=== PATIENT | male | born 1955 | race Caucasian/White ===

== ENCOUNTER 2016-08-21 11:47 | Inpatient (IN) ==
[2016-08-21] MEDS ORDERED: Ipratropium/Albuterol Neb 3 ML IH ONE (12:05)
[2016-08-21] MEDS ORDERED: methylPREDNISolone 125 MG/2 ML VIAL IVP ONE (12:05)
--- NOTE | 2016-08-21 12:05 | Emergency Department Note ---
Disposition Clinical Impression: Syncope, Obesity, Hypoxemia, Diabetes, COPD (chronic obstructive pulmonary disease), CAD (coronary artery disease), Abnormal EKG, Cardiac defibrillator in situ, HTN (hypertension), HLD (hyperlipidemia), Hypercapnic respiratory failure , Abnormal chest x-ray, Cerebrovascular disease, Elevated d-dimer, Fall, Syncope Disposition: Admitted As Inpatient Referrals: Heron Vincent Jr, MD [Primary Care Provider] - Forms: ED Satisfaction Letter General Adult HPI - General Chief complaint: ED Head Injury Stated complaint: Fall Time Seen by Provider: 08/21/16 11:54 Source: patient, EMS Limitations: no limitations - History of Present Illness HPI Narrative: 60-year-old male who brought in by EMS with concerns for blacking out. Reportedly the patient has had a cough and some shortness of breath over the last 3 days. His friend reports he thinks he has the flu. The patient has a history of COPD, he only wears oxygen at night does not wear oxygen on a regular basis in the day. He is known to be diabetic. There is no history of very high or low blood sugar reported. There is concern for shortness of breath as well as cough as well as syncope. The patient states he was in his house he was walking along a room then passed out that he was able to crawl to the bathroom evidently slipped in the bathroom on the floor all night. His friend came over today to see about taking him to the doctor to get him checked for the flu and found him on the ground. The patient reported he felt generally weak and was unable to get up. There is no history of unilateral weakness or numbness in the arms or legs or slurred speech. The patient describes generalized weakness. There is no history of back pain chest pain or abdominal pain no vomiting did have 1 episode of nonbloody diarrhea. The patient is not known to be anticoagulated. He reports he hit his head on the left side and has a headache. There is no history of convulsion. The patient has a pacer defibrillator and reports it did not go off although he does not recall the events completely. There is no history of fever. No lacerations. No neck pain. No acute paresis. There is no history of leg swelling or pain or coughing up blood or upper or lower extremity pain or coldness or blueness or weakness. On EMS arrival, he had an oxygen saturation of 56%. On arrival to the ED it was 78% on room air. Onset (ago): hour(s) Pain Scale: 0 - Related Data Home Medications Medication Instructions Recorded Confirmed Albuterol Sulfate [Ventolin Hfa] 2 puff IH BID PRN 06/03/16 06/03/16 Aspirin 81 mg PO DAILY 06/03/16 06/03/16 Budesonide/Formoterol 160/4.5 2 puff IH BIDR 06/03/16 06/03/16 [Symbicort 160/4.5] Calcium Carbonate [Calcium] 600 mg PO BID 06/03/16 06/03/16 Carbidopa/Levodopa [Carbidopa-Levo 1 each PO DAILY 06/03/16 06/03/16 25-100 mg Odt] Carvedilol [Coreg] 25 mg PO BID 06/03/16 06/03/16 Enalapril Maleate [Vasotec] 5 mg PO BID 06/03/16 06/03/16 Lovastatin 40 mg PO HS 06/03/16 06/03/16 Allergies Allergy/AdvReac Type Severity Reaction Status Date / Time Hydromorphone [From Dilaudid] AdvReac Hives Verified 06/03/16 08:58 All systems ED: reviewed and negative except as stated. Past Medical History - Past Medical History Medical history: Reports: COPD, coronary artery disease, CVA, diabetes, hyperlipidemia, hypertension Surgical history: Reports: herniorrhaphy, orthopedic, other, AICD Psychiatric history: Reports: depression - Social History Smoking Status: Never smoker Smokeless Tobacco Status: No Alcohol use: Reports: none Drug use: Reports: marijuana Physical Exam - General Limitations: no limitations General appearance: alert, in no apparent distress - Head Head exam: atraumatic, normocephalic, normal inspection, other (Pain left zoroastrianism area without depressed skull fracture negative. Negative hemo-and panel . Negative mckeon sign bilaterally.) - Eye Eye exam: Present: normal appearance, PERRL, EOMI. Absent: scleral icterus, conjunctival injection, miosis, mydriasis - ENT ENT exam: normal exam, normal oropharynx, mucous membranes moist, TM's normal bilaterally, normal external ear exam - Neck Neck exam: Present: normal inspection, full ROM, trachea midline. Absent: tenderness, meningismus - Chest Chest inspection: Present: normal inspection, symmetric chest wall rise. Absent : tenderness - Respiratory Respiratory exam: Present: wheezes, prolonged expiratory phase. Absent: respiratory distress - Cardiovascular Cardiovascular exam: Present: regular rate, normal rhythm, normal heart sounds - Abdominal Exam Abdominal exam: Present: soft, Non-Tender, normal bowel sounds. Absent: tenderness, distention, guarding, rebound, rigidity, trauma, pulsatile mass - Extremities Exam Extremities exam: Present: normal inspection, full ROM, normal capillary refill. Absent: tenderness, pedal edema, joint swelling, calf tenderness - Expanded Lower Extremity Exam Lower leg exam: Absent: Homans' sign Neurovascular/Tendon exam: Present: normal capillary refill. Absent: motor deficit, sensory deficit, tendon deficit, extremity cold to touch, pallor - Back Exam Back exam: Present: normal inspection, full ROM. Absent: tenderness, CVA tenderness (R), CVA tenderness (L), vertebral tenderness - Neurological Exam Neurological exam: Present: alert, oriented X3, CN II-XII intact. Absent: motor sensory deficit - Psychiatric Psychiatric exam: Present: normal affect, normal mood - Skin Skin exam: Present: warm, dry, intact, normal color. Absent: rash, cyanosis, diaphoresis, erythema, pallor, mottled Course Vital Signs Temperature 99.5 F 08/21/16 11:48 Pulse Rate 91 08/21/16 11:48 Respiratory Rate 16 08/21/16 11:48 Blood Pressure 121/75 08/21/16 11:48 O2 Sat by Pulse Oximetry 78 L 08/21/16 11:48 Temperature 99.5 F 08/21/16 11:48 Pulse Rate 70 08/21/16 14:45 Respiratory Rate 14 08/21/16 14:45 Blood Pressure 116/61 08/21/16 14:45 O2 Sat by Pulse Oximetry 100 08/21/16 14:30 Oxygen Delivery Oxygen Delivery Non Rebreather Mask Medical Decision Making - [facility] Narrative Medical decision making narrative: During his stay in emergency department the patient became progressively more confused and poorly responsive. An ABG was drawn which showed significant hypercarbia. The patient was intubated subsequently, lawn technician assisted as well as Dr. Machuca and his resident. The patient was intubated on second attempt with a Glidescope. Patient's chest x-ray demonstrates a lingular infiltrate possibly, he does have an elevated d-dimer, a CTA has been ordered to evaluate further for pulmonary embolus and/or infiltrates. IV access was established and [address] Levophed was initiated secondary to hypotension. RSI was achieved utilizing etomidate and rocuronium. Diprivan was also ordered. Levaquin was also ordered blood cultures were sent. EKG showed changes similar to previous EKG LBBB. I did review the case with the family and answered their questions to their satisfaction. The patient is being admitted to the ICU, the ICU attending was in the emergency department and did come to the bedside and has accepted the patient to his care. A central line is being placed by Dr. Morales. The patient's CT scan shows no acute disease however an MRI may be beneficial based on radiologist's comments recommendations. The patient does not evidence any major trauma. - Lab Data Lab results reviewed: Yes I reviewed the patient's lab results. Result diagrams: 08/21/16 12:49 08/21/16 12:49 Lab Results 08/21/16 08/21/16 08/21/16 Range/Units 12:49 12:49 12:49 WBC 8.1 (4.3-11.1) K/mcL RBC 4.16 L (4.19-5.50) M/mcL Hgb 12.7 L (12.9-16.9) g/dL Hct 40.6 (37.5-50.1) % MCV 97.6 (83.0-100.0) fL MCH 30.5 (28.0-33.3) pg MCHC 31.3 L (31.6-35.5) g/dL RDW 17.1 H (11.5-14.5) % Plt Count 160 (140-400) K/mcL MPV 10.8 (9.4-12.4) fL Immature Gran % 0.7 (0-4) % Seg Neutrophils % 69.9 % Lymphocytes % 20.6 % Monocytes % 8.6 % Eosinophils % 0.0 % Basophils % 0.2 % Neutrophils # 5.7 (1.6-8.9) K/mcL Lymphocytes # 1.7 (0.6-4.6) K/mcL Monocytes # 0.7 (0.0-1.3) K/mcL Eosinophils # 0.0 (0.0-0.6) K/mcL Basophils # 0.0 (0.0-0.2) K/mcL Nucleated RBCs/100 WBC 0.2 H (0) /100 WBC Platelet Estimate Normal (Normal) Immature Plt Fraction 5.3 (1.1-6.1) % PT 13.6 H (9.4-12.1) Seconds INR 1.3 APTT 31.6 (26.0-36.0) Seconds D-Dimer 964 H (0-500) ng/mLFEU ABG pH (7.32-7.45) pH Units ABG pCO2 (35-45) mmHg ABG pO2 (85-104) mmHg ABG HCO3 (21-27) mEQ/L ABG Total CO2 (20-26) mEq/L ABG O2 Saturation (95-98) % ABG Base Excess (-2.0 to 3.0) mEq/L Blood Gas Modality Inspired O2 % Sodium 139 (136-145) mEq/L Potassium 4.8 H (3.5-4.5) mEq/L Chloride 98 (98-109) mEq/L Carbon Dioxide 30 H (19-29) mEq/L BUN 20 (8-26) mg/dL Creatinine 1.00 (0.72-1.25) mg/dL Est GFR ( Amer) > 60 (> 60) Est GFR (Non-Af Amer) > 60 (> 60) BUN/Creatinine Ratio 20 (6-26) Glucose 132 H (70-99) mg/dL POC Glucose (58-89) Calculated Osmolality 292 (280-300) Lactic Acid (0.5-2.2) mmol/L Calcium 8.7 (8.6-10.8) mg/dL Total Bilirubin 0.8 (0.2-1.2) mg/dL Direct Bilirubin 0.4 (0.0-0.5) mg/dL Indirect Bilirubin 0.4 (0.0-1.2) mg/dL AST 23 (5-34) Units/L ALT 18 (0-55) Units/L Alkaline Phosphatase 64 (38-126) Units/L Creatine Kinase 295 H (30-200) Units/L Troponin I (0-0.03) ng/mL C-Reactive Protein 103 H (Less than 5) mg/L B-Natriuretic Peptide (0-100) pg/mL Serum Total Protein 7.7 (6.0-8.3) g/dL Albumin 3.4 L (3.5-5.0) g/dL Globulin 4.3 H (2.4-3.5) g/dL Albumin/Globulin Ratio 0.8 L (1.1-2.2) 08/21/16 08/21/16 08/21/16 Range/Units 12:49 12:49 12:49 WBC (4.3-11.1) K/mcL RBC (4.19-5.50) M/mcL Hgb (12.9-16.9) g/dL Hct (37.5-50.1) % MCV (83.0-100.0) fL MCH (28.0-33.3) pg MCHC (31.6-35.5) g/dL RDW (11.5-14.5) % Plt Count (140-400) K/mcL MPV (9.4-12.4) fL Immature Gran % (0-4) % Seg Neutrophils % % Lymphocytes % % Monocytes % % Eosinophils % % Basophils % % Neutrophils # (1.6-8.9) K/mcL Lymphocytes # (0.6-4.6) K/mcL Monocytes # (0.0-1.3) K/mcL Eosinophils # (0.0-0.6) K/mcL Basophils # (0.0-0.2) K/mcL Nucleated RBCs/100 WBC (0) /100 WBC Platelet Estimate (Normal) Immature Plt Fraction (1.1-6.1) % PT (9.4-12.1) Seconds INR APTT (26.0-36.0) Seconds D-Dimer (0-500) ng/mLFEU ABG pH (7.32-7.45) pH Units ABG pCO2 (35-45) mmHg ABG pO2 (85-104) mmHg ABG HCO3 (21-27) mEQ/L ABG Total CO2 (20-26) mEq/L ABG O2 Saturation (95-98) % ABG Base Excess (-2.0 to 3.0) mEq/L Blood Gas Modality Inspired O2 % Sodium (136-145) mEq/L Potassium (3.5-4.5) mEq/L Chloride (98-109) mEq/L Carbon Dioxide (19-29) mEq/L BUN (8-26) mg/dL Creatinine (0.72-1.25) mg/dL Est GFR ( Amer) (> 60) Est GFR (Non-Af Amer) (> 60) BUN/Creatinine Ratio (6-26) Glucose (70-99) mg/dL POC Glucose (58-89) Calculated Osmolality (280-300) Lactic Acid 0.9 (0.5-2.2) mmol/L Calcium (8.6-10.8) mg/dL Total Bilirubin (0.2-1.2) mg/dL Direct Bilirubin (0.0-0.5) mg/dL Indirect Bilirubin (0.0-1.2) mg/dL AST (5-34) Units/L ALT (0-55) Units/L Alkaline Phosphatase (38-126) Units/L Creatine Kinase (30-200) Units/L Troponin I 0.03 (0-0.03) ng/mL C-Reactive Protein (Less than 5) mg/L B-Natriuretic Peptide 308 H (0-100) pg/mL Serum Total Protein (6.0-8.3) g/dL Albumin (3.5-5.0) g/dL Globulin (2.4-3.5) g/dL Albumin/Globulin Ratio (1.1-2.2) 08/21/16 08/21/16 Range/Units 13:59 14:16 WBC (4.3-11.1) K/mcL RBC (4.19-5.50) M/mcL Hgb (12.9-16.9) g/dL Hct (37.5-50.1) % MCV (83.0-100.0) fL MCH (28.0-33.3) pg MCHC (31.6-35.5) g/dL RDW (11.5-14.5) % Plt Count (140-400) K/mcL MPV (9.4-12.4) fL Immature Gran % (0-4) % Seg Neutrophils % % Lymphocytes % % Monocytes % % Eosinophils % % Basophils % % Neutrophils # (1.6-8.9) K/mcL Lymphocytes # (0.6-4.6) K/mcL Monocytes # (0.0-1.3) K/mcL Eosinophils # (0.0-0.6) K/mcL Basophils # (0.0-0.2) K/mcL Nucleated RBCs/100 WBC (0) /100 WBC Platelet Estimate (Normal) Immature Plt Fraction (1.1-6.1) % PT (9.4-12.1) Seconds INR APTT (26.0-36.0) Seconds D-Dimer (0-500) ng/mLFEU ABG pH 7.09 L* (7.32-7.45) pH Units ABG pCO2 136 H* (35-45) mmHg ABG pO2 164 H (85-104) mmHg ABG HCO3 41.3 H (21-27) mEQ/L ABG Total CO2 45.5 H (20-26) mEq/L ABG O2 Saturation 99 H (95-98) % ABG Base Excess 6.9 H (-2.0 to 3.0) mEq/L Blood Gas Modality NRB Inspired O2 100 % Sodium (136-145) mEq/L Potassium (3.5-4.5) mEq/L Chloride (98-109) mEq/L Carbon Dioxide (19-29) mEq/L BUN (8-26) mg/dL Creatinine (0.72-1.25) mg/dL Est GFR ( Amer) (> 60) Est GFR (Non-Af Amer) (> 60) BUN/Creatinine Ratio (6-26) Glucose (70-99) mg/dL POC Glucose 144 H (58-89) Calculated Osmolality (280-300) Lactic Acid (0.5-2.2) mmol/L Calcium (8.6-10.8) mg/dL Total Bilirubin (0.2-1.2) mg/dL Direct Bilirubin (0.0-0.5) mg/dL Indirect Bilirubin (0.0-1.2) mg/dL AST (5-34) Units/L ALT (0-55) Units/L Alkaline Phosphatase (38-126) Units/L Creatine Kinase (30-200) Units/L Troponin I (0-0.03) ng/mL C-Reactive Protein (Less than 5) mg/L B-Natriuretic Peptide (0-100) pg/mL Serum Total Protein (6.0-8.3) g/dL Albumin (3.5-5.0) g/dL Globulin (2.4-3.5) g/dL Albumin/Globulin Ratio (1.1-2.2) - Radiology Data Radiology results reviewed: Yes I reviewed the patient's radiology results. Critical Care Time Critical Care Time: Yes Total Critical Care Time: 42 Attestation: 10 minutes initial bedside evaluation 10 minutes documenting the medical record 6 minutes secondary evaluation 6 minutes 3rd evaluation 5 minutes reviewing with the family 5 minutes discussing with the hospitalist and control panel builder and arranging for admission to the ICU.
[2016-08-21] MEDS ORDERED: *HR* Rocuronium Bromide 100 MG/10 ML VIAL IVC ONE (12:30)
[2016-08-21 13:01] LABS: Basophils % 0.2 %; Hematocrit 40.6 % (37.5-50.1); Hemoglobin 12.7 g/dL (12.9-16.9); Immature Granulocytes % 0.7 % (0-4); Immature Platelets 5.3 % (1.1-6.1); Lymphocytes # 1.7 K/mcL (0.6-4.6); Lymphocytes % 20.6 %; Mean Corpuscular HGB Conc 31.3 g/dL (31.6-35.5); Mean Corpuscular Hemoglobin 30.5 pg (28.0-33.3); Mean Corpuscular Volume 97.6 fL (83.0-100.0); Mean Platelet Volume 10.8 fL (9.4-12.4); Monocytes # 0.7 K/mcL (0.0-1.3); Monocytes % 8.6 %; Neutrophils # 5.7 K/mcL (1.6-8.9); Nucleated Red Blood Cells 0.2 /100 WBC (0); Platelet Count 160 K/mcL (140-400); Red Blood Count 4.16 M/mcL (4.19-5.50); Red Cell Distribution Width 17.1 % (11.5-14.5); Segmented Neutrophils % 69.9 %
[2016-08-21 13:05] LABS: INR 1.3; Prothrombin Time 13.6 Seconds (9.4-12.1)
[2016-08-21 13:08] LABS: Activated Partial Thrombo Time 31.6 Seconds (26.0-36.0)
[2016-08-21 13:17] LABS: Alanine Aminotransferase 18 Units/L (0-55); Albumin 3.4 g/dL (3.5-5.0); Albumin/Globulin Ratio 0.8 (1.1-2.2); Alkaline Phosphatase 64 Units/L (38-126); Aspartate Amino Transferase 23 Units/L (5-34); BUN/Creatinine Ratio 20 (6-26); Bilirubin,Direct 0.4 mg/dL (0.0-0.5); Bilirubin,Indirect 0.4 mg/dL (0.0-1.2); Bilirubin,Total 0.8 mg/dL (0.2-1.2); Blood Urea Nitrogen 20 mg/dL (8-26); Calcium 8.7 mg/dL (8.6-10.8); Carbon Dioxide 30 mEq/L (19-29); Chloride 98 mEq/L (98-109); Creatine Kinase 295 Units/L (30-200); Globulin 4.3 g/dL (2.4-3.5); Glucose 132 mg/dL (70-99); Osmolality,Calculated 292 (280-300); Potassium 4.8 mEq/L (3.5-4.5); Sodium 139 mEq/L (136-145); Total Protein 7.7 g/dL (6.0-8.3); eGFR For African Americans > 60 (> 60); eGFR For Non-African Americans > 60 (> 60)
[2016-08-21 13:21] LABS: Platelet Estimate Normal (Normal)
[2016-08-21 13:38] LABS: C-Reactive Protein 103 mg/L (Less than 5)
[2016-08-21] MEDS ORDERED: 0.9 % Sodium Chloride 1,000 ML ONE ×2 (13:57→14:21)
[2016-08-21] MEDS ORDERED: Levofloxacin 750 MG/150 ML 750 MG/150 ML BAG IVPB ONE (14:05)
[2016-08-21] MEDS ORDERED: Norepinephrine 4 MG in D5% in Water 250 ML IVC SCH (14:15)
[2016-08-21] MEDS ORDERED: *HR* Etomidate 20 MG/10 ML AMPUL IVP ONE (14:15)
[2016-08-21] MEDS ORDERED: *HR* Rocuronium Bromide 50 MG/5 ML VIAL IVP ONE (14:16)
[2016-08-21 14:26] LABS: ABG Base Excess 6.9 mEq/L (-2.0 to 3.0); ABG HCO3 41.3 mEQ/L (21-27); ABG Oxygen Saturation 99 % (95-98); ABG PO2 164 mmHg (85-104); ABG TCO2 45.5 mEq/L (20-26)
[2016-08-21 14:28] LABS: ABG PCO2 136 mmHg (35-45); ABG PH 7.09 pH Units (7.32-7.45)
[2016-08-21 14:30] LABS: Blood Gas FiO2 100 %
[2016-08-21] MEDS ORDERED: *HR* Norepinephrine 4 MG/4 ML VIAL IVC ONE (14:36)
[2016-08-21] MEDS: Propofol 500 MG/50 ML INFUS..BTL IVC SCH ×2 (14:43→17:28)
[2016-08-21 15:27] LABS: Bilirubin,Urine Small (Negative); Blood,Urine Negative (Negative); Clarity,Urine Clear (Clear); Color,Urine Dark Yellow (Yellow); Glucose,Urine (UA) Normal (Normal); Ketones,Urine Negative (Negative); Leukocyte Esterase,Urine Negative (Negative); Nitrite,Urine Negative (Negative); Protein,Urine 100 mg/dL (Neg-Trace); Specific Gravity,Urine 1.029 (1.010-1.025); Urobilinogen,Urine Normal (Normal)
[2016-08-21 15:30] LABS: Bacteria,Urine None Seen per hpf (None-Few); Squamous Epithelial Cell,Urine Many per lpf (None-Few)
[2016-08-21 15:47] LABS: Hyaline Casts,Urine None Seen per lpf (None-Few)
[2016-08-21 15:48] LABS: Granular Casts,Urine Few per lpf (None Seen)
--- NOTE | 2016-08-21 16:50 | Emergency Department Note ---
Disposition Clinical Impression: Obesity, Hypoxemia, Diabetes, COPD (chronic obstructive pulmonary disease), CAD (coronary artery disease), Abnormal EKG, Cardiac defibrillator in situ, HTN (hypertension), HLD (hyperlipidemia), Hypercapnic respiratory failure, Abnormal chest x-ray, Cerebrovascular disease, Elevated d-dimer Syncope Qualifiers: Syncope type: unspecified Qualified Code(s): R55 - Syncope and collapse Fall Qualifiers: Encounter type: initial encounter Qualified Code(s): W19.XXXA - Unspecified fall, initial encounter Disposition: Admitted As Inpatient General Adult HPI - General Chief complaint: ED Head Injury Stated complaint: Fall Time Seen by Provider: 08/21/16 11:54 Source: patient, EMS Limitations: no limitations - History of Present Illness Pain Scale: 0 - Related Data Home Medications Medication Instructions Recorded Confirmed Albuterol Sulfate [Ventolin Hfa] 2 puff IH BID PRN 06/03/16 08/21/16 Aspirin 81 mg PO DAILY 06/03/16 08/21/16 Budesonide/Formoterol 160/4.5 2 puff IH BIDR 06/03/16 08/21/16 [Symbicort 160/4.5] Calcium Carbonate [Calcium] 600 mg PO BID 06/03/16 08/21/16 Carbidopa/Levodopa [Carbidopa-Levo 1 tab PO DAILY 06/03/16 08/21/16 25-100 mg Odt] Carvedilol [Coreg] 25 mg PO BID 06/03/16 08/21/16 Enalapril Maleate [Vasotec] 5 mg PO BID 06/03/16 08/21/16 Lovastatin 40 mg PO HS 06/03/16 08/21/16 BuPROPion XL (24 HR) [Wellbutrin 150 mg PO QPM 08/21/16 08/21/16 XL] Bupropion HCl [Bupropion HCl Sr] 200 mg PO QAM 08/21/16 08/21/16 Testosterone [Androgel] 50 mg TD DAILY 08/21/16 08/21/16 Allergies Allergy/AdvReac Type Severity Reaction Status Date / Time Hydromorphone [From Dilaudid] Allergy Hives Verified 08/21/16 15:17 Past Medical History - Past Medical History Medical history: Reports: COPD, coronary artery disease, CVA, diabetes, hyperlipidemia, hypertension Surgical history: Reports: herniorrhaphy, orthopedic, other, AICD Psychiatric history: Reports: depression - Social History Smoking Status: Never smoker Smokeless Tobacco Status: No Alcohol use: Reports: none Drug use: Reports: marijuana Physical Exam - General Limitations: no limitations General appearance: alert, in no apparent distress Course Vital Signs Temperature 99.5 F 08/21/16 11:48 Pulse Rate 91 08/21/16 11:48 Respiratory Rate 16 08/21/16 11:48 Blood Pressure 121/75 08/21/16 11:48 O2 Sat by Pulse Oximetry 78 L 08/21/16 11:48 Temperature 101.5 F H 08/21/16 20:00 Pulse Rate 85 08/21/16 22:00 Respiratory Rate 14 08/21/16 22:00 Blood Pressure 101/54 08/21/16 22:00 O2 Sat by Pulse Oximetry 93 L 08/21/16 22:00 Oxygen Delivery Oxygen Delivery Ventilator Procedures - Central Line Placement Right IJ Central Line Inserted*: Yes Central Line Insertion: emergent Procedural Pause: verify patient name and date of , timeout performed per policy, assemble equipment and verify supplies, perform hand hygiene Patient Placed on Monitor/Pulse Ox: Yes During the Procedure: clinician is wearing sterile gloves, cap, mask,& gown during insertion, sterile field and sterile technique are maintained, patient's face is covered with drape or mask and wearing a cap, everyone in room is wearing a mask Central Line Prep: Chlorhexidine scrub Prep the Procedure Site: apply chloraprep to the skin using a back and forth scrubbing motion, apply chloraprep for 30 seconds (upper body), 1-2 min ( femoral sites), allow prep to dry, drape the patient with a full body drape Ultrasound Used for Placement: Yes Central Line Lumen Inserted: triple Post Procedure: sutured in place, good blood return, all ports aspirated, flushed, capped, sterile dressing applied, guide wire removed and visualized Post Procedure X-Ray: tip of catheter in good position, no pneumothorax seen Patient Tolerated Procedure: well Complications: none Name of Clinician Inserting Central Line: Ketan Morales D.O. Date: 08/21/16 Time: 16:20 Medical Decision Making - Lab Data Result diagrams: 08/21/16 12:49 08/21/16 12:49 Lab Results 08/21/16 08/21/16 08/21/16 Range/Units 12:49 12:49 12:49 WBC 8.1 (4.3-11.1) K/mcL RBC 4.16 L (4.19-5.50) M/mcL Hgb 12.7 L (12.9-16.9) g/dL Hct 40.6 (37.5-50.1) % MCV 97.6 (83.0-100.0) fL MCH 30.5 (28.0-33.3) pg MCHC 31.3 L (31.6-35.5) g/dL RDW 17.1 H (11.5-14.5) % Plt Count 160 (140-400) K/mcL MPV 10.8 (9.4-12.4) fL Immature Gran % 0.7 (0-4) % Seg Neutrophils % 69.9 % Lymphocytes % 20.6 % Monocytes % 8.6 % Eosinophils % 0.0 % Basophils % 0.2 % Neutrophils # 5.7 (1.6-8.9) K/mcL Lymphocytes # 1.7 (0.6-4.6) K/mcL Monocytes # 0.7 (0.0-1.3) K/mcL Eosinophils # 0.0 (0.0-0.6) K/mcL Basophils # 0.0 (0.0-0.2) K/mcL Nucleated RBCs/100 WBC 0.2 H (0) /100 WBC Platelet Estimate Normal (Normal) Immature Plt Fraction 5.3 (1.1-6.1) % PT 13.6 H (9.4-12.1) Seconds INR 1.3 APTT 31.6 (26.0-36.0) Seconds D-Dimer 964 H (0-500) ng/mLFEU ABG pH (7.32-7.45) pH Units ABG pCO2 (35-45) mmHg ABG pO2 (85-104) mmHg ABG HCO3 (21-27) mEQ/L ABG Total CO2 (20-26) mEq/L ABG O2 Saturation (95-98) % ABG Base Excess (-2.0 to 3.0) mEq/L Respiration Rate Blood Gas Modality Inspired O2 % Tidal Volume cc PEEP cm H2O Sodium 139 (136-145) mEq/L Potassium 4.8 H (3.5-4.5) mEq/L Chloride 98 (98-109) mEq/L Carbon Dioxide 30 H (19-29) mEq/L BUN 20 (8-26) mg/dL Creatinine 1.00 (0.72-1.25) mg/dL Est GFR ( Amer) > 60 (> 60) Est GFR (Non-Af Amer) > 60 (> 60) BUN/Creatinine Ratio 20 (6-26) Glucose 132 H (70-99) mg/dL POC Glucose (58-89) Calculated Osmolality 292 (280-300) Lactic Acid (0.5-2.2) mmol/L Calcium 8.7 (8.6-10.8) mg/dL Total Bilirubin 0.8 (0.2-1.2) mg/dL Direct Bilirubin 0.4 (0.0-0.5) mg/dL Indirect Bilirubin 0.4 (0.0-1.2) mg/dL AST 23 (5-34) Units/L ALT 18 (0-55) Units/L Alkaline Phosphatase 64 (38-126) Units/L Creatine Kinase 295 H (30-200) Units/L Troponin I (0-0.03) ng/mL C-Reactive Protein 103 H (Less than 5) mg/L B-Natriuretic Peptide (0-100) pg/mL Serum Total Protein 7.7 (6.0-8.3) g/dL Albumin 3.4 L (3.5-5.0) g/dL Globulin 4.3 H (2.4-3.5) g/dL Albumin/Globulin Ratio 0.8 L (1.1-2.2) Urine Color (Yellow) Urine Clarity (Clear) Urine pH (5.0-8.0) pH Units Ur Specific [place] (1.010-1.025) Urine Protein (Neg-Trace) mg/dL Urine Glucose (UA) (Normal) mg/dL Urine Ketones (Negative) mg/dL Urine Blood (Negative) Urine Nitrite (Negative) Urine Bilirubin (Negative) Urine Urobilinogen (Normal) mg/dL Ur Leukocyte Esterase (Negative) Urine Microscopic RBC (0-3) per hpf Urine Microscopic WBC (0-3) per hpf Ur Squamous Epith Cells (None-Few) per lpf Urine Bacteria (None-Few) per hpf Hyaline Casts (None-Few) per lpf Granular Casts (None Seen) per lpf Ur Culture Indicated? (NO) 08/21/16 08/21/16 08/21/16 Range/Units 12:49 12:49 12:49 WBC (4.3-11.1) K/mcL RBC (4.19-5.50) M/mcL Hgb (12.9-16.9) g/dL Hct (37.5-50.1) % MCV (83.0-100.0) fL MCH (28.0-33.3) pg MCHC (31.6-35.5) g/dL RDW (11.5-14.5) % Plt Count (140-400) K/mcL MPV (9.4-12.4) fL Immature Gran % (0-4) % Seg Neutrophils % % Lymphocytes % % Monocytes % % Eosinophils % % Basophils % % Neutrophils # (1.6-8.9) K/mcL Lymphocytes # (0.6-4.6) K/mcL Monocytes # (0.0-1.3) K/mcL Eosinophils # (0.0-0.6) K/mcL Basophils # (0.0-0.2) K/mcL Nucleated RBCs/100 WBC (0) /100 WBC Platelet Estimate (Normal) Immature Plt Fraction (1.1-6.1) % PT (9.4-12.1) Seconds INR APTT (26.0-36.0) Seconds D-Dimer (0-500) ng/mLFEU ABG pH (7.32-7.45) pH Units ABG pCO2 (35-45) mmHg ABG pO2 (85-104) mmHg ABG HCO3 (21-27) mEQ/L ABG Total CO2 (20-26) mEq/L ABG O2 Saturation (95-98) % ABG Base Excess (-2.0 to 3.0) mEq/L Respiration Rate Blood Gas Modality Inspired O2 % Tidal Volume cc PEEP cm H2O Sodium (136-145) mEq/L Potassium (3.5-4.5) mEq/L Chloride (98-109) mEq/L Carbon Dioxide (19-29) mEq/L BUN (8-26) mg/dL Creatinine (0.72-1.25) mg/dL Est GFR ( Amer) (> 60) Est GFR (Non-Af Amer) (> 60) BUN/Creatinine Ratio (6-26) Glucose (70-99) mg/dL POC Glucose (58-89) Calculated Osmolality (280-300) Lactic Acid 0.9 (0.5-2.2) mmol/L Calcium (8.6-10.8) mg/dL Total Bilirubin (0.2-1.2) mg/dL Direct Bilirubin (0.0-0.5) mg/dL Indirect Bilirubin (0.0-1.2) mg/dL AST (5-34) Units/L ALT (0-55) Units/L Alkaline Phosphatase (38-126) Units/L Creatine Kinase (30-200) Units/L Troponin I 0.03 (0-0.03) ng/mL C-Reactive Protein (Less than 5) mg/L B-Natriuretic Peptide 308 H (0-100) pg/mL Serum Total Protein (6.0-8.3) g/dL Albumin (3.5-5.0) g/dL Globulin (2.4-3.5) g/dL Albumin/Globulin Ratio (1.1-2.2) Urine Color (Yellow) Urine Clarity (Clear) Urine pH (5.0-8.0) pH Units Ur Specific [place] (1.010-1.025) Urine Protein (Neg-Trace) mg/dL Urine Glucose (UA) (Normal) mg/dL Urine Ketones (Negative) mg/dL Urine Blood (Negative) Urine Nitrite (Negative) Urine Bilirubin (Negative) Urine Urobilinogen (Normal) mg/dL Ur Leukocyte Esterase (Negative) Urine Microscopic RBC (0-3) per hpf Urine Microscopic WBC (0-3) per hpf Ur Squamous Epith Cells (None-Few) per lpf Urine Bacteria (None-Few) per hpf Hyaline Casts (None-Few) per lpf Granular Casts (None Seen) per lpf Ur Culture Indicated? (NO) 08/21/16 08/21/16 08/21/16 Range/Units 13:59 14:16 15:20 WBC (4.3-11.1) K/mcL RBC (4.19-5.50) M/mcL Hgb (12.9-16.9) g/dL Hct (37.5-50.1) % MCV (83.0-100.0) fL MCH (28.0-33.3) pg MCHC (31.6-35.5) g/dL RDW (11.5-14.5) % Plt Count (140-400) K/mcL MPV (9.4-12.4) fL Immature Gran % (0-4) % Seg Neutrophils % % Lymphocytes % % Monocytes % % Eosinophils % % Basophils % % Neutrophils # (1.6-8.9) K/mcL Lymphocytes # (0.6-4.6) K/mcL Monocytes # (0.0-1.3) K/mcL Eosinophils # (0.0-0.6) K/mcL Basophils # (0.0-0.2) K/mcL Nucleated RBCs/100 WBC (0) /100 WBC Platelet Estimate (Normal) Immature Plt Fraction (1.1-6.1) % PT (9.4-12.1) Seconds INR APTT (26.0-36.0) Seconds D-Dimer (0-500) ng/mLFEU ABG pH 7.09 L* (7.32-7.45) pH Units ABG pCO2 136 H* (35-45) mmHg ABG pO2 164 H (85-104) mmHg ABG HCO3 41.3 H (21-27) mEQ/L ABG Total CO2 45.5 H (20-26) mEq/L ABG O2 Saturation 99 H (95-98) % ABG Base Excess 6.9 H (-2.0 to 3.0) mEq/L Respiration Rate Blood Gas Modality NRB Inspired O2 100 % Tidal Volume cc PEEP cm H2O Sodium (136-145) mEq/L Potassium (3.5-4.5) mEq/L Chloride (98-109) mEq/L Carbon Dioxide (19-29) mEq/L BUN (8-26) mg/dL Creatinine (0.72-1.25) mg/dL Est GFR ( Amer) (> 60) Est GFR (Non-Af Amer) (> 60) BUN/Creatinine Ratio (6-26) Glucose (70-99) mg/dL POC Glucose 144 H (58-89) Calculated Osmolality (280-300) Lactic Acid (0.5-2.2) mmol/L Calcium (8.6-10.8) mg/dL Total Bilirubin (0.2-1.2) mg/dL Direct Bilirubin (0.0-0.5) mg/dL Indirect Bilirubin (0.0-1.2) mg/dL AST (5-34) Units/L ALT (0-55) Units/L Alkaline Phosphatase (38-126) Units/L Creatine Kinase (30-200) Units/L Troponin I (0-0.03) ng/mL C-Reactive Protein (Less than 5) mg/L B-Natriuretic Peptide (0-100) pg/mL Serum Total Protein (6.0-8.3) g/dL Albumin (3.5-5.0) g/dL Globulin (2.4-3.5) g/dL Albumin/Globulin Ratio (1.1-2.2) Urine Color Dark Yellow (Yellow) Urine Clarity Clear (Clear) Urine pH 6.0 (5.0-8.0) pH Units Ur Specific [place] 1.029 H (1.010-1.025) Urine Protein 100 H (Neg-Trace) mg/dL Urine Glucose (UA) Normal (Normal) mg/dL Urine Ketones Negative (Negative) mg/dL Urine Blood Negative (Negative) Urine Nitrite Negative (Negative) Urine Bilirubin Small H (Negative) Urine Urobilinogen Normal (Normal) mg/dL Ur Leukocyte Esterase Negative (Negative) Urine Microscopic RBC 3-5 H (0-3) per hpf Urine Microscopic WBC 3-5 H (0-3) per hpf Ur Squamous Epith Cells Many H (None-Few) per lpf Urine Bacteria None Seen (None-Few) per hpf Hyaline Casts None Seen (None-Few) per lpf Granular Casts Few H (None Seen) per lpf Ur Culture Indicated? NO (NO) 08/21/16 08/21/16 Range/Units 18:26 18:38 WBC (4.3-11.1) K/mcL RBC (4.19-5.50) M/mcL Hgb (12.9-16.9) g/dL Hct (37.5-50.1) % MCV (83.0-100.0) fL MCH (28.0-33.3) pg MCHC (31.6-35.5) g/dL RDW (11.5-14.5) % Plt Count (140-400) K/mcL MPV (9.4-12.4) fL Immature Gran % (0-4) % Seg Neutrophils % % Lymphocytes % % Monocytes % % Eosinophils % % Basophils % % Neutrophils # (1.6-8.9) K/mcL Lymphocytes # (0.6-4.6) K/mcL Monocytes # (0.0-1.3) K/mcL Eosinophils # (0.0-0.6) K/mcL Basophils # (0.0-0.2) K/mcL Nucleated RBCs/100 WBC (0) /100 WBC Platelet Estimate (Normal) Immature Plt Fraction (1.1-6.1) % PT (9.4-12.1) Seconds INR APTT (26.0-36.0) Seconds D-Dimer (0-500) ng/mLFEU ABG pH 7.20 L* (7.32-7.45) pH Units ABG pCO2 90 H* D (35-45) mmHg ABG pO2 199 H (85-104) mmHg ABG HCO3 35.2 H (21-27) mEQ/L ABG Total CO2 38.0 H (20-26) mEq/L ABG O2 Saturation 100 H (95-98) % ABG Base Excess 4.3 H (-2.0 to 3.0) mEq/L Respiration Rate 14 Blood Gas Modality ASSIST CONTROL Inspired O2 80 % Tidal Volume 500 cc PEEP 5 cm H2O Sodium (136-145) mEq/L Potassium (3.5-4.5) mEq/L Chloride (98-109) mEq/L Carbon Dioxide (19-29) mEq/L BUN (8-26) mg/dL Creatinine (0.72-1.25) mg/dL Est GFR ( Amer) (> 60) Est GFR (Non-Af Amer) (> 60) BUN/Creatinine Ratio (6-26) Glucose (70-99) mg/dL POC Glucose 214 H (58-89) Calculated Osmolality (280-300) Lactic Acid (0.5-2.2) mmol/L Calcium (8.6-10.8) mg/dL Total Bilirubin (0.2-1.2) mg/dL Direct Bilirubin (0.0-0.5) mg/dL Indirect Bilirubin (0.0-1.2) mg/dL AST (5-34) Units/L ALT (0-55) Units/L Alkaline Phosphatase (38-126) Units/L Creatine Kinase (30-200) Units/L Troponin I (0-0.03) ng/mL C-Reactive Protein (Less than 5) mg/L B-Natriuretic Peptide (0-100) pg/mL Serum Total Protein (6.0-8.3) g/dL Albumin (3.5-5.0) g/dL Globulin (2.4-3.5) g/dL Albumin/Globulin Ratio (1.1-2.2) Urine Color (Yellow) Urine Clarity (Clear) Urine pH (5.0-8.0) pH Units Ur Specific [place] (1.010-1.025) Urine Protein (Neg-Trace) mg/dL Urine Glucose (UA) (Normal) mg/dL Urine Ketones (Negative) mg/dL Urine Blood (Negative) Urine Nitrite (Negative) Urine Bilirubin (Negative) Urine Urobilinogen (Normal) mg/dL Ur Leukocyte Esterase (Negative) Urine Microscopic RBC (0-3) per hpf Urine Microscopic WBC (0-3) per hpf Ur Squamous Epith Cells (None-Few) per lpf Urine Bacteria (None-Few) per hpf Hyaline Casts (None-Few) per lpf Granular Casts (None Seen) per lpf Ur Culture Indicated? (NO)
[2016-08-21] MEDS ORDERED: Lacri-Lube 3.5 GM TUBE BOTH EYES PRN (18:39)
[2016-08-21] MEDS ORDERED: Dextrose Gel 15 GM PO PRN ×2 (18:57)
[2016-08-21] MEDS ORDERED: D5% in Water 1,000 ML IV PRN (18:57)
[2016-08-21] MEDS ORDERED: *HR* Dextrose 50 % in Water (Syg) 50 ML SYRINGE IVP PRN (18:57)
[2016-08-21 19:51] LABS: ABG Base Excess 4.3 mEq/L (-2.0 to 3.0); ABG HCO3 35.2 mEQ/L (21-27); ABG Oxygen Saturation 100 % (95-98); ABG PO2 199 mmHg (85-104); Blood Gas FiO2 80 %; Blood Gas Respiration Rate 14; Blood Gas VT 500 cc
[2016-08-21 19:52] LABS: Blood Gas PEEP 5 cm H2O
[2016-08-21 19:53] LABS: ABG PCO2 90 mmHg (35-45)
--- NOTE | 2016-08-21 20:09 | Pulmonology History & Physical ---
Date of Encounter: 08/21/16 Time of Encounter: 14:30 Assessment and Plan (1) Acute on chronic respiratory failure with hypoxia and hypercapnia Current visit: Yes Status: Acute I suspect this is secondary to his COPD exacerbation and patient was evaluated in ER. Patient needs to be compliant with treatment and need O2 use. Patient has been seen in the office and he had bronchoscopy in the past. Patient ventilator setting as been adjusted to help his condition and improve his ABG to close to normal. I suspect he is chronic CO2 retainer. History is very limited and when family available more reliable history can be taken. Critical care performed: Time is exclusive of separately billable procedures. Time includes: direct patient care, patient reassessment, coordination of patient care, interpretation of data (laboratory data, radiology data, and respiratory data), review of patient's medical records, medical consultation and documentation of patient care. Critical care time: 35 minutes (2) COPD with exacerbation Current visit: Yes Status: Acute Patient will be treated with systemic steroid, bronchodilator and antibiotics. (3) Cerebrovascular disease Current visit: Yes Status: Chronic Suspect his CT head findings is chronic changes, however if he still have problems after correcting his hypoxia and hypercapnia, then will need dedicated brain MRI and neurology consult. Patient to be on Aspirin. (4) Fall Current visit: Yes Status: Acute I suspect this is secondary to hypoxia and hypercapnia. There is no evidence of any trauma to head and spine. Qualifiers: Encounter type: initial encounter Qualified Code(s): W19.XXXA - Unspecified fall, initial encounter (5) Syncope Current visit: Yes Status: Acute I suspect this is hypoxia related, but due to his underlying cardiovascular disease, then will order limited echocardiogram Qualifiers: Syncope type: unspecified Qualified Code(s): R55 - Syncope and collapse History of Present Illness Chief complaint: Fall HPI: Mr. Cruz is a 60 year old male who brought to ER by EMS. This history is taken from the chart because patient not able to give any history, he is getting intubated when I saw patient. Family is not available at this time and history taken from ER physician and the chart. Reportedly the patient has had shortness of breath and cough over last 3 days. His friend he thinks he has flu. Patient has significant history of COPD and he wears oxygen at night and he is not compliant with his O2 during daytime. Patient has history of diabetes. Patient has told ER staff he was in his house and he was walking along a room then passed out and slipped in the bathroom on the floor all night. His friend found him on the ground. It is unknown if he has taken flu vaccine. Thee is no history of slurred speech. Patient has a pace maker defibrilator. There is no history of fever. Not sure about wheezing or hemoptysis. When EMS arrived, his oxygen saturation was 56%. Not sure about smoking and he was found hypercapnic and his condition deteriorated in ER that he needed to be intubated. Past Med Surg Social Fam HX - Past Medical History Medical history: COPD, coronary artery disease, CVA, diabetes, hyperlipidemia, hypertension Psychiatric history: depression - Past Surgical History Surgical History: herniorrhaphy, orthopedic, other, AICD - Social History Smoking Status: Never smoker Smokeless Tobacco Status: No Alcohol use: none Drug use: marijuana Medications and Allergies Albuterol Sulfate [Ventolin Hfa] 2 puff IH BID PRN 06/03/16 [History] Aspirin 81 mg PO DAILY 06/03/16 [History] Budesonide/Formoterol 160/4.5 [Symbicort 160/4.5] 2 puff IH BIDR 06/03/16 [ History] Calcium Carbonate [Calcium] 600 mg PO BID 06/03/16 [History] Carbidopa/Levodopa [Carbidopa-Levo 25-100 mg Odt] 1 tab PO DAILY 06/03/16 [ History] Carvedilol [Coreg] 25 mg PO BID 06/03/16 [History] Enalapril Maleate [Vasotec] 5 mg PO BID 06/03/16 [History] Lovastatin 40 mg PO HS 06/03/16 [History] BuPROPion XL (24 HR) [Wellbutrin XL] 150 mg PO QPM 08/21/16 [History] Bupropion HCl [Bupropion HCl Sr] 200 mg PO QAM 08/21/16 [History] Testosterone [Androgel] 50 mg TD DAILY 08/21/16 [History] Allergies Hydromorphone [From Dilaudid] Allergy (Verified 08/21/16 15:17) Hives ROS unobtainable: due to mental status (Not able to obtain) All Systems: A 10-system review of systems was performed and is negative for pertinent findings except as documented above in the HPI. Physical Examination Vital Signs: Vital Signs, Last 4 Hours Pulse Resp BP Pulse Ox 08/21/16 18:53 86 08/21/16 17:34 14 112/56 08/21/16 17:23 73 14 58/43 99 08/21/16 17:15 14 58/43 96 08/21/16 16:59 69 14 123/67 98 08/21/16 16:36 63 16 86/66 100 08/21/16 16:13 60 14 113/64 100 General appearance: comatose (when I saw him in the ER) Eyes: nonicteric ENT: oropharynx dry Neck: supple, no lymphadenopathy, no JVD Effort: other (patient was getting intubated and only shallow breathing) Inspection: hyperextended Auscultation: bilateral: diminished breath sounds Percussion: bilateral: not dull Cardiovascular: regular rate and rhythm Gastrointestinal: normoactive bowel sounds, soft Extremities: no cyanosis, other (feces on lower extremities) unable to assess due to mental status Results - Laboratory Findings CBC and BMP: 08/21/16 12:49 08/21/16 12:49 ABG ABG pH 7.20 pH Units (7.32-7.45) L* 08/21/16 18:38 ABG pCO2 90 mmHg (35-45) H* D 08/21/16 18:38 ABG pO2 199 mmHg (85-104) H 08/21/16 18:38 ABG O2 Saturation 100 % (95-98) H 08/21/16 18:38 PT/INR, D-dimer PT 13.6 Seconds (9.4-12.1) H 08/21/16 12:49 D-Dimer 964 ng/mLFEU (0-500) H 08/21/16 12:49 Abnormal lab findings: Abnormal lab results RBC 4.16 M/mcL (4.19-5.50) L 08/21/16 12:49 Hgb 12.7 g/dL (12.9-16.9) L 08/21/16 12:49 MCHC 31.3 g/dL (31.6-35.5) L 08/21/16 12:49 RDW 17.1 % (11.5-14.5) H 08/21/16 12:49 Nucleated RBCs/100 WBC 0.2 /100 WBC (0) H 08/21/16 12:49 PT 13.6 Seconds (9.4-12.1) H 08/21/16 12:49 D-Dimer 964 ng/mLFEU (0-500) H 08/21/16 12:49 ABG pH 7.20 pH Units (7.32-7.45) L* 08/21/16 18:38 ABG pCO2 90 mmHg (35-45) H* D 08/21/16 18:38 ABG pO2 199 mmHg (85-104) H 08/21/16 18:38 ABG HCO3 35.2 mEQ/L (21-27) H 08/21/16 18:38 ABG Total CO2 38.0 mEq/L (20-26) H 08/21/16 18:38 ABG O2 Saturation 100 % (95-98) H 08/21/16 18:38 ABG Base Excess 4.3 mEq/L (-2.0 to 3.0) H 08/21/16 18:38 Potassium 4.8 mEq/L (3.5-4.5) H 08/21/16 12:49 Carbon Dioxide 30 mEq/L (19-29) H 08/21/16 12:49 Glucose 132 mg/dL (70-99) H 08/21/16 12:49 POC Glucose 214 (58-89) H 08/21/16 18:26 Creatine Kinase 295 Units/L (30-200) H 08/21/16 12:49 C-Reactive Protein 103 mg/L (Less than 5) H 08/21/16 12:49 B-Natriuretic Peptide 308 pg/mL (0-100) H 08/21/16 12:49 Albumin 3.4 g/dL (3.5-5.0) L 08/21/16 12:49 Globulin 4.3 g/dL (2.4-3.5) H 08/21/16 12:49 Albumin/Globulin Ratio 0.8 (1.1-2.2) L 08/21/16 12:49 Ur Specific [place] 1.029 (1.010-1.025) H 08/21/16 15:20 Urine Protein 100 mg/dL (Neg-Trace) H 08/21/16 15:20 Urine Bilirubin Small (Negative) H 08/21/16 15:20 Urine Microscopic RBC 3-5 per hpf (0-3) H 08/21/16 15:20 Urine Microscopic WBC 3-5 per hpf (0-3) H 08/21/16 15:20 Ur Squamous Epith Cells Many per lpf (None-Few) H 08/21/16 15:20 Granular Casts Few per lpf (None Seen) H 08/21/16 15:20 - Diagnostic Findings Chest x-ray: report reviewed, image reviewed Additional studies: CT head and spine
[2016-08-21] MEDS: Azithromycin 250 MG TABLET PO SCH (20:20)
[2016-08-21] MEDS: FentaNYL (PF) 1,000 MCG in 0.9 % Sodium Chloride 80 ML IVC SCH (20:20)
[2016-08-21] MEDS: Chlorhexidine Rinse 15 ML MOUTHWASH MM SCH (20:21)
[2016-08-21] MEDS: *HR* Heparin 5,000 UNIT/ML VIAL SQ SCH (20:21)
[2016-08-21] MEDS: Insulin LISPRO 300 UNITS/3 ML VIAL SQ SCH (20:26)
[2016-08-21] MEDS: Budesonide/Formoterol 160/4.5 MDI IH SCH (20:34)
[2016-08-21] MEDS: Ipratropium/Albuterol Neb 3 ML IH SCH ×2 (20:34→23:27)
[2016-08-21] MEDS ORDERED: Naloxone 0.4 MG/ML INJ IVP PRN (20:35)
[2016-08-21] MEDS: Norepinephrine 4 MG in D5% in Water 250 ML IVC SCH (20:38)
[2016-08-21] MEDS ORDERED: Chlorhexidine Rinse 15 ML MOUTHWASH MM SCH (21:00)
[2016-08-21] MEDS: Lacri-Lube 3.5 GM TUBE BOTH EYES SCH (21:34)
[2016-08-21] MEDS: Ringers Solution, Lactated 1,000 ML IVC SCH (21:34)
[2016-08-22] MEDS: methylPREDNISolone 125 MG/2 ML VIAL IVP SCH ×4 (00:08→23:52)
[2016-08-22] MEDS: Lacri-Lube 3.5 GM TUBE BOTH EYES SCH ×7 (00:09→23:53)
[2016-08-22] MEDS: Insulin LISPRO 300 UNITS/3 ML VIAL SQ SCH ×7 (00:09→23:53)
[2016-08-22 03:44] LABS: Basophils % 0.2 %; Lymphocytes % 3.3 %
[2016-08-22 03:46] LABS: Basophils # 0.1 K/mcL (0.0-0.2); Hemoglobin 12.3 g/dL (12.9-16.9); Immature Granulocytes % 8.9 % (0-4); Mean Corpuscular HGB Conc 30.8 g/dL (31.6-35.5); Mean Corpuscular Hemoglobin 29.9 pg (28.0-33.3); Mean Corpuscular Volume 97.3 fL (83.0-100.0); Mean Platelet Volume 11.2 fL (9.4-12.4); Monocytes % 2.4 %; Neutrophils # 26.2 K/mcL (1.6-8.9); Nucleated Red Blood Cells 0.1 /100 WBC (0); Platelet Count 166 K/mcL (140-400); Red Blood Count 4.11 M/mcL (4.19-5.50); Red Cell Distribution Width 17.3 % (11.5-14.5); Segmented Neutrophils % 85.2 %
[2016-08-22 03:47] LABS: Monocytes # 0.7 K/mcL (0.0-1.3)
[2016-08-22] MEDS: Ipratropium/Albuterol Neb 3 ML IH SCH ×6 (03:56→23:46)
[2016-08-22 04:05] LABS: Alanine Aminotransferase 23 Units/L (0-55); Albumin/Globulin Ratio 0.8 (1.1-2.2); Alkaline Phosphatase 44 Units/L (38-126); Aspartate Amino Transferase 36 Units/L (5-34); BUN/Creatinine Ratio 20 (6-26); Bilirubin,Total 0.8 mg/dL (0.2-1.2); Blood Urea Nitrogen 26 mg/dL (8-26); Calcium 8.6 mg/dL (8.6-10.8); Carbon Dioxide 22 mEq/L (19-29); Chloride 102 mEq/L (98-109); Glucose 166 mg/dL (70-99); Osmolality,Calculated 291 (280-300); Potassium 4.8 mEq/L (3.5-4.5); Sodium 136 mEq/L (136-145); eGFR For African Americans > 60 (> 60); eGFR For Non-African Americans 55 (> 60)
--- NOTE | 2016-08-22 04:06 | Event Note ---
Date of Encounter: 08/22/16 Time of Encounter: 04:04 Patient's WBC count severely elevated at 30.7. Multifactorial etiology. Patient did receive IV steroids. Currently on Rocephin and azithromycin. He did have fever of 101.5 last night but has been having normal temperatures since then. Will recheck CBC and see which way WBC count is trending. If it continues to trend upwards, we will need to change and broaden antibiotic spectrum.
[2016-08-22 04:20] LABS: Platelet Estimate Normal (Normal)
[2016-08-22 05:19] LABS: ABG Base Excess 5.6 mEq/L (-2.0 to 3.0); ABG HCO3 31.6 mEQ/L (21-27); ABG Oxygen Saturation 98 % (95-98); ABG PCO2 51 mmHg (35-45); ABG PO2 99 mmHg (85-104); ABG TCO2 33.2 mEq/L (20-26)
[2016-08-22 05:24] LABS: Blood Gas FiO2 50 %; Blood Gas Respiration Rate 14; Blood Gas VT 550 cc
[2016-08-22] MEDS: *HR* Heparin 5,000 UNIT/ML VIAL SQ SCH ×3 (05:24→22:18)
[2016-08-22 05:25] LABS: Blood Gas PEEP 5 cm H2O
[2016-08-22] MEDS: Norepinephrine 4 MG in D5% in Water 250 ML IVC SCH ×2 (06:33→20:40)
[2016-08-22] MEDS: Ringers Solution, Lactated 1,000 ML IVC SCH ×2 (06:33→08:06)
--- NOTE | 2016-08-22 07:59 | Pulmonology Progress Note ---
<VineetEdy W - Last Filed: 08/22/16 12:42> Date of Encounter: 08/22/16 Objective PUL Vital signs: Last Vital Signs Temp 98.0 F 08/22/16 08:25 Pulse 60 08/22/16 06:00 Resp 14 08/22/16 08:12 BP 92/50 08/22/16 06:45 Pulse Ox 99 08/22/16 08:12 Ventilator Settings Ventilator Settings: Ventilator Settings, Last 8 Hours Ventilator Mode A/C Ventilator Mode A/C Ventilator Mode A/C Ventilator Mode A/C Ventilator Mode A/C Ventilator Mode A/C Ventilator Tidal Volume 550 Setting Ventilator Tidal Volume 550 Setting Ventilator Tidal Volume 550 Setting Ventilator Tidal Volume 550 Setting Ventilator Tidal Volume 550 Setting Ventilator Tidal Volume 550 Setting Ventilator Respiratory Rate 14 Setting Ventilator Respiratory Rate 14 Setting Ventilator Respiratory Rate 14 Setting Ventilator Respiratory Rate 14 Setting Ventilator Respiratory Rate 14 Setting Ventilator Respiratory Rate 14 Setting Actual Respiratory Rate 14 Actual Respiratory Rate 14 Actual Respiratory Rate 14 Actual Respiratory Rate 14 Actual Respiratory Rate 14 Positive End Expiratory 5 Pressure Positive End Expiratory 5 Pressure Positive End Expiratory 5 Pressure Positive End Expiratory 5 Pressure Positive End Expiratory 5 Pressure Positive End Expiratory 5 Pressure Peak Inspiratory Airway 35 Pressure Peak Inspiratory Airway 33 Pressure Peak Inspiratory Airway 37 Pressure Peak Inspiratory Airway 37 Pressure Peak Inspiratory Airway 33 Pressure Results - Laboratory Findings CBC and BMP: 08/22/16 08:24 08/22/16 03:11 ABG ABG pH 7.40 pH Units (7.32-7.45) 08/22/16 05:08 ABG pCO2 51 mmHg (35-45) H 08/22/16 05:08 ABG pO2 99 mmHg (85-104) 08/22/16 05:08 ABG O2 Saturation 98 % (95-98) 08/22/16 05:08 PT/INR, D-dimer PT 13.6 Seconds (9.4-12.1) H 08/21/16 12:49 D-Dimer 964 ng/mLFEU (0-500) H 08/21/16 12:49 Abnormal lab findings: Abnormal lab results WBC 30.7 K/mcL (4.3-11.1) H* D 08/22/16 03:11 RBC 4.11 M/mcL (4.19-5.50) L 08/22/16 03:11 Hgb 12.3 g/dL (12.9-16.9) L 08/22/16 03:11 MCHC 30.8 g/dL (31.6-35.5) L 08/22/16 03:11 RDW 17.3 % (11.5-14.5) H 08/22/16 03:11 Immature Gran % 8.9 % (0-4) H 08/22/16 03:11 Neutrophils # 26.2 K/mcL (1.6-8.9) H 08/22/16 03:11 Nucleated RBCs/100 WBC 0.1 /100 WBC (0) H 08/22/16 03:11 PT 13.6 Seconds (9.4-12.1) H 08/21/16 12:49 D-Dimer 964 ng/mLFEU (0-500) H 08/21/16 12:49 ABG pCO2 51 mmHg (35-45) H 08/22/16 05:08 ABG HCO3 31.6 mEQ/L (21-27) H 08/22/16 05:08 ABG Total CO2 33.2 mEq/L (20-26) H 08/22/16 05:08 ABG Base Excess 5.6 mEq/L (-2.0 to 3.0) H 08/22/16 05:08 Potassium 4.8 mEq/L (3.5-4.5) H 08/22/16 03:11 Creatinine 1.32 mg/dL (0.72-1.25) H 08/22/16 03:11 Est GFR (Non-Af Amer) 55 (> 60) L 08/22/16 03:11 Glucose 166 mg/dL (70-99) H 08/22/16 03:11 POC Glucose 178 (58-89) H 08/22/16 07:40 AST 36 Units/L (5-34) H 08/22/16 03:11 Creatine Kinase 295 Units/L (30-200) H 08/21/16 12:49 C-Reactive Protein 103 mg/L (Less than 5) H 08/21/16 12:49 B-Natriuretic Peptide 308 pg/mL (0-100) H 08/21/16 12:49 Albumin 3.0 g/dL (3.5-5.0) L 08/22/16 03:11 Globulin 4.0 g/dL (2.4-3.5) H 08/22/16 03:11 Albumin/Globulin Ratio 0.8 (1.1-2.2) L 08/22/16 03:11 Ur Specific [place] 1.029 (1.010-1.025) H 08/21/16 15:20 Urine Protein 100 mg/dL (Neg-Trace) H 08/21/16 15:20 Urine Bilirubin Small (Negative) H 08/21/16 15:20 Urine Microscopic RBC 3-5 per hpf (0-3) H 08/21/16 15:20 Urine Microscopic WBC 3-5 per hpf (0-3) H 08/21/16 15:20 Ur Squamous Epith Cells Many per lpf (None-Few) H 08/21/16 15:20 Granular Casts Few per lpf (None Seen) H 08/21/16 15:20 - Clinical Findings Intake & Output: Intake & Output 08/21/16 08/22/16 08/22/16 23:59 07:59 15:59 Intake Total 374 / 424.0 1454.3 / 1454.3 87.4 / 87.4 Output Total 450 / 950 550 / 550 500 / 500 Balance -76 / -526.0 904.3 / 904.3 -412.6 / -412.6 Weight 89 kg Consult Discharge Plan - Plan Referrals: Heron Vincent Jr, MD [Primary Care Provider] - - Attending Attestation I examined this patient and my medical decision-making was reviewed with the ROD FILLER/PA/Advanced Practice Nurse/Resident Physician. I agree with the documented findings, disposition and treatment plan as described except to the extent set forth below. I spent 35min of Critical Care time with this patient. It involved decision making of high complexity to assess, manipulate, and support vital organ system failure and/or to prevent further life threatening deterioration of the patient' s condition. The time involved in the performance of separately reportable procedures was not counted toward critical care time. Patient seen and examined at bedside Labs, radiology, chart personally reviewed. All lines examined without evidence of infection. Neuropsych: Admitted for Syncope likely s/t sepsis/COPD exacerbation; history of CVA in the past (left hemiplegia) Pulm: Intbuated sedated. Acute on chronic hypoxic/hypercapnic respiratory failure. TV dropped for chronic respiratory acidosis.. Treating for PNA and COPD exacerbation with BDs and steroids Cards: History of CAD with ICD. History of HFpEF. Distributive Shock on Levophed MAP goal 60. ECHO pending. Giving crystalloid challenge now. Recheck lactate. FEN-GI: NPO for now. cont PPi prophylaxis Renal: CHUCHO s/t hypotension cont to monitor. UOP s/p Fluids ID: Concern for CAP Cont Azithro/Ceftriaxone added Vanc for sig increase in CBC. Viral panel pending. Flui Swab (-) Heme/Onc: cont DVT prophylaxis Endo: Glucose monitored Integ/MSK: Skin Care per CODE: Full; Sister NEREIDA (Shahnaz) to be updated when she arrives. <LdSalvador berger Mariano - Last Filed: 08/22/16 16:14> Date of Encounter: 08/22/16 Time of Encounter: 07:58 Assessment and Plan (1) Cerebrovascular disease Current Visit: Yes Status: Chronic Patient has history of prior CVA, baseline mental status is unknown at this time. Head CT was collected after patient had a fall at home. Head injury at that time unknown. Head CT performed during admission demonstrated no acute intracranial hemorrhage or mass. Localized focus of low attenuation with encephalomalacia involving the right frontoparietal lobes. Most consistent with chronic infarct. Cannot rule out acute ischemic event. Chronic paranasal sinusitis. (2) Acute on chronic respiratory failure with hypoxia and hypercapnia Current Visit: Yes Status: Acute Patient presented with acute respiratory failure emergency department with oxygen saturations around 56%. Patient was intubated with original blood gas demonstrating respiratory acidosis. Patient was transferred to the ICU for continued management. Conservative factors are include severe COPD history, noncompliance with daytime oxygen. ABG demonstrated pH 7.40, PCO2 51, PO2 99, bicarbonate 31.6. Improved compared to yesterday's blood gas. Mechanical ventilator settings: Tidal volume 550,F: 14, PEEP 5, FiO2 50% Drips fentanyl 40, propofol 10mcg, Levophed 3mcg Suspected source left lower lobe consolidation, suspicious for pneumonia superimposed on COPD. Plan: - Antibiotics continued include azithromycin, ceftriaxone. - Continue Solu-Medrol 60 mg IV every 8 hours. - Patient continues to require mechanical ventilation. Wean as tolerated. - Respiratory support includes dual nebs, Symbicort. (3) Left lower lobe pneumonia Current Visit: Yes Status: Acute Chest x-ray demonstrates left lower lobe consolidation, patient presented acute respiratory failure with baseline COPD, fever 101.5, WBCs 30.7, tachypnea. Plan: - Antibiotic coverage includes vancomycin, Zosyn, Levaquin - Respiratory coverage as listed above. Qualifiers: Qualified Code(s): J18.1 - Lobar pneumonia, unspecified organism (4) COPD (chronic obstructive pulmonary disease) Current Visit: Yes Status: Acute Patient is a history of severe COPD, last pulmonology appointment May 2016. Suspected patient has not been compliant with daily home oxygen. Former smoker. Likely contributing to the patient's current condition. Plan: - Continue respiratory coverage as listed above. Qualifiers: COPD type: COPD with acute lower respiratory infection Qualified Code(s): J44.0 - Chronic obstructive pulmonary disease with acute lower respiratory infection (5) CAD (coronary artery disease) Current Visit: Yes Status: Acute History of coronary artery disease with previous CABG and AICD placement. Current cardiac coverage on hold with intubation and severe sepsis. Last echocardiogram from September 2014 demonstrates EF 45-50%, mild diastolic dysfunction, mild pulmonary hypertension. Echocardiogram completed this morning results pending. Plan: - Echocardiogram ordered with results pending. - Restart beta kala, statin, aspirin when patient is in stable condition and tolerating medication. Qualifiers: Qualified Code(s): I25.10 - Atherosclerotic heart disease of [place] coronary artery without angina pectoris (6) HTN (hypertension) Current Visit: Yes Status: Acute Patient with history of hypertension. Blood pressures have been low requiring vasopressor support. Continue to hold all antihypertensives. 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 Patient is currently on Solu-Medrol 60 mg IV every 8 hours. Current GI coverage is Protonix 40 IV. Plan: - Continue Protonix 40 mg IV daily. Qualifiers: Qualified Code(s): K29.70 - Gastritis, unspecified, without bleeding (8) Acute kidney injury (nontraumatic) Current Visit: Yes Status: Acute Creatinine 1.32 elevated from yesterday. Likely secondary to hypotension. Patient's blood pressures are currently stable. Plan: - 500 mL bolus. - Continue to monitor with daily labs. - Continue to monitor strict ins and outs. (9) Severe sepsis Current Visit: Yes Status: Acute Patient meets severe sepsis with hypotension. Patient was admitted with acute respiratory failure consolidation localize the lower left lung. Patient has been hypotensive requiring vasopressor support, leukocytosis 30.7, fever 101.5, tachypnea upon admission. Endorgan involvement includes CHUCHO. Plan: - Antibiotics include vancomycin, Levaquin, Zosyn - IV fluids have been running at LR 100 mL's per hour, 500 mL bolus given. - Blood cultures collected with results pending. - Respiratory infectious panel collected and pending. - Lactic acid ordered with results pending. (10) Leukocytosis (leucocytosis) Current Visit: Yes Status: Acute Leukocytosis with WBC 30.7 up from 8.1 yesterday. Likely secondary to respiratory infection but cannot rule out other causes at this time. Urinalysis has been negative. Plan: - Patient is currently treated with broad-spectrum antibiotics for respiratory infection, continue to monitor daily. Qualifiers: Qualified Code(s): D72.829 - Elevated white blood cell count, unspecified (11) Diabetes Current Visit: Yes Status: Acute Qualifiers: Qualified Code(s): E11.9 - Type 2 diabetes mellitus without complications (12) DVT prophylaxis Current Visit: Yes Status: Acute Subcutaneous heparin every 8 hours. Subjective Principal diagnosis: Acute respiratory failure Interval history: Mr. Cruz has been seen and evaluated patient bedside this morning. He is intubated and sedated and does not appear to be in any acute distress. There been no significant events overnight. He did have a leukocytosis of 30 and a repeat of 31 which is up from his 8.1 at admission. He does require vasopressor support to maintain adequate blood pressures and a map greater than 60. He is tolerating weaning at this time. There are concerns about patient's compliance with respiratory therapy at home. Patient continues to be in guarded condition. Objective PUL Vital signs: Last Vital Signs Temp 97.4 F L 08/22/16 04:00 Pulse 60 08/22/16 06:00 Resp 14 08/22/16 06:45 BP 92/50 08/22/16 06:45 Pulse Ox 98 08/22/16 06:45 Gen. well-developed, well-nourished, intubated and sedated. HEENT: Normocephalic, atraumatic, pupils are constricted but equal bilateral, ET tube and O G-tube in place. Neck is supple trachea midline no palpable lymphadenopathy. Respiratory: Diffuse inspiratory and expiratory wheeze, bronchial rhonchi consistent with ET tube, lower left lung field demonstrates rhonchi. Respiratory effort correlates with mechanical ventilation. Thoracic cavity was inspected with a old sternotomy scar and left AICD scar. AICD palpated in the left upper thorax. Cardiac: Regular rate and rhythm. No murmurs appreciated. Abdominal: Abdomen distended, nontender to palpation, hypoactive bowel sounds. Genitalia: Normal adult male genitalia without erythema, edema. [place] catheter in place. Extremities: Symmetric bilateral with trace edema in the bilateral lower extremities. Posterior tibial pulses 2+ symmetrically. Ventilator Settings Ventilator Settings: Ventilator Settings, Last 8 Hours Ventilator Mode A/C Ventilator Mode A/C Ventilator Mode A/C Ventilator Mode A/C Ventilator Mode A/C Ventilator Mode A/C Ventilator Tidal Volume 550 Setting Ventilator Tidal Volume 550 Setting Ventilator Tidal Volume 550 Setting Ventilator Tidal Volume 550 Setting Ventilator Tidal Volume 550 Setting Ventilator Tidal Volume 550 Setting Ventilator Respiratory Rate 14 Setting Ventilator Respiratory Rate 14 Setting Ventilator Respiratory Rate 14 Setting Ventilator Respiratory Rate 14 Setting Ventilator Respiratory Rate 14 Setting Ventilator Respiratory Rate 14 Setting Actual Respiratory Rate 14 Actual Respiratory Rate 14 Actual Respiratory Rate 14 Actual Respiratory Rate 14 Actual Respiratory Rate 14 Positive End Expiratory 5 Pressure Positive End Expiratory 5 Pressure Positive End Expiratory 5 Pressure Positive End Expiratory 5 Pressure Positive End Expiratory 5 Pressure Positive End Expiratory 5 Pressure Peak Inspiratory Airway 33 Pressure Peak Inspiratory Airway 37 Pressure Peak Inspiratory Airway 37 Pressure Peak Inspiratory Airway 33 Pressure Peak Inspiratory Airway 37 Pressure Results - Laboratory Findings CBC and BMP: 08/22/16 08:24 08/22/16 03:11 ABG ABG pH 7.40 pH Units (7.32-7.45) 08/22/16 05:08 ABG pCO2 51 mmHg (35-45) H 08/22/16 05:08 ABG pO2 99 mmHg (85-104) 08/22/16 05:08 ABG O2 Saturation 98 % (95-98) 08/22/16 05:08 PT/INR, D-dimer PT 13.6 Seconds (9.4-12.1) H 08/21/16 12:49 D-Dimer 964 ng/mLFEU (0-500) H 08/21/16 12:49 Abnormal lab findings: Abnormal lab results WBC 30.7 K/mcL (4.3-11.1) H* D 08/22/16 03:11 RBC 4.11 M/mcL (4.19-5.50) L 08/22/16 03:11 Hgb 12.3 g/dL (12.9-16.9) L 08/22/16 03:11 MCHC 30.8 g/dL (31.6-35.5) L 08/22/16 03:11 RDW 17.3 % (11.5-14.5) H 08/22/16 03:11 Immature Gran % 8.9 % (0-4) H 08/22/16 03:11 Neutrophils # 26.2 K/mcL (1.6-8.9) H 08/22/16 03:11 Nucleated RBCs/100 WBC 0.1 /100 WBC (0) H 08/22/16 03:11 PT 13.6 Seconds (9.4-12.1) H 08/21/16 12:49 D-Dimer 964 ng/mLFEU (0-500) H 08/21/16 12:49 ABG pCO2 51 mmHg (35-45) H 08/22/16 05:08 ABG HCO3 31.6 mEQ/L (21-27) H 08/22/16 05:08 ABG Total CO2 33.2 mEq/L (20-26) H 08/22/16 05:08 ABG Base Excess 5.6 mEq/L (-2.0 to 3.0) H 08/22/16 05:08 Potassium 4.8 mEq/L (3.5-4.5) H 08/22/16 03:11 Creatinine 1.32 mg/dL (0.72-1.25) H 08/22/16 03:11 Est GFR (Non-Af Amer) 55 (> 60) L 08/22/16 03:11 Glucose 166 mg/dL (70-99) H 08/22/16 03:11 POC Glucose 178 (58-89) H 08/22/16 07:40 AST 36 Units/L (5-34) H 08/22/16 03:11 Creatine Kinase 295 Units/L (30-200) H 08/21/16 12:49 C-Reactive Protein 103 mg/L (Less than 5) H 08/21/16 12:49 B-Natriuretic Peptide 308 pg/mL (0-100) H 08/21/16 12:49 Albumin 3.0 g/dL (3.5-5.0) L 08/22/16 03:11 Globulin 4.0 g/dL (2.4-3.5) H 08/22/16 03:11 Albumin/Globulin Ratio 0.8 (1.1-2.2) L 08/22/16 03:11 Ur Specific [place] 1.029 (1.010-1.025) H 08/21/16 15:20 Urine Protein 100 mg/dL (Neg-Trace) H 08/21/16 15:20 Urine Bilirubin Small (Negative) H 08/21/16 15:20 Urine Microscopic RBC 3-5 per hpf (0-3) H 08/21/16 15:20 Urine Microscopic WBC 3-5 per hpf (0-3) H 08/21/16 15:20 Ur Squamous Epith Cells Many per lpf (None-Few) H 08/21/16 15:20 Granular Casts Few per lpf (None Seen) H 08/21/16 15:20 - Clinical Findings Intake & Output: Intake & Output 08/21/16 08/21/16 08/22/16 15:59 23:59 07:59 Intake Total 374 / 424.0 454.3 / 454.3 Output Total 450 / 950 550 / 550 Balance -76 / -526.0 -95.7 / -95.7 Weight 89 kg
[2016-08-22] MEDS ORDERED: Vancomycin 1,250 MG in D5% in Water 250 ML IVPB SCH (08:00)
[2016-08-22] MEDS: Azithromycin 250 MG TABLET PO SCH (08:06)
[2016-08-22] MEDS: Chlorhexidine Rinse 15 ML MOUTHWASH MM SCH ×2 (08:06→20:43)
[2016-08-22] MEDS: Pantoprazole 40 MG VIAL IVP SCH (08:06)
[2016-08-22] MEDS: Budesonide/Formoterol 160/4.5 MDI IH SCH ×2 (08:11→19:35)
[2016-08-22 08:44] LABS: Hemoglobin 11.7 g/dL (12.9-16.9); Red Cell Distribution Width 17.3 % (11.5-14.5)
[2016-08-22 08:45] LABS: Hematocrit 35.7 % (37.5-50.1); Mean Corpuscular HGB Conc 32.8 g/dL (31.6-35.5); Mean Corpuscular Hemoglobin 31.2 pg (28.0-33.3); Mean Corpuscular Volume 95.2 fL (83.0-100.0); Platelet Count 145 K/mcL (140-400); Red Blood Count 3.75 M/mcL (4.19-5.50)
[2016-08-22] MEDS ORDERED: Levofloxacin 750 MG/150 ML 750 MG/150 ML BAG IVPB SCH (10:00)
[2016-08-22] MEDS ORDERED: Vancomycin 1,750 MG in D5% in Water 500 ML IVPB SCH (10:00)
[2016-08-22] MEDS: Vancomycin 1,500 MG in D5% in Water 250 ML IVPB SCH ×2 (10:52→22:17)
[2016-08-22] MEDS ORDERED: 0.9 % Sodium Chloride 500 ML IVC ONE (11:25)
[2016-08-22] MEDS: FentaNYL (PF) 1,000 MCG in 0.9 % Sodium Chloride 80 ML IVC SCH ×2 (12:16→18:57)
[2016-08-22 12:58] LABS: Adenovirus Not Detected (Not Detect); Bordetella Pertussis Not Detected (Not Detect); Chlamydophila pneumoniae Not Detected (Not Detect); Coronavirus 229E Not Detected (Not Detect); Coronavirus HKU1 Not Detected (Not Detect); Coronavirus NL63 Not Detected (Not Detect); Coronavirus OC43 Not Detected (Not Detect); Human Metapneumovirus ***DETECTED*** (Not Detect); Human Rhinovirus/Enterovirus Not Detected (Not Detect); Influenza A Subtype 2009 H1 Not Detected (Not Detect); Influenza A Untypeable Not Detected (Not Detect); Influenza B Not Detected (Not Detect); Mycoplasma pneumoniae Not Detected (Not Detect); Parainfluenza Virus 1 Not Detected (Not Detect); Parainfluenza Virus 2 Not Detected (Not Detect); Parainfluenza Virus 3 Not Detected (Not Detect); Parainfluenza Virus 4 Not Detected (Not Detect); Respiratory Syncytial Virus Not Detected (Not Detect)
[2016-08-22] MEDS: Azithromycin 500 MG in D5% in Water 250 ML IVPB SCH (14:44)
--- NOTE | 2016-08-22 14:57 | ECHO - Doppler Report ---
Limited Echocardiogram Name: Williams Cruz Date of Study: 08/22/2016 Date: 1955 Ht: 69.0 in Medical Record#: [id number] Age: 60 Wt: 196.0 lb Gender: Male BSA: 2.05 Order #: [id number] Location: [facility] Room #: IC11 Reading Physician: Kristal Aquino DO Paving Rammer: Ami Mac RDCS, RVT Ordering Physician: Kenneth Prajapati MD Primary Physician: Heron Vincent MD Indications: Syncope, Coronary artery disease Impressions: Technically challenging study with suboptimal imaging. Visually, LV systolic function appears mild to moderately reduced but cannot be well evaluated. Recommend repeat study with Def[place]. Left Ventricular Wall Motion: Rest Echo Findings The apex, apical inferior, mid inferior, basal inferior, apical anterior, mid anterior, basal anterior, apical septal and apical lateral [place] were hypokinetic. The mid inferior septal and basal inferior septal [place] were akinetic. The mid anterior lateral, basal anterior lateral, mid anterior septal, mid inferior lateral, basal anterior septal and basal inferior lateral roth[place] were not visualized. Findings: Study Quality * Technically sub-optimal due to clinical status. Patient supine and intubated. ECG Findings * Normal sinus rhythm. Left Ventricle * Unable to evaluate segmental wall motion due to technical quality. * LV systolic function appears mildly reduced. History Hypertension Diabetes Hypercholesteremia Years 44 Packs 1 Family History of CAD History of CAD/PTCA Coronary Artery Bypass Graft 09-18-2014 a Previous Echo was performed. Measurements: BP: 101/ 53 2D Normal Values IVSd: .70 cm 0.6 - 1.0 cm LVIDd: 4.50 cm 3.7 - 5.6 cm LVPWd: .80 cm 0.6 - 1.1 cm LVIDs: 3.80 cm 1.5 - 3.6 cm %FS: 15.60 cm >25 % LA volume: Updated by Kristal Aquino on 08/22/2016 2:49:51 PM electronically signed on 08/22/2016 2:51:33 PM with status of Final Wall Motion Rae: 1=Normal, 2=Hypokinesis, 3=Akinesis, 4=Dyskinesis, 5=Aneurysmal, 6=Hyperkinetic, X=Not Visualized (Blank)=Missing
[2016-08-22] MEDS ORDERED: D5% in Lactated Ringers 500 ML IVC ONE (16:07)
[2016-08-22] MEDS ORDERED: Ringers Solution, Lactated 500 ML IVC ONE (16:33)
--- NOTE | 2016-08-22 16:53 | Electrocardiograph Report ---
[address] [address] Test Date: 2016-08-21 Pat Name: Williams Cruz Department: 104 Room: 11 Gender: M Chair: : 1955 Requested By: Rj Duarte Order Number: [id number] Reading MD: J Carlos García Measurements Intervals [place] Rate: 89 P: 67 FL: 171 QRS: 26 QRSD: 140 T: 119 QT: 362 QTc: 409 Interpretive Statements SINUS RHYTHM POSSIBLE LEFT ATRIAL ENLARGEMENT LEFT BUNDLE BRANCH BLOCK Electronically Signed On 08-22-2016 16:52:37 EST by J Carlos García
[2016-08-22] MEDS ORDERED: Ringers Solution, Lactated 1,000 ML ONE (16:55)
[2016-08-22] MEDS ORDERED: Piperacillin/Tazobactam 3.375 GM in D5% in Water (Mini-Bag+) 100 ML IVPB SCH (18:00)
[2016-08-23] MEDS: Ipratropium/Albuterol Neb 3 ML IH SCH ×5 (03:06→20:40)
[2016-08-23 03:56] LABS: Hemoglobin 10.6 g/dL (12.9-16.9)
[2016-08-23 03:57] LABS: Mean Corpuscular HGB Conc 32.1 g/dL (31.6-35.5); Mean Corpuscular Hemoglobin 31.1 pg (28.0-33.3); Mean Corpuscular Volume 96.8 fL (83.0-100.0); Mean Platelet Volume 11.9 fL (9.4-12.4); Platelet Count 140 K/mcL (140-400); Red Blood Count 3.41 M/mcL (4.19-5.50); Red Cell Distribution Width 17.5 % (11.5-14.5)
[2016-08-23] MEDS: Lacri-Lube 3.5 GM TUBE BOTH EYES SCH ×2 (04:02→08:25)
[2016-08-23] MEDS: Insulin LISPRO 300 UNITS/3 ML VIAL SQ SCH ×6 (04:02→23:58)
[2016-08-23 04:05] LABS: Alanine Aminotransferase 19 Units/L (0-55); Albumin/Globulin Ratio 0.6 (1.1-2.2); Alkaline Phosphatase 43 Units/L (38-126); Aspartate Amino Transferase 23 Units/L (5-34); BUN/Creatinine Ratio 16 (6-26); Bilirubin,Total 0.4 mg/dL (0.2-1.2); Blood Urea Nitrogen 19 mg/dL (8-26); Calcium 8.3 mg/dL (8.6-10.8); Carbon Dioxide 30 mEq/L (19-29); Chloride 103 mEq/L (98-109); Globulin 3.9 g/dL (2.4-3.5); Glucose 147 mg/dL (70-99); Osmolality,Calculated 297 (280-300); Potassium 4.8 mEq/L (3.5-4.5); Sodium 141 mEq/L (136-145); Total Protein 6.2 g/dL (6.0-8.3); eGFR For African Americans > 60 (> 60); eGFR For Non-African Americans > 60 (> 60)
[2016-08-23 04:11] LABS: Albumin 2.3 g/dL (3.5-5.0)
[2016-08-23 04:11] LABS: ABG Base Excess 8.6 mEq/L (-2.0 to 3.0); ABG HCO3 35.5 mEQ/L (21-27); ABG Oxygen Saturation 95 % (95-98); ABG PCO2 60 mmHg (35-45); ABG PH 7.38 pH Units (7.32-7.45); ABG PO2 80 mmHg (85-104); ABG TCO2 37.3 mEq/L (20-26)
[2016-08-23 04:13] LABS: Blood Gas FiO2 40 %; Blood Gas Respiration Rate 14
[2016-08-23 04:14] LABS: Blood Gas PEEP 5 cm H2O; Blood Gas VT 450 cc
[2016-08-23 04:47] LABS: Lymphocytes # 1.5 K/mcL (0.6-4.6); Monocytes # 0.5 K/mcL (0.0-1.3); Neutrophils # 22.8 K/mcL (1.6-8.9); Platelet Estimate Normal (Normal)
[2016-08-23] MEDS: *HR* Heparin 5,000 UNIT/ML VIAL SQ SCH ×3 (05:44→22:15)
--- NOTE | 2016-08-23 07:00 | Pulmonology Progress Note ---
<Salvador Herrera - Last Filed: 08/23/16 11:17> Date of Encounter: 08/23/16 Time of Encounter: 07:00 Assessment and Plan (1) Cerebrovascular disease Current Visit: Yes Status: Chronic Patient has history of prior CVA, baseline mental status is unknown at this time. Head CT was collected after patient had a fall at home. Head injury at that time unknown. Head CT performed during admission demonstrated no acute intracranial hemorrhage or mass. Localized focus of low attenuation with encephalomalacia involving the right frontoparietal lobes. Most consistent with chronic infarct. Cannot rule out acute ischemic event. Chronic paranasal sinusitis. (2) Acute on chronic respiratory failure with hypoxia and hypercapnia Current Visit: Yes Status: Acute Patient presented with acute respiratory failure emergency department with oxygen saturations around 56%. Patient was intubated with original blood gas demonstrating respiratory acidosis. Patient was transferred to the ICU for continued management. Contributing factors are include severe COPD history, noncompliance with daytime oxygen. Respiratory infectious panel was positive for human metapneumovirus. Suspected source left lower lobe consolidation, suspicious for pneumonia superimposed on COPD. Suspect bacterial etiology superimposed on original viral infection. Plan: - Antibiotics continued include Vancomycin, azithromycin, ceftriaxone. - Discontinued Solu-Medrol 60 mg IV every 8 hours. - Start PO Prednisone 40mg Daily, Patient will need 2 week prednisone marcel. - Patient tolerated CPAP trial and extubated successfully - Remove BiPAP at noon today to see how he tolerates. - Respiratory support includes dual nebs, Symbicort. (3) Left lower lobe pneumonia Current Visit: Yes Status: Acute Chest x-ray demonstrates left lower lobe consolidation that is progressed compared to yesterdays chest x-ray, patient presented acute respiratory failure with baseline COPD, fever 101.5, WBCs 30.7, tachypnea. Plan: - Antibiotic coverage includes vancomycin, Zosyn, Levaquin - Respiratory coverage as listed above. - Plan to de-escalate antibiotics tomorrow if he continues to improve. Qualifiers: Qualified Code(s): J18.1 - Lobar pneumonia, unspecified organism (4) COPD (chronic obstructive pulmonary disease) Current Visit: Yes Status: Acute Patient is a history of severe COPD, last pulmonology appointment May 2016. Suspected patient has not been compliant with daily home oxygen. Former smoker. Likely contributing to the patient's current condition. Plan: - Continue respiratory coverage as listed above. Qualifiers: COPD type: COPD with acute lower respiratory infection Qualified Code(s): J44.0 - Chronic obstructive pulmonary disease with acute lower respiratory infection (5) CAD (coronary artery disease) Current Visit: Yes Status: Acute History of coronary artery disease with previous CABG and AICD placement. Current cardiac coverage on hold with intubation and severe sepsis. Last echocardiogram from September 2014 demonstrates EF 45-50%, mild diastolic dysfunction, mild pulmonary hypertension. Echocardiogram completed this morning results pending. Echocardiogram completed yesterday was a suboptimal imaging study and recommended to redone. Plan: - Restart beta kala, statin, aspirin when patient is in stable condition and tolerating medication. Qualifiers: Qualified Code(s): I25.10 - Atherosclerotic heart disease of three affiliated coronary artery without angina pectoris (6) HTN (hypertension) Current Visit: Yes Status: Acute Patient with history of hypertension. Patient is currently off vasopressor support, with stable blood pressures. Continue to hold antihypertensives. 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 Patient is currently on Solu-Medrol 60 mg IV every 8 hours. Current GI coverage is Protonix 40 IV. Plan: - Continue Protonix 40 mg IV daily. Qualifiers: Qualified Code(s): K29.70 - Gastritis, unspecified, without bleeding (8) Acute kidney injury (nontraumatic) Current Visit: Yes Status: Acute Creatinine 1.21 decreased from yesterday. elevation Likely secondary to hypotension and sepsis. Patient's blood pressures are currently stable. Plan: - Continue to monitor with daily labs. - Continue to monitor strict ins and outs. (9) Severe sepsis Current Visit: Yes Status: Acute Patient meets severe sepsis with hypotension. Patient was admitted with acute respiratory failure consolidation localize the lower left lung. Patient has been hypotensive requiring vasopressor support, leukocytosis 30.7, fever 101.5, tachypnea upon admission. End organ involvement includes CHUCHO and elevated lactate. Improving. Patient is currently off vasopressor support, extubated and tolerating BiPAP. WBCs are 25 today, has neutrophils 56, renal function improving. Respiratory infectious panel demonstrated human metapneumovirus. Plan: - Antibiotics include vancomycin, azithromycin and ceftriaxone - IV fluids have been running at LR 100 mL's per hour plan to discontinue today if blood pressures continue to be stable. - Blood cultures collected with results pending. - Lactic acid ordered to be added on to a.m. labs. (10) Leukocytosis (leucocytosis) Current Visit: Yes Status: Acute Leukocytosis with banded neutrophils improving today. Beta neutrophils 56, white blood cell count down from 30 to 25. Plan: - Patient is currently treated with broad-spectrum antibiotics for respiratory infection, continue to monitor daily. Qualifiers: Qualified Code(s): D72.829 - Elevated white blood cell count, unspecified (11) Diabetes Current Visit: Yes Status: Acute Glucose is stable. Patient currently on medium dose sliding scale. will change to before meals at bedtime glucose checks. Qualifiers: Qualified Code(s): E11.9 - Type 2 diabetes mellitus without complications (12) DVT prophylaxis Current Visit: Yes Status: Acute Subcutaneous heparin every 8 hours. Subjective Principal diagnosis: Acute respiratory failure Interval history: Mr. Cruz has been seen and evaluated patient bedside this morning. He signaled that he would like the ET tube out and shakes his head no to any pain. Family is currently not at bedside but were present last evening. There have been no significant events overnight. Objective PUL Vital signs: Last Vital Signs Temp 97.1 F L 08/23/16 03:57 Pulse 60 08/23/16 05:48 Resp 22 08/23/16 06:09 BP 92/53 08/23/16 05:48 Pulse Ox 97 08/23/16 06:09 Gen. well-developed, well-nourished, intubated and sedated. HEENT: Normocephalic, atraumatic, pupils are constricted but equal bilateral, ET tube and O G-tube in place. Neck is supple trachea midline no palpable lymphadenopathy. Respiratory: Diffuse ronchi appreciated in all lung romero. Patient demonstrates nonlabored breathing pattern. Thoracic cavity was inspected with a old sternotomy scar and left AICD scar. AICD palpated in the left upper thorax. Cardiac: Regular rate and rhythm. No murmurs appreciated. Abdominal: Abdomen distended, nontender to palpation, hypoactive bowel sounds. Genitalia: Normal adult male genitalia without erythema, edema. [place] catheter in place. Extremities: Symmetric bilateral with trace edema in the bilateral lower extremities. Posterior tibial pulses 2+ symmetrically. Ventilator Settings Ventilator Settings: Ventilator Settings, Last 8 Hours Ventilator Mode CPAP Ventilator Mode A/C Ventilator Mode A/C Ventilator Mode A/C Ventilator Mode A/C Ventilator Mode A/C Ventilator Mode A/C Ventilator Mode A/C Ventilator Tidal Volume 450 Setting Ventilator Tidal Volume 450 Setting Ventilator Tidal Volume 450 Setting Ventilator Tidal Volume 450 Setting Ventilator Tidal Volume 450 Setting Ventilator Tidal Volume 450 Setting Ventilator Tidal Volume 450 Setting Ventilator Respiratory Rate 14 Setting Ventilator Respiratory Rate 14 Setting Ventilator Respiratory Rate 14 Setting Ventilator Respiratory Rate 14 Setting Ventilator Respiratory Rate 14 Setting Ventilator Respiratory Rate 14 Setting Ventilator Respiratory Rate 14 Setting Actual Respiratory Rate 23 Actual Respiratory Rate 14 Actual Respiratory Rate 14 Actual Respiratory Rate 14 Actual Respiratory Rate 14 Actual Respiratory Rate 14 Actual Respiratory Rate 14 Positive End Expiratory 5 Pressure Positive End Expiratory 5 Pressure Positive End Expiratory 5 Pressure Positive End Expiratory 5 Pressure Positive End Expiratory 5 Pressure Positive End Expiratory 5 Pressure Positive End Expiratory 5 Pressure Positive End Expiratory 5 Pressure Peak Inspiratory Airway 16 Pressure Peak Inspiratory Airway 35 Pressure Peak Inspiratory Airway 36 Pressure Peak Inspiratory Airway 37 Pressure Peak Inspiratory Airway 33 Pressure Peak Inspiratory Airway 29 Pressure Peak Inspiratory Airway 32 Pressure Results - Laboratory Findings CBC and BMP: 08/23/16 03:40 08/23/16 03:40 ABG ABG pH 7.38 pH Units (7.32-7.45) 08/23/16 04:00 ABG pCO2 60 mmHg (35-45) H 08/23/16 04:00 ABG pO2 80 mmHg (85-104) L 08/23/16 04:00 ABG O2 Saturation 95 % (95-98) 08/23/16 04:00 PT/INR, D-dimer PT 13.6 Seconds (9.4-12.1) H 08/21/16 12:49 D-Dimer 964 ng/mLFEU (0-500) H 08/21/16 12:49 Abnormal lab findings: Abnormal lab results WBC 25.3 K/mcL (4.3-11.1) H 08/23/16 03:40 RBC 3.41 M/mcL (4.19-5.50) L 08/23/16 03:40 Hgb 10.6 g/dL (12.9-16.9) L 08/23/16 03:40 Hct 33.0 % (37.5-50.1) L 08/23/16 03:40 RDW 17.5 % (11.5-14.5) H 08/23/16 03:40 Immature Gran % 8.9 % (0-4) H 08/22/16 03:11 Band Neutrophils % 56.0 % (0-4) H 08/23/16 03:40 Metamyelocytes % 2.0 % (0) H 08/23/16 03:40 Neutrophils # 22.8 K/mcL (1.6-8.9) H 08/23/16 03:40 Nucleated RBCs/100 WBC 0.1 /100 WBC (0) H 08/22/16 03:11 PT 13.6 Seconds (9.4-12.1) H 08/21/16 12:49 D-Dimer 964 ng/mLFEU (0-500) H 08/21/16 12:49 ABG pCO2 60 mmHg (35-45) H 08/23/16 04:00 ABG pO2 80 mmHg (85-104) L 08/23/16 04:00 ABG HCO3 35.5 mEQ/L (21-27) H 08/23/16 04:00 ABG Total CO2 37.3 mEq/L (20-26) H 08/23/16 04:00 ABG Base Excess 8.6 mEq/L (-2.0 to 3.0) H 08/23/16 04:00 Potassium 4.8 mEq/L (3.5-4.5) H 08/23/16 03:40 Carbon Dioxide 30 mEq/L (19-29) H 08/23/16 03:40 Glucose 147 mg/dL (70-99) H 08/23/16 03:40 POC Glucose 138 (58-89) H 08/23/16 03:55 Lactic Acid 2.4 mmol/L (0.5-2.2) H 08/22/16 12:15 Calcium 8.3 mg/dL (8.6-10.8) L 08/23/16 03:40 Creatine Kinase 295 Units/L (30-200) H 08/21/16 12:49 C-Reactive Protein 103 mg/L (Less than 5) H 08/21/16 12:49 B-Natriuretic Peptide 308 pg/mL (0-100) H 08/21/16 12:49 Albumin 2.3 g/dL (3.5-5.0) L D 08/23/16 03:40 Globulin 3.9 g/dL (2.4-3.5) H 08/23/16 03:40 Albumin/Globulin Ratio 0.6 (1.1-2.2) L 08/23/16 03:40 Ur Specific Strang 1.029 (1.010-1.025) H 08/21/16 15:20 Urine Protein 100 mg/dL (Neg-Trace) H 08/21/16 15:20 Urine Bilirubin Small (Negative) H 08/21/16 15:20 Urine Microscopic RBC 3-5 per hpf (0-3) H 08/21/16 15:20 Urine Microscopic WBC 3-5 per hpf (0-3) H 08/21/16 15:20 Ur Squamous Epith Cells Many per lpf (None-Few) H 08/21/16 15:20 Granular Casts Few per lpf (None Seen) H 08/21/16 15:20 Human Metapneumovirus DETECTED (Not Detect) A 08/22/16 11:32 - Microbiology Findings Microbiology Findings: Microbiology, Last 48 Hours 08/22/16 13:10 Sputum Culture - Preliminary Sputum - Clinical Findings Intake & Output: Intake & Output 08/22/16 08/22/16 08/23/16 15:59 23:59 07:59 Intake Total 1445.6 / 1445.6 721.0 / 721.0 419.1 / 419.1 Output Total 700 / 700 1125 / 1125 650 / 650 Balance 745.6 / 745.6 -404.0 / -404.0 -230.9 / -230.9 Weight 91.3 kg Consult Discharge Plan - Plan Referrals: Heron Vincent Jr, MD [Primary Care Provider] - <Edy Manley W - Last Filed: 08/23/16 12:14> Date of Encounter: 08/23/16 Objective PUL Vital signs: Last Vital Signs Temp 97.8 F 08/23/16 08:03 Pulse 60 08/23/16 08:00 Resp 23 08/23/16 08:00 BP 103/61 08/23/16 08:00 Pulse Ox 94 L 08/23/16 08:00 Ventilator Settings Ventilator Settings: Ventilator Settings, Last 8 Hours Ventilator Mode CPAP Ventilator Mode CPAP Ventilator Mode CPAP Ventilator Mode A/C Ventilator Mode A/C Ventilator Mode A/C Ventilator Mode A/C Ventilator Mode A/C Ventilator Tidal Volume 450 Setting Ventilator Tidal Volume 450 Setting Ventilator Tidal Volume 450 Setting Ventilator Tidal Volume 450 Setting Ventilator Tidal Volume 450 Setting Ventilator Tidal Volume 450 Setting Ventilator Respiratory Rate 14 Setting Ventilator Respiratory Rate 14 Setting Ventilator Respiratory Rate 14 Setting Ventilator Respiratory Rate 14 Setting Ventilator Respiratory Rate 14 Setting Actual Respiratory Rate 23 Actual Respiratory Rate 21 Actual Respiratory Rate 23 Actual Respiratory Rate 14 Actual Respiratory Rate 14 Actual Respiratory Rate 14 Actual Respiratory Rate 14 Positive End Expiratory 5 Pressure Positive End Expiratory 5 Pressure Positive End Expiratory 5 Pressure Positive End Expiratory 5 Pressure Positive End Expiratory 5 Pressure Positive End Expiratory 5 Pressure Positive End Expiratory 5 Pressure Positive End Expiratory 5 Pressure Peak Inspiratory Airway 11 Pressure Peak Inspiratory Airway 14 Pressure Peak Inspiratory Airway 16 Pressure Peak Inspiratory Airway 35 Pressure Peak Inspiratory Airway 36 Pressure Peak Inspiratory Airway 37 Pressure Peak Inspiratory Airway 33 Pressure Results - Laboratory Findings CBC and BMP: 08/23/16 03:40 08/23/16 03:40 ABG ABG pH 7.38 pH Units (7.32-7.45) 08/23/16 04:00 ABG pCO2 60 mmHg (35-45) H 08/23/16 04:00 ABG pO2 80 mmHg (85-104) L 08/23/16 04:00 ABG O2 Saturation 95 % (95-98) 08/23/16 04:00 PT/INR, D-dimer PT 13.6 Seconds (9.4-12.1) H 08/21/16 12:49 D-Dimer 964 ng/mLFEU (0-500) H 08/21/16 12:49 Abnormal lab findings: Abnormal lab results WBC 25.3 K/mcL (4.3-11.1) H 08/23/16 03:40 RBC 3.41 M/mcL (4.19-5.50) L 08/23/16 03:40 Hgb 10.6 g/dL (12.9-16.9) L 08/23/16 03:40 Hct 33.0 % (37.5-50.1) L 08/23/16 03:40 RDW 17.5 % (11.5-14.5) H 08/23/16 03:40 Immature Gran % 8.9 % (0-4) H 08/22/16 03:11 Band Neutrophils % 56.0 % (0-4) H 08/23/16 03:40 Metamyelocytes % 2.0 % (0) H 08/23/16 03:40 Neutrophils # 22.8 K/mcL (1.6-8.9) H 08/23/16 03:40 Nucleated RBCs/100 WBC 0.1 /100 WBC (0) H 08/22/16 03:11 PT 13.6 Seconds (9.4-12.1) H 08/21/16 12:49 D-Dimer 964 ng/mLFEU (0-500) H 08/21/16 12:49 ABG pCO2 60 mmHg (35-45) H 08/23/16 04:00 ABG pO2 80 mmHg (85-104) L 08/23/16 04:00 ABG HCO3 35.5 mEQ/L (21-27) H 08/23/16 04:00 ABG Total CO2 37.3 mEq/L (20-26) H 08/23/16 04:00 ABG Base Excess 8.6 mEq/L (-2.0 to 3.0) H 08/23/16 04:00 Potassium 4.8 mEq/L (3.5-4.5) H 08/23/16 03:40 Carbon Dioxide 30 mEq/L (19-29) H 08/23/16 03:40 Glucose 147 mg/dL (70-99) H 08/23/16 03:40 POC Glucose 133 (58-89) H 08/23/16 07:50 Lactic Acid 2.4 mmol/L (0.5-2.2) H 08/22/16 12:15 Calcium 8.3 mg/dL (8.6-10.8) L 08/23/16 03:40 Creatine Kinase 295 Units/L (30-200) H 08/21/16 12:49 C-Reactive Protein 103 mg/L (Less than 5) H 08/21/16 12:49 B-Natriuretic Peptide 308 pg/mL (0-100) H 08/21/16 12:49 Albumin 2.3 g/dL (3.5-5.0) L D 08/23/16 03:40 Globulin 3.9 g/dL (2.4-3.5) H 08/23/16 03:40 Albumin/Globulin Ratio 0.6 (1.1-2.2) L 08/23/16 03:40 Ur Specific Strang 1.029 (1.010-1.025) H 08/21/16 15:20 Urine Protein 100 mg/dL (Neg-Trace) H 08/21/16 15:20 Urine Bilirubin Small (Negative) H 08/21/16 15:20 Urine Microscopic RBC 3-5 per hpf (0-3) H 08/21/16 15:20 Urine Microscopic WBC 3-5 per hpf (0-3) H 08/21/16 15:20 Ur Squamous Epith Cells Many per lpf (None-Few) H 08/21/16 15:20 Granular Casts Few per lpf (None Seen) H 08/21/16 15:20 Human Metapneumovirus DETECTED (Not Detect) A 08/22/16 11:32 - Microbiology Findings Microbiology Findings: Microbiology, Last 48 Hours 08/22/16 13:10 Sputum Culture - Preliminary Sputum - Clinical Findings Intake & Output: Intake & Output 08/22/16 08/23/16 08/23/16 23:59 07:59 15:59 Intake Total 721.0 / 721.0 419.1 / 419.1 Output Total 1125 / 1125 650 / 650 150 / 150 Balance -404.0 / -404.0 -230.9 / -230.9 -150 / -150 Weight 91.3 kg - Attending Attestation I examined this patient and my medical decision-making was reviewed with the INVENTORY ACCOUNTANT/PA/Advanced Practice Nurse/Resident Physician. I agree with the documented findings, disposition and treatment plan as described except to the extent set forth below. Patient seen and examined at bedside Labs, radiology, chart personally reviewed. All lines examined without evidence of infection. Neuropsych: Awake follows commands no new focal deficits Pulm: Extubated to Bilevel PAP. Cont BDs transition to enteral steroids. Cont ABx for PNA possibly superimposed with viral LRTI Cards: History of CAD with ICD. History of HFpEF. Distributive Shock Resolved FEN-GI: NPO for now. cont PPi prophylaxis Renal: CHUCHO improving f/u UOP ID: Concern for CAP Cont Azithro/Ceftriaxone added Vanc for sig increase in CBC. Viral panel + for Metapneumovirus supportive care Heme/Onc: cont DVT prophylaxis Endo: Glucose monitored Integ/MSK: Skin Care per ICU Protocool CODE: Full;
[2016-08-23] MEDS: Budesonide/Formoterol 160/4.5 MDI IH SCH ×2 (07:25→20:41)
[2016-08-23] MEDS: Pantoprazole 40 MG VIAL IVP SCH (07:56)
[2016-08-23] MEDS: Chlorhexidine Rinse 15 ML MOUTHWASH MM SCH (07:57)
[2016-08-23] MEDS: methylPREDNISolone 125 MG/2 ML VIAL IVP SCH (07:57)
[2016-08-23] MEDS ORDERED: Aminoglycoside Consult 1 EACH MC ONE (08:03)
[2016-08-23] MEDS: Vancomycin 1,500 MG in D5% in Water 250 ML IVPB SCH ×2 (11:23→23:48)
[2016-08-23] MEDS: predniSONE 20 MG TABLET PO SCH (11:24)
[2016-08-23] MEDS: Azithromycin 500 MG in D5% in Water 250 ML IVPB SCH (14:27)
[2016-08-24] MEDS: Ipratropium/Albuterol Neb 3 ML IH SCH ×6 (00:31→20:57)
[2016-08-24] MEDS: Insulin LISPRO 300 UNITS/3 ML VIAL SQ SCH ×5 (04:38→21:56)
[2016-08-24 04:55] LABS: Basophils % 0.1 %; Hematocrit 33.1 % (37.5-50.1); Hemoglobin 10.6 g/dL (12.9-16.9); Immature Granulocytes % 4.4 % (0-4); Lymphocytes # 0.9 K/mcL (0.6-4.6); Lymphocytes % 4.4 %; Mean Corpuscular Hemoglobin 30.8 pg (28.0-33.3); Mean Corpuscular Volume 96.2 fL (83.0-100.0); Mean Platelet Volume 11.3 fL (9.4-12.4); Monocytes # 0.5 K/mcL (0.0-1.3); Monocytes % 2.3 %; Neutrophils # 18.1 K/mcL (1.6-8.9); Nucleated Red Blood Cells 0.1 /100 WBC (0); Platelet Count 165 K/mcL (140-400); Red Blood Count 3.44 M/mcL (4.19-5.50); Red Cell Distribution Width 17.8 % (11.5-14.5); Segmented Neutrophils % 88.8 %
[2016-08-24 05:10] LABS: Alanine Aminotransferase 22 Units/L (0-55); Albumin 2.4 g/dL (3.5-5.0); Albumin/Globulin Ratio 0.6 (1.1-2.2); Alkaline Phosphatase 48 Units/L (38-126); Aspartate Amino Transferase 19 Units/L (5-34); BUN/Creatinine Ratio 25 (6-26); Bilirubin,Total 0.3 mg/dL (0.2-1.2); Blood Urea Nitrogen 29 mg/dL (8-26); Calcium 8.5 mg/dL (8.6-10.8); Carbon Dioxide 32 mEq/L (19-29); Chloride 103 mEq/L (98-109); Globulin 3.9 g/dL (2.4-3.5); Glucose 168 mg/dL (70-99); Osmolality,Calculated 304 (280-300); Potassium 4.8 mEq/L (3.5-4.5); Sodium 142 mEq/L (136-145); Total Protein 6.3 g/dL (6.0-8.3); eGFR For African Americans > 60 (> 60); eGFR For Non-African Americans > 60 (> 60)
[2016-08-24] MEDS: *HR* Heparin 5,000 UNIT/ML VIAL SQ SCH ×4 (05:22→21:51)
--- NOTE | 2016-08-24 07:14 | Pulmonology Progress Note ---
<VineetEdy W - Last Filed: 08/24/16 12:22> Date of Encounter: 08/24/16 Objective PUL Vital signs: Last Vital Signs Temp 97.4 F L 08/24/16 08:22 Pulse 60 08/24/16 09:00 Resp 16 08/24/16 09:00 BP 111/54 08/24/16 09:00 Pulse Ox 96 08/24/16 09:00 Results - Laboratory Findings CBC and BMP: 08/24/16 04:35 08/24/16 04:35 ABG ABG pH 7.38 pH Units (7.32-7.45) 08/23/16 04:00 ABG pCO2 60 mmHg (35-45) H 08/23/16 04:00 ABG pO2 80 mmHg (85-104) L 08/23/16 04:00 ABG O2 Saturation 95 % (95-98) 08/23/16 04:00 PT/INR, D-dimer PT 13.6 Seconds (9.4-12.1) H 08/21/16 12:49 D-Dimer 964 ng/mLFEU (0-500) H 08/21/16 12:49 Abnormal lab findings: Abnormal lab results WBC 20.4 K/mcL (4.3-11.1) H 08/24/16 04:35 RBC 3.44 M/mcL (4.19-5.50) L 08/24/16 04:35 Hgb 10.6 g/dL (12.9-16.9) L 08/24/16 04:35 Hct 33.1 % (37.5-50.1) L 08/24/16 04:35 RDW 17.8 % (11.5-14.5) H 08/24/16 04:35 Immature Gran % 4.4 % (0-4) H 08/24/16 04:35 Band Neutrophils % 56.0 % (0-4) H 08/23/16 03:40 Metamyelocytes % 2.0 % (0) H 08/23/16 03:40 Neutrophils # 18.1 K/mcL (1.6-8.9) H 08/24/16 04:35 Nucleated RBCs/100 WBC 0.1 /100 WBC (0) H 08/24/16 04:35 PT 13.6 Seconds (9.4-12.1) H 08/21/16 12:49 D-Dimer 964 ng/mLFEU (0-500) H 08/21/16 12:49 ABG pCO2 60 mmHg (35-45) H 08/23/16 04:00 ABG pO2 80 mmHg (85-104) L 08/23/16 04:00 ABG HCO3 35.5 mEQ/L (21-27) H 08/23/16 04:00 ABG Total CO2 37.3 mEq/L (20-26) H 08/23/16 04:00 ABG Base Excess 8.6 mEq/L (-2.0 to 3.0) H 08/23/16 04:00 Potassium 4.8 mEq/L (3.5-4.5) H 08/24/16 04:35 Carbon Dioxide 32 mEq/L (19-29) H 08/24/16 04:35 BUN 29 mg/dL (8-26) H D 08/24/16 04:35 Glucose 168 mg/dL (70-99) H 08/24/16 04:35 POC Glucose 137 (58-89) H 08/24/16 07:48 Calculated Osmolality 304 (280-300) H 08/24/16 04:35 Calcium 8.5 mg/dL (8.6-10.8) L 08/24/16 04:35 Creatine Kinase 867 Units/L (30-200) H D 08/23/16 11:30 C-Reactive Protein 103 mg/L (Less than 5) H 08/21/16 12:49 B-Natriuretic Peptide 308 pg/mL (0-100) H 08/21/16 12:49 Albumin 2.4 g/dL (3.5-5.0) L 08/24/16 04:35 Globulin 3.9 g/dL (2.4-3.5) H 08/24/16 04:35 Albumin/Globulin Ratio 0.6 (1.1-2.2) L 08/24/16 04:35 Ur Specific Outlook 1.029 (1.010-1.025) H 08/21/16 15:20 Urine Protein 100 mg/dL (Neg-Trace) H 08/21/16 15:20 Urine Bilirubin Small (Negative) H 08/21/16 15:20 Urine Microscopic RBC 3-5 per hpf (0-3) H 08/21/16 15:20 Urine Microscopic WBC 3-5 per hpf (0-3) H 08/21/16 15:20 Ur Squamous Epith Cells Many per lpf (None-Few) H 08/21/16 15:20 Granular Casts Few per lpf (None Seen) H 08/21/16 15:20 Human Metapneumovirus DETECTED (Not Detect) A 08/22/16 11:32 - Microbiology Findings Microbiology Findings: Microbiology, Last 48 Hours 08/22/16 13:10 Sputum Culture - Preliminary Sputum - Clinical Findings Intake & Output: Intake & Output 08/23/16 08/24/16 08/24/16 23:59 07:59 15:59 Intake Total 60 / 60 310 / 310 Output Total 550 / 550 425 / 425 125 / 125 Balance -490 / -490 -115 / -115 -125 / -125 Weight 90.3 kg Consult Discharge Plan - Plan Referrals: Heron Vincent Jr, MD [Primary Care Provider] - - Attending Attestation I examined this patient and my medical decision-making was reviewed with the ASSEMBLY OPERATOR/PA/Advanced Practice Nurse/Resident Physician. I agree with the documented findings, disposition and treatment plan as described except to the extent set forth below. Patient seen and examined at bedside Labs, radiology, chart personally reviewed. All lines examined without evidence of infection. Neuropsych: Awake follows commands no new focal deficits Pulm: Extubated to NCO2. Cont BDs cont enteral steroids. Cont ABx for PNA possibly superimposed with viral LRTI Cards: History of CAD with ICD. History of HFpEF. Distributive Shock Resolved FEN-GI: ADAT. Renal: CHUCHO improved f/u UOP ID: Concern for CAP but cultures negative. Treat with Levaquin x 5 days. Also + Metapneumovirus - supportive care Heme/Onc: cont DVT prophylaxis Endo: Glucose monitored Integ/MSK: Skin Care per ICU Protocool CODE: Full; Stable for Transfer to Med/Tele <Salvador Herrera - Last Filed: 08/24/16 14:06> Date of Encounter: 08/24/16 Time of Encounter: 07:13 Assessment and Plan (1) Cerebrovascular disease Current Visit: Yes Status: Chronic Patient has history of prior CVA, baseline mental status is unknown at this time. Head CT was collected after patient had a fall at home. Head injury at that time unknown. Head CT performed during admission demonstrated no acute intracranial hemorrhage or mass. Patient is alert awake interactive and responding appropriately. No further neurologic workup at this time. (2) Acute on chronic respiratory failure with hypoxia and hypercapnia Current Visit: Yes Status: Acute Patient presented with acute respiratory failure emergency department with oxygen saturations around 56%. Patient was intubated with original blood gas demonstrating respiratory acidosis. Patient was transferred to the ICU for continued management. Contributing factors are include severe COPD history, noncompliance with daytime oxygen. Respiratory infectious panel was positive for human metapneumovirus. - Suspected source left lower lobe consolidation, suspicious for pneumonia superimposed on COPD. Suspect bacterial etiology superimposed on original viral infection. - Mr. Cruz was extubated on 08/23/2016 and has remained in stable condition. Continues to require nasal cannula oxygen. Plan: - Antibiotics Descalated to Levaquin daily for 5 days. - PO Prednisone 40mg Daily, Patient will need 2 week prednisone marcel. - Weaning oxygen as tolerated - Respiratory support includes dual nebs, Symbicort. (3) Left lower lobe pneumonia Current Visit: Yes Status: Acute Lower left lung consolidation slightly improved compared to previous chest x- ray. Leukocytosis improving, patient afebrile for 24 hours plus. Plan: - Antibiotic coverage descalated as mentioned above - Respiratory coverage as listed above. Qualifiers: Qualified Code(s): J18.1 - Lobar pneumonia, unspecified organism (4) COPD (chronic obstructive pulmonary disease) Current Visit: Yes Status: Acute Patient is a history of severe COPD, last pulmonology appointment May 2016. Suspected patient has not been compliant with daily home oxygen. Former smoker. Likely contributing to the patient's current condition. Plan: - Continue respiratory coverage as listed above. Qualifiers: COPD type: COPD with acute lower respiratory infection Qualified Code(s): J44.0 - Chronic obstructive pulmonary disease with acute lower respiratory infection (5) CAD (coronary artery disease) Current Visit: Yes Status: Acute History of coronary artery disease with previous CABG and AICD placement. Current cardiac coverage on hold with intubation and severe sepsis. Last echocardiogram from September 2014 demonstrates EF 45-50%, mild diastolic dysfunction, mild pulmonary hypertension. Echocardiogram completed this morning results pending. Echocardiogram completed 08/22/2016 was a suboptimal imaging study and recommended to redone. Plan: - Hold antihypertensive medications as BP continues to be low. - Continue lovastatin 40 mg by mouth at bedtime - Continue aspirin 81 mg by mouth daily Qualifiers: Qualified Code(s): I25.10 - Atherosclerotic heart disease of [place] coronary artery without angina pectoris (6) HTN (hypertension) Current Visit: Yes Status: Acute Patient with history of hypertension. Blood pressures continue to be on the lower side, secondary to hypotension and severe sepsis. Continue to hold antihypertensives. 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 Patient is currently on Solu-Medrol 60 mg IV every 8 hours. Current GI coverage is Protonix 40 IV. Plan: - Continue Protonix 40 mg IV daily. Qualifiers: Qualified Code(s): K29.70 - Gastritis, unspecified, without bleeding (8) Acute kidney injury (nontraumatic) Current Visit: Yes Status: Acute Creatinine continues to slowly trend down towards patient's baseline. Secondary to hypovolemia and severe sepsis. Patient tolerating by mouth intake , IV fluids discontinued. Plan: - Continue with daily labs. - Continue to monitor strict ins and outs. - Avoid nephrotoxic medications including NSAIDs and renally dose antibiotics. (9) Severe sepsis Current Visit: Yes Status: Acute Improving. Patient met severe sepsis with hypotension. Patient was admitted with acute respiratory failure consolidation localize the lower left lung. Patient has been hypotensive requiring vasopressor support, leukocytosis 30.7, fever 101.5, tachypnea upon admission. End organ involvement includes CHUCHO and elevated lactate. Improving. Mr. Cruz in stable condition, afebrile for greater than 24 hours , blood pressure is stable without support, leukocytosis is resolving, lactic acidosis has resolved, patient extubated and tolerating nasal cannula oxygen. Plan: - Antibiotics descalated. - IV fluids discontinued. - Blood cultures collected, no growth thus far. (10) Leukocytosis (leucocytosis) Current Visit: Yes Status: Acute Leukocytosis with banded neutrophils improving. WBC count is 20 down from 31. Plan: -Continue to trend with daily CBC. Qualifiers: Qualified Code(s): D72.829 - Elevated white blood cell count, unspecified (11) Diabetes Current Visit: Yes Status: Acute Glucose is stable. Patient currently on medium dose sliding scale. No adjustment at this time. Qualifiers: Qualified Code(s): E11.9 - Type 2 diabetes mellitus without complications (12) DVT prophylaxis Current Visit: Yes Status: Acute Subcutaneous heparin every 8 hours. Subjective Principal diagnosis: Acute respiratory failure Interval history: Mr. Cruz has been seen and evaluated patient bedside this morning. He is awake alert and oriented and interactive, tolerating 3 L nasal cannula oxygen. He denies any pain or discomfort at this time denies any chest pain, shortness of breath, abdominal pain, nausea, vomiting, diarrhea or constipation or pain in his extremities. He would like his urinary [place] out and said that he does not have trouble urinating regularly. Objective PUL Vital signs: Last Vital Signs Temp 97.0 F L 08/24/16 04:00 Pulse 60 08/24/16 06:00 Resp 18 08/24/16 06:00 BP 107/54 08/24/16 06:00 Pulse Ox 95 08/24/16 06:00 Gen. well-developed, well-nourished, alert, awake and interactive. HEENT: Normocephalic, atraumatic, PERRLA, oral mucosa is moist, Neck is supple trachea midline no palpable lymphadenopathy. Respiratory: Diffuse inspiratory and expiratory wheeze, Patient demonstrates nonlabored breathing pattern. Thoracic cavity was inspected with a old sternotomy scar and left AICD scar. AICD palpated in the left upper thorax. Cardiac: Regular rate and rhythm. No murmurs appreciated. Abdominal: Abdomen distended, nontender to palpation, hypoactive bowel sounds. Genitalia: Normal adult male genitalia without erythema, edema. [place] catheter in place. Extremities: Symmetric bilateral with trace edema in the bilateral lower extremities. Posterior tibial pulses 2+ symmetrically. Results - Laboratory Findings CBC and BMP: 08/24/16 04:35 08/24/16 04:35 ABG ABG pH 7.38 pH Units (7.32-7.45) 08/23/16 04:00 ABG pCO2 60 mmHg (35-45) H 08/23/16 04:00 ABG pO2 80 mmHg (85-104) L 08/23/16 04:00 ABG O2 Saturation 95 % (95-98) 08/23/16 04:00 PT/INR, D-dimer PT 13.6 Seconds (9.4-12.1) H 08/21/16 12:49 D-Dimer 964 ng/mLFEU (0-500) H 08/21/16 12:49 Abnormal lab findings: Abnormal lab results WBC 20.4 K/mcL (4.3-11.1) H 08/24/16 04:35 RBC 3.44 M/mcL (4.19-5.50) L 08/24/16 04:35 Hgb 10.6 g/dL (12.9-16.9) L 08/24/16 04:35 Hct 33.1 % (37.5-50.1) L 08/24/16 04:35 RDW 17.8 % (11.5-14.5) H 08/24/16 04:35 Immature Gran % 4.4 % (0-4) H 08/24/16 04:35 Band Neutrophils % 56.0 % (0-4) H 08/23/16 03:40 Metamyelocytes % 2.0 % (0) H 08/23/16 03:40 Neutrophils # 18.1 K/mcL (1.6-8.9) H 08/24/16 04:35 Nucleated RBCs/100 WBC 0.1 /100 WBC (0) H 08/24/16 04:35 PT 13.6 Seconds (9.4-12.1) H 08/21/16 12:49 D-Dimer 964 ng/mLFEU (0-500) H 08/21/16 12:49 ABG pCO2 60 mmHg (35-45) H 08/23/16 04:00 ABG pO2 80 mmHg (85-104) L 08/23/16 04:00 ABG HCO3 35.5 mEQ/L (21-27) H 08/23/16 04:00 ABG Total CO2 37.3 mEq/L (20-26) H 08/23/16 04:00 ABG Base Excess 8.6 mEq/L (-2.0 to 3.0) H 08/23/16 04:00 Potassium 4.8 mEq/L (3.5-4.5) H 08/24/16 04:35 Carbon Dioxide 32 mEq/L (19-29) H 08/24/16 04:35 BUN 29 mg/dL (8-26) H D 08/24/16 04:35 Glucose 168 mg/dL (70-99) H 08/24/16 04:35 POC Glucose 154 (58-89) H 08/24/16 04:36 Calculated Osmolality 304 (280-300) H 08/24/16 04:35 Calcium 8.5 mg/dL (8.6-10.8) L 08/24/16 04:35 Creatine Kinase 867 Units/L (30-200) H D 08/23/16 11:30 C-Reactive Protein 103 mg/L (Less than 5) H 08/21/16 12:49 B-Natriuretic Peptide 308 pg/mL (0-100) H 08/21/16 12:49 Albumin 2.4 g/dL (3.5-5.0) L 08/24/16 04:35 Globulin 3.9 g/dL (2.4-3.5) H 08/24/16 04:35 Albumin/Globulin Ratio 0.6 (1.1-2.2) L 08/24/16 04:35 Ur Specific Outlook 1.029 (1.010-1.025) H 08/21/16 15:20 Urine Protein 100 mg/dL (Neg-Trace) H 08/21/16 15:20 Urine Bilirubin Small (Negative) H 08/21/16 15:20 Urine Microscopic RBC 3-5 per hpf (0-3) H 08/21/16 15:20 Urine Microscopic WBC 3-5 per hpf (0-3) H 08/21/16 15:20 Ur Squamous Epith Cells Many per lpf (None-Few) H 08/21/16 15:20 Granular Casts Few per lpf (None Seen) H 08/21/16 15:20 Human Metapneumovirus DETECTED (Not Detect) A 08/22/16 11:32 - Microbiology Findings Microbiology Findings: Microbiology, Last 48 Hours 08/22/16 13:10 Sputum Culture - Preliminary Sputum - Clinical Findings Intake & Output: Intake & Output 08/23/16 08/23/16 08/24/16 15:59 23:59 07:59 Intake Total 600 / 600 60 / 60 310 / 310 Output Total 275 / 275 550 / 550 425 / 425 Balance 325 / 325 -490 / -490 -115 / -115 Weight 90.3 kg
[2016-08-24] MEDS: Budesonide/Formoterol 160/4.5 MDI IH SCH ×2 (07:52→20:57)
[2016-08-24] MEDS: Pantoprazole 40 MG VIAL IVP SCH (08:36)
[2016-08-24] MEDS: predniSONE 20 MG TABLET PO SCH (08:37)
[2016-08-24] MEDS ORDERED: levoFLOXacin 500 MG TABLET PO SCH (10:45)
[2016-08-24] MEDS ORDERED: Naloxone 0.4 MG/ML INJ IVP PRN (13:22)
[2016-08-24] MEDS ORDERED: D5% in Water 1,000 ML IV PRN (13:22)
[2016-08-24] MEDS ORDERED: Dextrose Gel 15 GM PO PRN ×2 (13:22)
[2016-08-24] MEDS ORDERED: *HR* Dextrose 50 % in Water (Syg) 50 ML SYRINGE IVP PRN (13:22)
[2016-08-25] MEDS: Ipratropium/Albuterol Neb 3 ML IH SCH ×7 (00:33→23:51)
[2016-08-25] MEDS: Insulin LISPRO 300 UNITS/3 ML VIAL SQ SCH ×6 (04:00→19:44)
[2016-08-25 05:07] LABS: Hematocrit 34.6 % (37.5-50.1); Hemoglobin 10.9 g/dL (12.9-16.9); Mean Corpuscular HGB Conc 31.5 g/dL (31.6-35.5); Mean Corpuscular Volume 95.3 fL (83.0-100.0); Mean Platelet Volume 11.6 fL (9.4-12.4); Nucleated Red Blood Cells 0.3 /100 WBC (0); Platelet Count 179 K/mcL (140-400); Red Blood Count 3.63 M/mcL (4.19-5.50)
[2016-08-25 05:18] LABS: Alanine Aminotransferase 24 Units/L (0-55); Albumin 2.6 g/dL (3.5-5.0); Albumin/Globulin Ratio 0.7 (1.1-2.2); Alkaline Phosphatase 48 Units/L (38-126); Aspartate Amino Transferase 19 Units/L (5-34); BUN/Creatinine Ratio 32 (6-26); Bilirubin,Total 0.5 mg/dL (0.2-1.2); Blood Urea Nitrogen 36 mg/dL (8-26); Calcium 8.7 mg/dL (8.6-10.8); Carbon Dioxide 33 mEq/L (19-29); Chloride 103 mEq/L (98-109); Globulin 3.8 g/dL (2.4-3.5); Glucose 129 mg/dL (70-99); Osmolality,Calculated 304 (280-300); Potassium 4.3 mEq/L (3.5-4.5); Sodium 142 mEq/L (136-145); Total Protein 6.4 g/dL (6.0-8.3); eGFR For African Americans > 60 (> 60); eGFR For Non-African Americans > 60 (> 60)
[2016-08-25 06:04] LABS: Lymphocytes # 1.8 K/mcL (0.6-4.6); Neutrophils # 12.9 K/mcL (1.6-8.9); Platelet Estimate Normal (Normal); Toxic Granulation Present (Not Present)
[2016-08-25 06:06] LABS: Reactive Lymphocytes Present (Not Present)
[2016-08-25] MEDS: *HR* Heparin 5,000 UNIT/ML VIAL SQ SCH ×3 (06:24→20:43)
--- NOTE | 2016-08-25 06:50 | Pulmonology Progress Note ---
<Salvador Herrera - Last Filed: 08/25/16 11:45> Date of Encounter: 08/25/16 Time of Encounter: 06:49 Assessment and Plan (1) Cerebrovascular disease Current Visit: Yes Status: Chronic Patient has history of prior CVA, baseline mental status is unknown at this time. Head CT was collected after patient had a fall at home. Head injury at that time unknown. Head CT performed during admission demonstrated no acute intracranial hemorrhage or mass. Patient is alert awake interactive and responding appropriately. No further neurologic workup at this time. (2) Acute on chronic respiratory failure with hypoxia and hypercapnia Current Visit: Yes Status: Acute Patient presented with acute respiratory failure emergency department with oxygen saturations around 56%. Patient was intubated with original blood gas demonstrating respiratory acidosis. Patient was transferred to the ICU for continued management. Contributing factors are include severe COPD history, noncompliance with daytime oxygen. Respiratory infectious panel was positive for human metapneumovirus. - Suspected source left lower lobe consolidation, suspicious for pneumonia superimposed on COPD. Suspect bacterial etiology superimposed on original viral infection. - Mr. Cruz was extubated on 08/23/2016 and has remained in stable condition. Continues to require nasal cannula oxygen. Plan: - Antibiotics Descalated to Levaquin daily for 5 days. - PO Prednisone 40mg Daily, Patient will need 2 week prednisone marcel. - Weaning oxygen as tolerated - Respiratory support includes duonebs, Symbicort. (3) Left lower lobe pneumonia Current Visit: Yes Status: Acute Lower left lung consolidation slightly improved compared to previous chest x- ray. Leukocytosis improving, patient remains afebrile, leukocytosis resolving. Plan: - Antibiotic coverage descalated as mentioned above - Respiratory coverage as listed above. Qualifiers: Pneumonia type: due to unspecified organism Qualified Code(s): J18.1 - Lobar pneumonia, unspecified organism (4) COPD (chronic obstructive pulmonary disease) Current Visit: Yes Status: Acute Patient is a history of severe COPD, last pulmonology appointment May 2016. Former smoker. Likely contributing to the patient's current condition. Plan: - Continue respiratory coverage as listed above. Qualifiers: COPD type: COPD with acute lower respiratory infection Qualified Code(s): J44.0 - Chronic obstructive pulmonary disease with acute lower respiratory infection (5) CAD (coronary artery disease) Current Visit: Yes Status: Acute History of coronary artery disease with previous CABG and AICD placement. Current cardiac coverage on hold with intubation and severe sepsis. Last echocardiogram from September 2014 demonstrates EF 45-50%, mild diastolic dysfunction, mild pulmonary hypertension. Echocardiogram completed this morning results pending. Echocardiogram completed 08/22/2016 was a suboptimal imaging study and recommended to redone. Plan: - Continue Coreg at 12.5 twice a day - Continue lovastatin 40 mg by mouth at bedtime - Continue aspirin 81 mg by mouth daily Qualifiers: Qualified Code(s): I25.10 - Atherosclerotic heart disease of [place] coronary artery without angina pectoris (6) HTN (hypertension) Current Visit: Yes Status: Acute Patient with history of hypertension. Blood pressures stable, continue to hold enalapril. Restarted Coreg. 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 Patient is currently on Solu-Medrol 60 mg IV every 8 hours. Current GI coverage is Protonix 40 IV. Plan: - Continue Protonix 40 mg IV daily. Qualifiers: Qualified Code(s): K29.70 - Gastritis, unspecified, without bleeding (8) Acute kidney injury (nontraumatic) Current Visit: Yes Status: Acute Creatinine continues to slowly trend down towards patient's baseline. Secondary to hypovolemia and severe sepsis. Patient tolerating by mouth intake , IV fluids discontinued. Plan: - Continue with daily labs. - Continue to monitor strict ins and outs. - Avoid nephrotoxic medications including NSAIDs and renally dose antibiotics. - Plan for 500ml today. (9) Severe sepsis Current Visit: Yes Status: Acute Improving. Patient met severe sepsis with hypotension. Patient was admitted with acute respiratory failure consolidation localize the lower left lung. Patient has been hypotensive requiring vasopressor support, leukocytosis 30.7, fever 101.5, tachypnea upon admission. End organ involvement includes CHUCHO and elevated lactate. Improving. Mr. Cruz in stable condition, afebrile for greater than 24 hours , blood pressure is stable without support, leukocytosis is resolving, lactic acidosis has resolved, patient extubated and tolerating nasal cannula oxygen. Plan: - Antibiotics descalated. - IV fluids discontinued. - Blood cultures collected, no growth thus far. - Transfer general medical floor. (10) Leukocytosis (leucocytosis) Current Visit: Yes Status: Acute Leukocytosis with banded neutrophils improving. Continues to trend appropriately on current antibiotic coverage. Plan: -Continue to trend with daily CBC. Qualifiers: Qualified Code(s): D72.829 - Elevated white blood cell count, unspecified (11) Diabetes Current Visit: Yes Status: Acute Glucose is stable. Patient currently on medium dose sliding scale. No adjustment at this time. Qualifiers: Qualified Code(s): E11.9 - Type 2 diabetes mellitus without complications (12) DVT prophylaxis Current Visit: Yes Status: Acute Subcutaneous heparin every 8 hours. Subjective Principal diagnosis: Acute respiratory failure Interval history: Mr. Cruz has been seen and evaluated patient bedside this morning. He is awake alert and oriented and interactive, tolerating 2 L nasal cannula oxygen. He is sitting up at bedside, tolerating PO intake. He does not feel 100% but feels he is improving. He did not sleep well and thinks it is secondary to sedation and intubation and hospitalization. He denies any pain or discomfort at this time denies any chest pain, shortness of breath, abdominal pain, nausea , vomiting, diarrhea or constipation or pain in his extremities. Objective PUL Vital signs: Last Vital Signs Temp 97.5 F L 08/25/16 00:50 Pulse 72 08/25/16 04:00 Resp 18 08/25/16 04:12 BP 141/62 08/25/16 04:00 Pulse Ox 93 L 08/25/16 04:12 Gen. well-developed, well-nourished, alert, awake and interactive. HEENT: Normocephalic, atraumatic, PERRLA, oral mucosa is moist, Neck is supple trachea midline no palpable lymphadenopathy. Respiratory: Diffuse inspiratory and expiratory wheeze, Patient demonstrates nonlabored breathing pattern. Thoracic cavity was inspected with a old sternotomy scar and left AICD scar. AICD palpated in the left upper thorax. Cardiac: Regular rate and rhythm. No murmurs appreciated. Abdominal: Abdomen distended, nontender to palpation, hypoactive bowel sounds. Genitalia: Normal adult male genitalia without erythema, edema. Extremities: Symmetric bilateral with trace edema in the bilateral lower extremities. Posterior tibial pulses 2+ symmetrically. Results - Laboratory Findings CBC and BMP: 08/25/16 04:40 08/25/16 04:40 ABG ABG pH 7.38 pH Units (7.32-7.45) 08/23/16 04:00 ABG pCO2 60 mmHg (35-45) H 08/23/16 04:00 ABG pO2 80 mmHg (85-104) L 08/23/16 04:00 ABG O2 Saturation 95 % (95-98) 08/23/16 04:00 PT/INR, D-dimer PT 13.6 Seconds (9.4-12.1) H 08/21/16 12:49 D-Dimer 964 ng/mLFEU (0-500) H 08/21/16 12:49 Abnormal lab findings: Abnormal lab results WBC 14.7 K/mcL (4.3-11.1) H 08/25/16 04:40 RBC 3.63 M/mcL (4.19-5.50) L 08/25/16 04:40 Hgb 10.9 g/dL (12.9-16.9) L 08/25/16 04:40 Hct 34.6 % (37.5-50.1) L 08/25/16 04:40 MCHC 31.5 g/dL (31.6-35.5) L 08/25/16 04:40 RDW 18.0 % (11.5-14.5) H 08/25/16 04:40 Immature Gran % 4.4 % (0-4) H 08/24/16 04:35 Band Neutrophils % 56.0 % (0-4) H 08/23/16 03:40 Metamyelocytes % 2.0 % (0) H 08/23/16 03:40 Neutrophils # 12.9 K/mcL (1.6-8.9) H 08/25/16 04:40 Nucleated RBCs/100 WBC 0.3 /100 WBC (0) H 08/25/16 04:40 Reactive Lymphocytes Present (Not Present) A 08/25/16 04:40 Toxic Granulation Present (Not Present) A 08/25/16 04:40 PT 13.6 Seconds (9.4-12.1) H 08/21/16 12:49 D-Dimer 964 ng/mLFEU (0-500) H 08/21/16 12:49 ABG pCO2 60 mmHg (35-45) H 08/23/16 04:00 ABG pO2 80 mmHg (85-104) L 08/23/16 04:00 ABG HCO3 35.5 mEQ/L (21-27) H 08/23/16 04:00 ABG Total CO2 37.3 mEq/L (20-26) H 08/23/16 04:00 ABG Base Excess 8.6 mEq/L (-2.0 to 3.0) H 08/23/16 04:00 Carbon Dioxide 33 mEq/L (19-29) H 08/25/16 04:40 BUN 36 mg/dL (8-26) H 08/25/16 04:40 BUN/Creatinine Ratio 32 (6-26) H 08/25/16 04:40 Glucose 129 mg/dL (70-99) H 08/25/16 04:40 POC Glucose 127 (58-89) H 08/25/16 00:34 Calculated Osmolality 304 (280-300) H 08/25/16 04:40 Creatine Kinase 867 Units/L (30-200) H D 08/23/16 11:30 C-Reactive Protein 103 mg/L (Less than 5) H 08/21/16 12:49 B-Natriuretic Peptide 308 pg/mL (0-100) H 08/21/16 12:49 Albumin 2.6 g/dL (3.5-5.0) L 08/25/16 04:40 Globulin 3.8 g/dL (2.4-3.5) H 08/25/16 04:40 Albumin/Globulin Ratio 0.7 (1.1-2.2) L 08/25/16 04:40 Ur Specific [place] 1.029 (1.010-1.025) H 08/21/16 15:20 Urine Protein 100 mg/dL (Neg-Trace) H 08/21/16 15:20 Urine Bilirubin Small (Negative) H 08/21/16 15:20 Urine Microscopic RBC 3-5 per hpf (0-3) H 08/21/16 15:20 Urine Microscopic WBC 3-5 per hpf (0-3) H 08/21/16 15:20 Ur Squamous Epith Cells Many per lpf (None-Few) H 08/21/16 15:20 Granular Casts Few per lpf (None Seen) H 08/21/16 15:20 Vancomycin Trough 27.9 mcg/mL (10-20) H* 08/24/16 10:00 Human Metapneumovirus DETECTED (Not Detect) A 08/22/16 11:32 - Microbiology Findings Microbiology Findings: Microbiology, Last 48 Hours 08/22/16 13:10 Sputum Culture - Final Sputum - Clinical Findings Intake & Output: Intake & Output 08/24/16 08/24/16 08/25/16 15:59 23:59 07:59 Output Total 275 / 275 500 / 500 Balance -275 / -275 -500 / -500 Weight 90.7 kg Consult Discharge Plan - Plan Referrals: Heron Vincent Jr, MD [Primary Care Provider] - <Edy Manley W - Last Filed: 08/25/16 13:20> Objective PUL Vital signs: Last Vital Signs Temp 97.6 F 08/25/16 11:00 Pulse 67 08/25/16 09:00 Resp 16 08/25/16 11:45 BP 137/75 08/25/16 09:00 Pulse Ox 97 08/25/16 11:45 Results - Laboratory Findings CBC and BMP: 08/25/16 04:40 08/25/16 04:40 ABG ABG pH 7.38 pH Units (7.32-7.45) 08/23/16 04:00 ABG pCO2 60 mmHg (35-45) H 08/23/16 04:00 ABG pO2 80 mmHg (85-104) L 08/23/16 04:00 ABG O2 Saturation 95 % (95-98) 08/23/16 04:00 PT/INR, D-dimer PT 13.6 Seconds (9.4-12.1) H 08/21/16 12:49 D-Dimer 964 ng/mLFEU (0-500) H 08/21/16 12:49 Abnormal lab findings: Abnormal lab results WBC 14.7 K/mcL (4.3-11.1) H 08/25/16 04:40 RBC 3.63 M/mcL (4.19-5.50) L 08/25/16 04:40 Hgb 10.9 g/dL (12.9-16.9) L 08/25/16 04:40 Hct 34.6 % (37.5-50.1) L 08/25/16 04:40 MCHC 31.5 g/dL (31.6-35.5) L 08/25/16 04:40 RDW 18.0 % (11.5-14.5) H 08/25/16 04:40 Immature Gran % 4.4 % (0-4) H 08/24/16 04:35 Band Neutrophils % 56.0 % (0-4) H 08/23/16 03:40 Metamyelocytes % 2.0 % (0) H 08/23/16 03:40 Neutrophils # 12.9 K/mcL (1.6-8.9) H 08/25/16 04:40 Nucleated RBCs/100 WBC 0.3 /100 WBC (0) H 08/25/16 04:40 Reactive Lymphocytes Present (Not Present) A 08/25/16 04:40 Toxic Granulation Present (Not Present) A 08/25/16 04:40 PT 13.6 Seconds (9.4-12.1) H 08/21/16 12:49 D-Dimer 964 ng/mLFEU (0-500) H 08/21/16 12:49 ABG pCO2 60 mmHg (35-45) H 08/23/16 04:00 ABG pO2 80 mmHg (85-104) L 08/23/16 04:00 ABG HCO3 35.5 mEQ/L (21-27) H 08/23/16 04:00 ABG Total CO2 37.3 mEq/L (20-26) H 08/23/16 04:00 ABG Base Excess 8.6 mEq/L (-2.0 to 3.0) H 08/23/16 04:00 Carbon Dioxide 33 mEq/L (19-29) H 08/25/16 04:40 BUN 36 mg/dL (8-26) H 08/25/16 04:40 BUN/Creatinine Ratio 32 (6-26) H 08/25/16 04:40 Glucose 129 mg/dL (70-99) H 08/25/16 04:40 POC Glucose 148 (58-89) H 08/25/16 10:53 Calculated Osmolality 304 (280-300) H 08/25/16 04:40 Creatine Kinase 867 Units/L (30-200) H D 08/23/16 11:30 C-Reactive Protein 103 mg/L (Less than 5) H 08/21/16 12:49 B-Natriuretic Peptide 308 pg/mL (0-100) H 08/21/16 12:49 Albumin 2.6 g/dL (3.5-5.0) L 08/25/16 04:40 Globulin 3.8 g/dL (2.4-3.5) H 08/25/16 04:40 Albumin/Globulin Ratio 0.7 (1.1-2.2) L 08/25/16 04:40 Ur Specific [place] 1.029 (1.010-1.025) H 08/21/16 15:20 Urine Protein 100 mg/dL (Neg-Trace) H 08/21/16 15:20 Urine Bilirubin Small (Negative) H 08/21/16 15:20 Urine Microscopic RBC 3-5 per hpf (0-3) H 08/21/16 15:20 Urine Microscopic WBC 3-5 per hpf (0-3) H 08/21/16 15:20 Ur Squamous Epith Cells Many per lpf (None-Few) H 08/21/16 15:20 Granular Casts Few per lpf (None Seen) H 08/21/16 15:20 Vancomycin Trough 27.9 mcg/mL (10-20) H* 08/24/16 10:00 Human Metapneumovirus DETECTED (Not Detect) A 08/22/16 11:32 - Microbiology Findings Microbiology Findings: Microbiology, Last 48 Hours 08/22/16 13:10 Sputum Culture - Final Sputum - Clinical Findings Intake & Output: Intake & Output 08/24/16 08/25/16 08/25/16 23:59 07:59 15:59 Intake Total 240 / 240 Output Total 500 / 500 300 / 300 Balance -500 / -500 -60 / -60 Weight 90.7 kg - Attending Attestation I examined this patient and my medical decision-making was reviewed with the [employer]/PA/Advanced Practice Nurse/Resident Physician. I agree with the documented findings, disposition and treatment plan as described except to the extent set forth below. Impression: 1. Acute on Chronic Respiratory failure 2. PNA (metapneumovirus with possible superimposed LLL infiltrate) 3. COPD with Exacerbation Plan: 1. IMproved weaned to 2L NC 2. Cont Levaquin x 5 days 3. Cont Steroid taper at discharge x 2 weeks. Home MDIs and Duonebs every 6 hours Cont DVT Prophy PT/OT to see patient Waiting on F bed - Hospitalist Service will take over care of patient
[2016-08-25] MEDS: Budesonide/Formoterol 160/4.5 MDI IH SCH ×2 (08:00→20:16)
[2016-08-25] MEDS: levoFLOXacin 500 MG TABLET PO SCH (09:22)
[2016-08-25] MEDS: Aspirin 81 MG TAB.CHEW PO SCH (09:22)
[2016-08-25] MEDS: predniSONE 20 MG TABLET PO SCH (09:23)
[2016-08-25] MEDS ORDERED: Temazepam 15 MG CAPSULE PO PRN (09:56)
--- NOTE | 2016-08-25 15:15 | Event Note ---
Date of Encounter: 08/25/16 Time of Encounter: 13:00 patient evaluated at the bedside in ICU room 11. He reports no shortness of breath at rest but severe dyspnea on exertion with minimal exertion such as transferring from bed to chair. He reports associated cough which has increased sputum production over the last 2 days. On exam he is in no acute distress he is speaks in broken sentences due to episodes of productive cough and shortness of breath. Lung sounds are diminished throughout with fine end expiratory wheezes, heart is regular. Plan: Will continue with oral antibiotic and steroid therapy, inhaled bronchodilator, consult PTOT. The patient is very deconditioned and severely symptomatic he continues to require inpatient management for his COPD exacerbation and pneumonia. He will likely require subacute rehabilitation placement. We will continue with current care as per ICU plan. Discontinue right IJ central line and obtain peripheral access.
[2016-08-25] MEDS: BuPROPion XL (24 HR) 150 MG TABLET PO SCH (16:18)
[2016-08-26] MEDS: Insulin LISPRO 300 UNITS/3 ML VIAL SQ SCH ×5 (00:38→16:45)
[2016-08-26] MEDS: Ipratropium/Albuterol Neb 3 ML IH SCH ×7 (04:05→23:48)
[2016-08-26 05:06] LABS: Hematocrit 34.3 % (37.5-50.1); Hemoglobin 11.1 g/dL (12.9-16.9); Mean Corpuscular HGB Conc 32.4 g/dL (31.6-35.5); Mean Corpuscular Hemoglobin 30.7 pg (28.0-33.3); Mean Corpuscular Volume 94.8 fL (83.0-100.0); Mean Platelet Volume 11.6 fL (9.4-12.4); Nucleated Red Blood Cells 0.2 /100 WBC (0); Platelet Count 149 K/mcL (140-400); Red Blood Count 3.62 M/mcL (4.19-5.50); Red Cell Distribution Width 17.7 % (11.5-14.5)
[2016-08-26 05:20] LABS: BUN/Creatinine Ratio 31 (6-26); Blood Urea Nitrogen 34 mg/dL (8-26); Calcium 8.6 mg/dL (8.6-10.8); Carbon Dioxide 32 mEq/L (19-29); Chloride 104 mEq/L (98-109); Glucose 106 mg/dL (70-99); Osmolality,Calculated 302 (280-300); Potassium 4.7 mEq/L (3.5-4.5); Sodium 142 mEq/L (136-145); eGFR For African Americans > 60 (> 60); eGFR For Non-African Americans > 60 (> 60)
[2016-08-26] MEDS: *HR* Heparin 5,000 UNIT/ML VIAL SQ SCH ×2 (06:06→15:16)
[2016-08-26 06:40] LABS: Lymphocytes # 2.4 K/mcL (0.6-4.6); Monocytes # 0.7 K/mcL (0.0-1.3); Platelet Estimate Normal (Normal)
[2016-08-26 06:41] LABS: Anisocytosis 1+ (Not Present)
[2016-08-26] MEDS: predniSONE 20 MG TABLET PO SCH (08:51)
[2016-08-26] MEDS: levoFLOXacin 500 MG TABLET PO SCH (08:51)
[2016-08-26] MEDS: Aspirin 81 MG TAB.CHEW PO SCH (08:51)
[2016-08-26] MEDS ORDERED: Carbidopa/Levodopa 25/100 TABLET PO SCH (09:00)
[2016-08-26] MEDS: Budesonide/Formoterol 160/4.5 MDI IH SCH ×3 (11:53→22:48)
[2016-08-26 14:59] VITALS: BP 142/87
[2016-08-26] MEDS: BuPROPion XL (24 HR) 150 MG TABLET PO SCH (17:11)
--- NOTE | 2016-08-26 17:51 | Discharge Summary ---
Date of Encounter: 08/26/16 Time of Encounter: 17:47 - Discharge Diagnosis (1) Acute on chronic respiratory failure with hypoxia and hypercapnia Priority: Primary Status: Acute (2) CAD (coronary artery disease) Priority: Secondary Status: Acute Qualifiers: Coronary Disease-Associated Artery/Lesion type: [place] artery [place] vs. transplanted heart: [place] heart Associated angina: without angina Qualified Code(s): I25.10 - Atherosclerotic heart disease of [place] coronary artery without angina pectoris (3) COPD (chronic obstructive pulmonary disease) Priority: Secondary Status: Acute Qualifiers: COPD type: COPD with acute lower respiratory infection Qualified Code(s): J44.0 - Chronic obstructive pulmonary disease with acute lower respiratory infection (4) Left lower lobe pneumonia Priority: Primary Status: Acute Qualifiers: Pneumonia type: due to unspecified organism Qualified Code(s): J18.1 - Lobar pneumonia, unspecified organism - Discharge Medications Prescriptions: Levofloxacin [Levaquin] 500 mg PO DAILY #3 tablet PredniSONE 40 mg PO DAILY #30 tablet Home Medications: Albuterol Sulfate [Ventolin Hfa] 2 puff IH BID PRN 06/03/16 [History] Aspirin 81 mg PO DAILY 06/03/16 [History] Budesonide/Formoterol 160/4.5 [Symbicort 160/4.5] 2 puff IH BIDR 06/03/16 [ History] Calcium Carbonate [Calcium] 600 mg PO BID 06/03/16 [History] Carbidopa/Levodopa [Carbidopa-Levo 25-100 mg Odt] 1 tab PO DAILY 06/03/16 [ History] Carvedilol [Coreg] 25 mg PO BID 06/03/16 [History] Enalapril Maleate [Vasotec] 5 mg PO BID 06/03/16 [History] Lovastatin 40 mg PO HS 06/03/16 [History] BuPROPion XL (24 HR) [Wellbutrin Xl] 150 mg PO QPM 08/21/16 [History] Bupropion HCl [Bupropion HCl Sr] 200 mg PO QAM 08/21/16 [History] Testosterone [Androgel] 50 mg TD DAILY 08/21/16 [History] Levofloxacin [Levaquin] 500 mg PO DAILY #3 tablet 08/26/16 [Rx] PredniSONE 40 mg PO DAILY #30 tablet 08/26/16 [Rx] Allergies/Adverse Reactions: Allergies Hydromorphone [From Dilaudid] Allergy (Verified 08/21/16 15:17) Hives Date of admission: 08/21/16 19:42 Primary care physician: Heron Vincent Jr, MD Consults: 08/25/16 09:31 Consult to Physical Therapy [CONS] Routine Comment: Evaluate, develop and implement POC 08/25/16 14:45 OT [Consult to Occupational Therapy] [CONS] Routine Comment: Evaluate, develop and implement POC 08/25/16 14:48 Consult to Supervisor [employer] [CONS] Routine Reason for SW Consult: will need short term rehab. prefers [facility] rehab. Discharging clinician: Nerissa Moore Anticipated date of discharge: 08/26/16 - Patient Status Disposition: Transfer Inpatient Rehab Fac Condition: Fair Functional capacity at discharge: uses cane/walker Overall status at discharge: patient is progressing back to baseline - Discharge Instructions Follow Up With: Heron Vincent Jr, MD [Primary Care Provider] - - Diet and Activity Activity: as per physical therapy Diet: advance to your usual diet Interval History: Mr. Cruz is a 60 year old male who brought to ER by EMS. Reportedly the patient has had shortness of breath and cough over last 3 days. His friend he thinks he has flu. Patient has significant history of COPD and he wears oxygen at night and he is not compliant with his O2 during daytime. Patient has history of diabetes. Patient has told ER staff he was in his house and he was walking along a room then passed out and slipped in the bathroom on the floor all night. His friend found him on the ground. It is unknown if he has taken flu vaccine. Thee is no history of slurred speech. Patient has a pace maker defibrilator. There is no history of fever. Not sure about wheezing or hemoptysis. When EMS arrived, his oxygen saturation was 56%. Not sure about smoking and he was found hypercapnic and his condition deteriorated in ER that he needed to be intubated. he was just intubated and transferred to ICU. He is treated for sepsis with acute on chronic respiratory failure with hypoxia and hypercapnia most likely secondary to COPD exacerbation. Chest x-ray showed left lower lobe consolidation suspicious for pneumonia superimposed on COPD. Patient was treated with IV antibiotics, required IV pressors,Levophed and IV steroids. Patient was eventually extubated, pressors were weaned off and antibiotics have been changed to oral. He has improved clinically, bedside PT OT recommended him to be discharged to ECF. He is being discharged today in stable condition on oral antibiotics and tapering dose of steroids. Hospital course: Mr. Cruz is a 60 year old male Time spent discussing smoking cessation with patient: more than 10 minutes - Time Spent with Patient Total time spent providing and/or coordinating discharge services: Greater than 30 minutes - Constitutional Vitals: Temp Pulse Resp BP Pulse Ox 97.8 F 65 14 142/87 94 L 08/26/16 14:55 08/26/16 14:55 08/26/16 16:09 08/26/16 14:55 08/26/16 16:09 General appearance: Present: A&O X 3, no acute distress Exam: HEENT: Normocephalic, atraumatic, Respiratory: Bilateral occasional wheezing, no other added sounds. Cardiac: Regular rate and rhythm. No murmurs appreciated. Abdominal: Abdomen distended, nontender to palpation, bowel sounds are normal. Extremities: No edema. Posterior tibial pulses 2+ symmetrically.
--- NOTE | 2016-08-26 18:16 | Physician Discharge Referral ---
ExtendedCare Referral Info Transfer To: F Provider in Charge: sonido funes Institutional Level of Care: Intermediate - MR - Diagnosis (1) Acute on chronic respiratory failure with hypoxia and hypercapnia Status: Acute (2) CAD (coronary artery disease) Status: Acute (3) COPD (chronic obstructive pulmonary disease) Status: Acute (4) Left lower lobe pneumonia Status: Acute - Transfer Medications Prescriptions: Levofloxacin [Levaquin] 500 mg PO DAILY #3 tablet PredniSONE 40 mg PO DAILY #30 tablet Home Medications: Albuterol Sulfate [Ventolin Hfa] 2 puff IH BID PRN 06/03/16 [History] Aspirin 81 mg PO DAILY 06/03/16 [History] Budesonide/Formoterol 160/4.5 [Symbicort 160/4.5] 2 puff IH BIDR 06/03/16 [ History] Calcium Carbonate [Calcium] 600 mg PO BID 06/03/16 [History] Carbidopa/Levodopa [Carbidopa-Levo 25-100 mg Odt] 1 tab PO DAILY 06/03/16 [ History] Carvedilol [Coreg] 25 mg PO BID 06/03/16 [History] Enalapril Maleate [Vasotec] 5 mg PO BID 06/03/16 [History] Lovastatin 40 mg PO HS 06/03/16 [History] BuPROPion XL (24 HR) [Wellbutrin Xl] 150 mg PO QPM 08/21/16 [History] Bupropion HCl [Bupropion HCl Sr] 200 mg PO QAM 08/21/16 [History] Testosterone [Androgel] 50 mg TD DAILY 08/21/16 [History] Levofloxacin [Levaquin] 500 mg PO DAILY #3 tablet 08/26/16 [Rx] PredniSONE 40 mg PO DAILY #30 tablet 08/26/16 [Rx] Allergies/Adverse Reactions: Allergies Hydromorphone [From Dilaudid] Allergy (Verified 08/21/16 15:17) Hives - Respiratory Orders Smoking Cessation: Smoking cessation has been advised. For more information, call the [place] Tobacco Quit Line at 2-482-JUCM-NOW. - Advance Directives Code Status: Full Code - Mobility Orders Ambulate - Rehabiliation Orders Rehab Potential: Fair Rehab Orders: Evaluation for Physical Therapy, Evaluation for Occupational Therapy - Diet Orders Regular CERTIFICATION: I certify that the transfer of the above named patient to an Extended Care Facility is necessary for the continuing treatment of the diagnosis listed. The above information is true and accurate reflection of patient's current condition. Confidential - Redisclosure prohibited without a patient's written consent.
[2016-08-27] MEDS: Ipratropium/Albuterol Neb 3 ML IH SCH (04:00)
== END 2016-08-26 19:45 | DRG 208 ==
LOC: ICNU 11:47 → EMEROO 11:47 → ICNU 17:55 → 3NENU 08-25 17:57
PROVIDERS: ADMIT Internal Medicine Pulmonary Disease; ATTEND Internal Medicine Hospice and Palliative Medicine

== ENCOUNTER 2017-05-31 10:20 | Inpatient (IN) ==
[2017-05-31] MEDS ORDERED: Ipratropium/Albuterol Neb 3 ML IH ONE (10:43)
[2017-05-31] MEDS ORDERED: methylPREDNISolone 125 MG/2 ML VIAL IVP ONE (10:51)
[2017-05-31] MEDS ORDERED: 0.9 % Sodium Chloride 1,000 ML IVC ONE ×2 (11:02→12:26)
[2017-05-31 11:20] LABS: Hematocrit 35.6 % (37.5-50.1); Mean Corpuscular HGB Conc 30.9 g/dL (31.6-35.5); Mean Corpuscular Hemoglobin 31.1 pg (28.0-33.3); Mean Corpuscular Volume 100.6 fL (83.0-100.0); Mean Platelet Volume 10.4 fL (9.4-12.4); Platelet Count 179 K/mcL (140-400); Red Blood Count 3.54 M/mcL (4.19-5.50); Red Cell Distribution Width 18.2 % (11.5-14.5)
[2017-05-31 11:25] LABS: INR 1.4; Prothrombin Time 14.9 Seconds (9.4-12.1)
[2017-05-31 11:28] LABS: Activated Partial Thrombo Time 29.5 Seconds (26.0-36.0)
[2017-05-31 11:35] LABS: BUN/Creatinine Ratio 9 (6-26); Blood Urea Nitrogen 44 mg/dL (8-26); Carbon Dioxide 25 mEq/L (19-29); Chloride 97 mEq/L (98-109); Glucose 126 mg/dL (70-99); Osmolality,Calculated 295 (280-300); Potassium 5.6 mEq/L (3.5-4.5); Sodium 136 mEq/L (136-145); eGFR For African Americans 14 (> 60); eGFR For Non-African Americans 11 (> 60)
[2017-05-31 11:36] LABS: Alanine Aminotransferase < 6 Units/L (0-55); Albumin 3.5 g/dL (3.5-5.0); Albumin/Globulin Ratio 0.7 (1.1-2.2); Alkaline Phosphatase 71 Units/L (38-126); Aspartate Amino Transferase 11 Units/L (5-34); Bilirubin,Direct 0.7 mg/dL (0.0-0.5); Bilirubin,Indirect 0.5 mg/dL (0.0-1.2); Bilirubin,Total 1.2 mg/dL (0.2-1.2); Calcium 9.3 mg/dL (8.6-10.8); Globulin 5.1 g/dL (2.4-3.5); Magnesium 1.5 mg/dL (1.6-2.6); Phosphorous 4.2 mg/dL (2.3-4.7); Total Protein 8.6 g/dL (6.0-8.3)
[2017-05-31] MEDS ORDERED: Azithromycin 500 MG in D5% in Water 250 ML IVPB STA (11:39)
[2017-05-31 11:40] LABS: Lymphocytes # 1.7 K/mcL (0.6-4.6); Monocytes # 1.7 K/mcL (0.0-1.3); Neutrophils # 38.3 K/mcL (1.6-8.9)
[2017-05-31 11:41] LABS: Macrocytosis Present (Not Present); Ovalocytes 1+ (Not Present); Platelet Estimate Normal (Normal); Poikilocytosis 2+ (Not Present); Polychromasia 2+ (Not Present); Reactive Lymphocytes Present (Not Present); Schistocytes 1+ (Not Present); Target Cells 1+ (Not Present); Tear Drop Cells 1+ (Not Present); Toxic Granulation Present (Not Present); Toxic Vacuolation Present (Not Present)
[2017-05-31] MEDS ORDERED: Levofloxacin 750 MG/150 ML 750 MG/150 ML BAG IVPB STA (11:52)
[2017-05-31] MEDS ORDERED: Piperacillin/Tazobactam 3.375 GM in D5% in Water (Mini-Bag+) 100 ML IVPB ONE (11:52)
--- NOTE | 2017-05-31 12:36 | Emergency Department Note ---
START Narrative - START START: A time-out was completed verifying correct patient, procedure, site, positioning , and special equipment if applicable. The patient was placed in a dependent position appropriate for central line placement based on the vein to be cannulated. The patients right neck was prepped and draped in sterile fashion. 1 % Lidocaine was used to anesthetize the surrounding skin area. A triple lumen catheter was introduced into the the internal jugular vein under ultrasound guidance. The catheter was threaded smoothly over the guide wire and appropriate blood return was obtained. Each lumen of the catheter was evacuated of air and flushed with sterile saline. The catheter was then sutured in place to the skin and a sterile dressing applied. Perfusion to the extremity distal to the point of catheter insertion was checked and found to be adequate. The patient tolerated the procedure well and there were no complications. <Jeaneth Nichols - Last Filed: 05/31/17 12:34> - START START: I examined this patient and my medical decision-making was reviewed with the Resident Physician. I agree with the documented findings, disposition and treatment plan as described except to the extent set forth below. I personally supervised the resident performing the procedure and was present in the room. <Nicole Rowley - Last Filed: 05/31/17 14:56>
[2017-05-31] MEDS: Norepinephrine 4 MG in D5% in Water 250 ML IVC SCH ×2 (12:47→19:00)
--- NOTE | 2017-05-31 12:50 | Emergency Department Note ---
Disposition Clinical Impression: Septic shock, Acute kidney injury Pneumonia Qualifiers: Pneumonia type: due to unspecified organism Laterality: bilateral Lung location : unspecified part of lung Qualified Code(s): J18.9 - Pneumonia, unspecified organism Disposition: Admitted As Inpatient Condition: Fair SOB HPI - General Chief Complaint: ED Shortness of Breath/Dyspnea Stated Complaint: Productive cough,wheezing,PND Time Seen by Provider: 05/31/17 10:38 Source: patient, family Limitations: physical limitation Nursing Notes Reviewed: Yes Vital Signs Reviewed: Yes - History of Present Illness Patient presents today for evaluation of shortness of breath. Shortness of breath started on Monday and has been progressively worse. Patient saw primary care provider and referred here for pneumonia. Patient has baseline 3 L of oxygen at home and has been requiring increased. Patient has been taking his albuterol at home as well. Patient states brown sputum production. No significant fevers. Patient initially with low blood pressure and hypoxia. Sepsis order set ordered. The patient's has multiple family members of also been sick. He was recently on a cruise and returned on Monday. Was in [place]. - Related Data Home Medications Medication Instructions Recorded Confirmed Albuterol Sulfate [Ventolin Hfa] 2 puff IH BID PRN 06/03/16 05/31/17 Aspirin 81 mg PO DAILY 06/03/16 05/31/17 Budesonide/Formoterol 160/4.5 2 puff IH BIDR 06/03/16 05/31/17 [Symbicort 160/4.5] Calcium Carbonate [Calcium] 600 mg PO BID 06/03/16 05/31/17 Carvedilol [Coreg] 25 mg PO BID 06/03/16 05/31/17 Enalapril Maleate [Vasotec] 5 mg PO BID 06/03/16 05/31/17 Lovastatin 40 mg PO HS 06/03/16 05/31/17 Carbidopa/Levodopa 25/100 [Sinemet 1 tab PO DAILY 05/31/17 05/31/17 25] Clopidogrel [Plavix] 75 mg PO DAILY 05/31/17 05/31/17 Metoprolol XL (24 HR) Succ [Toprol 100 mg PO DAILY 05/31/17 05/31/17 XL] Spironolactone [Aldactone] 25 mg PO DAILY 05/31/17 05/31/17 Tiotropium [place] [Spiriva 2 puff IH DAILY 05/31/17 05/31/17 Respimat] Allergies Allergy/AdvReac Type Severity Reaction Status Date / Time Hydromorphone [From Dilaudid] Allergy Hives Verified 05/31/17 10:29 Review of Systems: CONSTITUTIONAL: No weight loss, fever, chills, weakness or fatigue. HEENT: Eyes: No visual changes. Ears, Nose, Throat: No hearing loss, difficulty talking or unable to swallow. SKIN: No rash or itching. CARDIOVASCULAR: No chest pain, chest pressure or chest discomfort. No palpitations or edema. RESPIRATORY: Shortness of breath and positive sputum production. GASTROINTESTINAL: No anorexia, nausea, vomiting or diarrhea. No abdominal pain or blood. GENITOURINARY: No burning on urination or hematuria. NEUROLOGICAL: No headache, dizziness, syncope, paralysis, ataxia, numbness or tingling in the extremities. No change in bowel or bladder control. MUSCULOSKELETAL: No muscle pain, back pain, joint pain or stiffness. Past Medical History - Past Medical History Medical history: Reports: COPD, coronary artery disease, CVA, GERD, hyperlipidemia, hypertension, myocardial infarction Surgical history: Reports: coronary bypass (CABG), herniorrhaphy, orthopedic, other, pacemaker/AICD, AICD, pacemaker Psychiatric history: Reports: anxiety, depression - Social History Smoking Status: Former smoker Smokeless Tobacco Status: No Alcohol use: Reports: none Drug use: Reports: marijuana Physical Exam - General Limitations: physical limitation General appearance: alert, lethargic Course - Reevaluation(s) Reevaluation #1: Patient with significantly elevated white count. Significant elevated creatinine at 5.1. Patient's troponin is also elevated. Patient has repeat blood pressures with systolic of 70. Patient will require central line as well as continued fluid replacement and antibiotics. Zosyn and Levaquin ordered. Will discuss with ICU physician. Reevaluation #2: General: Well appearing, nontoxic, no acute distress Head: Normocephalic Atraumatic Eyes: PERRL, EOMI ENT: Airway patent, no stridor Neck: supple, no meningismus Chest: decreased lung sounds; wheezing and rhonchi. Cardiac: tachycardia no murmurs, rubs or gallops Abdomen: soft, nontender, nondistended; no guarding, rebound, or tenderness to percussion Musculoskeletal: Calves symmetric, nontender, no palpable cord Skin: No rash, normal skin tone Neuro: Alert and Oriented to person, place, and time; No focal deficit, CN 2-12 symmetric and intact - Consultations Consultation #1: Discussed with Dr. Holland. Patient accepted for admission. Vital Signs Temperature 97.9 F 05/31/17 10:29 Pulse Rate 75 05/31/17 10:29 Respiratory Rate 24 05/31/17 10:29 Blood Pressure 116/99 05/31/17 10:29 O2 Sat by Pulse Oximetry 89 05/31/17 10:29 Temperature 98.3 F 05/31/17 14:00 Pulse Rate 75 05/31/17 14:00 Respiratory Rate 16 05/31/17 14:00 Blood Pressure 70/49 05/31/17 14:00 O2 Sat by Pulse Oximetry 97 05/31/17 14:00 Oxygen Delivery Oxygen Delivery Nasal Cannula Procedures - Central Line Placement Right IJ Central Line Inserted*: Yes Central Line Catheter Replacement*: Yes Central Line Insertion: emergent Consent Obtained: verbal consent Procedural Pause: verify patient name and date of , timeout performed per policy, eneida and assess the site, assemble equipment and verify supplies, perform hand hygiene During the Procedure: clinician is wearing sterile gloves, cap, mask,& gown during insertion, sterile field and sterile technique are maintained, patient's face is covered with drape or mask and wearing a cap, everyone in room is wearing a mask Central Line Prep: Chlorhexidine scrub Prep the Procedure Site: apply chloraprep to the skin using a back and forth scrubbing motion, apply chloraprep for 30 seconds (upper body), 1-2 min ( femoral sites), allow prep to dry, drape the patient with a full body drape Local Anesthetic: lidocaine 1% Amount of anesthesia used (mL): 2 Ultrasound Used for Placement: Yes Central Line Lumen Inserted: triple Post Procedure: sutured in place, good blood return, all ports aspirated, flushed, capped, sterile dressing applied, guide wire removed and visualized, dressing is dated Post Procedure X-Ray: tip of catheter in good position Patient Tolerated Procedure: well, no complications Complications: none Name of Clinician Inserting Central Line: Dr. Campbell Clinician Assisting/Completing Checklist: Dr. Hernandez Date: 05/31/17 Time: 12:15 Shortness of Breath/Dyspnea - Medical Records Medical records reviewed: Yes I reviewed the patient's medical records. - Lab Data Lab results reviewed: Yes I reviewed the patient's lab results. Result diagrams: 05/31/17 11:11 05/31/17 11:11 Lab Results 05/31/17 05/31/17 05/31/17 Range/Units 11:11 11:11 11:11 WBC 41.6 H* (4.3-11.1) K/mcL RBC 3.54 L (4.19-5.50) M/mcL Hgb 11.0 L (12.9-16.9) g/dL Hct 35.6 L (37.5-50.1) % MCV 100.6 H (83.0-100.0) fL MCH 31.1 (28.0-33.3) pg MCHC 30.9 L (31.6-35.5) g/dL RDW 18.2 H (11.5-14.5) % Plt Count 179 (140-400) K/mcL MPV 10.4 (9.4-12.4) fL Seg Neutrophils % 68.0 % Band Neutrophils % 24.0 H (0-4) % Lymphocytes % 4.0 % Monocytes % 4.0 % Neutrophils # 38.3 H (1.6-8.9) K/mcL Lymphocytes # 1.7 (0.6-4.6) K/mcL Monocytes # 1.7 H (0.0-1.3) K/mcL Reactive Lymphocytes Present A (Not Present) Toxic Granulation Present A (Not Present) Toxic Vacuolation Present A (Not Present) Platelet Estimate Normal (Normal) Polychromasia 2+ A (Not Present) Poikilocytosis 2+ A (Not Present) Macrocytosis Present A (Not Present) Target Cells 1+ A (Not Present) Tear Drop Cells 1+ A (Not Present) Ovalocytes 1+ A (Not Present) Schistocytes 1+ A (Not Present) PT 14.9 H (9.4-12.1) Seconds INR 1.4 APTT 29.5 (26.0-36.0) Seconds Sodium 136 (136-145) mEq/L Potassium 5.6 H (3.5-4.5) mEq/L Chloride 97 L (98-109) mEq/L Carbon Dioxide 25 (19-29) mEq/L BUN 44 H (8-26) mg/dL Creatinine 5.13 H (0.72-1.25) mg/dL Est GFR ( Amer) 14 L (> 60) Est GFR (Non-Af Amer) 11 L (> 60) BUN/Creatinine Ratio 9 (6-26) Glucose 126 H (70-99) mg/dL Calculated Osmolality 295 (280-300) Lactic Acid (0.5-2.2) mmol/L Calcium 9.3 (8.6-10.8) mg/dL Phosphorus 4.2 (2.3-4.7) mg/dL Magnesium 1.5 L (1.6-2.6) mg/dL Total Bilirubin 1.2 (0.2-1.2) mg/dL Direct Bilirubin 0.7 H (0.0-0.5) mg/dL Indirect Bilirubin 0.5 (0.0-1.2) mg/dL AST 11 (5-34) Units/L ALT < 6 (0-55) Units/L Alkaline Phosphatase 71 (38-126) Units/L Troponin I (0-0.03) ng/mL B-Natriuretic Peptide (0-100) pg/mL Serum Total Protein 8.6 H (6.0-8.3) g/dL Albumin 3.5 (3.5-5.0) g/dL Globulin 5.1 H (2.4-3.5) g/dL Albumin/Globulin Ratio 0.7 L (1.1-2.2) 05/31/17 05/31/17 05/31/17 Range/Units 11:11 11:11 11:11 WBC (4.3-11.1) K/mcL RBC (4.19-5.50) M/mcL Hgb (12.9-16.9) g/dL Hct (37.5-50.1) % MCV (83.0-100.0) fL MCH (28.0-33.3) pg MCHC (31.6-35.5) g/dL RDW (11.5-14.5) % Plt Count (140-400) K/mcL MPV (9.4-12.4) fL Seg Neutrophils % % Band Neutrophils % (0-4) % Lymphocytes % % Monocytes % % Neutrophils # (1.6-8.9) K/mcL Lymphocytes # (0.6-4.6) K/mcL Monocytes # (0.0-1.3) K/mcL Reactive Lymphocytes (Not Present) Toxic Granulation (Not Present) Toxic Vacuolation (Not Present) Platelet Estimate (Normal) Polychromasia (Not Present) Poikilocytosis (Not Present) Macrocytosis (Not Present) Target Cells (Not Present) Tear Drop Cells (Not Present) Ovalocytes (Not Present) Schistocytes (Not Present) PT (9.4-12.1) Seconds INR APTT (26.0-36.0) Seconds Sodium (136-145) mEq/L Potassium (3.5-4.5) mEq/L Chloride (98-109) mEq/L Carbon Dioxide (19-29) mEq/L BUN (8-26) mg/dL Creatinine (0.72-1.25) mg/dL Est GFR ( Amer) (> 60) Est GFR (Non-Af Amer) (> 60) BUN/Creatinine Ratio (6-26) Glucose (70-99) mg/dL Calculated Osmolality (280-300) Lactic Acid 2.5 H (0.5-2.2) mmol/L Calcium (8.6-10.8) mg/dL Phosphorus (2.3-4.7) mg/dL Magnesium (1.6-2.6) mg/dL Total Bilirubin (0.2-1.2) mg/dL Direct Bilirubin (0.0-0.5) mg/dL Indirect Bilirubin (0.0-1.2) mg/dL AST (5-34) Units/L ALT (0-55) Units/L Alkaline Phosphatase (38-126) Units/L Troponin I 0.09 H* (0-0.03) ng/mL B-Natriuretic Peptide 294 H (0-100) pg/mL Serum Total Protein (6.0-8.3) g/dL Albumin (3.5-5.0) g/dL Globulin (2.4-3.5) g/dL Albumin/Globulin Ratio (1.1-2.2) - Radiology Data Radiology results reviewed: Yes I reviewed the patient's radiology results. - EKG Data EKG attestation: Yes I reviewed and interpreted this EKG. EKG results narrative: Patient has sinus tachycardia with ventricular rate of 102. IN 158. QRS 138. QTC 395. No significant ST elevation or depression. NO previous EKG for comparison. Attestation Statement - Attestation Attestation: I examined this patient and my medical decision-making was reviewed with the Resident Physician. I agree with the documented findings, disposition and treatment plan as described except to the extent set forth below. Patient eating for shortness of breath. Saw his PCP and was referred here for hypoxia and worsening symptoms. Patient recently went on a cruise and states multiple family members are sick. On examination he is hypoxic. Diminished lung sounds. Plan. Patient's blood pressure dropped as well. Dropped as low as 60 systolic. He received an IV fluid bolus. In the central line placed. Blood pressure improved with Levophed drip. Admitted to ICU. Patient with multifocal pneumonia. 45 minutes of critical care exclusive of separately billable procedures. Sepsis Reassessment Note - Evaluation Sepsis Screen: No Definite Risk Current Stage of Sepsis: septic shock Possible Source of Sepsis: pulmonary - Focused Exam Date of Encounter: 05/31/17 Time of Encounter: 12:40 Vital Signs: Vital Signs Temp Pulse Resp BP Pulse Ox 05/31/17 12:48 98 32 66/49 96 05/31/17 11:00 106 24 75/45 96 05/31/17 10:29 97.9 F 75 24 116/99 89 Respiratory Exam: Present: distant breath sounds, diminished air movement. Absent: respiratory distress Cardiovascular Exam: Present: tachycardia Capillary Refill: < 2 seconds Peripheral Pulse Strength: 3+ normal Peripheral Pulse Location: Radial Skin Exam: normal turgor - Reassessment Comments Comments: Patient well on reevaluation at 1240. Saturating at 96% on 10L mask. No resp distress. Blood pressure improved to 100 systolic with 5 mics Levophed. Patient accepted ICU.
[2017-05-31] MEDS ORDERED: Piperacillin/Tazobactam 3.375 GM in Water for inj. (sterile) 20 ML IVP ONE (12:59)
[2017-05-31 13:20] LABS: ABG Base Excess -6 mEq/L (-2 to 3); ABG HCO3 23 mEq/L (21-27); ABG Oxygen Saturation 91 % (95-98); ABG PCO2 58 mmHg (35-45); ABG PO2 76 mmHg (85-104); ABG TCO2 25 mEq/L (20-26)
--- NOTE | 2017-05-31 13:23 | Pulmonology Consult Note ---
Addendum entered and electronically signed by Sincere Mercado DO 05/31/17 17:00: Please delete this consult note. Entered in error. Please see pulmonology H&P instead. Original Note: <Sincere Mercado - Last Filed: 05/31/17 14:13> Date of Encounter: 05/31/17 Time of Encounter: 13:21 Assessment and Plan (1) Septic shock Current Visit: Yes Status: Acute 3 SIRS criteria with WBC 41.6, RR 32, and HR 106. His lactic acid was 2.5, repeat level pending Blood pressure 65/45 despite sepsis bolus Right IJ CVC was inserted in the ED and BP improved with Levophed administration. Hold home antihypertensive medications due to hypotension Continue ICU monitoring and pressor support to maintain MAP >65 (2) Pneumonia Current Visit: Yes Status: Acute SOB for the past day after recently returning from a cruise 2 days ago. Of note , he reports several other people on the cruise were sick. CXR reveals multifocal pneumonia, left significantly worse than right. Blood and sputum cultures pending Will cover for atypical PNA with Vancomycin, Levaquin, and Azithromycin given recent cruise De-escalate antibiotics based on culture results Qualifiers: Pneumonia type: due to unspecified organism Laterality: bilateral Lung location: unspecified part of lung Qualified Code(s): J18.9 - Pneumonia, unspecified organism (3) Acute on chronic respiratory failure with hypoxia and hypercapnia Current Visit: No Status: Chronic Patient wears supplemental 3L O2 at home Presented with hypoxia SpO2 89% on 3L O2 ABG revealed respiratory acidosis Patient improved in following breathing treatments in the ED without requiring Bipap Continue ICU monitoring (4) COPD with exacerbation Current Visit: No Status: Acute Continue antibiotics, bronchodilators and steroids (5) Acute kidney injury Current Visit: Yes Status: Acute Continue IVF Avoid nephrotoxins Monitor labs (6) Troponin level elevated Current Visit: Yes Status: Acute Prior h/o CAD and AICD Initial troponin 0.09 likely secondary to demand ischemia from septic shock and CHUCHO EKG revealed sinus tachycardia with ventricular rate of 102. NM 158. QRS 138. QTC 395. No significant ST elevation or depression Trend serial troponins (7) CAD (coronary artery disease) Current Visit: No Status: Acute Resume home meds Qualifiers: Coronary Disease-Associated Artery/Lesion type: [place] artery [place] vs. transplanted heart: [place] heart Associated angina: without angina Qualified Code(s): I25.10 - Atherosclerotic heart disease of [place] coronary artery without angina pectoris (8) DVT prophylaxis Current Visit: No Status: Acute Heparin subQ History of Present Illness Consult date: 05/31/17 Requesting physician: Nicole Vargas See Reason for consult: COPD, other (Septic shock) Chief complaint: SOB History of present illness: Mr. Cruz is a 61yo male with a PMH of COPD on 3L home O2, CAD, CVA, hypertension, hyperlipidemia, and remote tobacco dependence who presented c/o SOB for the past day after recently returning from a cruise 2 days ago. Of note , he reports several other people on the cruise were sick. He reports chills, decreased appetite, non-productive cough since last PM, and no releif in SOB following Albuterol use at home. In the ED, patient had 3 SIRS criteria with WBC 41.6, RR 32, and HR 106. His lactic acid was 2.5 and blood pressure 65/45 despite sepsis bolus. Right IJ CVC was inserted in the ED and BP improved with Levophed administration. Past Med Surg Social Fam HX - Past Medical History Medical history: COPD, coronary artery disease, CVA, GERD, hyperlipidemia, hypertension, myocardial infarction Psychiatric history: anxiety, depression - Past Surgical History Surgical History: coronary bypass (CABG), herniorrhaphy, orthopedic, other, pacemaker/AICD, AICD, pacemaker - Social History Smoking Status: Former smoker Smokeless Tobacco Status: No Alcohol use: none Drug use: marijuana - Family History Sister Adopted: No Family Member Ethnicity: Non- Living Status: Still Living Hx Family Cardiac Disorders: Yes Hx Family Respiratory Disorders: Yes Hx Family Cancer: Yes Hx Family GI Disorders: Yes Hx Family Endocrine Disorder: Yes Hx Family Neuromuscular Disorders: No Hx Family Neurologic Disorders: No Hx Family HEENT Disorders: No Hx Family Autoimmune Disorders: No Medications and Allergies Albuterol Sulfate [Ventolin Hfa] 2 puff IH BID PRN 06/03/16 [History] Aspirin 81 mg PO DAILY 06/03/16 [History] Budesonide/Formoterol 160/4.5 [Symbicort 160/4.5] 2 puff IH BIDR 06/03/16 [ History] Calcium Carbonate [Calcium] 600 mg PO BID 06/03/16 [History] Carvedilol [Coreg] 25 mg PO BID 06/03/16 [History] Enalapril Maleate [Vasotec] 5 mg PO BID 06/03/16 [History] Lovastatin 40 mg PO HS 06/03/16 [History] Carbidopa/Levodopa 25/100 [Sinemet 25/100] 1 tab PO DAILY 05/31/17 [History] Clopidogrel [Plavix] 75 mg PO DAILY 05/31/17 [History] Metoprolol XL (24 HR) Succ [Toprol XL] 100 mg PO DAILY 05/31/17 [History] Spironolactone [Aldactone] 25 mg PO DAILY 05/31/17 [History] Tiotropium [place] [Spiriva Respimat] 2 puff IH DAILY 05/31/17 [History] 3 Allergy/AdvReac Type Severity Reaction Status Date / Time Hydromorphone [From Dilaudid] Allergy Hives Verified 05/31/17 10:29 All Systems: A 10-system review of systems was performed and is negative for pertinent findings except as documented above in the HPI. - Constitutional Constitutional: anorexia, chills, fatigue, lethargy, weakness, no fever(s) - EENT Nose, mouth and throat: no headache(s), no nasal obstruction, no sore throat - Cardiovascular Cardiovascular: dyspnea, palpitations, no chest pain - Respiratory Respiratory: cough, dyspnea, no chest congestion, no excessive phlegm production , no pain with cough - Gastrointestinal Gastrointestinal: no diarrhea, no loose stools, no nausea, no vomiting - Genitourinary Genitourinary: no flank pain, no urinary frequency, no urinary urgency - Musculoskeletal Musculoskeletal: weakness, no muscle weakness, no neck pain - Integumentary Integumentary: no erythema, no rash - Neurological Neurological: weakness, no headache(s), no numbness - Psychiatric Psychiatric: no anxiety, no depression - Endocrine Endocrine: no palpitations, no polydipsia, no polyphagia - Hematologic/Lymphatic Hematologic/Lymphatic: no easy bleeding, no easy bruising - Allergic/Immunologic Allergic/Immunologic: no tongue swelling, no wheezing Physical Examination General appearance: no acute distress, alert Eyes: nonicteric ENT: oropharynx dry Mallampati (class): 2 Neck: supple, no JVD Effort: normal Inspection: normal Auscultation: bilateral: diminished breath sounds, rhonchi Percussion: bilateral: not dull Cardiovascular: other (sinus tachycardia) Gastrointestinal: normoactive bowel sounds Integumentary: normal Extremities: no cyanosis, no edema, no clubbing Musculoskeletal: no deformities normal mental status, CN II-XII normal mood appropriate, affect normal Results - Laboratory Findings CBC and BMP: 05/31/17 11:11 05/31/17 11:11 ABG ABG pH 7.20 pH Units (7.32-7.45) L* 05/31/17 13:17 ABG pCO2 58 mmHg (35-45) H 05/31/17 13: ABG pO2 76 mmHg (85-104) L 05/31/17 13: ABG O2 Saturation 91 % (95-98) L 05/31/17 13: PT/INR, D-dimer PT 14.9 Seconds (9.4-12.1) H 05/31/17 11:11 Abnormal lab findings: Abnormal lab results WBC 41.6 K/mcL (4.3-11.1) H* 05/31/17 11:11 RBC 3.54 M/mcL (4.19-5.50) L 05/31/17 11:11 Hgb 11.0 g/dL (12.9-16.9) L 05/31/17 11:11 Hct 35.6 % (37.5-50.1) L 05/31/17 11:11 MCV 100.6 fL (83.0-100.0) H 05/31/17 11:11 MCHC 30.9 g/dL (31.6-35.5) L 05/31/17 11:11 RDW 18.2 % (11.5-14.5) H 05/31/17 11:11 Band Neutrophils % 24.0 % (0-4) H 05/31/17 11:11 Neutrophils # 38.3 K/mcL (1.6-8.9) H 05/31/17 11:11 Monocytes # 1.7 K/mcL (0.0-1.3) H 05/31/17 11:11 Reactive Lymphocytes Present (Not Present) A 05/31/17 11:11 Toxic Granulation Present (Not Present) A 05/31/17 11:11 Toxic Vacuolation Present (Not Present) A 05/31/17 11:11 Polychromasia 2+ (Not Present) A 05/31/17 11:11 Poikilocytosis 2+ (Not Present) A 05/31/17 11:11 Macrocytosis Present (Not Present) A 05/31/17 11:11 Target Cells 1+ (Not Present) A 05/31/17 11:11 Tear Drop Cells 1+ (Not Present) A 05/31/17 11:11 Ovalocytes 1+ (Not Present) A 05/31/17 11:11 Schistocytes 1+ (Not Present) A 05/31/17 11:11 PT 14.9 Seconds (9.4-12.1) H 05/31/17 11:11 ABG pH 7.20 pH Units (7.32-7.45) L* 05/31/17 13: ABG pCO2 58 mmHg (35-45) H 05/31/17 13: ABG pO2 76 mmHg (85-104) L 05/31/17 13: ABG O2 Saturation 91 % (95-98) L 05/31/17 13: ABG Base Excess -6 mEq/L (-2 to 3) L 05/31/17 13:17 Potassium 5.6 mEq/L (3.5-4.5) H 05/31/17 11:11 Chloride 97 mEq/L (98-109) L 05/31/17 11:11 BUN 44 mg/dL (8-26) H 05/31/17 11:11 Creatinine 5.13 mg/dL (0.72-1.25) H 05/31/17 11:11 Est GFR ( Amer) 14 (> 60) L 05/31/17 11:11 Est GFR (Non-Af Amer) 11 (> 60) L 05/31/17 11:11 Glucose 126 mg/dL (70-99) H 05/31/17 11:11 Lactic Acid 2.5 mmol/L (0.5-2.2) H 05/31/17 11:11 Magnesium 1.5 mg/dL (1.6-2.6) L 05/31/17 11:11 Direct Bilirubin 0.7 mg/dL (0.0-0.5) H 05/31/17 11:11 Troponin I 0.09 ng/mL (0-0.03) H* 05/31/17 11:11 B-Natriuretic Peptide 294 pg/mL (0-100) H 05/31/17 11:11 Serum Total Protein 8.6 g/dL (6.0-8.3) H 05/31/17 11:11 Globulin 5.1 g/dL (2.4-3.5) H 05/31/17 11:11 Albumin/Globulin Ratio 0.7 (1.1-2.2) L 05/31/17 11:11 - Diagnostic Findings Chest x-ray: report reviewed, image reviewed Additional studies: EKG with sinus tachycardia with ventricular rate of 102. NM 158. QRS 138. QTC 395. No significant ST elevation or depression. - Clinical Findings Intake & Output: Intake & Output 05/30/17 05/31/17 05/31/17 23:59 07:59 15:59 Intake Total 100 / 100 Balance 100 / 100 Consult Discharge Plan - Plan Referrals: Heron Vincent Jr, MD [Primary Care Provider] - Sepsis Reassessment Note - Evaluation Sepsis Screen: No Definite Risk Current Stage of Sepsis: septic shock Possible Source of Sepsis: pulmonary - Focused Exam Date of Encounter: 05/31/17 Time of Encounter: 13:22 Respiratory Exam: Present: wheezes, rhonchi, decreased breath sounds. Absent: respiratory distress, diminished air movement Cardiovascular Exam: Present: tachycardia. Absent: murmur, rubs, gallop Capillary Refill: < 2 seconds Peripheral Pulse Strength: 3+ normal Peripheral Pulse Location: Radial Skin Exam: pale <Saadlla,Haval M - Last Filed: 05/31/17 17:06> Date of Encounter: 05/31/17 All Systems: A 10-system review of systems was performed and is negative for pertinent findings except as documented above in the HPI. Physical Examination Vital Signs: Vital Signs, Last 4 Hours Temp Pulse Resp BP Pulse Ox 05/31/17 17:00 68 16 83/27 99 05/31/17 16:00 73 16 73/43 99 05/31/17 15:45 16 99 05/31/17 15:00 73 16 89/32 99 05/31/17 14:00 98.3 F 75 16 70/49 97 05/31/17 13:37 91/47 05/31/17 13:31 97.9 F 100 16 65/45 98 Results - Laboratory Findings CBC and BMP: 05/31/17 11:11 05/31/17 11:11 ABG ABG pH 7.20 pH Units (7.32-7.45) L* 05/31/17 13: ABG pCO2 58 mmHg (35-45) H 05/31/17 13:17 ABG pO2 76 mmHg (85-104) L 05/31/17 13: ABG O2 Saturation 91 % (95-98) L 05/31/17 13: PT/INR, D-dimer PT 14.9 Seconds (9.4-12.1) H 05/31/17 11:11 Abnormal lab findings: Abnormal lab results WBC 41.6 K/mcL (4.3-11.1) H* 05/31/17 11:11 RBC 3.54 M/mcL (4.19-5.50) L 05/31/17 11:11 Hgb 11.0 g/dL (12.9-16.9) L 05/31/17 11:11 Hct 35.6 % (37.5-50.1) L 05/31/17 11:11 MCV 100.6 fL (83.0-100.0) H 05/31/17 11:11 MCHC 30.9 g/dL (31.6-35.5) L 05/31/17 11:11 RDW 18.2 % (11.5-14.5) H 05/31/17 11:11 Band Neutrophils % 24.0 % (0-4) H 05/31/17 11:11 Neutrophils # 38.3 K/mcL (1.6-8.9) H 05/31/17 11:11 Monocytes # 1.7 K/mcL (0.0-1.3) H 05/31/17 11:11 Reactive Lymphocytes Present (Not Present) A 05/31/17 11:11 Toxic Granulation Present (Not Present) A 05/31/17 11:11 Toxic Vacuolation Present (Not Present) A 05/31/17 11:11 Polychromasia 2+ (Not Present) A 05/31/17 11:11 Poikilocytosis 2+ (Not Present) A 05/31/17 11:11 Macrocytosis Present (Not Present) A 05/31/17 11:11 Target Cells 1+ (Not Present) A 05/31/17 11:11 Tear Drop Cells 1+ (Not Present) A 05/31/17 11:11 Ovalocytes 1+ (Not Present) A 05/31/17 11:11 Schistocytes 1+ (Not Present) A 05/31/17 11:11 PT 14.9 Seconds (9.4-12.1) H 05/31/17 11:11 ABG pH 7.20 pH Units (7.32-7.45) L* 05/31/17 13: ABG pCO2 58 mmHg (35-45) H 05/31/17 13: ABG pO2 76 mmHg (85-104) L 05/31/17 13: ABG O2 Saturation 91 % (95-98) L 05/31/17 13: ABG Base Excess -6 mEq/L (-2 to 3) L 05/31/17 13: Potassium 5.6 mEq/L (3.5-4.5) H 05/31/17 11:11 Chloride 97 mEq/L (98-109) L 05/31/17 11:11 BUN 44 mg/dL (8-26) H 05/31/17 11:11 Creatinine 5.13 mg/dL (0.72-1.25) H 05/31/17 11:11 Est GFR ( Amer) 14 (> 60) L 05/31/17 11:11 Est GFR (Non-Af Amer) 11 (> 60) L 05/31/17 11:11 Glucose 126 mg/dL (70-99) H 05/31/17 11:11 POC Glucose 127 (58-89) H 05/31/17 14:03 Magnesium 1.5 mg/dL (1.6-2.6) L 05/31/17 11:11 Direct Bilirubin 0.7 mg/dL (0.0-0.5) H 05/31/17 11:11 Troponin I 0.09 ng/mL (0-0.03) H* 05/31/17 11:11 B-Natriuretic Peptide 294 pg/mL (0-100) H 05/31/17 11:11 Serum Total Protein 8.6 g/dL (6.0-8.3) H 05/31/17 11:11 Globulin 5.1 g/dL (2.4-3.5) H 05/31/17 11:11 Albumin/Globulin Ratio 0.7 (1.1-2.2) L 05/31/17 11:11 Ur Specimen Adequacy See below A 05/31/17 13:23 Urine Color Placer (Yellow) A 05/31/17 13:23 Urine Clarity Turbid (Clear) A 05/31/17 13:23 Ur Specific [place] 1.029 (1.010-1.025) H 05/31/17 13:23 Urine Protein 30 mg/dL (Neg-Trace) H 05/31/17 13:23 Urine Glucose (UA) 100 mg/dL (Normal) H 05/31/17 13:23 Urine Ketones Trace mg/dL (Negative) H 05/31/17 13:23 Urine Nitrite Positive (Negative) A 05/31/17 13:23 Urine Bilirubin Moderate (Negative) H 05/31/17 13:23 Ur Leukocyte Esterase Small (Negative) H 05/31/17 13:23 Ur Culture Indicated? YES (NO) A 05/31/17 13:23 - Clinical Findings Intake & Output: Intake & Output 05/31/17 05/31/17 05/31/17 07:59 15:59 23:59 Intake Total 100 / 100 239 / 239 Output Total 0 / 0 Balance 100 / 100 239 / 239 Weight 78.5 kg - Attending Attestation See H&P Sepsis Reassessment Note - Focused Exam Vital Signs: Vital Signs Temp Pulse Resp BP Pulse Ox 05/31/17 17:00 68 16 83/27 99 05/31/17 16:00 73 16 73/43 99 05/31/17 15:45 16 99 05/31/17 15:00 73 16 89/32 99 05/31/17 14:00 98.3 F 75 16 70/49 97 05/31/17 13:37 91/47 05/31/17 13:31 97.9 F 100 16 65/45 98
[2017-05-31] MEDS ORDERED: Naloxone 0.4 MG/ML INJ IVP PRN (13:24)
[2017-05-31] MEDS ORDERED: Acetaminophen 325 MG TABLET PO PRN (13:24)
[2017-05-31] MEDS ORDERED: 0.9 % Sodium Chloride 1,000 ML IVC SCH (13:30)
[2017-05-31 13:32] LABS: Bilirubin,Urine Moderate (Negative); Blood,Urine Negative (Negative); Clarity,Urine Turbid (Clear); Color,Urine Orange (Yellow); Glucose,Urine (UA) 100 mg/dL (Normal); Ketones,Urine Trace mg/dL (Negative); Leukocyte Esterase,Urine Small (Negative); Nitrite,Urine Positive (Negative); Protein,Urine 30 mg/dL (Neg-Trace); Specific Gravity,Urine 1.029 (1.010-1.025); Urobilinogen,Urine Normal (Normal)
[2017-05-31] MEDS ORDERED: NON-FORMULARY MEDICATION 1 EACH EACH (Tiotropium Bromide [Spiriva Respimat] 2 PUFF) IH SCH (13:45)
[2017-05-31] MEDS ORDERED: Magnesium Sulfate 2 GM in D5% in Water 100 ML IVPB ONE (13:54)
[2017-05-31] MEDS ORDERED: Azithromycin 500 MG in D5% in Water 250 ML IVPB SCH (14:00)
[2017-05-31] MEDS ORDERED: Vancomycin (wt based) 1,000 MG VIAL IVPB SCH (14:00)
[2017-05-31] MEDS: *HR* Heparin 5,000 UNIT/ML VIAL SQ SCH ×2 (14:45→21:12)
--- NOTE | 2017-05-31 15:07 | Electrocardiograph Report ---
[email or web address] [facility] Test Date: 2017-05-31 Pat Name: Williams Cruz Department: 104 Room: 11 Gender: M Acet[employer] Burner: : 1955 Requested By: Nicole See Order Number: [id number] Reading MD: Heron Vincent MD Measurements Intervals [place] Rate: 102 P: 64 AR: 158 QRS: 14 QRSD: 138 T: 125 QT: 336 QTc: 395 Interpretive Statements SINUS TACHYCARDIA INTRAVENTRICULAR CONDUCTION DELAY Electronically Signed On 05-31-2017 15:06:16 EST by Heron Vincent MD
[2017-05-31] MEDS ORDERED: 0.9 % Sodium Chloride 500 ML IVC ONE (15:20)
[2017-05-31] MEDS ORDERED: Vancomycin 1,250 MG in D5% in Water 250 ML IVPB ONE (15:21)
[2017-05-31] MEDS: Ipratropium/Albuterol Neb 3 ML IH SCH ×3 (15:44→23:54)
[2017-05-31] MEDS: Budesonide/Formoterol 160/4.5 MDI IH SCH ×2 (15:44→20:18)
--- NOTE | 2017-05-31 16:34 | Pulmonology History & Physical ---
<Sincere Mercado - Last Filed: 05/31/17 16:30> Date of Encounter: 05/31/17 Time of Encounter: 13:21 Assessment and Plan (1) Septic shock Current visit: Yes Status: Acute (2) Pneumonia Current visit: Yes Status: Acute Qualifiers: Pneumonia type: due to unspecified organism Laterality: bilateral Lung location: unspecified part of lung Qualified Code(s): J18.9 - Pneumonia, unspecified organism (3) Acute on chronic respiratory failure with hypoxia and hypercapnia Current visit: No Status: Chronic (4) COPD with exacerbation Current visit: No Status: Acute (5) Acute kidney injury Current visit: Yes Status: Acute (6) Troponin level elevated Current visit: Yes Status: Acute (7) CAD (coronary artery disease) Current visit: No Status: Acute Qualifiers: Coronary Disease-Associated Artery/Lesion type: [place] artery [place] vs. transplanted heart: [place] heart Associated angina: without angina Qualified Code(s): I25.10 - Atherosclerotic heart disease of [place] coronary artery without angina pectoris (8) DVT prophylaxis Current visit: No Status: Acute History of Present Illness HPI: Assessment and Plan (1) Septic shock Current Visit: Yes Status: Acute 3 SIRS criteria with WBC 41.6, RR 32, and HR 106. His lactic acid was 2.5, repeat level pending Blood pressure 65/45 despite sepsis bolus Right IJ CVC was inserted in the ED and BP improved with Levophed administration. Hold home antihypertensive medications due to hypotension Continue ICU monitoring and pressor support to maintain MAP >65 (2) Pneumonia Current Visit: Yes Status: Acute SOB for the past day after recently returning from a cruise 2 days ago. Of note , he reports several other people on the cruise were sick. CXR reveals multifocal pneumonia, left significantly worse than right. Blood and sputum cultures pending Will cover for atypical PNA with Vancomycin, Levaquin, and Azithromycin given recent cruise De-escalate antibiotics based on culture results Qualifiers: Pneumonia type: due to unspecified organism Laterality: bilateral Lung location: unspecified part of lung Qualified Code(s): J18.9 - Pneumonia, unspecified organism (3) Acute on chronic respiratory failure with hypoxia and hypercapnia Current Visit: No Status: Chronic Patient wears supplemental 3L O2 at home Presented with hypoxia SpO2 89% on 3L O2 ABG revealed respiratory acidosis Patient improved in following breathing treatments in the ED without requiring Bipap Continue ICU monitoring (4) COPD with exacerbation Current Visit: No Status: Acute Continue antibiotics, bronchodilators and steroids (5) Acute kidney injury Current Visit: Yes Status: Acute Continue IVF Avoid nephrotoxins Monitor labs (6) Troponin level elevated Current Visit: Yes Status: Acute Prior h/o CAD and AICD Initial troponin 0.09 likely secondary to demand ischemia from septic shock and [place] EKG revealed sinus tachycardia with ventricular rate of 102. AR 158. QRS 138. QTC 395. No significant ST elevation or depression Trend serial troponins (7) CAD (coronary artery disease) Current Visit: No Status: Acute Resume home meds Qualifiers: Coronary Disease-Associated Artery/Lesion type: [place] artery [place] vs. transplanted heart: [place] heart Associated angina: without angina Qualified Code(s): I25.10 - Atherosclerotic heart disease of [place] coronary artery without angina pectoris (8) DVT prophylaxis Current Visit: No Status: Acute Heparin subQ History of Present Illness Consult date: 05/31/17 Requesting physician: Nicole Vargas See Reason for consult: COPD, other (Septic shock) Chief complaint: SOB History of present illness: Mr. Cruz is a 61yo male with a PMH of COPD on 3L home O2, CAD, CVA, hypertension, hyperlipidemia, and remote tobacco dependence who presented c/o SOB for the past day after recently returning from a cruise 2 days ago. Of note , he reports several other people on the cruise were sick. He reports chills, decreased appetite, non-productive cough since last PM, and no releif in SOB following Albuterol use at home. In the ED, patient had 3 SIRS criteria with WBC 41.6, RR 32, and HR 106. His lactic acid was 2.5 and blood pressure 65/45 despite sepsis bolus. Right IJ CVC was inserted in the ED and BP improved with Levophed administration. Past Med Surg Social Fam HX - Past Medical History Medical history: COPD, coronary artery disease, CVA, GERD, hyperlipidemia, hypertension, myocardial infarction Psychiatric history: anxiety, depression - Past Surgical History Surgical History: coronary bypass (CABG), herniorrhaphy, orthopedic, other, pacemaker/AICD, AICD, pacemaker - Social History Smoking Status: Former smoker Smokeless Tobacco Status: No Alcohol use: none Drug use: marijuana - Family History Sister Adopted: No Family Member Ethnicity: Non- Living Status: Still Living Hx Family Cardiac Disorders: Yes Hx Family Respiratory Disorders: Yes Hx Family Cancer: Yes Hx Family GI Disorders: Yes Hx Family Endocrine Disorder: Yes Hx Family Neuromuscular Disorders: No Hx Family Neurologic Disorders: No Hx Family HEENT Disorders: No Hx Family Autoimmune Disorders: No Medications and Allergies Albuterol Sulfate [Ventolin Hfa] 2 puff IH BID PRN 06/03/16 [History] Aspirin 81 mg PO DAILY 06/03/16 [History] Budesonide/Formoterol 160/4.5 [Symbicort 160/4.5] 2 puff IH BIDR 06/03/16 [ History] Calcium Carbonate [Calcium] 600 mg PO BID 06/03/16 [History] Carvedilol [Coreg] 25 mg PO BID 06/03/16 [History] Enalapril Maleate [Vasotec] 5 mg PO BID 06/03/16 [History] Lovastatin 40 mg PO HS 06/03/16 [History] Carbidopa/Levodopa 25/100 [Sinemet 25/100] 1 tab PO DAILY 05/31/17 [History] Clopidogrel [Plavix] 75 mg PO DAILY 05/31/17 [History] Metoprolol XL (24 HR) Succ [Toprol XL] 100 mg PO DAILY 05/31/17 [History] Spironolactone [Aldactone] 25 mg PO DAILY 05/31/17 [History] Tiotropium [place] [Spiriva Respimat] 2 puff IH DAILY 05/31/17 [History] 3 Allergy/AdvReac Type Severity Reaction Status Date / Time Hydromorphone [From Dilaudid] Allergy Hives Verified 05/31/17 10:29 All Systems: A 10-system review of systems was performed and is negative for pertinent findings except as documented above in the HPI. - Constitutional Constitutional: anorexia, chills, fatigue, lethargy, weakness, no fever(s) - EENT Nose, mouth and throat: no headache(s), no nasal obstruction, no sore throat - Cardiovascular Cardiovascular: dyspnea, palpitations, no chest pain - Respiratory Respiratory: cough, dyspnea, no chest congestion, no excessive phlegm production , no pain with cough - Gastrointestinal Gastrointestinal: no diarrhea, no loose stools, no nausea, no vomiting - Genitourinary Genitourinary: no flank pain, no urinary frequency, no urinary urgency - Musculoskeletal Musculoskeletal: weakness, no muscle weakness, no neck pain - Integumentary Integumentary: no erythema, no rash - Neurological Neurological: weakness, no headache(s), no numbness - Psychiatric Psychiatric: no anxiety, no depression - Endocrine Endocrine: no palpitations, no polydipsia, no polyphagia - Hematologic/Lymphatic Hematologic/Lymphatic: no easy bleeding, no easy bruising - Allergic/Immunologic Allergic/Immunologic: no tongue swelling, no wheezing Physical Examination General appearance: no acute distress, alert Eyes: nonicteric ENT: oropharynx dry Mallampati (class): 2 Neck: supple, no JVD Effort: normal Inspection: normal Auscultation: bilateral: diminished breath sounds, rhonchi Percussion: bilateral: not dull Cardiovascular: other (sinus tachycardia) Gastrointestinal: normoactive bowel sounds Integumentary: normal Extremities: no cyanosis, no edema, no clubbing Musculoskeletal: no deformities normal mental status, CN II-XII normal mood appropriate, affect normal Results - Laboratory Findings CBC and BMP: 05/31/17 11:11 05/31/17 11:11 ABG ABG pH 7.20 pH Units (7.32-7.45) L* 05/31/17 13:17 ABG pCO2 58 mmHg (35-45) H 05/31/17 13:17 ABG pO2 76 mmHg (85-104) L 05/31/17 13:17 ABG O2 Saturation 91 % (95-98) L 05/31/17 13:17 PT/INR, D-dimer PT 14.9 Seconds (9.4-12.1) H 05/31/17 11:11 Abnormal lab findings: Abnormal lab results WBC 41.6 K/mcL (4.3-11.1) H* 05/31/17 11:11 RBC 3.54 M/mcL (4.19-5.50) L 05/31/17 11:11 Hgb 11.0 g/dL (12.9-16.9) L 05/31/17 11:11 Hct 35.6 % (37.5-50.1) L 05/31/17 11:11 MCV 100.6 fL (83.0-100.0) H 05/31/17 11:11 MCHC 30.9 g/dL (31.6-35.5) L 05/31/17 11:11 RDW 18.2 % (11.5-14.5) H 05/31/17 11:11 Band Neutrophils % 24.0 % (0-4) H 05/31/17 11:11 Neutrophils # 38.3 K/mcL (1.6-8.9) H 05/31/17 11:11 Monocytes # 1.7 K/mcL (0.0-1.3) H 05/31/17 11:11 Reactive Lymphocytes Present (Not Present) A 05/31/17 11:11 Toxic Granulation Present (Not Present) A 05/31/17 11:11 Toxic Vacuolation Present (Not Present) A 05/31/17 11:11 Polychromasia 2+ (Not Present) A 05/31/17 11:11 Poikilocytosis 2+ (Not Present) A 05/31/17 11:11 Macrocytosis Present (Not Present) A 05/31/17 11:11 Target Cells 1+ (Not Present) A 05/31/17 11:11 Tear Drop Cells 1+ (Not Present) A 05/31/17 11:11 Ovalocytes 1+ (Not Present) A 05/31/17 11:11 Schistocytes 1+ (Not Present) A 05/31/17 11:11 PT 14.9 Seconds (9.4-12.1) H 05/31/17 11:11 ABG pH 7.20 pH Units (7.32-7.45) L* 05/31/17 13: ABG pCO2 58 mmHg (35-45) H 05/31/17 13: ABG pO2 76 mmHg (85-104) L 05/31/17 13: ABG O2 Saturation 91 % (95-98) L 05/31/17 13: ABG Base Excess -6 mEq/L (-2 to 3) L 05/31/17 13:17 Potassium 5.6 mEq/L (3.5-4.5) H 05/31/17 11:11 Chloride 97 mEq/L (98-109) L 05/31/17 11:11 BUN 44 mg/dL (8-26) H 05/31/17 11:11 Creatinine 5.13 mg/dL (0.72-1.25) H 05/31/17 11:11 Est GFR ( Amer) 14 (> 60) L 05/31/17 11:11 Est GFR (Non-Af Amer) 11 (> 60) L 05/31/17 11:11 Glucose 126 mg/dL (70-99) H 05/31/17 11:11 Lactic Acid 2.5 mmol/L (0.5-2.2) H 05/31/17 11:11 Magnesium 1.5 mg/dL (1.6-2.6) L 05/31/17 11:11 Direct Bilirubin 0.7 mg/dL (0.0-0.5) H 05/31/17 11:11 Troponin I 0.09 ng/mL (0-0.03) H* 05/31/17 11:11 B-Natriuretic Peptide 294 pg/mL (0-100) H 05/31/17 11:11 Serum Total Protein 8.6 g/dL (6.0-8.3) H 05/31/17 11:11 Globulin 5.1 g/dL (2.4-3.5) H 05/31/17 11:11 Albumin/Globulin Ratio 0.7 (1.1-2.2) L 05/31/17 11:11 - Diagnostic Findings Chest x-ray: report reviewed, image reviewed Additional studies: EKG with sinus tachycardia with ventricular rate of 102. AR 158. QRS 138. QTC 395. No significant ST elevation or depression. - Clinical Findings Intake & Output: Intake & Output 05/30/17 05/31/17 05/31/17 23:59 07:59 15:59 Intake Total 100 / 100 Balance 100 / 100 Consult Discharge Plan - Plan Referrals: Heron Vincent Jr, MD [Primary Care Provider] - Sepsis Reassessment Note - Evaluation Sepsis Screen: No Definite Risk Current Stage of Sepsis: septic shock Possible Source of Sepsis: pulmonary - Focused Exam Date of Encounter: 05/31/17 Time of Encounter: 13:22 Respiratory Exam: Present: wheezes, rhonchi, decreased breath sounds. Absent: respiratory distress, diminished air movement Cardiovascular Exam: Present: tachycardia. Absent: murmur, rubs, gallop Capillary Refill: < 2 seconds Peripheral Pulse Strength: 3+ normal Peripheral Pulse Location: Radial Skin Exam: pale Past Med Surg Social Fam HX - Past Medical History Medical history: COPD, coronary artery disease, CVA, GERD, hyperlipidemia, hypertension, myocardial infarction Psychiatric history: anxiety, depression - Past Surgical History Surgical History: coronary bypass (CABG), herniorrhaphy, orthopedic, other, pacemaker/AICD, AICD, pacemaker - Social History Smoking Status: Former smoker Smokeless Tobacco Status: No Alcohol use: none Drug use: marijuana - Family History Sister Adopted: No Family Member Ethnicity: Non- Living Status: Still Living Hx Family Cardiac Disorders: Yes Hx Family Respiratory Disorders: Yes Hx Family Cancer: Yes Hx Family GI Disorders: Yes Hx Family Endocrine Disorder: Yes Hx Family Neuromuscular Disorders: No Hx Family Neurologic Disorders: No Hx Family HEENT Disorders: No Hx Family Autoimmune Disorders: No Medications and Allergies Albuterol Sulfate [Ventolin Hfa] 2 puff IH BID PRN 06/03/16 [History] Aspirin 81 mg PO DAILY 06/03/16 [History] Budesonide/Formoterol 160/4.5 [Symbicort 160/4.5] 2 puff IH BIDR 06/03/16 [ History] Calcium Carbonate [Calcium] 600 mg PO BID 06/03/16 [History] Carvedilol [Coreg] 25 mg PO BID 06/03/16 [History] Enalapril Maleate [Vasotec] 5 mg PO BID 06/03/16 [History] Lovastatin 40 mg PO HS 06/03/16 [History] Carbidopa/Levodopa 25/100 [Sinemet 25/100] 1 tab PO DAILY 05/31/17 [History] Clopidogrel [Plavix] 75 mg PO DAILY 05/31/17 [History] Metoprolol XL (24 HR) Succ [Toprol XL] 100 mg PO DAILY 05/31/17 [History] Spironolactone [Aldactone] 25 mg PO DAILY 05/31/17 [History] Tiotropium [place] [Spiriva Respimat] 2 puff IH DAILY 05/31/17 [History] 3 Allergy/AdvReac Type Severity Reaction Status Date / Time Hydromorphone [From Dilaudid] Allergy Hives Verified 05/31/17 10:29 All Systems: A 10-system review of systems was performed and is negative for pertinent findings except as documented above in the HPI. Physical Examination Vital Signs: Vital Signs, Last 4 Hours Temp Pulse Resp BP Pulse Ox 12/13/17 15:45 16 99 05/31/17 15:00 73 16 89/32 99 05/31/17 14:00 98.3 F 75 16 70/49 97 05/31/17 13:37 91/47 05/31/17 13:31 97.9 F 100 16 65/45 98 Results - Laboratory Findings CBC and BMP: 05/31/17 11:11 05/31/17 11:11 ABG ABG pH 7.20 pH Units (7.32-7.45) L* 05/31/17 13: ABG pCO2 58 mmHg (35-45) H 05/31/17 13: ABG pO2 76 mmHg (85-104) L 05/31/17 13: ABG O2 Saturation 91 % (95-98) L 05/31/17 13: PT/INR, D-dimer PT 14.9 Seconds (9.4-12.1) H 05/31/17 11:11 Abnormal lab findings: Abnormal lab results WBC 41.6 K/mcL (4.3-11.1) H* 05/31/17 11:11 RBC 3.54 M/mcL (4.19-5.50) L 05/31/17 11:11 Hgb 11.0 g/dL (12.9-16.9) L 05/31/17 11:11 Hct 35.6 % (37.5-50.1) L 05/31/17 11:11 MCV 100.6 fL (83.0-100.0) H 05/31/17 11:11 MCHC 30.9 g/dL (31.6-35.5) L 05/31/17 11:11 RDW 18.2 % (11.5-14.5) H 05/31/17 11:11 Band Neutrophils % 24.0 % (0-4) H 05/31/17 11:11 Neutrophils # 38.3 K/mcL (1.6-8.9) H 05/31/17 11:11 Monocytes # 1.7 K/mcL (0.0-1.3) H 05/31/17 11:11 Reactive Lymphocytes Present (Not Present) A 05/31/17 11:11 Toxic Granulation Present (Not Present) A 05/31/17 11:11 Toxic Vacuolation Present (Not Present) A 05/31/17 11:11 Polychromasia 2+ (Not Present) A 05/31/17 11:11 Poikilocytosis 2+ (Not Present) A 05/31/17 11:11 Macrocytosis Present (Not Present) A 05/31/17 11:11 Target Cells 1+ (Not Present) A 05/31/17 11:11 Tear Drop Cells 1+ (Not Present) A 05/31/17 11:11 Ovalocytes 1+ (Not Present) A 05/31/17 11:11 Schistocytes 1+ (Not Present) A 05/31/17 11:11 PT 14.9 Seconds (9.4-12.1) H 05/31/17 11:11 ABG pH 7.20 pH Units (7.32-7.45) L* 05/31/17 13: ABG pCO2 58 mmHg (35-45) H 05/31/17 13: ABG pO2 76 mmHg (85-104) L 05/31/17 13: ABG O2 Saturation 91 % (95-98) L 05/31/17 13:17 ABG Base Excess -6 mEq/L (-2 to 3) L 05/31/17 13:17 Potassium 5.6 mEq/L (3.5-4.5) H 05/31/17 11:11 Chloride 97 mEq/L (98-109) L 05/31/17 11:11 BUN 44 mg/dL (8-26) H 05/31/17 11:11 Creatinine 5.13 mg/dL (0.72-1.25) H 05/31/17 11:11 Est GFR ( Amer) 14 (> 60) L 05/31/17 11:11 Est GFR (Non-Af Amer) 11 (> 60) L 05/31/17 11:11 Glucose 126 mg/dL (70-99) H 05/31/17 11:11 POC Glucose 127 (58-89) H 05/31/17 14:03 Magnesium 1.5 mg/dL (1.6-2.6) L 05/31/17 11:11 Direct Bilirubin 0.7 mg/dL (0.0-0.5) H 05/31/17 11:11 Troponin I 0.09 ng/mL (0-0.03) H* 05/31/17 11:11 B-Natriuretic Peptide 294 pg/mL (0-100) H 05/31/17 11:11 Serum Total Protein 8.6 g/dL (6.0-8.3) H 05/31/17 11:11 Globulin 5.1 g/dL (2.4-3.5) H 05/31/17 11:11 Albumin/Globulin Ratio 0.7 (1.1-2.2) L 05/31/17 11:11 Ur Specimen Adequacy See below A 05/31/17 13:23 Urine Color [place] (Yellow) A 05/31/17 13:23 Urine Clarity Turbid (Clear) A 05/31/17 13:23 Ur Specific [place] 1.029 (1.010-1.025) H 05/31/17 13:23 Urine Protein 30 mg/dL (Neg-Trace) H 05/31/17 13:23 Urine Glucose (UA) 100 mg/dL (Normal) H 05/31/17 13:23 Urine Ketones Trace mg/dL (Negative) H 05/31/17 13:23 Urine Nitrite Positive (Negative) A 05/31/17 13: Urine Bilirubin Moderate (Negative) H 05/31/17 13:23 Ur Leukocyte Esterase Small (Negative) H 05/31/17 13:23 Ur Culture Indicated? YES (NO) A 05/31/17 13:23 <Kenneth Prajapati M - Last Filed: 05/31/17 16:53> Date of Encounter: 05/31/17 History of Present Illness HPI: Mr. Cruz is a 61 year old male All Systems: A 10-system review of systems was performed and is negative for pertinent findings except as documented above in the HPI. Physical Examination Vital Signs: Vital Signs, Last 4 Hours Temp Pulse Resp BP Pulse Ox 05/31/17 15:45 16 99 05/31/17 15:00 73 16 89/32 99 05/31/17 14:00 98.3 F 75 16 70/49 97 05/31/17 13:37 91/47 05/31/17 13:31 97.9 F 100 16 65/45 98 Results - Laboratory Findings CBC and BMP: 05/31/17 11:11 05/31/17 11:11 ABG ABG pH 7.20 pH Units (7.32-7.45) L* 05/31/17 13:17 ABG pCO2 58 mmHg (35-45) H 05/31/17 13:17 ABG pO2 76 mmHg (85-104) L 05/31/17 13:17 ABG O2 Saturation 91 % (95-98) L 05/31/17 13:17 PT/INR, D-dimer PT 14.9 Seconds (9.4-12.1) H 05/31/17 11:11 Abnormal lab findings: Abnormal lab results WBC 41.6 K/mcL (4.3-11.1) H* 05/31/17 11:11 RBC 3.54 M/mcL (4.19-5.50) L 05/31/17 11:11 Hgb 11.0 g/dL (12.9-16.9) L 05/31/17 11:11 Hct 35.6 % (37.5-50.1) L 05/31/17 11:11 MCV 100.6 fL (83.0-100.0) H 05/31/17 11:11 MCHC 30.9 g/dL (31.6-35.5) L 05/31/17 11:11 RDW 18.2 % (11.5-14.5) H 05/31/17 11:11 Band Neutrophils % 24.0 % (0-4) H 05/31/17 11:11 Neutrophils # 38.3 K/mcL (1.6-8.9) H 05/31/17 11:11 Monocytes # 1.7 K/mcL (0.0-1.3) H 05/31/17 11:11 Reactive Lymphocytes Present (Not Present) A 05/31/17 11:11 Toxic Granulation Present (Not Present) A 05/31/17 11:11 Toxic Vacuolation Present (Not Present) A 05/31/17 11:11 Polychromasia 2+ (Not Present) A 05/31/17 11:11 Poikilocytosis 2+ (Not Present) A 05/31/17 11:11 Macrocytosis Present (Not Present) A 05/31/17 11:11 Target Cells 1+ (Not Present) A 05/31/17 11:11 Tear Drop Cells 1+ (Not Present) A 05/31/17 11:11 Ovalocytes 1+ (Not Present) A 05/31/17 11:11 Schistocytes 1+ (Not Present) A 05/31/17 11:11 PT 14.9 Seconds (9.4-12.1) H 05/31/17 11:11 ABG pH 7.20 pH Units (7.32-7.45) L* 05/31/17 13: ABG pCO2 58 mmHg (35-45) H 05/31/17 13: ABG pO2 76 mmHg (85-104) L 05/31/17 13: ABG O2 Saturation 91 % (95-98) L 05/31/17 13: ABG Base Excess -6 mEq/L (-2 to 3) L 05/31/17 13: Potassium 5.6 mEq/L (3.5-4.5) H 05/31/17 11:11 Chloride 97 mEq/L (98-109) L 05/31/17 11:11 BUN 44 mg/dL (8-26) H 05/31/17 11:11 Creatinine 5.13 mg/dL (0.72-1.25) H 05/31/17 11:11 Est GFR ( Amer) 14 (> 60) L 05/31/17 11:11 Est GFR (Non-Af Amer) 11 (> 60) L 05/31/17 11:11 Glucose 126 mg/dL (70-99) H 05/31/17 11:11 POC Glucose 127 (58-89) H 05/31/17 14:03 Magnesium 1.5 mg/dL (1.6-2.6) L 05/31/17 11:11 Direct Bilirubin 0.7 mg/dL (0.0-0.5) H 05/31/17 11:11 Troponin I 0.09 ng/mL (0-0.03) H* 05/31/17 11:11 B-Natriuretic Peptide 294 pg/mL (0-100) H 05/31/17 11:11 Serum Total Protein 8.6 g/dL (6.0-8.3) H 05/31/17 11:11 Globulin 5.1 g/dL (2.4-3.5) H 05/31/17 11:11 Albumin/Globulin Ratio 0.7 (1.1-2.2) L 05/31/17 11:11 Ur Specimen Adequacy See below A 05/31/17: Urine Color [place] (Yellow) A 05/31/17: Urine Clarity [place] (Clear) A 05/31/17: Ur Specific [place] 1.029 (1.010-1.025) H 05/31/17 13: Urine Protein 30 mg/dL (Neg-Trace) H 05/31/17: Urine Glucose (UA) 100 mg/dL (Normal) H 05/31/17: Urine Ketones Trace mg/dL (Negative) H 05/31/17: Urine Nitrite Positive (Negative) A 05/31/17: Urine Bilirubin Moderate (Negative) H 05/31/17: Ur Leukocyte Esterase Small (Negative) H 05/31/17 Ur Culture Indicated? YES (NO) A 05/31/17: - Attending Attestation I examined this patient and my medical decision-making was reviewed with the Resident Physician. I agree with the documented findings, disposition and treatment plan as described except to the extent set forth below. Was called by the emergency room physician to evaluate this patient and patient was seen in the emergency room as well as in the intensive care unit. Patient seen and examined. Labs, radiology, chart personally reviewed. 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 Patient with acute on chronic respiratory failure and patient has multifocal pneumonia with his CURB65 score is 3. He should not is tolerating oxygenation so mask and may need noninvasive ventilation and explained to him if he is not improving then he will need mechanical invasive ventilation and he understand that and for that reason patient needs to be monitored in the intensive care unit. Patient is will be on broad-spectrum antibiotics. Patient was on a travel on a cruise and he stated his family members were sick as well as himself. Aricept possibility of COPD exacerbation and the would be on bronchodilators as well as steroids which we might stop it and he started to improve. Cardiovascular: Shock which is most likely septic GI: Nutrition per dietary and GI prophylaxis per routine Heme: DVT prophylaxis per routine ID: Continue antibiotics and plan to de-escalation. Intuniv monitoring lactic acid Renal; urine out put and renal funtion reviewed Endorcine: blood glucose is monitored Lines: all lines checked and no evidence of infections Skin: skin care to prevent pressure ulcers per nursing routine care I spent 45 min of Critical Care time with this patient. It involved decision making of high complexity to assess, manipulate, and support vital organ system failure and/or to prevent further life threatening deterioration of the patient' s condition. The time involved in the performance of separately reportable procedures was not counted toward critical care time.
[2017-05-31] MEDS: MethylPREDNISolone 40 MG/ML VIAL IVP SCH ×2 (17:02→23:16)
[2017-05-31] MEDS: Famotidine 20 MG/2 ML VIAL IVP SCH (17:02)
[2017-05-31] MEDS: 0.9 % Sodium Chloride 1,000 ML IVC SCH ×2 (17:05→23:16)
[2017-05-31] MEDS: Vasopressin 40 UNIT in D5% in Water 100 ML IV SCH (22:27)
[2017-05-31] MEDS: Temazepam 15 MG CAPSULE PO PRN (23:16)
[2017-06-01] MEDS: Norepinephrine 4 MG in D5% in Water 250 ML IVC SCH ×5 (00:40→18:25)
[2017-06-01 01:47] LABS: ABG Base Excess -7 mEq/L (-2 to 3); ABG HCO3 23 mEq/L (21-27); ABG Oxygen Saturation 90 % (95-98); ABG PCO2 72 mmHg (35-45); ABG PH 7.12 pH Units (7.32-7.45); ABG PO2 79 mmHg (85-104); ABG TCO2 25 mEq/L (20-26)
[2017-06-01] MEDS: Ipratropium/Albuterol Neb 3 ML IH SCH ×6 (03:34→23:34)
[2017-06-01 04:04] LABS: Magnesium 1.8 mg/dL (1.6-2.6); Potassium 5.6 mEq/L (3.5-4.5)
[2017-06-01 04:05] LABS: Calcium 7.2 mg/dL (8.6-10.8)
[2017-06-01 04:12] LABS: Monocytes % 3.4 %; Nucleated Red Blood Cells 0.3 /100 WBC (0); Red Cell Distribution Width 18.2 % (11.5-14.5)
[2017-06-01 04:13] LABS: Basophils % 0.1 %; Hematocrit 30.6 % (37.5-50.1); Hemoglobin 9.4 g/dL (12.9-16.9); Immature Granulocytes % 8.4 % (0-4); Lymphocytes # 0.8 K/mcL (0.6-4.6); Lymphocytes % 2.1 %; Mean Corpuscular HGB Conc 30.7 g/dL (31.6-35.5); Mean Corpuscular Hemoglobin 31.3 pg (28.0-33.3); Mean Platelet Volume 10.9 fL (9.4-12.4); Monocytes # 1.3 K/mcL (0.0-1.3); Platelet Count 131 K/mcL (140-400)
[2017-06-01 04:19] LABS: Neutrophils # 31.7 K/mcL (1.6-8.9)
--- NOTE | 2017-06-01 04:38 | Event Note ---
Date of Encounter: 06/01/17 Time of Encounter: 04:34 I was asked by nurse to evaluate the pt since he looks more confused this morning also he does have mild asymmetry in both pupils. When I examined him he is alert, awake and oriented to place and person. He does look confused. His puplis are asymmetry, Rt pupil 5mm size, Left pupil 3mm in size, however they both are reactive to light. With his underline COPD, and hypoxic resp failure I am concerned about Hypercapneic resp failure. So ordered stat ABG, which came back as severe hyper capneic resp acidosis. So started him on BiPAP now. He does not have any focal neuro deficits on my examination.
[2017-06-01 04:48] LABS: Platelet Estimate Normal (Normal)
[2017-06-01] MEDS: *HR* Heparin 5,000 UNIT/ML VIAL SQ SCH ×3 (05:28→21:00)
[2017-06-01 05:39] LABS: ABG Base Excess -7 mEq/L (-2 to 3); ABG HCO3 22 mEq/L (21-27); ABG Oxygen Saturation 89 % (95-98); ABG PCO2 62 mmHg (35-45); ABG PH 7.15 pH Units (7.32-7.45); ABG PO2 73 mmHg (85-104); ABG TCO2 24 mEq/L (20-26)
--- NOTE | 2017-06-01 06:58 | Pulmonology Progress Note ---
<Sincere Mercado - Last Filed: 06/01/17 10:31> Date of Encounter: 06/01/17 Time of Encounter: 06:55 Assessment and Plan (1) Septic shock Current Visit: Yes Status: Acute 3 SIRS criteria with WBC 41.6, RR 32, and HR 106. His lactic acid was 2.5, repeat level 1.6 Blood pressure hypotensive despite sepsis bolus Right IJ CVC was inserted in the ED and BP improved with Levophed administration. Will insert arterial line to monitor CVP Hold home antihypertensive medications due to hypotension Continue ICU monitoring and pressor support to maintain MAP >65 (2) Pneumonia Current Visit: Yes Status: Acute SOB for the past day after recently returning from a cruise 2 days prior to arrival. Of note, he reports several other people on the cruise were sick. CXR reveals multifocal pneumonia, left significantly worse than right. CT chest reveals multifocal pneumonia, worst in the left lower lobe, severe emphysema Blood and sputum cultures pending Given recent cruise and check urine Legionella and strep pneumo antigens Cover for atypical PNA with Vancomycin and Levaquin (Day 2) De-escalate antibiotics based on culture results Qualifiers: Pneumonia type: due to unspecified organism Laterality: bilateral Lung location: unspecified part of lung Qualified Code(s): J18.9 - Pneumonia, unspecified organism (3) Acute on chronic respiratory failure with hypoxia and hypercapnia Current Visit: Yes Status: Acute Patient wears supplemental 3L O2 at home Presented with hypoxia SpO2 89% on 3L O2 ABG revealed worsening respiratory acidosis and started on Bipap this AM Liquid diet Continue ICU monitoring (4) Acute kidney injury Current Visit: Yes Status: Acute Continue IVF Avoid nephrotoxins Monitor labs (5) Lung nodule seen on imaging study Current Visit: Yes Status: Acute CT chest reveals focal nodular opacity in the left upper lobe measuring 2.9 x 1.9 cm. This finding is also favored to represent the infectious process, however, attention on follow-up is needed. Recommend treating the patient and following to resolution to exclude underlying mass in 4-6 weeks. (6) COPD (chronic obstructive pulmonary disease) Current Visit: No Status: Acute Not in acute exacerbation Continue antibiotics, bronchodilators and discontinue steroids Qualifiers: COPD type: COPD with acute lower respiratory infection Qualified Code(s): J44.0 - Chronic obstructive pulmonary disease with acute lower respiratory infection (7) Troponin level elevated Current Visit: Yes Status: Acute Prior h/o CAD and AICD Serial troponins 0.09 --> 0.04 likely secondary to demand ischemia from septic shock and [facility] EKG revealed sinus tachycardia with ventricular rate of 102. CO 158. QRS 138. QTC 395. No significant ST elevation or depression (8) CAD (coronary artery disease) Current Visit: No Status: Acute Resume home meds Qualifiers: Coronary Disease-Associated Artery/Lesion type: [place] artery [place] vs. transplanted heart: [place] heart Associated angina: without angina Qualified Code(s): I25.10 - Atherosclerotic heart disease of [place] coronary artery without angina pectoris (9) DVT prophylaxis Current Visit: No Status: Acute Heparin subQ Subjective Principal diagnosis: Sepic shock Interval history: Patient seen and examined. Nurse reports he was confused this morning and had mild asymmetry in both pupils, right pupil 5mm size, left pupil 3mm in size, however they both are reactive to light. ABG which came back as severe hyper capneic resp acidosis and patient was started him on BiPAP. Objective PUL Vital signs: Last Vital Signs Temp 96.5 F L 06/01/17 04:00 Pulse 62 06/01/17 06:00 Resp 24 06/01/17 06:00 BP 95/48 06/01/17 06:00 Pulse Ox 93 06/01/17 06:00 General appearance: no acute distress, alert Eyes: other (right pupil 5mm size, left pupil 3mm in size) ENT: oropharynx moist Mallampati (class): 2 Neck: supple, no JVD Auscultation: bilateral: diminished breath sounds, rhonchi Percussion: bilateral: not dull Cardiovascular: regular rate and rhythm Gastrointestinal: normoactive bowel sounds, soft, non-tender Integumentary: normal Extremities: no cyanosis, no edema, no clubbing Musculoskeletal: no deformities Results - Laboratory Findings CBC and BMP: 06/01/17 03:45 06/01/17 03:45 ABG ABG pH 7.15 pH Units (7.32-7.45) L* 06/01/17 05:31 ABG pCO2 62 mmHg (35-45) H 06/01/17 05:31 ABG pO2 73 mmHg (85-104) L 06/01/17 05:31 ABG O2 Saturation 89 % (95-98) L 06/01/17 05:31 PT/INR, D-dimer PT 14.9 Seconds (9.4-12.1) H 05/31/17 11:11 Abnormal lab findings: Abnormal lab results WBC 36.9 K/mcL (4.3-11.1) H* 06/01/17 03:45 RBC 3.00 M/mcL (4.19-5.50) L 06/01/17 03:45 Hgb 9.4 g/dL (12.9-16.9) L D 06/01/17 03:45 Hct 30.6 % (37.5-50.1) L 06/01/17 03:45 MCV 102.0 fL (83.0-100.0) H 06/01/17 03:45 MCHC 30.7 g/dL (31.6-35.5) L 06/01/17 03:45 RDW 18.2 % (11.5-14.5) H 06/01/17 03:45 Plt Count 131 K/mcL (140-400) L 06/01/17 03:45 Immature Gran % 8.4 % (0-4) H 06/01/17 03:45 Band Neutrophils % 24.0 % (0-4) H 05/31/17 11:11 Neutrophils # 31.7 K/mcL (1.6-8.9) H 06/01/17 03:45 Nucleated RBCs/100 WBC 0.3 /100 WBC (0) H 06/01/17 03:45 Reactive Lymphocytes Present (Not Present) A 05/31/17 11:11 Toxic Granulation Present (Not Present) A 05/31/17 11:11 Toxic Vacuolation Present (Not Present) A 05/31/17 11:11 Polychromasia 2+ (Not Present) A 05/31/17 11:11 Poikilocytosis 2+ (Not Present) A 05/31/17 11:11 Macrocytosis Present (Not Present) A 05/31/17 11:11 Target Cells 1+ (Not Present) A 05/31/17 11:11 Tear Drop Cells 1+ (Not Present) A 05/31/17 11:11 Ovalocytes 1+ (Not Present) A 05/31/17 11:11 Schistocytes 1+ (Not Present) A 05/31/17 11:11 PT 14.9 Seconds (9.4-12.1) H 05/31/17 11:11 ABG pH 7.15 pH Units (7.32-7.45) L* 06/01/17 05:31 ABG pCO2 62 mmHg (35-45) H 06/01/17 05:31 ABG pO2 73 mmHg (85-104) L 06/01/17 05:31 ABG O2 Saturation 89 % (95-98) L 06/01/17 05:31 ABG Base Excess -7 mEq/L (-2 to 3) L 06/01/17 05:31 Sodium 133 mEq/L (136-145) L 06/01/17 03:45 Potassium 5.6 mEq/L (3.5-4.5) H 06/01/17 03:45 BUN 51 mg/dL (8-26) H 06/01/17 03:45 Creatinine 3.89 mg/dL (0.72-1.25) H 06/01/17 03:45 Est GFR ( Amer) 19 (> 60) L 06/01/17 03:45 Est GFR (Non-Af Amer) 16 (> 60) L 06/01/17 03:45 Glucose 196 mg/dL (70-99) H 06/01/17 03:45 POC Glucose 170 (58-89) H 06/01/17 01:33 Calcium 7.2 mg/dL (8.6-10.8) L D 06/01/17 03:45 Direct Bilirubin 0.7 mg/dL (0.0-0.5) H 05/31/17 11:11 Troponin I 0.04 ng/mL (0-0.03) H* 05/31/17 18:50 B-Natriuretic Peptide 294 pg/mL (0-100) H 05/31/17 11:11 Serum Total Protein 8.6 g/dL (6.0-8.3) H 05/31/17 11:11 Globulin 5.1 g/dL (2.4-3.5) H 05/31/17 11:11 Albumin/Globulin Ratio 0.7 (1.1-2.2) L 05/31/17 11:11 Ur Specimen Adequacy See below A 05/31/17 13:23 Urine Color Sac (Yellow) A 05/31/17 13:23 Urine Clarity Turbid (Clear) A 05/31/17 13:23 Ur Specific [place] 1.029 (1.010-1.025) H 05/31/17 13:23 Urine Protein 30 mg/dL (Neg-Trace) H 05/31/17 13:23 Urine Glucose (UA) 100 mg/dL (Normal) H 05/31/17 13:23 Urine Ketones Trace mg/dL (Negative) H 05/31/17 13:23 Urine Nitrite Positive (Negative) A 05/31/17 13:23 Urine Bilirubin Moderate (Negative) H 05/31/17 13:23 Ur Leukocyte Esterase Small (Negative) H 05/31/17 13:23 Ur Culture Indicated? YES (NO) A 05/31/17 13:23 - Diagnostic Findings CT scan - chest: report reviewed, image reviewed - Clinical Findings Intake & Output: Intake & Output 05/31/17 05/31/17 06/01/17 15:59 23:59 07:59 Intake Total 100 / 100 1327 / 1327 435 / 435 Output Total 0 / 0 50 / 50 350 / 350 Balance 100 / 100 1277 / 1277 85 / 85 Weight 78.5 kg Consult Discharge Plan - Plan Referrals: Heron Vincent Jr, MD [Primary Care Provider] - <Kenneth Prajapati - Last Filed: 06/01/17 13:50> Date of Encounter: 06/01/17 Objective PUL Vital signs: Last Vital Signs Temp 97.5 F L 06/01/17 11:00 Pulse 69 06/01/17 12:00 Resp 26 06/01/17 12:00 BP 116/48 06/01/17 12:00 Pulse Ox 98 06/01/17 12:00 Results - Laboratory Findings CBC and BMP: 06/01/17 03:45 06/01/17 03:45 ABG ABG pH 7.13 pH Units (7.32-7.45) L* 06/01/17 12:42 ABG pCO2 59 mmHg (35-45) H 06/01/17 12:42 ABG pO2 71 mmHg (85-104) L 06/01/17 12:42 ABG O2 Saturation 87 % (95-98) L 06/01/17 12:42 PT/INR, D-dimer PT 14.9 Seconds (9.4-12.1) H 05/31/17 11:11 Abnormal lab findings: Abnormal lab results WBC 36.9 K/mcL (4.3-11.1) H* 06/01/17 03:45 RBC 3.00 M/mcL (4.19-5.50) L 06/01/17 03:45 Hgb 9.4 g/dL (12.9-16.9) L D 06/01/17 03:45 Hct 30.6 % (37.5-50.1) L 06/01/17 03:45 MCV 102.0 fL (83.0-100.0) H 06/01/17 03:45 MCHC 30.7 g/dL (31.6-35.5) L 06/01/17 03:45 RDW 18.2 % (11.5-14.5) H 06/01/17 03:45 Plt Count 131 K/mcL (140-400) L 06/01/17 03:45 Immature Gran % 8.4 % (0-4) H 06/01/17 03:45 Band Neutrophils % 24.0 % (0-4) H 05/31/17 11:11 Neutrophils # 31.7 K/mcL (1.6-8.9) H 06/01/17 03:45 Nucleated RBCs/100 WBC 0.3 /100 WBC (0) H 06/01/17 03:45 Reactive Lymphocytes Present (Not Present) A 05/31/17 11:11 Toxic Granulation Present (Not Present) A 05/31/17 11:11 Toxic Vacuolation Present (Not Present) A 05/31/17 11:11 Polychromasia 2+ (Not Present) A 05/31/17 11:11 Poikilocytosis 2+ (Not Present) A 05/31/17 11:11 Macrocytosis Present (Not Present) A 05/31/17 11:11 Target Cells 1+ (Not Present) A 05/31/17 11:11 Tear Drop Cells 1+ (Not Present) A 05/31/17 11:11 Ovalocytes 1+ (Not Present) A 05/31/17 11:11 Schistocytes 1+ (Not Present) A 05/31/17 11:11 PT 14.9 Seconds (9.4-12.1) H 05/31/17 11:11 ABG pH 7.13 pH Units (7.32-7.45) L* 06/01/17 12:42 ABG pCO2 59 mmHg (35-45) H 06/01/17 12:42 ABG pO2 71 mmHg (85-104) L 06/01/17 12:42 ABG HCO3 20 mEq/L (21-27) L 06/01/17 12:42 ABG O2 Saturation 87 % (95-98) L 06/01/17 12:42 ABG Base Excess -10 mEq/L (-2 to 3) L 06/01/17 12:42 Sodium 133 mEq/L (136-145) L 06/01/17 03:45 Potassium 5.6 mEq/L (3.5-4.5) H 06/01/17 03:45 BUN 51 mg/dL (8-26) H 06/01/17 03:45 Creatinine 3.89 mg/dL (0.72-1.25) H 06/01/17 03:45 Est GFR ( Amer) 19 (> 60) L 06/01/17 03:45 Est GFR (Non-Af Amer) 16 (> 60) L 06/01/17 03:45 Glucose 196 mg/dL (70-99) H 06/01/17 03:45 POC Glucose 170 (58-89) H 06/01/17 01:33 Calcium 7.2 mg/dL (8.6-10.8) L D 06/01/17 03:45 Direct Bilirubin 0.7 mg/dL (0.0-0.5) H 05/31/17 11:11 Troponin I 0.04 ng/mL (0-0.03) H* 05/31/17 18:50 B-Natriuretic Peptide 294 pg/mL (0-100) H 05/31/17 11:11 Serum Total Protein 8.6 g/dL (6.0-8.3) H 05/31/17 11:11 Globulin 5.1 g/dL (2.4-3.5) H 05/31/17 11:11 Albumin/Globulin Ratio 0.7 (1.1-2.2) L 05/31/17 11:11 Ur Specimen Adequacy See below A 05/31/17 13:23 Urine Color Sac (Yellow) A 05/31/17 13:23 Urine Clarity Turbid (Clear) A 05/31/17 13:23 Ur Specific [place] 1.029 (1.010-1.025) H 05/31/17 13:23 Urine Protein 30 mg/dL (Neg-Trace) H 05/31/17 13:23 Urine Glucose (UA) 100 mg/dL (Normal) H 05/31/17 13:23 Urine Ketones Trace mg/dL (Negative) H 05/31/17 13:23 Urine Nitrite Positive (Negative) A 05/31/17 13:23 Urine Bilirubin Moderate (Negative) H 05/31/17 13:23 Ur Leukocyte Esterase Small (Negative) H 05/31/17 13:23 Ur Culture Indicated? YES (NO) A 05/31/17 13: - Microbiology Findings Microbiology Findings: Microbiology, Last 48 Hours 05/31/17 13: Urine Culture - Final Urine,Catheterized No significant growth. - Clinical Findings Intake & Output: Intake & Output 05/31/17 06/01/17 06/01/17 23:59 07:59 15:59 Intake Total 1327 / 1327 435 / 435 1797 / 1797 Output Total 50 / 50 600 / 600 250 / 250 Balance 1277 / 1277 -165 / -165 1547 / 1547 - Attending Attestation I examined this patient and my medical decision-making was reviewed with the Resident Physician. I agree with the documented findings, disposition and treatment plan as described except to the extent set forth below. Patient seen and examined. Labs, radiology, chart personally reviewed. 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 CT chest was ordered Pulmonary: Patient with evidence of respiratory acidosis combination with metabolic acidosis. Patient will need noninvasive ventilation and follow-up ABG. If case deteriorate then he will need invasive ventilation. Cardiovascular: Patient remained in septic shock and supportive care. GI: Nutrition per dietary and GI prophylaxis per routine. Patient to be on liquid diet in case his condition deteriorate and need invasive ventilation. Heme: DVT prophylaxis per routine ID: Continue antibiotics and plan to de-escalation Renal; urine out put and renal funtion reviewed. There is some improvement in renal function and will consider nephrology consult. Patient with metabolic acidosis and we will treat him with a bicarbonate Endorcine: blood glucose is monitored Lines: all lines checked and no evidence of infections Skin: skin care to prevent pressure ulcers per nursing routine care I spent 35 min of Critical Care time with this patient. It involved decision making of high complexity to assess, manipulate, and support vital organ system failure and/or to prevent further life threatening deterioration of the patient' s condition. The time involved in the performance of separately reportable procedures was not counted toward critical care time.
[2017-06-01] MEDS: Carbidopa/Levodopa 25/100 TABLET PO SCH (08:43)
[2017-06-01] MEDS: Aspirin 81 MG TAB.CHEW PO SCH (08:43)
[2017-06-01] MEDS: MethylPREDNISolone 40 MG/ML VIAL IVP SCH (08:44)
[2017-06-01] MEDS ORDERED: Levofloxacin 750 MG/150 ML 750 MG/150 ML BAG IVPB SCH (09:00)
[2017-06-01] MEDS: 0.9 % Sodium Chloride 1,000 ML IVC SCH ×2 (09:03→20:03)
[2017-06-01] MEDS ORDERED: Vancomycin 1,000 MG in D5% in Water 250 ML IVPB ONE (10:00)
[2017-06-01] MEDS: Budesonide/Formoterol 160/4.5 MDI IH SCH ×2 (11:23→20:11)
[2017-06-01] MEDS: Tiotropium 18 MCG inhalation IH SCH (11:29)
[2017-06-01] MEDS ORDERED: 0.9 % Sodium Chloride 500 ML ONE (11:42)
[2017-06-01] MEDS ORDERED: Sodium Bicarbonate 150 MEQ in D5% in Water 1,000 ML IVC SCH (12:45)
[2017-06-01 12:48] LABS: ABG Base Excess -10 mEq/L (-2 to 3); ABG HCO3 20 mEq/L (21-27); ABG Oxygen Saturation 87 % (95-98); ABG PCO2 59 mmHg (35-45); ABG PH 7.13 pH Units (7.32-7.45); ABG PO2 71 mmHg (85-104); ABG TCO2 21 mEq/L (20-26)
--- NOTE | 2017-06-01 12:49 | Procedure Note ---
<Sincere Mercado - Last Filed: 06/01/17 13:22> Date of procedure: 06/01/17 Pre-op diagnosis: Septic shock Post-op diagnosis: same Procedure: A time-out was completed verifying correct patient, procedure, site, positioning , and special equipment if applicable. Allens test was performed to ensure adequate perfusion. The patients right wrist was prepped and draped in sterile fashion. 1% Lidocaine was used to anesthetize the area. A 20G [place] arterial line was introduced into the radial artery using ultrasound guidance but the catheter was unable to be threaded over the guide wire. The left wrist was then prepped and draped in sterile fashion by attending, Dr. Prajapati. 1% Lidocaine was used to anesthetize the area. A 20G [place] arterial line was introduced into the radial artery using ultrasound guidance and the catheter was threaded over the guide wire. The needle was removed with some pulsatile blood return. The catheter was attached to the arterial line. MAP measured between 69 and 71 consistent with MAP from blood pressure readings. An ABG was obtained and catheter was removed. Pressure was applied for hemostasis. Perfusion to the extremity distal to the point of catheter insertion was checked and found to be adequate. Dr. Prajapati was present for the entire procedure. Estimated Blood Loss: 5cc The patient tolerated the procedure well and there were no complications. He was started on Bicarb due to acidosis. Anesthesia: local Surgeon: Sincere Mercado Probation And Patrol Agent: Kenneth Prajapati Estimated blood loss (cc): 5 Pathology: other (ABG) Condition: critical Disposition: no change <Kenneth Prajapati - Last Filed: 06/01/17 16:36> Procedure: I have personally supervised Dr. Mercado for this procedure without immediate complications.
[2017-06-01] MEDS: Vasopressin 40 UNIT in D5% in Water 100 ML IV SCH (13:50)
[2017-06-01] MEDS ORDERED: Azithromycin 500 MG in D5% in Water 250 ML IVPB SCH (14:00)
[2017-06-01] MEDS: Levofloxacin 750 MG/150 ML 750 MG/150 ML BAG IVPB SCH (15:25)
--- NOTE | 2017-06-01 16:26 | Electrocardiograph Report ---
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
[2017-06-01] MEDS: Famotidine 20 MG/2 ML VIAL IVP SCH (18:27)
[2017-06-01] MEDS: Norepinephrine 8 MG in D5% in Water 500 ML IVC SCH (22:03)
[2017-06-01] MEDS: Temazepam 15 MG CAPSULE PO PRN (22:20)
[2017-06-02] MEDS: 0.9 % Sodium Chloride 1,000 ML IVC SCH ×2 (02:24→12:20)
[2017-06-02 03:17] LABS: Basophils % 0.1 %; Eosinophils % 0.2 %; Hematocrit 27.7 % (37.5-50.1); Hemoglobin 8.6 g/dL (12.9-16.9); Immature Granulocytes % 5.8 % (0-4); Lymphocytes # 0.3 K/mcL (0.6-4.6); Lymphocytes % 1.6 %; Mean Corpuscular Hemoglobin 30.8 pg (28.0-33.3); Mean Corpuscular Volume 99.3 fL (83.0-100.0); Mean Platelet Volume 11.1 fL (9.4-12.4); Monocytes # 0.9 K/mcL (0.0-1.3); Monocytes % 5.3 %; Nucleated Red Blood Cells 0.6 /100 WBC (0); Platelet Count 105 K/mcL (140-400); Red Blood Count 2.79 M/mcL (4.19-5.50); Red Cell Distribution Width 17.7 % (11.5-14.5)
[2017-06-02] MEDS: Ipratropium/Albuterol Neb 3 ML IH SCH ×6 (03:29→23:31)
[2017-06-02 03:30] LABS: Calcium 6.8 mg/dL (8.6-10.8); Potassium 4.6 mEq/L (3.5-4.5)
[2017-06-02 04:24] LABS: Neutrophils # 15.1 K/mcL (1.6-8.9)
[2017-06-02] MEDS: *HR* Heparin 5,000 UNIT/ML VIAL SQ SCH ×3 (05:22→22:19)
[2017-06-02 05:32] LABS: Anisocytosis 1+ (Not Present); Platelet Estimate Slight Decrease (Normal)
[2017-06-02 05:33] LABS: Hypochromasia Present (Not Present); Large Platelets Present (Not Present); Macrocytosis Present (Not Present); Microcytosis Present (Not Present); Ovalocytes 1+ (Not Present); Polychromasia 1+ (Not Present); Target Cells 1+ (Not Present); Tear Drop Cells 1+ (Not Present)
--- NOTE | 2017-06-02 06:47 | Pulmonology Progress Note ---
<Sincere Mercado - Last Filed: 06/02/17 11:30> Date of Encounter: 06/02/17 Time of Encounter: 06:46 Assessment and Plan (1) Septic shock Current Visit: Yes Status: Acute 3 SIRS criteria with WBC 41.6, RR 32, and HR 106. His lactic acid was 2.5, repeat level 1.6 Levophed dose now titrated down to 6 and albumin was ordered. Limited echo is pending. Right IJ CVC in place for Levophed Hold home antihypertensive medications due to hypotension Continue ICU monitoring and pressor support to maintain MAP >65 (2) Pneumonia Current Visit: Yes Status: Acute SOB for the past day after recently returning from a cruise 2 days prior to arrival. Of note, he reports several other people on the cruise were sick. CXR reveals multifocal pneumonia, left significantly worse than right. CT chest reveals multifocal pneumonia, worst in the left lower lobe, severe emphysema Blood and sputum cultures pending Negative urine Legionella and strep pneumo antigens Cover for atypical PNA with Vancomycin and Levaquin (Day 3) De-escalate antibiotics based on culture results Qualifiers: Pneumonia type: due to unspecified organism Laterality: bilateral Lung location: unspecified part of lung Qualified Code(s): J18.9 - Pneumonia, unspecified organism (3) Acute on chronic respiratory failure with hypoxia and hypercapnia Current Visit: Yes Status: Acute Patient wears supplemental 3L O2 at home Presented with hypoxia SpO2 89% on 3L O2 Continue Bipap Liquid diet in case his condition deteriorate and needs invasive ventilation. Continue ICU monitoring (4) Metabolic acidosis Current Visit: Yes Status: Acute Patient with metabolic acidosis and treated him with a bicarbonate Continue to monitor (5) Acute kidney injury Current Visit: Yes Status: Acute Continue IVF Avoid nephrotoxins Monitor labs (6) Lung nodule seen on imaging study Current Visit: Yes Status: Acute CT chest reveals focal nodular opacity in the left upper lobe measuring 2.9 x 1.9 cm. This finding is also favored to represent the infectious process, however, attention on follow-up is needed. Recommend treating the patient and following to resolution to exclude underlying mass in 4-6 weeks. (7) COPD (chronic obstructive pulmonary disease) Current Visit: No Status: Acute Not in acute exacerbation Discontinued steroids Continue antibiotics, bronchodilators Qualifiers: COPD type: COPD with acute lower respiratory infection Qualified Code(s): J44.0 - Chronic obstructive pulmonary disease with acute lower respiratory infection (8) Troponin level elevated Current Visit: Yes Status: Acute Prior h/o CAD and AICD Serial troponins 0.09 --> 0.04 likely secondary to demand ischemia from septic shock and CHU[facility] EKG revealed sinus tachycardia with ventricular rate of 102. LA 158. QRS 138. QTC 395. No significant ST elevation or depression (9) CAD (coronary artery disease) Current Visit: No Status: Acute Resume home meds Qualifiers: Coronary Disease-Associated Artery/Lesion type: eek artery [place] vs. transplanted heart: eek heart Associated angina: without angina Qualified Code(s): I25.10 - Atherosclerotic heart disease of eek coronary artery without angina pectoris (10) Hypocalcemia Current Visit: Yes Status: Acute Ionized Ca pending Nurse reports no acute events overnight and patient refused oral calcium supplement. Calcium gluconate IV ordered (11) DVT prophylaxis Current Visit: No Status: Acute Heparin subQ Subjective Principal diagnosis: Sepic shock Interval history: Patient seen and examined. Nurse reports no acute events overnight and patient refused oral calcium supplement. Levophed dose now titrated down to 6 and albumin was ordered. Limited echo is pending. Patient is on BiPAP. Continue to monitor Objective PUL Vital signs: Last Vital Signs Temp 97.6 F 06/02/17 03:00 Pulse 62 06/02/17 06:00 Resp 22 06/02/17 06:00 BP 103/56 06/02/17 06:00 Pulse Ox 96 06/02/17 06:00 General appearance: no acute distress Eyes: nonicteric ENT: oropharynx moist Neck: supple Effort: normal Auscultation: bilateral: diminished breath sounds (improved) Percussion: bilateral: not dull Tactile fremitus: bilateral: normal Cardiovascular: regular rate and rhythm Gastrointestinal: normoactive bowel sounds, non-distended Integumentary: normal Extremities: no cyanosis, no edema, no clubbing Musculoskeletal: no deformities, ROM normal normal mental status, non-focal exam mood appropriate, affect normal Results - Laboratory Findings CBC and BMP: 06/02/17 03:05 06/02/17 03:05 ABG ABG pH 7.13 pH Units (7.32-7.45) L* 06/01/17 12:42 ABG pCO2 59 mmHg (35-45) H 06/01/17 12:42 ABG pO2 71 mmHg (85-104) L 06/01/17 12:42 ABG O2 Saturation 87 % (95-98) L 06/01/17 12:42 PT/INR, D-dimer PT 14.9 Seconds (9.4-12.1) H 05/31/17 11:11 Abnormal lab findings: Abnormal lab results WBC 17.3 K/mcL (4.3-11.1) H D 06/02/17 03:05 RBC 2.79 M/mcL (4.19-5.50) L 06/02/17 03:05 Hgb 8.6 g/dL (12.9-16.9) L 06/02/17 03:05 Hct 27.7 % (37.5-50.1) L 06/02/17 03:05 MCHC 31.0 g/dL (31.6-35.5) L 06/02/17 03:05 RDW 17.7 % (11.5-14.5) H 06/02/17 03:05 Plt Count 105 K/mcL (140-400) L 06/02/17 03:05 Immature Gran % 5.8 % (0-4) H 06/02/17 03:05 Band Neutrophils % 24.0 % (0-4) H 05/31/17 11:11 Neutrophils # 15.1 K/mcL (1.6-8.9) H 06/02/17 03:05 Lymphocytes # 0.3 K/mcL (0.6-4.6) L 06/02/17 03:05 Nucleated RBCs/100 WBC 0.6 /100 WBC (0) H 06/02/17 03:05 Reactive Lymphocytes Present (Not Present) A 05/31/17 11:11 Toxic Granulation Present (Not Present) A 05/31/17 11:11 Toxic Vacuolation Present (Not Present) A 05/31/17 11:11 Platelet Estimate Slight Decrease (Normal) L 06/02/17 03:05 Large Platelets Present (Not Present) A 06/02/17 03:05 Polychromasia 1+ (Not Present) A 06/02/17 03:05 Hypochromasia Present (Not Present) A 06/02/17 03:05 Poikilocytosis 2+ (Not Present) A 05/31/17 11:11 Anisocytosis 1+ (Not Present) A 06/02/17 03:05 Microcytosis Present (Not Present) A 06/02/17 03:05 Macrocytosis Present (Not Present) A 06/02/17 03:05 Target Cells 1+ (Not Present) A 06/02/17 03:05 Tear Drop Cells 1+ (Not Present) A 06/02/17 03:05 Ovalocytes 1+ (Not Present) A 06/02/17 03:05 Schistocytes 1+ (Not Present) A 05/31/17 11:11 PT 14.9 Seconds (9.4-12.1) H 05/31/17 11:11 ABG pH 7.13 pH Units (7.32-7.45) L* 06/01/17 12:42 ABG pCO2 59 mmHg (35-45) H 06/01/17 12:42 ABG pO2 71 mmHg (85-104) L 06/01/17 12:42 ABG HCO3 20 mEq/L (21-27) L 06/01/17 12:42 ABG O2 Saturation 87 % (95-98) L 06/01/17 12:42 ABG Base Excess -10 mEq/L (-2 to 3) L 06/01/17 12:42 Sodium 133 mEq/L (136-145) L 06/02/17 03:05 Potassium 4.6 mEq/L (3.5-4.5) H D 06/02/17 03:05 BUN 45 mg/dL (8-26) H 06/02/17 03:05 Creatinine 2.38 mg/dL (0.72-1.25) H 06/02/17 03:05 Est GFR ( Amer) 34 (> 60) L 06/02/17 03:05 Est GFR (Non-Af Amer) 28 (> 60) L 06/02/17 03:05 Glucose 138 mg/dL (70-99) H 06/02/17 03:05 POC Glucose 170 (58-89) H 06/01/17 01:33 Calcium 6.8 mg/dL (8.6-10.8) L 06/02/17 03:05 Direct Bilirubin 0.7 mg/dL (0.0-0.5) H 05/31/17 11:11 Troponin I 0.04 ng/mL (0-0.03) H* 05/31/17 18:50 B-Natriuretic Peptide 294 pg/mL (0-100) H 05/31/17 11:11 Serum Total Protein 8.6 g/dL (6.0-8.3) H 05/31/17 11:11 Globulin 5.1 g/dL (2.4-3.5) H 05/31/17 11:11 Albumin/Globulin Ratio 0.7 (1.1-2.2) L 05/31/17 11:11 Ur Specimen Adequacy See below A 05/31/17 13:23 Urine Color [place] (Yellow) A 05/31/17 13:23 Urine Clarity Turbid (Clear) A 05/31/17 13:23 Ur Specific [place] 1.029 (1.010-1.025) H 05/31/17 13:23 Urine Protein 30 mg/dL (Neg-Trace) H 05/31/17 13:23 Urine Glucose (UA) 100 mg/dL (Normal) H 05/31/17 13:23 Urine Ketones Trace mg/dL (Negative) H 05/31/17 13:23 Urine Nitrite Positive (Negative) A 05/31/17 13:23 Urine Bilirubin Moderate (Negative) H 05/31/17 13:23 Ur Leukocyte Esterase Small (Negative) H 05/31/17 13:23 Ur Culture Indicated? YES (NO) A 05/31/17 13:23 - Microbiology Findings Microbiology Findings: Microbiology, Last 48 Hours 05/31/17 13:23 Legionella Antigen - Final Urine,Clean Catch Streptococcus pneumoniae Antigen (M - Final 05/31/17 13:23 Urine Culture - Final Urine,Catheterized No significant growth. - Clinical Findings Intake & Output: Intake & Output 06/01/17 06/01/17 06/02/17 15:59 23:59 07:59 Intake Total 2838 / 2838 658 / 658 500 / 500 Output Total 600 / 600 480 / 480 600 / 600 Balance 2238 / 2238 178 / 178 -100 / -100 Consult Discharge Plan - Plan Referrals: Heron Vincent Jr, MD [Primary Care Provider] - <Kenneth Prajapati - Last Filed: 06/02/17 12:59> Date of Encounter: 06/02/17 Objective PUL Vital signs: Last Vital Signs Temp 97.5 F L 06/02/17 11:00 Pulse 81 06/02/17 12:00 Resp 22 06/02/17 12:00 BP 112/50 06/02/17 12:00 Pulse Ox 97 06/02/17 12:00 Results - Laboratory Findings CBC and BMP: 06/02/17 03:05 06/02/17 03:05 ABG ABG pH 7.13 pH Units (7.32-7.45) L* 06/01/17 12:42 ABG pCO2 59 mmHg (35-45) H 06/01/17 12:42 ABG pO2 71 mmHg (85-104) L 06/01/17 12:42 ABG O2 Saturation 87 % (95-98) L 06/01/17 12:42 PT/INR, D-dimer PT 14.9 Seconds (9.4-12.1) H 05/31/17 11:11 Abnormal lab findings: Abnormal lab results WBC 17.3 K/mcL (4.3-11.1) H D 06/02/17 03:05 RBC 2.79 M/mcL (4.19-5.50) L 06/02/17 03:05 Hgb 8.6 g/dL (12.9-16.9) L 06/02/17 03:05 Hct 27.7 % (37.5-50.1) L 06/02/17 03:05 MCHC 31.0 g/dL (31.6-35.5) L 06/02/17 03:05 RDW 17.7 % (11.5-14.5) H 06/02/17 03:05 Plt Count 105 K/mcL (140-400) L 06/02/17 03:05 Immature Gran % 5.8 % (0-4) H 06/02/17 03:05 Band Neutrophils % 24.0 % (0-4) H 05/31/17 11:11 Neutrophils # 15.1 K/mcL (1.6-8.9) H 06/02/17 03:05 Lymphocytes # 0.3 K/mcL (0.6-4.6) L 06/02/17 03:05 Nucleated RBCs/100 WBC 0.6 /100 WBC (0) H 06/02/17 03:05 Reactive Lymphocytes Present (Not Present) A 05/31/17 11:11 Toxic Granulation Present (Not Present) A 05/31/17 11:11 Toxic Vacuolation Present (Not Present) A 05/31/17 11:11 Platelet Estimate Slight Decrease (Normal) L 06/02/17 03:05 Large Platelets Present (Not Present) A 06/02/17 03:05 Polychromasia 1+ (Not Present) A 06/02/17 03:05 Hypochromasia Present (Not Present) A 06/02/17 03:05 Poikilocytosis 2+ (Not Present) A 05/31/17 11:11 Anisocytosis 1+ (Not Present) A 06/02/17 03:05 Microcytosis Present (Not Present) A 06/02/17 03:05 Macrocytosis Present (Not Present) A 06/02/17 03:05 Target Cells 1+ (Not Present) A 06/02/17 03:05 Tear Drop Cells 1+ (Not Present) A 06/02/17 03:05 Ovalocytes 1+ (Not Present) A 06/02/17 03:05 Schistocytes 1+ (Not Present) A 05/31/17 11:11 PT 14.9 Seconds (9.4-12.1) H 05/31/17 11:11 ABG pH 7.13 pH Units (7.32-7.45) L* 06/01/17 12:42 ABG pCO2 59 mmHg (35-45) H 06/01/17 12:42 ABG pO2 71 mmHg (85-104) L 06/01/17 12:42 ABG HCO3 20 mEq/L (21-27) L 06/01/17 12:42 ABG O2 Saturation 87 % (95-98) L 06/01/17 12:42 ABG Base Excess -10 mEq/L (-2 to 3) L 06/01/17 12:42 Sodium 133 mEq/L (136-145) L 06/02/17 03:05 Potassium 4.6 mEq/L (3.5-4.5) H D 06/02/17 03:05 BUN 45 mg/dL (8-26) H 06/02/17 03:05 Creatinine 2.38 mg/dL (0.72-1.25) H 06/02/17 03:05 Est GFR ( Amer) 34 (> 60) L 06/02/17 03:05 Est GFR (Non-Af Amer) 28 (> 60) L 06/02/17 03:05 Glucose 138 mg/dL (70-99) H 06/02/17 03:05 POC Glucose 170 (58-89) H 06/01/17 01:33 Calcium 6.8 mg/dL (8.6-10.8) L 06/02/17 03:05 Direct Bilirubin 0.7 mg/dL (0.0-0.5) H 05/31/17 11:11 Troponin I 0.04 ng/mL (0-0.03) H* 05/31/17 18:50 B-Natriuretic Peptide 294 pg/mL (0-100) H 05/31/17 11:11 Serum Total Protein 8.6 g/dL (6.0-8.3) H 05/31/17 11:11 Globulin 5.1 g/dL (2.4-3.5) H 05/31/17 11:11 Albumin/Globulin Ratio 0.7 (1.1-2.2) L 05/31/17 11:11 Ur Specimen Adequacy See below A 05/31/17 13:23 Urine Color [place] (Yellow) A 05/31/17 13:23 Urine Clarity Turbid (Clear) A 05/31/17 13:23 Ur Specific [place] 1.029 (1.010-1.025) H 05/31/17 13:23 Urine Protein 30 mg/dL (Neg-Trace) H 05/31/17 13:23 Urine Glucose (UA) 100 mg/dL (Normal) H 05/31/17 13:23 Urine Ketones Trace mg/dL (Negative) H 05/31/17 13:23 Urine Nitrite Positive (Negative) A 05/31/17 13:23 Urine Bilirubin Moderate (Negative) H 05/31/17 13:23 Ur Leukocyte Esterase Small (Negative) H 05/31/17 13:23 Ur Culture Indicated? YES (NO) A 05/31/17 13:23 - Microbiology Findings Microbiology Findings: Microbiology, Last 48 Hours 05/31/17 13:23 Legionella Antigen - Final Urine,Clean Catch Streptococcus pneumoniae Antigen (M - Final 05/31/17 13:23 Urine Culture - Final Urine,Catheterized No significant growth. - Clinical Findings Intake & Output: Intake & Output 12/14/17 12/15/17 12/15/17 23:59 07:59 15:59 Intake Total 658 / 658 500 / 500 1000 / 1000 Output Total 480 / 480 600 / 600 1450 / 1450 Balance 178 / 178 -100 / -100 -450 / -450 - Attending Attestation I examined this patient and my medical decision-making was reviewed with the Resident Physician. I agree with the documented findings, disposition and treatment plan as described except to the extent set forth below. Patient seen and examined. Labs, radiology, chart personally reviewed. Agree with resident's history and physical, assessment, plan with following comments: BENEFITS SPECIALIST: Patient follows commands, Pulmonary: Acceptable oxygenation and ventilation. Continue noninvasive ventilation. Cardiovascular: Patient remained in shock and with his underlying cardiac disease and concern about cardiac dysfunction for that reason limited echocardiogram was ordered to make sure his shock is not related to his cardiac disease or at least partially related. GI: Nutrition per dietary and GI prophylaxis per routine Heme: DVT prophylaxis per routine ID: Continue antibiotics and plan to de-escalation. Patient remain on Levophed and I will give him more colloid with albumin hoping to be able to wean off his Levophed need more. Renal; urine out put and renal funtion reviewed. Continue to improve his acute kidney injury with supportive and current treatment. Endorcine: blood glucose is monitored Lines: all lines checked and no evidence of infections Skin: skin care to prevent pressure ulcers per nursing routine care Patient still required ICU care due to his septic shock and still needs noninvasive ventilation. I spent 35 min of Critical Care time with this patient. It involved decision making of high complexity to assess, manipulate, and support vital organ system failure and/or to prevent further life threatening deterioration of the patient' s condition. The time involved in the performance of separately reportable procedures was not counted toward critical care time.
[2017-06-02] MEDS: Tiotropium 18 MCG inhalation IH SCH (07:56)
[2017-06-02] MEDS: Budesonide/Formoterol 160/4.5 MDI IH SCH ×2 (07:56→19:45)
[2017-06-02] MEDS: Aspirin 81 MG TAB.CHEW PO SCH (10:30)
[2017-06-02] MEDS: Carbidopa/Levodopa 25/100 TABLET PO SCH (10:30)
[2017-06-02] MEDS ORDERED: Calcium Gluconate 1,000 MG in D5% in Water 100 ML IVPB ONE (10:41)
[2017-06-02] MEDS ORDERED: Vancomycin 500 MG in D5% in Water (Mini-Bag+) 100 ML IVPB ONE (11:00)
[2017-06-02] MEDS: Albumin 25% 25gram/100mL 25 GM/100 ML IV.SOLN IVPB SCH ×2 (12:18→20:02)
[2017-06-02] MEDS: Vasopressin 40 UNIT in D5% in Water 100 ML IV SCH (12:21)
[2017-06-02] MEDS ORDERED: Vancomycin 500 MG in D5% in Water 100 ML IVPB ONE (13:00)
[2017-06-02 15:37] LABS: VBG Ionized Calcium 0.97 mmol/L (1.15-1.35); VBG PH 7.24 pH Units (7.32-7.42)
[2017-06-02] MEDS: Famotidine 20 MG/2 ML VIAL IVP SCH (18:13)
[2017-06-02] MEDS: Norepinephrine 8 MG in D5% in Water 500 ML IVC SCH (18:16)
[2017-06-02 20:20] LABS: VBG Ionized Calcium 1.01 mmol/L (1.15-1.35)
[2017-06-02] MEDS: Temazepam 15 MG CAPSULE PO PRN (22:21)
[2017-06-03] MEDS: 0.9 % Sodium Chloride 1,000 ML IVC SCH ×2 (02:15→18:03)
[2017-06-03] MEDS: Ipratropium/Albuterol Neb 3 ML IH SCH ×5 (03:18→21:02)
[2017-06-03 03:43] LABS: Basophils % 0.1 %; Hematocrit 23.9 % (37.5-50.1); Hemoglobin 7.2 g/dL (12.9-16.9); Immature Granulocytes % 6.4 % (0-4); Immature Platelets 8.6 % (1.1-6.1); Lymphocytes # 0.3 K/mcL (0.6-4.6); Lymphocytes % 3.8 %; Mean Corpuscular HGB Conc 30.1 g/dL (31.6-35.5); Mean Corpuscular Hemoglobin 30.6 pg (28.0-33.3); Mean Corpuscular Volume 101.7 fL (83.0-100.0); Mean Platelet Volume 11.1 fL (9.4-12.4); Monocytes # 0.6 K/mcL (0.0-1.3); Monocytes % 7.4 %; Nucleated Red Blood Cells 0.9 /100 WBC (0); Red Blood Count 2.35 M/mcL (4.19-5.50); Red Cell Distribution Width 18.3 % (11.5-14.5); Segmented Neutrophils % 82.3 %
[2017-06-03 03:47] LABS: VBG Ionized Calcium 1.07 mmol/L (1.15-1.35); VBG PH 7.22 pH Units (7.32-7.42)
[2017-06-03 04:07] LABS: Platelet Count 88 K/mcL (140-400)
[2017-06-03 04:09] LABS: Macrocytosis Present (Not Present)
[2017-06-03 04:10] LABS: Anisocytosis 1+ (Not Present); Platelet Estimate Decreased (Normal)
[2017-06-03 04:32] LABS: ABG Base Excess 1 mEq/L (-2 to 3); ABG HCO3 28 mEq/L (21-27); ABG Oxygen Saturation 94 % (95-98); ABG PCO2 61 mmHg (35-45); ABG PH 7.28 pH Units (7.32-7.45); ABG PO2 84 mmHg (85-104); ABG TCO2 30 mEq/L (20-26); Blood Gas Respiration Rate 8
[2017-06-03 05:37] LABS: Calcium 7.5 mg/dL (8.6-10.8); Magnesium 1.7 mg/dL (1.6-2.6); Potassium 4.8 mEq/L (3.5-4.5)
[2017-06-03] MEDS: *HR* Heparin 5,000 UNIT/ML VIAL SQ SCH ×3 (05:58→23:32)
[2017-06-03] MEDS ORDERED: Vancomycin 1,000 MG in D5% in Water 250 ML IVPB ONE (07:00)
[2017-06-03] MEDS: Carbidopa/Levodopa 25/100 TABLET PO SCH (08:04)
[2017-06-03] MEDS: Aspirin 81 MG TAB.CHEW PO SCH (08:04)
[2017-06-03] MEDS: Tiotropium 18 MCG inhalation IH SCH (08:15)
[2017-06-03] MEDS: Budesonide/Formoterol 160/4.5 MDI IH SCH ×2 (08:17→21:02)
--- NOTE | 2017-06-03 08:50 | Pulmonology Progress Note ---
<AloPatriciabernice M - Last Filed: 06/03/17 10:27> Date of Encounter: 06/03/17 Objective PUL Vital signs: Last Vital Signs Temp 97.7 F 06/03/17 07:55 Pulse 96 06/03/17 09:00 Resp 22 06/03/17 09:00 BP 128/63 06/03/17 09:00 Pulse Ox 100 06/03/17 09:00 Results - Laboratory Findings CBC and BMP: 06/03/17 03:30 06/03/17 03:30 ABG ABG pH 7.28 pH Units (7.32-7.45) L 06/03/17 04:29 ABG pCO2 61 mmHg (35-45) H 06/03/17 04:29 ABG pO2 84 mmHg (85-104) L 06/03/17 04:29 ABG O2 Saturation 94 % (95-98) L 06/03/17 04:29 PT/INR, D-dimer PT 14.9 Seconds (9.4-12.1) H 05/31/17 11:11 Abnormal lab findings: Abnormal lab results RBC 2.35 M/mcL (4.19-5.50) L 06/03/17 03:30 Hgb 7.2 g/dL (12.9-16.9) L 06/03/17 03:30 Hct 23.9 % (37.5-50.1) L 06/03/17 03:30 MCV 101.7 fL (83.0-100.0) H 06/03/17 03:30 MCHC 30.1 g/dL (31.6-35.5) L 06/03/17 03:30 RDW 18.3 % (11.5-14.5) H 06/03/17 03:30 Plt Count 88 K/mcL (140-400) L 06/03/17 03:30 Immature Gran % 6.4 % (0-4) H 06/03/17 03:30 Band Neutrophils % 24.0 % (0-4) H 05/31/17 11:11 Lymphocytes # 0.3 K/mcL (0.6-4.6) L 06/03/17 03:30 Nucleated RBCs/100 WBC 0.9 /100 WBC (0) H 06/03/17 03:30 Reactive Lymphocytes Present (Not Present) A 05/31/17 11:11 Toxic Granulation Present (Not Present) A 05/31/17 11:11 Toxic Vacuolation Present (Not Present) A 05/31/17 11:11 Platelet Estimate Decreased (Normal) L 06/03/17 03:30 Large Platelets Present (Not Present) A 06/02/17 03:05 Immature Plt Fraction 8.6 % (1.1-6.1) H 06/03/17 03:30 Polychromasia 1+ (Not Present) A 06/02/17 03:05 Hypochromasia Present (Not Present) A 06/02/17 03:05 Poikilocytosis 2+ (Not Present) A 05/31/17 11:11 Anisocytosis 1+ (Not Present) A 06/03/17 03:30 Microcytosis Present (Not Present) A 06/02/17 03:05 Macrocytosis Present (Not Present) A 06/03/17 03:30 Target Cells 1+ (Not Present) A 06/02/17 03:05 Tear Drop Cells 1+ (Not Present) A 06/02/17 03:05 Ovalocytes 1+ (Not Present) A 06/02/17 03:05 Schistocytes 1+ (Not Present) A 05/31/17 11:11 PT 14.9 Seconds (9.4-12.1) H 05/31/17 11:11 ABG pH 7.28 pH Units (7.32-7.45) L 06/03/17 04:29 ABG pCO2 61 mmHg (35-45) H 06/03/17 04:29 ABG pO2 84 mmHg (85-104) L 06/03/17 04:29 ABG HCO3 28 mEq/L (21-27) H 06/03/17 04:29 ABG Total CO2 30 mEq/L (20-26) H 06/03/17 04:29 ABG O2 Saturation 94 % (95-98) L 06/03/17 04:29 VBG pH 7.22 pH Units (7.32-7.42) L 06/03/17 03:43 Potassium 4.8 mEq/L (3.5-4.5) H 06/03/17 03:30 BUN 33 mg/dL (8-26) H D 06/03/17 03:30 Creatinine 1.67 mg/dL (0.72-1.25) H 06/03/17 03:30 Est GFR ( Amer) 51 (> 60) L 06/03/17 03:30 Est GFR (Non-Af Amer) 42 (> 60) L 06/03/17 03:30 Glucose 134 mg/dL (70-99) H 06/03/17 03:30 POC Glucose 170 (58-89) H 06/01/17 01:33 Calcium 7.5 mg/dL (8.6-10.8) L 06/03/17 03:30 Venous Ioniz Calcium 1.07 mmol/L (1.15-1.35) L 06/03/17 03:43 Phosphorus 2.0 mg/dL (2.3-4.7) L D 06/03/17 03:30 Direct Bilirubin 0.7 mg/dL (0.0-0.5) H 05/31/17 11:11 Troponin I 0.04 ng/mL (0-0.03) H* 05/31/17 18:50 B-Natriuretic Peptide 294 pg/mL (0-100) H 05/31/17 11:11 Serum Total Protein 8.6 g/dL (6.0-8.3) H 05/31/17 11:11 Globulin 5.1 g/dL (2.4-3.5) H 05/31/17 11:11 Albumin/Globulin Ratio 0.7 (1.1-2.2) L 05/31/17 11:11 Ur Specimen Adequacy See below A 05/31/17 13:23 Urine Color Staples (Yellow) A 05/31/17 13:23 Urine Clarity Turbid (Clear) A 05/31/17 13:23 Ur Specific [place] 1.029 (1.010-1.025) H 05/31/17 13:23 Urine Protein 30 mg/dL (Neg-Trace) H 05/31/17 13:23 Urine Glucose (UA) 100 mg/dL (Normal) H 05/31/17 13:23 Urine Ketones Trace mg/dL (Negative) H 05/31/17 13:23 Urine Nitrite Positive (Negative) A 05/31/17 13:23 Urine Bilirubin Moderate (Negative) H 05/31/17 13:23 Ur Leukocyte Esterase Small (Negative) H 05/31/17 13:23 Ur Culture Indicated? YES (NO) A 05/31/17 13:23 - Microbiology Findings Microbiology Findings: Microbiology, Last 48 Hours 06/02/17 20:15 Sputum Culture - Preliminary Sputum 05/31/17 13:23 Legionella Antigen - Final Urine,Clean Catch Streptococcus pneumoniae Antigen (M - Final 05/31/17 13:23 Urine Culture - Final Urine,Catheterized No significant growth. - Clinical Findings Intake & Output: Intake & Output 06/02/17 06/03/17 06/03/17 23:59 07:59 15:59 Intake Total 628 / 628 1186 / 1186 50 / 50 Output Total 800 / 800 800 / 800 Balance -172 / -172 386 / 386 50 / 50 Consult Discharge Plan - Plan Referrals: Heron Vincent Jr, MD [Primary Care Provider] - - Attending Attestation I examined this patient and my medical decision-making was reviewed with the Resident Physician. I agree with the documented findings, disposition and treatment plan as described except to the extent set forth below. Patient seen and examined. Labs, radiology, chart personally reviewed. Agree with resident's history and physical, assessment, plan with following comments: MOBILE PARAMEDICAL EXAMINER: Patient follows commands, Pulmonary: Acceptable oxygenation and ventilation however patient has mild respiratory distress and I suspect could be related to the volume resuscitation as well as his underlying COPD. Continue noninvasive ventilation and diuresis. Cardiovascular: Patient is off vasopressors at this time and we need to keep him in ICU since his condition could deteriorate. GI: Nutrition per dietary and GI prophylaxis per routine Heme: DVT prophylaxis per routine ID: Continue antibiotics and plan to de-escalation Renal; urine out put and renal funtion reviewed. Gentle diuresis Endorcine: blood glucose is monitored Lines: all lines checked and no evidence of infections Skin: skin care to prevent pressure ulcers per nursing routine care <Bettie Rosen H - Last Filed: 06/03/17 13:28> Date of Encounter: 06/03/17 Time of Encounter: 08:49 Assessment and Plan (1) Acute on chronic respiratory failure with hypoxia and hypercapnia Current Visit: Yes Status: Acute Patient wears supplemental 3L O2 at home -Presented with hypoxia SpO2 89% on 3L O2 -Continue Bipap -Liquid diet in case his condition deteriorate and needs invasive ventilation. -20mg IV lasix this morning as patient's BP stable off of levophed. -Continue noninvasive ventilation and diuresis. -Continue ICU monitoring as patient could deteriorate easily. (2) Septic shock Current Visit: Yes Status: Acute 3 SIRS criteria with WBC 41.6, RR 32, and HR 106. -His lactic acid was 2.5, repeat level 1.6 -Levophed has been weaned off. -Limited echo on 06/02/2017 LVEF 50-55% with mildly dilated RV. -Continue ICU monitoring. -As BP has remained stable, will give a dose of lasix for patient's respiratory status. -Continue to monitor Hemoglobin. If drops <7, transfuse. (3) Pneumonia Current Visit: Yes Status: Acute SOB for the past day after recently returning from a cruise 2 days prior to arrival. Of note, he reports several other people on the cruise were sick. -CXR reveals multifocal pneumonia, left significantly worse than right. -CT chest reveals multifocal pneumonia, worst in the left lower lobe, severe emphysema -Blood and sputum cultures pending -Negative urine Legionella and strep pneumo antigens -Cover for atypical PNA with Vancomycin and Levaquin (Day 3) -De-escalate antibiotics based on culture results Qualifiers: Pneumonia type: due to unspecified organism Laterality: bilateral Lung location: unspecified part of lung Qualified Code(s): J18.9 - Pneumonia, unspecified organism (4) Metabolic acidosis Current Visit: Yes Status: Acute Patient with metabolic acidosis upon presentation. -Status post treatment with bicarbonate. -Continue to monitor with serial ABGs. (5) Acute kidney injury Current Visit: Yes Status: Acute Continue IVF -Avoid nephrotoxins -Monitor labs (6) Lung nodule seen on imaging study Current Visit: Yes Status: Acute CT chest reveals focal nodular opacity in the left upper lobe measuring 2.9 x 1.9 cm. This finding is also favored to represent infectious process, however, attention on follow-up as needed. -Patient needs treatment with imaging following to resolution to exclude underlying mass in 4-6 weeks. (7) COPD (chronic obstructive pulmonary disease) Current Visit: No Status: Acute Not in acute exacerbation -Discontinued steroids -Continue antibiotics, bronchodilators Qualifiers: COPD type: COPD with acute lower respiratory infection Qualified Code(s): J44.0 - Chronic obstructive pulmonary disease with acute lower respiratory infection (8) Troponin level elevated Current Visit: Yes Status: Acute Prior h/o CAD and AICD -Serial troponins 0.09 --> 0.04 likely secondary to demand ischemia from septic shock and [place] -EKG revealed sinus tachycardia with ventricular rate of 102. [place] 158. QRS 138. QTC 395. No significant ST elevation or depression (9) CAD (coronary artery disease) Current Visit: No Status: Acute -resume home meds Qualifiers: Coronary Disease-Associated Artery/Lesion type: [place] artery [place] vs. transplanted heart: [place] heart Associated angina: without angina Qualified Code(s): I25.10 - Atherosclerotic heart disease of [place] coronary artery without angina pectoris (10) Hypocalcemia Current Visit: Yes Status: Acute -replete as necessary (11) DVT prophylaxis Current Visit: No Status: Acute Heparin SQ GI prophylaxis- pepcid Subjective Principal diagnosis: Sepic shock Interval history: Patient doing well overnight. Weaned off pressor support. Patient still requiring BiPAP and sounds very rhonchorous on physical exam. Objective PUL Vital signs: Last Vital Signs Temp 97.7 F 06/03/17 07:55 Pulse 88 06/03/17 06:00 Resp 16 06/03/17 08:19 BP 101/43 06/03/17 06:00 Pulse Ox 97 06/03/17 08:19 Eyes: nonicteric ENT: oropharynx dry Effort: normal Auscultation: bilateral: rhonchi Cardiovascular: regular rate and rhythm Gastrointestinal: normoactive bowel sounds, soft, non-tender, non-distended Integumentary: normal Extremities: no cyanosis, no edema Musculoskeletal: no deformities normal mental status mood appropriate, affect normal Results - Laboratory Findings CBC and BMP: 06/03/17 11:56 06/03/17 03:30 ABG ABG pH 7.28 pH Units (7.32-7.45) L 06/03/17 04:29 ABG pCO2 61 mmHg (35-45) H 06/03/17 04:29 ABG pO2 84 mmHg (85-104) L 06/03/17 04:29 ABG O2 Saturation 94 % (95-98) L 06/03/17 04:29 PT/INR, D-dimer PT 14.9 Seconds (9.4-12.1) H 05/31/17 11:11 Abnormal lab findings: Abnormal lab results RBC 2.35 M/mcL (4.19-5.50) L 06/03/17 03:30 Hgb 7.2 g/dL (12.9-16.9) L 06/03/17 03:30 Hct 23.9 % (37.5-50.1) L 06/03/17 03:30 MCV 101.7 fL (83.0-100.0) H 06/03/17 03:30 MCHC 30.1 g/dL (31.6-35.5) L 06/03/17 03:30 RDW 18.3 % (11.5-14.5) H 06/03/17 03:30 Plt Count 88 K/mcL (140-400) L 06/03/17 03:30 Immature Gran % 6.4 % (0-4) H 06/03/17 03:30 Band Neutrophils % 24.0 % (0-4) H 05/31/17 11:11 Lymphocytes # 0.3 K/mcL (0.6-4.6) L 06/03/17 03:30 Nucleated RBCs/100 WBC 0.9 /100 WBC (0) H 06/03/17 03:30 Reactive Lymphocytes Present (Not Present) A 05/31/17 11:11 Toxic Granulation Present (Not Present) A 05/31/17 11:11 Toxic Vacuolation Present (Not Present) A 05/31/17 11:11 Platelet Estimate Decreased (Normal) L 06/03/17 03:30 Large Platelets Present (Not Present) A 06/02/17 03:05 Immature Plt Fraction 8.6 % (1.1-6.1) H 06/03/17 03:30 Polychromasia 1+ (Not Present) A 06/02/17 03:05 Hypochromasia Present (Not Present) A 06/02/17 03:05 Poikilocytosis 2+ (Not Present) A 05/31/17 11:11 Anisocytosis 1+ (Not Present) A 06/03/17 03:30 Microcytosis Present (Not Present) A 06/02/17 03:05 Macrocytosis Present (Not Present) A 06/03/17 03:30 Target Cells 1+ (Not Present) A 06/02/17 03:05 Tear Drop Cells 1+ (Not Present) A 06/02/17 03:05 Ovalocytes 1+ (Not Present) A 06/02/17 03:05 Schistocytes 1+ (Not Present) A 05/31/17 11:11 PT 14.9 Seconds (9.4-12.1) H 05/31/17 11:11 ABG pH 7.28 pH Units (7.32-7.45) L 06/03/17 04:29 ABG pCO2 61 mmHg (35-45) H 06/03/17 04:29 ABG pO2 84 mmHg (85-104) L 06/03/17 04:29 ABG HCO3 28 mEq/L (21-27) H 06/03/17 04:29 ABG Total CO2 30 mEq/L (20-26) H 06/03/17 04:29 ABG O2 Saturation 94 % (95-98) L 06/03/17 04:29 VBG pH 7.22 pH Units (7.32-7.42) L 06/03/17 03:43 Potassium 4.8 mEq/L (3.5-4.5) H 06/03/17 03:30 BUN 33 mg/dL (8-26) H D 06/03/17 03:30 Creatinine 1.67 mg/dL (0.72-1.25) H 06/03/17 03:30 Est GFR ( Amer) 51 (> 60) L 06/03/17 03:30 Est GFR (Non-Af Amer) 42 (> 60) L 06/03/17 03:30 Glucose 134 mg/dL (70-99) H 06/03/17 03:30 POC Glucose 170 (58-89) H 06/01/17 01:33 Calcium 7.5 mg/dL (8.6-10.8) L 06/03/17 03:30 Venous Ioniz Calcium 1.07 mmol/L (1.15-1.35) L 06/03/17 03:43 Phosphorus 2.0 mg/dL (2.3-4.7) L D 06/03/17 03:30 Direct Bilirubin 0.7 mg/dL (0.0-0.5) H 05/31/17 11:11 Troponin I 0.04 ng/mL (0-0.03) H* 05/31/17 18:50 B-Natriuretic Peptide 294 pg/mL (0-100) H 05/31/17 11:11 Serum Total Protein 8.6 g/dL (6.0-8.3) H 05/31/17 11:11 Globulin 5.1 g/dL (2.4-3.5) H 05/31/17 11:11 Albumin/Globulin Ratio 0.7 (1.1-2.2) L 05/31/17 11:11 Ur Specimen Adequacy See below A 05/31/17 13:23 Urine Color Staples (Yellow) A 05/31/17 13:23 Urine Clarity Turbid (Clear) A 05/31/17 13:23 Ur Specific [place] 1.029 (1.010-1.025) H 05/31/17 13:23 Urine Protein 30 mg/dL (Neg-Trace) H 05/31/17 13:23 Urine Glucose (UA) 100 mg/dL (Normal) H 05/31/17 13:23 Urine Ketones Trace mg/dL (Negative) H 05/31/17 13:23 Urine Nitrite Positive (Negative) A 05/31/17 13:23 Urine Bilirubin Moderate (Negative) H 05/31/17 13:23 Ur Leukocyte Esterase Small (Negative) H 05/31/17 13:23 Ur Culture Indicated? YES (NO) A 05/31/17 13:23 - Microbiology Findings Microbiology Findings: Microbiology, Last 48 Hours 06/02/17 20:15 Sputum Culture - Preliminary Sputum 05/31/17 13:23 Legionella Antigen - Final Urine,Clean Catch Streptococcus pneumoniae Antigen (M - Final 05/31/17 13:23 Urine Culture - Final Urine,Catheterized No significant growth. - Clinical Findings Intake & Output: Intake & Output 06/02/17 06/03/17 06/03/17 23:59 07:59 15:59 Intake Total 628 / 628 1186 / 1186 50 / 50 Output Total 800 / 800 800 / 800 Balance -172 / -172 386 / 386 50 / 50
[2017-06-03] MEDS ORDERED: Aminoglycoside Consult 1 EACH MC ONE (09:03)
[2017-06-03] MEDS ORDERED: Furosemide 20 MG/2 ML VIAL IVP ONE (10:28)
[2017-06-03] MEDS: Levofloxacin 750 MG/150 ML 750 MG/150 ML BAG IVPB SCH (15:33)
[2017-06-03 16:05] LABS: VBG Ionized Calcium 1.05 mmol/L (1.15-1.35)
[2017-06-03] MEDS: Dexmedetomidine HCl 400 MCG/100 ML MLS IVC SCH (17:49)
[2017-06-03] MEDS: Vasopressin 40 UNIT in D5% in Water 100 ML IV SCH (18:01)
[2017-06-03] MEDS: Famotidine 20 MG/2 ML VIAL IVP SCH (18:03)
[2017-06-03] MEDS ORDERED: Furosemide 40 MG/4 ML VIAL IVP ONE (18:22)
[2017-06-03] MEDS: Norepinephrine 8 MG in D5% in Water 500 ML IVC SCH (19:06)
[2017-06-03 22:58] LABS: ABG Base Excess 6 mEq/L (-2 to 3); ABG HCO3 31 mEq/L (21-27); ABG Oxygen Saturation 98 % (95-98); ABG PCO2 47 mmHg (35-45); ABG PH 7.42 pH Units (7.32-7.45); ABG PO2 106 mmHg (85-104); ABG TCO2 32 mEq/L (20-26); Blood Gas PEEP 8 cm H2O
[2017-06-04] MEDS: Dexmedetomidine HCl 400 MCG/100 ML MLS IVC SCH ×2 (00:15→19:47)
[2017-06-04] MEDS: Ipratropium/Albuterol Neb 3 ML IH SCH ×7 (00:45→23:48)
[2017-06-04 04:00] LABS: Red Cell Distribution Width 18.6 % (11.5-14.5)
[2017-06-04 04:02] LABS: Basophils % 0.1 %; Eosinophils % 0.1 %; Hematocrit 25.5 % (37.5-50.1); Hemoglobin 7.9 g/dL (12.9-16.9); Immature Granulocytes % 4.6 % (0-4); Immature Platelets 8.1 % (1.1-6.1); Lymphocytes # 0.6 K/mcL (0.6-4.6); Lymphocytes % 5.5 %; Mean Corpuscular Hemoglobin 30.6 pg (28.0-33.3); Mean Corpuscular Volume 98.8 fL (83.0-100.0); Mean Platelet Volume 11.2 fL (9.4-12.4); Monocytes # 0.9 K/mcL (0.0-1.3); Monocytes % 8.7 %; Neutrophils # 8.2 K/mcL (1.6-8.9); Nucleated Red Blood Cells 0.3 /100 WBC (0); Red Blood Count 2.58 M/mcL (4.19-5.50)
[2017-06-04 04:04] LABS: BUN/Creatinine Ratio 19 (6-26); Blood Urea Nitrogen 27 mg/dL (8-26); Calcium 8.1 mg/dL (8.6-10.8); Carbon Dioxide 29 mEq/L (19-29); Chloride 107 mEq/L (98-109); Glucose 118 mg/dL (70-99); Osmolality,Calculated 308 (280-300); Potassium 4.2 mEq/L (3.5-4.5); Sodium 146 mEq/L (136-145); eGFR For African Americans > 60 (> 60); eGFR For Non-African Americans 51 (> 60)
[2017-06-04 04:09] LABS: Platelet Count 90 K/mcL (140-400)
[2017-06-04] MEDS: *HR* Heparin 5,000 UNIT/ML VIAL SQ SCH ×3 (04:18→23:01)
[2017-06-04 05:19] LABS: VBG Ionized Calcium 0.99 mmol/L (1.15-1.35); VBG PH 7.39 pH Units (7.32-7.42)
[2017-06-04 05:20] LABS: Magnesium 1.7 mg/dL (1.6-2.6)
[2017-06-04 05:21] LABS: Phosphorous 4.4 mg/dL (2.3-4.7)
[2017-06-04] MEDS: Aspirin 81 MG TAB.CHEW PO SCH (07:40)
[2017-06-04] MEDS: Carbidopa/Levodopa 25/100 TABLET PO SCH (07:40)
[2017-06-04] MEDS: Tiotropium 18 MCG inhalation IH SCH (08:08)
[2017-06-04] MEDS: Budesonide/Formoterol 160/4.5 MDI IH SCH ×2 (08:08→20:12)
[2017-06-04] MEDS ORDERED: Furosemide 40 MG/4 ML VIAL IVP ONE ×2 (09:16→15:44)
--- NOTE | 2017-06-04 09:17 | Pulmonology Progress Note ---
<Kenneth Prajapati M - Last Filed: 06/04/17 11:12> Date of Encounter: 06/04/17 Objective PUL Vital signs: Last Vital Signs Temp 97.6 F 06/04/17 04:00 Pulse 89 06/04/17 10:00 Resp 36 06/04/17 10:00 BP 119/57 06/04/17 10:00 Pulse Ox 95 06/04/17 10:00 Results - Laboratory Findings CBC and BMP: 06/04/17 03:48 06/04/17 03:48 ABG ABG pH 7.42 pH Units (7.32-7.45) 06/03/17 22:54 ABG pCO2 47 mmHg (35-45) H 06/03/17 22:54 ABG pO2 106 mmHg (85-104) H 06/03/17 22:54 ABG O2 Saturation 98 % (95-98) 06/03/17 22:54 PT/INR, D-dimer PT 14.9 Seconds (9.4-12.1) H 05/31/17 11:11 Abnormal lab findings: Abnormal lab results RBC 2.58 M/mcL (4.19-5.50) L 06/04/17 03:48 Hgb 7.9 g/dL (12.9-16.9) L 06/04/17 03:48 Hct 25.5 % (37.5-50.1) L 06/04/17 03:48 MCHC 31.0 g/dL (31.6-35.5) L 06/04/17 03:48 RDW 18.6 % (11.5-14.5) H 06/04/17 03:48 Plt Count 90 K/mcL (140-400) L 06/04/17 03:48 Immature Gran % 4.6 % (0-4) H 06/04/17 03:48 Band Neutrophils % 24.0 % (0-4) H 05/31/17 11:11 Nucleated RBCs/100 WBC 0.3 /100 WBC (0) H 06/04/17 03:48 Reactive Lymphocytes Present (Not Present) A 05/31/17 11:11 Toxic Granulation Present (Not Present) A 05/31/17 11:11 Toxic Vacuolation Present (Not Present) A 05/31/17 11:11 Platelet Estimate Decreased (Normal) L 06/03/17 03:30 Large Platelets Present (Not Present) A 06/02/17 03:05 Immature Plt Fraction 8.1 % (1.1-6.1) H 06/04/17 03:48 Polychromasia 1+ (Not Present) A 06/02/17 03:05 Hypochromasia Present (Not Present) A 06/02/17 03:05 Poikilocytosis 2+ (Not Present) A 05/31/17 11:11 Anisocytosis 1+ (Not Present) A 06/03/17 03:30 Microcytosis Present (Not Present) A 06/02/17 03:05 Macrocytosis Present (Not Present) A 06/03/17 03:30 Target Cells 1+ (Not Present) A 06/02/17 03:05 Tear Drop Cells 1+ (Not Present) A 06/02/17 03:05 Ovalocytes 1+ (Not Present) A 06/02/17 03:05 Schistocytes 1+ (Not Present) A 05/31/17 11:11 PT 14.9 Seconds (9.4-12.1) H 05/31/17 11:11 ABG pCO2 47 mmHg (35-45) H 06/03/17 22:54 ABG pO2 106 mmHg (85-104) H 06/03/17 22:54 ABG HCO3 31 mEq/L (21-27) H 06/03/17 22:54 ABG Total CO2 32 mEq/L (20-26) H 06/03/17 22:54 ABG Base Excess 6 mEq/L (-2 to 3) H 06/03/17 22:54 Sodium 146 mEq/L (136-145) H 06/04/17 03:48 BUN 27 mg/dL (8-26) H 06/04/17 03:48 Creatinine 1.41 mg/dL (0.72-1.25) H 06/04/17 03:48 Est GFR (Non-Af Amer) 51 (> 60) L 06/04/17 03:48 Glucose 118 mg/dL (70-99) H 06/04/17 03:48 POC Glucose 103 (58-89) H 06/03/17 22:26 Calculated Osmolality 308 (280-300) H 06/04/17 03:48 Calcium 8.1 mg/dL (8.6-10.8) L 06/04/17 03:48 Venous Ioniz Calcium 0.99 mmol/L (1.15-1.35) L 06/04/17 05:16 Direct Bilirubin 0.7 mg/dL (0.0-0.5) H 05/31/17 11:11 Troponin I 0.04 ng/mL (0-0.03) H* 05/31/17 18:50 B-Natriuretic Peptide 294 pg/mL (0-100) H 05/31/17 11:11 Serum Total Protein 8.6 g/dL (6.0-8.3) H 05/31/17 11:11 Globulin 5.1 g/dL (2.4-3.5) H 05/31/17 11:11 Albumin/Globulin Ratio 0.7 (1.1-2.2) L 05/31/17 11:11 Ur Specimen Adequacy See below A 05/31/17 13:23 Urine Color [place] (Yellow) A 05/31/17 13:23 Urine Clarity Turbid (Clear) A 05/31/17 13:23 Ur Specific [place] 1.029 (1.010-1.025) H 05/31/17 13:23 Urine Protein 30 mg/dL (Neg-Trace) H 05/31/17 13:23 Urine Glucose (UA) 100 mg/dL (Normal) H 05/31/17 13:23 Urine Ketones Trace mg/dL (Negative) H 05/31/17 13:23 Urine Nitrite Positive (Negative) A 05/31/17 13:23 Urine Bilirubin Moderate (Negative) H 05/31/17 13:23 Ur Leukocyte Esterase Small (Negative) H 05/31/17 13:23 Ur Culture Indicated? YES (NO) A 05/31/17 13:23 - Microbiology Findings Microbiology Findings: Microbiology, Last 48 Hours 06/02/17 20:15 Sputum Culture - Preliminary Sputum - Clinical Findings Intake & Output: Intake & Output 06/03/17 06/04/17 06/04/17 23:59 07:59 15:59 Intake Total 1780 / 1780 360 / 360 Output Total 4300 / 4300 400 / 400 Balance -2520 / -2520 -40 / -40 Consult Discharge Plan - Plan Referrals: Heron Vincent Jr, MD [Primary Care Provider] - - Attending Attestation I examined this patient and my medical decision-making was reviewed with the Resident Physician. I agree with the documented findings, disposition and treatment plan as described except to the extent set forth below. Patient seen and examined. Labs, radiology, chart personally reviewed. Agree with resident's history and physical, assessment, plan with following comments: [employer]: Patient follows commands, Pulmonary: Acceptable oxygenation and ventilation. We will continue diuresis and BiPAP as needed. He should stay in ICU for close monitoring with his chest x-ray finding can also clinically. Cardiovascular: stable GI: Nutrition per dietary and GI prophylaxis per routine Heme: DVT prophylaxis per routine ID: Continue antibiotics and plan to de-escalation. Vancomycin to be stopped. Renal; urine out put and renal funtion reviewed Endorcine: blood glucose is monitored Lines: all lines checked and no evidence of infections Skin: skin care to prevent pressure ulcers per nursing routine care <Bettie Rosen - Last Filed: 06/04/17 15:53> Date of Encounter: 06/04/17 Time of Encounter: 09:17 Assessment and Plan (1) Acute on chronic respiratory failure with hypoxia and hypercapnia Current Visit: Yes Status: Acute Patient wears supplemental 3L O2 at home -Presented with hypoxia SpO2 89% on 3L O2 -Continue 10 L O2 NC. -Liquid diet in case his condition deteriorates and needs invasive ventilation. CXR 06/03- multifocal PNA with increasing left lung airspace disease particularly in the left lower lobe with new retrocardiac consolidation. -Patient given another 40 mg IV Lasix this morning. Had a total of 2 L output afterwards. We will give another Lasix challenge this evening. -Continue noninvasive ventilation and diuresis. -Continue ICU monitoring as patient could deteriorate easily. (2) Septic shock Current Visit: Yes Status: Acute 3 SIRS criteria with WBC 41.6, RR 32, and HR 106. -His lactic acid was 2.5, repeat level 1.6 -Levophed has been weaned off. -Limited echo on 06/02/2017 LVEF 50-55% with mildly dilated RV. -Continue ICU monitoring. -Continue to monitor Hemoglobin. If drops <7, transfuse. -Continue levaquin, DC vancomycin (06/04/2017). (3) Pneumonia Current Visit: Yes Status: Acute SOB for the past day after recently returning from a cruise 2 days prior to arrival. Of note, he reports several other people on the cruise were sick. -CXR reveals multifocal pneumonia, left significantly worse than right. -CT chest reveals multifocal pneumonia, worst in the left lower lobe, severe emphysema -Blood pending. -Sputum culture prelim negative. -Negative urine Legionella and strep pneumo antigens -Cover for atypical PNA with Levaquin (Day 4), vancomycin DC'd on 06/04 after 4 doses. -De-escalate antibiotics based on culture results Qualifiers: Pneumonia type: due to unspecified organism Laterality: bilateral Lung location: unspecified part of lung Qualified Code(s): J18.9 - Pneumonia, unspecified organism (4) Metabolic acidosis Current Visit: Yes Status: Acute Patient with metabolic acidosis upon presentation. -Status post treatment with bicarbonate. -Continue to monitor with serial ABGs. (5) Acute kidney injury Current Visit: Yes Status: Acute Continue IVF -Avoid nephrotoxins -Monitor labs (6) Lung nodule seen on imaging study Current Visit: Yes Status: Acute CT chest reveals focal nodular opacity in the left upper lobe measuring 2.9 x 1.9 cm. This finding is also favored to represent infectious process, however, attention on follow-up as needed. -Patient needs treatment with imaging following to resolution to exclude underlying mass in 4-6 weeks. (7) COPD (chronic obstructive pulmonary disease) Current Visit: No Status: Acute Not in acute exacerbation -Discontinued steroids -Continue antibiotics, bronchodilators Qualifiers: COPD type: COPD with acute lower respiratory infection Qualified Code(s): J44.0 - Chronic obstructive pulmonary disease with acute lower respiratory infection (8) Troponin level elevated Current Visit: Yes Status: Acute Prior h/o CAD and AICD -Serial troponins 0.09 --> 0.04 likely secondary to demand ischemia from septic shock and [place] -EKG revealed sinus tachycardia with ventricular rate of 102. NH 158. QRS 138. QTC 395. No significant ST elevation or depression (9) CAD (coronary artery disease) Current Visit: No Status: Acute -home meds Qualifiers: Coronary Disease-Associated Artery/Lesion type: [place] artery [place] vs. transplanted heart: [place] heart Associated angina: without angina Qualified Code(s): I25.10 - Atherosclerotic heart disease of [place] coronary artery without angina pectoris (10) Hypocalcemia Current Visit: Yes Status: Acute -replete as necessary (11) DVT prophylaxis Current Visit: No Status: Acute Heparin SQ GI prophylaxis- pepcid Subjective Principal diagnosis: Sepic shock Interval history: Patient had episode of agitation over night. Weaned off pressor support yesterday. 2 liters of fluids output today per nurse. 10 Liters O2 by Nasal Canula. Objective PUL Vital signs: Last Vital Signs Temp 97.6 F 06/04/17 04:00 Pulse 71 06/04/17 06:00 Resp 16 06/04/17 08:10 BP 99/50 06/04/17 06:00 Pulse Ox 96 06/04/17 08:10 General appearance: no acute distress Eyes: nonicteric ENT: oropharynx dry Neck: supple Effort: mildly labored Auscultation: bilateral: rhonchi Cardiovascular: regular rate and rhythm Gastrointestinal: normoactive bowel sounds, soft, non-tender, non-distended Integumentary: normal Extremities: no cyanosis, no edema, pink and warm Musculoskeletal: no deformities normal mental status, non-focal exam mood appropriate, affect normal Results - Laboratory Findings CBC and BMP: 06/04/17 03:48 06/04/17 03:48 ABG ABG pH 7.42 pH Units (7.32-7.45) 06/03/17 22:54 ABG pCO2 47 mmHg (35-45) H 06/03/17 22:54 ABG pO2 106 mmHg (85-104) H 06/03/17 22:54 ABG O2 Saturation 98 % (95-98) 06/03/17 22:54 PT/INR, D-dimer PT 14.9 Seconds (9.4-12.1) H 05/31/17 11:11 Abnormal lab findings: Abnormal lab results RBC 2.58 M/mcL (4.19-5.50) L 06/04/17 03:48 Hgb 7.9 g/dL (12.9-16.9) L 06/04/17 03:48 Hct 25.5 % (37.5-50.1) L 06/04/17 03:48 MCHC 31.0 g/dL (31.6-35.5) L 06/04/17 03:48 RDW 18.6 % (11.5-14.5) H 06/04/17 03:48 Plt Count 90 K/mcL (140-400) L 06/04/17 03:48 Immature Gran % 4.6 % (0-4) H 06/04/17 03:48 Band Neutrophils % 24.0 % (0-4) H 05/31/17 11:11 Nucleated RBCs/100 WBC 0.3 /100 WBC (0) H 06/04/17 03:48 Reactive Lymphocytes Present (Not Present) A 05/31/17 11:11 Toxic Granulation Present (Not Present) A 05/31/17 11:11 Toxic Vacuolation Present (Not Present) A 05/31/17 11:11 Platelet Estimate Decreased (Normal) L 06/03/17 03:30 Large Platelets Present (Not Present) A 06/02/17 03:05 Immature Plt Fraction 8.1 % (1.1-6.1) H 06/04/17 03:48 Polychromasia 1+ (Not Present) A 06/02/17 03:05 Hypochromasia Present (Not Present) A 06/02/17 03:05 Poikilocytosis 2+ (Not Present) A 05/31/17 11:11 Anisocytosis 1+ (Not Present) A 06/03/17 03:30 Microcytosis Present (Not Present) A 06/02/17 03:05 Macrocytosis Present (Not Present) A 06/03/17 03:30 Target Cells 1+ (Not Present) A 06/02/17 03:05 Tear Drop Cells 1+ (Not Present) A 06/02/17 03:05 Ovalocytes 1+ (Not Present) A 06/02/17 03:05 Schistocytes 1+ (Not Present) A 05/31/17 11:11 PT 14.9 Seconds (9.4-12.1) H 05/31/17 11:11 ABG pCO2 47 mmHg (35-45) H 06/03/17 22:54 ABG pO2 106 mmHg (85-104) H 06/03/17 22:54 ABG HCO3 31 mEq/L (21-27) H 06/03/17 22:54 ABG Total CO2 32 mEq/L (20-26) H 06/03/17 22:54 ABG Base Excess 6 mEq/L (-2 to 3) H 06/03/17 22:54 Sodium 146 mEq/L (136-145) H 06/04/17 03:48 BUN 27 mg/dL (8-26) H 06/04/17 03:48 Creatinine 1.41 mg/dL (0.72-1.25) H 06/04/17 03:48 Est GFR (Non-Af Amer) 51 (> 60) L 06/04/17 03:48 Glucose 118 mg/dL (70-99) H 06/04/17 03:48 POC Glucose 103 (58-89) H 06/03/17 22:26 Calculated Osmolality 308 (280-300) H 06/04/17 03:48 Calcium 8.1 mg/dL (8.6-10.8) L 06/04/17 03:48 Venous Ioniz Calcium 0.99 mmol/L (1.15-1.35) L 06/04/17 05:16 Direct Bilirubin 0.7 mg/dL (0.0-0.5) H 05/31/17 11:11 Troponin I 0.04 ng/mL (0-0.03) H* 05/31/17 18:50 B-Natriuretic Peptide 294 pg/mL (0-100) H 05/31/17 11:11 Serum Total Protein 8.6 g/dL (6.0-8.3) H 05/31/17 11:11 Globulin 5.1 g/dL (2.4-3.5) H 05/31/17 11:11 Albumin/Globulin Ratio 0.7 (1.1-2.2) L 05/31/17 11:11 Ur Specimen Adequacy See below A 05/31/17 13: Urine Color [place] (Yellow) A 05/31/17 13:23 Urine Clarity Turbid (Clear) A 05/31/17 13:23 Ur Specific [place] 1.029 (1.010-1.025) H 05/31/17 13:23 Urine Protein 30 mg/dL (Neg-Trace) H 05/31/17 13:23 Urine Glucose (UA) 100 mg/dL (Normal) H 05/31/17 13:23 Urine Ketones Trace mg/dL (Negative) H 05/31/17 13:23 Urine Nitrite Positive (Negative) A 05/31/17 13:23 Urine Bilirubin Moderate (Negative) H 05/31/17 13:23 Ur Leukocyte Esterase Small (Negative) H 05/31/17 13:23 Ur Culture Indicated? YES (NO) A 05/31/17 13:23 - Microbiology Findings Microbiology Findings: Microbiology, Last 48 Hours 06/02/17 20:15 Sputum Culture - Preliminary Sputum - Clinical Findings Intake & Output: Intake & Output 06/03/17 06/04/17 06/04/17 23:59 07:59 15:59 Intake Total 1780 / 1780 360 / 360 Output Total 4300 / 4300 400 / 400 Balance -2520 / -2520 -40 / -40
[2017-06-04] MEDS: Vasopressin 40 UNIT in D5% in Water 100 ML IV SCH (11:41)
[2017-06-04] MEDS: Famotidine 20 MG/2 ML VIAL IVP SCH (17:12)
[2017-06-04] MEDS: Norepinephrine 8 MG in D5% in Water 500 ML IVC SCH (22:57)
[2017-06-05] MEDS: Vasopressin 40 UNIT in D5% in Water 100 ML IV SCH (02:24)
[2017-06-05 03:26] LABS: Basophils % 0.2 %; Hematocrit 25.7 % (37.5-50.1); Immature Granulocytes % 6.1 % (0-4); Lymphocytes # 1.1 K/mcL (0.6-4.6); Lymphocytes % 8.5 %; Mean Corpuscular HGB Conc 31.1 g/dL (31.6-35.5); Mean Corpuscular Volume 96.3 fL (83.0-100.0); Mean Platelet Volume 11.1 fL (9.4-12.4); Monocytes # 1.4 K/mcL (0.0-1.3); Monocytes % 10.9 %; Neutrophils # 9.4 K/mcL (1.6-8.9); Nucleated Red Blood Cells 0.2 /100 WBC (0); Platelet Count 109 K/mcL (140-400); Red Blood Count 2.67 M/mcL (4.19-5.50); Red Cell Distribution Width 18.7 % (11.5-14.5); Segmented Neutrophils % 74.3 %
[2017-06-05 03:37] LABS: Magnesium 1.5 mg/dL (1.6-2.6); Phosphorous 2.9 mg/dL (2.3-4.7)
[2017-06-05 03:39] LABS: VBG Ionized Calcium 1.07 mmol/L (1.15-1.35)
[2017-06-05 03:40] LABS: BUN/Creatinine Ratio 21 (6-26); Blood Urea Nitrogen 25 mg/dL (8-26); Calcium 9.4 mg/dL (8.6-10.8); Carbon Dioxide 35 mEq/L (19-29); Chloride 98 mEq/L (98-109); Glucose 123 mg/dL (70-99); Osmolality,Calculated 306 (280-300); Potassium 3.6 mEq/L (3.5-4.5); Sodium 145 mEq/L (136-145); eGFR For African Americans > 60 (> 60); eGFR For Non-African Americans > 60 (> 60)
[2017-06-05] MEDS: Ipratropium/Albuterol Neb 3 ML IH SCH ×6 (04:05→23:47)
[2017-06-05 04:31] LABS: Anisocytosis 2+ (Not Present); Hypochromasia Present (Not Present)
[2017-06-05 04:33] LABS: Ovalocytes 1+ (Not Present); Platelet Estimate Decreased (Normal); Poikilocytosis 2+ (Not Present); Target Cells 1+ (Not Present)
[2017-06-05] MEDS: *HR* Heparin 5,000 UNIT/ML VIAL SQ SCH ×3 (05:51→21:02)
[2017-06-05] MEDS: Budesonide/Formoterol 160/4.5 MDI IH SCH ×2 (07:50→20:50)
[2017-06-05] MEDS: Tiotropium 18 MCG inhalation IH SCH (07:50)
--- NOTE | 2017-06-05 08:58 | Pulmonology Progress Note ---
<Salvador Herrera Mariano - Last Filed: 06/05/17 13:53> Date of Encounter: 06/05/17 Time of Encounter: 08:56 Assessment and Plan (1) Acute on chronic respiratory failure with hypoxia and hypercapnia Current Visit: Yes Status: Acute Mr. Cruz 61-year-old male known history of COPD emphysema prior smoker who requires 3 L nasal cannula oxygen at baseline. Upon admission he was found to the hypoxic and hypercarbic and currently requires 8 L nasal cannula oxygen high flow to maintain oxygen saturations between 88-92%. He continues to demonstrate tachypnea but is in no acute distress. - He has shown significant improvement in his respiratory status, decreased in respiratory rate and oxygen requirements, since admission and antibiotic initiation. Chest x-ray 06/05/2017 demonstrate slightly decreased patchy air space opacities in the left lung most prominent in the bases. Continues to show multifocal pneumonia. Slight increased right basilar airspace opacification most likely representing atelectasis. Pulmonary vascular congestion with possible perihilar edema. Bilateral pleural effusions large and decreased on the left. Plan: - Continue Levaquin, day 6. Last dose tomorrow 06/06/2017. - Continue weaning oxygen as tolerated - Continue breathing treatments. (2) COPD (chronic obstructive pulmonary disease) Current Visit: No Status: Acute Patient has no history of COPD, emphysema, baseline 3 L nasal cannula oxygen at home. Last pulmonary function test: Spirometry shows severe to very severe airway obstructive pattern Lung Volumes SVC moderate reduced. Flow Volume Loop: Obstructive Plan: - Continue weaning oxygen as tolerated back to patient's baseline. Qualifiers: COPD type: COPD with acute lower respiratory infection Qualified Code(s): J44.0 - Chronic obstructive pulmonary disease with acute lower respiratory infection (3) CAD (coronary artery disease) Current Visit: No Status: Acute Stable. - Continue aspirin, Plavix, low Ryan. - Holding blood pressure medications in the setting of hypotension. Qualifiers: Coronary Disease-Associated Artery/Lesion type: [place] artery [place] vs. transplanted heart: [place] heart Associated angina: without angina Qualified Code(s): I25.10 - Atherosclerotic heart disease of [place] coronary artery without angina pectoris (4) HTN (hypertension) Current Visit: No Status: Acute Blood pressures are appropriate. Patient may start blood pressure medications if blood pressures remain appropriate. Qualifiers: Hypertension type: essential hypertension Qualified Code(s): I10 - Essential (primary) hypertension (5) Acute kidney injury (nontraumatic) Current Visit: No Status: Acute Patient had acute kidney injury in the setting of septic shock. It has since resolved, current creatinine 1.19, GFR greater than 60 with appropriate output. -Continue to monitor during inpatient stay -Avoid nephrotoxic medications renally dose antibiotics (6) Pneumonia Current Visit: Yes Status: Acute Patient with multifocal pneumonia, Legionella negative, urine culture negative - Improving on current antibiotics Plan: As described above. Qualifiers: Pneumonia type: due to unspecified organism Laterality: bilateral Lung location: unspecified part of lung Qualified Code(s): J18.9 - Pneumonia, unspecified organism (7) Septic shock Current Visit: Yes Status: Acute Patient was septic shock in the setting of pneumonia, WBC count upon admission was 36.9 currently 12.7. Increased oxygen demand. - Patient improving compared to admission - Sputum culture negative Legionella negative, urine culture negative blood cultures negative. Plan: - Continue antibiotic therapy - Continue monitoring inpatient stay - Patient to transfer to ICU stepdown. (8) Lung nodule seen on imaging study Current Visit: Yes Status: Acute focal nodular opacity in the left upper lobe measuring 2.9 x 1.9 cm. This finding is also favored to represent the infectious process. - Patient should have follow-up imaging after resolution of current multifocal pneumonia. (9) Hypocalcemia Current Visit: Yes Status: Acute Venous ionized calcium 1.07 - Continue replacing as ordered. (10) Hypomagnesemia Current Visit: Yes Status: Acute Magnesium 1.5 this morning - 2 g IV magnesium. - Repeat in a.m. (11) DVT prophylaxis Current Visit: No Status: Acute Subcutaneous heparin every 8 hours Subjective Principal diagnosis: Sepic shock Interval history: Mr. Cruz 61-year-old male is seen in evaluation patient bedside this morning. He is alert awake interactive distress. He feels that his breathing is significantly improved compared to admission. He denies any chest pain, chest pressure or palpitations. He denies any nausea vomiting diarrhea or constipation. He has had a lack of appetite since admission but denies any reason why he could not eat. He is motivated to get up in a chair having his [place] catheter out and use a spirometer. Objective PUL Vital signs: Last Vital Signs Temp 98.4 F 06/05/17 03:20 Pulse 98 06/05/17 07:00 Resp 30 06/05/17 07:00 BP 133/57 06/05/17 07:00 Pulse Ox 100 06/05/17 07:00 General appearance: no acute distress, alert Eyes: nonicteric ENT: oropharynx moist Neck: supple Effort: mildly labored Auscultation: bilateral: wheezes, other (Diminished inspiratory and expiratory breath sounds with diffuse wheezes and rhonchi appreciated the left lower lung base.) Percussion: bilateral: not dull Tactile fremitus: bilateral: normal Cardiovascular: regular rate and rhythm Gastrointestinal: normoactive bowel sounds, non-distended Integumentary: normal Extremities: no cyanosis, no edema, no clubbing Musculoskeletal: no deformities, ROM normal normal mental status, non-focal exam mood appropriate, affect normal Results - Laboratory Findings CBC and BMP: 06/05/17 03:00 06/05/17 03:00 ABG ABG pH 7.42 pH Units (7.32-7.45) 06/03/17 22:54 ABG pCO2 47 mmHg (35-45) H 06/03/17 22:54 ABG pO2 106 mmHg (85-104) H 06/03/17 22:54 ABG O2 Saturation 98 % (95-98) 06/03/17 22:54 PT/INR, D-dimer PT 14.9 Seconds (9.4-12.1) H 05/31/17 11:11 Abnormal lab findings: Abnormal lab results WBC 12.7 K/mcL (4.3-11.1) H 06/05/17 03:00 RBC 2.67 M/mcL (4.19-5.50) L 06/05/17 03:00 Hgb 8.0 g/dL (12.9-16.9) L 06/05/17 03:00 Hct 25.7 % (37.5-50.1) L 06/05/17 03:00 MCHC 31.1 g/dL (31.6-35.5) L 06/05/17 03:00 RDW 18.7 % (11.5-14.5) H 06/05/17 03:00 Plt Count 109 K/mcL (140-400) L 06/05/17 03:00 Immature Gran % 6.1 % (0-4) H 06/05/17 03:00 Band Neutrophils % 24.0 % (0-4) H 05/31/17 11:11 Neutrophils # 9.4 K/mcL (1.6-8.9) H 06/05/17 03:00 Monocytes # 1.4 K/mcL (0.0-1.3) H 06/05/17 03:00 Nucleated RBCs/100 WBC 0.2 /100 WBC (0) H 06/05/17 03:00 Hyposegmented Neuts Present (Not Present) A 06/05/17 03:00 Reactive Lymphocytes Present (Not Present) A 05/31/17 11:11 Toxic Granulation Present (Not Present) A 05/31/17 11:11 Toxic Vacuolation Present (Not Present) A 05/31/17 11:11 Platelet Estimate Decreased (Normal) L 06/05/17 03:00 Large Platelets Present (Not Present) A 06/02/17 03:05 Immature Plt Fraction 8.1 % (1.1-6.1) H 06/04/17 03:48 Polychromasia 1+ (Not Present) A 06/02/17 03:05 Hypochromasia Present (Not Present) A 06/05/17 03:00 Poikilocytosis 2+ (Not Present) A 06/05/17 03:00 Anisocytosis 2+ (Not Present) A 06/05/17 03:00 Microcytosis Present (Not Present) A 06/02/17 03:05 Macrocytosis Present (Not Present) A 06/03/17 03:30 Target Cells 1+ (Not Present) A 06/05/17 03:00 Tear Drop Cells 1+ (Not Present) A 06/02/17 03:05 Ovalocytes 1+ (Not Present) A 06/05/17 03:00 Schistocytes 1+ (Not Present) A 05/31/17 11:11 PT 14.9 Seconds (9.4-12.1) H 05/31/17 11:11 ABG pCO2 47 mmHg (35-45) H 06/03/17 22:54 ABG pO2 106 mmHg (85-104) H 06/03/17 22:54 ABG HCO3 31 mEq/L (21-27) H 06/03/17 22:54 ABG Total CO2 32 mEq/L (20-26) H 06/03/17 22:54 ABG Base Excess 6 mEq/L (-2 to 3) H 06/03/17 22:54 Carbon Dioxide 35 mEq/L (19-29) H 06/05/17 03:00 Glucose 123 mg/dL (70-99) H 06/05/17 03:00 POC Glucose 103 (58-89) H 06/03/17 22:26 Calculated Osmolality 306 (280-300) H 06/05/17 03:00 Venous Ioniz Calcium 1.07 mmol/L (1.15-1.35) L 06/05/17 03:36 Magnesium 1.5 mg/dL (1.6-2.6) L 06/05/17 03:00 Direct Bilirubin 0.7 mg/dL (0.0-0.5) H 05/31/17 11:11 Troponin I 0.04 ng/mL (0-0.03) H* 05/31/17 18:50 B-Natriuretic Peptide 294 pg/mL (0-100) H 05/31/17 11:11 Serum Total Protein 8.6 g/dL (6.0-8.3) H 05/31/17 11:11 Globulin 5.1 g/dL (2.4-3.5) H 05/31/17 11:11 Albumin/Globulin Ratio 0.7 (1.1-2.2) L 05/31/17 11:11 Ur Specimen Adequacy See below A 05/31/17 13:23 Urine Color [place] (Yellow) A 05/31/17 13:23 Urine Clarity Turbid (Clear) A 05/31/17 13:23 Ur Specific [place] 1.029 (1.010-1.025) H 05/31/17 13:23 Urine Protein 30 mg/dL (Neg-Trace) H 05/31/17 13:23 Urine Glucose (UA) 100 mg/dL (Normal) H 05/31/17 13:23 Urine Ketones Trace mg/dL (Negative) H 05/31/17 13:23 Urine Nitrite Positive (Negative) A 05/31/17 13:23 Urine Bilirubin Moderate (Negative) H 05/31/17 13:23 Ur Leukocyte Esterase Small (Negative) H 05/31/17 13:23 Ur Culture Indicated? YES (NO) A 05/31/17 13:23 - Microbiology Findings Microbiology Findings: Microbiology, Last 48 Hours 06/02/17 20:15 Sputum Culture - Final Sputum - Clinical Findings Intake & Output: Intake & Output 06/04/17 06/05/17 06/05/17 23:59 07:59 15:59 Intake Total 455 / 455 Output Total 3200 / 3200 900 / 900 Balance -2745 / -2745 -900 / -900 Weight 76.4 kg Consult Discharge Plan - Plan Referrals: Heron Vincent Jr, MD [Primary Care Provider] - <Kenney Eid - Last Filed: 06/05/17 19:52> Date of Encounter: 06/05/17 Objective PUL Vital signs: Last Vital Signs Temp 98.0 F 06/05/17 15:52 Pulse 110 06/05/17 16:41 Resp 32 06/05/17 15:52 BP 137/76 06/05/17 15:52 Pulse Ox 94 06/05/17 17:49 Results - Laboratory Findings CBC and BMP: 06/05/17 03:00 06/05/17 03:00 ABG ABG pH 7.42 pH Units (7.32-7.45) 06/03/17 22:54 ABG pCO2 47 mmHg (35-45) H 06/03/17 22:54 ABG pO2 106 mmHg (85-104) H 06/03/17 22:54 ABG O2 Saturation 98 % (95-98) 06/03/17 22:54 PT/INR, D-dimer PT 14.9 Seconds (9.4-12.1) H 05/31/17 11:11 Abnormal lab findings: Abnormal lab results WBC 12.7 K/mcL (4.3-11.1) H 06/05/17 03:00 RBC 2.67 M/mcL (4.19-5.50) L 06/05/17 03:00 Hgb 8.0 g/dL (12.9-16.9) L 06/05/17 03:00 Hct 25.7 % (37.5-50.1) L 06/05/17 03:00 MCHC 31.1 g/dL (31.6-35.5) L 06/05/17 03:00 RDW 18.7 % (11.5-14.5) H 06/05/17 03:00 Plt Count 109 K/mcL (140-400) L 06/05/17 03:00 Immature Gran % 6.1 % (0-4) H 06/05/17 03:00 Band Neutrophils % 24.0 % (0-4) H 05/31/17 11:11 Neutrophils # 9.4 K/mcL (1.6-8.9) H 06/05/17 03:00 Monocytes # 1.4 K/mcL (0.0-1.3) H 06/05/17 03:00 Nucleated RBCs/100 WBC 0.2 /100 WBC (0) H 06/05/17 03:00 Hyposegmented Neuts Present (Not Present) A 06/05/17 03:00 Reactive Lymphocytes Present (Not Present) A 05/31/17 11:11 Toxic Granulation Present (Not Present) A 05/31/17 11:11 Toxic Vacuolation Present (Not Present) A 05/31/17 11:11 Platelet Estimate Decreased (Normal) L 06/05/17 03:00 Large Platelets Present (Not Present) A 06/02/17 03:05 Immature Plt Fraction 8.1 % (1.1-6.1) H 06/04/17 03:48 Polychromasia 1+ (Not Present) A 06/02/17 03:05 Hypochromasia Present (Not Present) A 06/05/17 03:00 Poikilocytosis 2+ (Not Present) A 06/05/17 03:00 Anisocytosis 2+ (Not Present) A 06/05/17 03:00 Microcytosis Present (Not Present) A 06/02/17 03:05 Macrocytosis Present (Not Present) A 06/03/17 03:30 Target Cells 1+ (Not Present) A 06/05/17 03:00 Tear Drop Cells 1+ (Not Present) A 06/02/17 03:05 Ovalocytes 1+ (Not Present) A 06/05/17 03:00 Schistocytes 1+ (Not Present) A 05/31/17 11:11 PT 14.9 Seconds (9.4-12.1) H 05/31/17 11:11 ABG pCO2 47 mmHg (35-45) H 06/03/17 22:54 ABG pO2 106 mmHg (85-104) H 06/03/17 22:54 ABG HCO3 31 mEq/L (21-27) H 06/03/17 22:54 ABG Total CO2 32 mEq/L (20-26) H 06/03/17 22:54 ABG Base Excess 6 mEq/L (-2 to 3) H 06/03/17 22:54 Carbon Dioxide 35 mEq/L (19-29) H 06/05/17 03:00 Glucose 123 mg/dL (70-99) H 06/05/17 03:00 POC Glucose 103 (58-89) H 06/03/17 22:26 Calculated Osmolality 306 (280-300) H 06/05/17 03:00 Direct Bilirubin 0.7 mg/dL (0.0-0.5) H 05/31/17 11:11 Troponin I 0.04 ng/mL (0-0.03) H* 05/31/17 18:50 B-Natriuretic Peptide 294 pg/mL (0-100) H 05/31/17 11:11 Serum Total Protein 8.6 g/dL (6.0-8.3) H 05/31/17 11:11 Globulin 5.1 g/dL (2.4-3.5) H 05/31/17 11:11 Albumin/Globulin Ratio 0.7 (1.1-2.2) L 05/31/17 11:11 Ur Specimen Adequacy See below A 05/31/17 13:23 Urine Color [place] (Yellow) A 05/31/17 13:23 Urine Clarity Turbid (Clear) A 05/31/17 13:23 Ur Specific [place] 1.029 (1.010-1.025) H 05/31/17 13:23 Urine Protein 30 mg/dL (Neg-Trace) H 05/31/17 13:23 Urine Glucose (UA) 100 mg/dL (Normal) H 05/31/17 13:23 Urine Ketones Trace mg/dL (Negative) H 05/31/17 13:23 Urine Nitrite Positive (Negative) A 05/31/17 13:23 Urine Bilirubin Moderate (Negative) H 05/31/17 13:23 Ur Leukocyte Esterase Small (Negative) H 05/31/17 13:23 Ur Culture Indicated? YES (NO) A 05/31/17 13:23 - Microbiology Findings Microbiology Findings: Microbiology, Last 48 Hours 06/02/17 20:15 Sputum Culture - Final Sputum - Clinical Findings Intake & Output: Intake & Output 06/05/17 06/05/17 06/05/17 07:59 15:59 23:59 Output Total 900 / 900 250 / 250 0 / 0 Balance -900 / -900 -250 / -250 0 / 0 Weight 76.4 kg - Attending Attestation I saw the patient with the resident agree with History and Physical exam findings. Labs and Radiology were reviewed Ventilator data were reviewed [employer]TERN[employer] APPRENTICE: Patient is conscious oriented x3 following commands NECK : No JVD appreciated Pulmonary : COPD exacerbation getting better will wean oxygen baseline , multifocal pneumonia getting better with levaquin ., Had JULIAN nodule can be part of multifocal pneumonia will need repeat imaging in 6-8 weeks . To continue diuresis and BIPAP as needed . Cardiac : Heomodynamically stable resolved septic shock Nutrition/GI: Patient is on tube feeds, PPI prophylaxis Renal : Labs reviewed ID : To complete the course of antibiotics Heme onc : No acute issues Musculo skeletal / skin issues : No acute issues Disposition : Transfer to step down Code status: Full Code
[2017-06-05] MEDS: Aspirin 81 MG TAB.CHEW PO SCH (09:06)
[2017-06-05] MEDS: Carbidopa/Levodopa 25/100 TABLET PO SCH (09:07)
[2017-06-05] MEDS ORDERED: Levofloxacin 750 MG/150 ML 750 MG/150 ML BAG IVPB SCH (10:00)
[2017-06-05 14:34] LABS: VBG Ionized Calcium 1.15 mmol/L (1.15-1.35)
[2017-06-05] MEDS ORDERED: Naloxone 0.4 MG/ML INJ IVP PRN (16:49)
[2017-06-05] MEDS ORDERED: Acetaminophen 325 MG TABLET PO PRN (16:49)
[2017-06-05] MEDS: Famotidine 20 MG/2 ML VIAL IVP SCH (17:45)
[2017-06-05] MEDS: Furosemide 40 MG/4 ML VIAL IVP SCH (21:02)
[2017-06-05] MEDS: Temazepam 15 MG CAPSULE PO PRN (21:03)
[2017-06-06] MEDS: Ipratropium/Albuterol Neb 3 ML IH SCH ×6 (04:26→22:51)
[2017-06-06] MEDS: *HR* Heparin 5,000 UNIT/ML VIAL SQ SCH ×3 (05:36→22:42)
[2017-06-06] MEDS: Aspirin 81 MG TAB.CHEW PO SCH (07:49)
[2017-06-06] MEDS: Furosemide 40 MG/4 ML VIAL IVP SCH ×2 (07:49→20:49)
[2017-06-06] MEDS: Carbidopa/Levodopa 25/100 TABLET PO SCH (07:49)
[2017-06-06] MEDS: Budesonide/Formoterol 160/4.5 MDI IH SCH ×2 (08:29→20:15)
--- NOTE | 2017-06-06 08:46 | Internal Med Progress Note ---
<Marc Velez - Last Filed: 06/06/17 10:19> Date of Encounter: 06/06/17 Time of Encounter: 08:44 - Assessment and plan (1) Acute on chronic respiratory failure with hypoxia and hypercapnia Current Visit: Yes Status: Acute Assessment and plan: Likely secondary to COPD exacerbation in setting of multifocal PNA He is on 3 L oxygen at home but is currently on 8 L although he clinically is improving - will try to wean off as tolerated Unfortunately he cannot tolerate BiPAP as it makes him feel uncomfortable, if necessary will switch to different mask if available Will continue antibiotics, breathing treatments, supplemental oxygen (2) Multifocal pneumonia Current Visit: Yes Status: Acute Assessment and plan: CXR this morning demonstrated improving opacities on the left and he is clinically improving Day 7 of Levaquin today, will extend course to possibly 10 days as his white count has increased Blood and sputum cultures remain negative (3) COPD with exacerbation Current Visit: No Status: Acute Assessment and plan: Although he was deemed to not have exacerbation while in the ICU, he does have wheezing on examination and has increased sputum production today Will start PO Prednisone 40 mg for 5 days Continue with supportive measures as above with breathing treatments and supplemental oxygen (4) CAD (coronary artery disease) Current Visit: No Status: Chronic Assessment and plan: Not currently having chest pain Continue home ASA, Plavix, Statin Restarting home Toprol as pressures have been stable off pressors Qualifiers: Coronary Disease-Associated Artery/Lesion type: [place] artery [place] vs. transplanted heart: [place] heart Associated angina: without angina Qualified Code(s): I25.10 - Atherosclerotic heart disease of [place] coronary artery without angina pectoris (5) HTN (hypertension) Current Visit: No Status: Chronic Assessment and plan: Blood pressures have been stable for past 24 hours Will restart home BB; continue to hold ACEi as his kidney function continues to improve Qualifiers: Hypertension type: essential hypertension Qualified Code(s): I10 - Essential (primary) hypertension (6) Acute kidney injury (nontraumatic) Current Visit: No Status: Acute Assessment and plan: Likely prerenal after resolving septic shock while in ICU Continue to monitor Cr, electrolytes and avoid nephrotoxic agents (7) DVT prophylaxis Current Visit: No Status: Acute Assessment and plan: Heparin 5000 units TID - Subjective Interval history: Pt seen and examined. He states he is doing better with his breathing this morning and has been coughing up more cantu colored phlegm. Denies any chest pain , nausea, vomiting, diarrhea, or fevers. He did not like using his BiPAP last night stating it was uncomfortable. - Constitutional Vitals: Temp Pulse Resp BP Pulse Ox 98.6 F 76 16 119/53 92 06/06/17 07:00 06/06/17 07:00 06/06/17 08:34 06/06/17 07:00 06/06/17 08:34 General appearance: Present: cooperative, pleasant, no acute distress, answers questions appropriately - Head Head exam: Present: atraumatic, normocephalic - Eye Eye exam: Present: PERRL, conjuntiva pink, sclera anicteric - Neck Neck exam general surgery: Present: supple, trachea midline. Absent: lymphadenopathy - Respiratory Respiratory exam: Present: wheezes. Absent: accessory muscle use, rales, rhonchi - Cardiovascular Cardiovascular exam: Present: RRR, +S1, +S2. Absent: diastolic murmur, gallop, rubs, systolic murmur - GI/Abdominal GI/Abdominal exam: Present: normal bowel sounds, soft, no peritoneal signs. Absent: distended, tenderness - Extremities Exam Extremities exam: Present: warm, radial pulses palpable and symmetrical. Absent : calf tenderness, cyanotic, pedal edema - Neurological Exam Neurological exam: Present: alert, no focal deficits. Absent: facial droop, speech deficit - Skin Skin exam: Present: dry, intact Internal Medicine: Result - Labs CBC & Chem 7: 06/05/17 03:00 06/05/17 03:00 - ABG Interpretation ABG results: ABG ABG pH 7.42 pH Units (7.32-7.45) 06/03/17 22:54 ABG pCO2 47 mmHg (35-45) H 06/03/17 22:54 ABG pO2 106 mmHg (85-104) H 06/03/17 22:54 ABG O2 Saturation 98 % (95-98) 06/03/17 22:54 PT/INR, D-dimer PT 14.9 Seconds (9.4-12.1) H 05/31/17 11:11 Consult Discharge Plan - Plan Referrals: Heron Vincent Jr, MD [Primary Care Provider] - Luis M Jimenez CNP [Advanced Practice Nurse] - 07/13/17 9:30 am Paulo Zelaya MD [Partnered Physician] - 07/06/17 1:00 pm <Carlito Hyman - Last Filed: 06/06/17 15:56> Date of Encounter: 06/06/17 - Constitutional Vitals: Temp Pulse Resp BP Pulse Ox 98.0 F 108 18 129/69 93 06/06/17 11:03 06/06/17 11:03 06/06/17 15:23 06/06/17 11:03 06/06/17 15:23 Internal Medicine: Result - Labs CBC & Chem 7: 06/05/17 03:00 06/05/17 03:00 - ABG Interpretation ABG results: ABG ABG pH 7.42 pH Units (7.32-7.45) 06/03/17 22:54 ABG pCO2 47 mmHg (35-45) H 06/03/17 22:54 ABG pO2 106 mmHg (85-104) H 06/03/17 22:54 ABG O2 Saturation 98 % (95-98) 06/03/17 22:54 PT/INR, D-dimer PT 14.9 Seconds (9.4-12.1) H 05/31/17 11:11 - Attending Attestation I conducted a face to face diagnostic evaluation of this patient and my medical decision-making was reviewed with the Resident Physician, Dr Marc Velez. I agree with the documented findings, disposition and treatment plan as described except to the extent set forth below: Patient was admitted to the ICU 6 days ago when he presented for shortness of breath and fever. He was treated for pneumonia and respiratory failure. He improved. Currently reports mild shortness of breath, improved with rest, no chest pain, he reports nonproductive cough. Symptoms have been improving over the last 2 days. A 10 point review of systems was negative except for shortness of breath and lower extremity swelling. Past medical history, family history, social history and surgical history reviewed in the original H&P dictated at this facility included below. I find no changes or updates. "- Past Medical History Medical history: COPD, coronary artery disease, CVA, GERD, hyperlipidemia, hypertension, myocardial infarction Psychiatric history: anxiety, depression - Past Surgical History Surgical History: coronary bypass (CABG), herniorrhaphy, orthopedic, other, pacemaker/AICD, AICD, pacemaker - Social History Smoking Status: Former smoker Smokeless Tobacco Status: No Alcohol use: none Drug use: marijuana - Family History Sister Adopted: No Family Member Ethnicity: Non- Living Status: Still Living Hx Family Cardiac Disorders: Yes Hx Family Respiratory Disorders: Yes Hx Family Cancer: Yes" Patient appears in no acute distress at rest he is being full sentences. His oxygen saturation is appropriate with supplemental oxygen delivered by high flow nasal cannula at 8 L/m. On exam he has bilateral expiratory wheezes and crackles. We will continue with Levaquin and steroids. Consult PT OT. I discussed disposition with the patient. He may require a short course of rehabilitation. All listed medical problems are new to me today. Carlito Hyman MD
[2017-06-06] MEDS: predniSONE 20 MG TABLET PO SCH (09:41)
[2017-06-06] MEDS: Levofloxacin 750 MG/150 ML 750 MG/150 ML BAG IVPB SCH (09:41)
[2017-06-06] MEDS: Tiotropium 18 MCG inhalation IH SCH (10:49)
[2017-06-06] MEDS: Famotidine 20 MG/2 ML VIAL IVP SCH (16:26)
[2017-06-06] MEDS: Temazepam 15 MG CAPSULE PO PRN (22:42)
[2017-06-07] MEDS: Ipratropium/Albuterol Neb 3 ML IH SCH ×5 (03:59→20:55)
[2017-06-07 04:40] LABS: Hematocrit 28.1 % (37.5-50.1); Hemoglobin 8.7 g/dL (12.9-16.9); Mean Corpuscular Hemoglobin 29.8 pg (28.0-33.3); Mean Corpuscular Volume 96.2 fL (83.0-100.0); Mean Platelet Volume 10.9 fL (9.4-12.4); Nucleated Red Blood Cells 0.2 /100 WBC (0); Platelet Count 135 K/mcL (140-400); Red Blood Count 2.92 M/mcL (4.19-5.50); Red Cell Distribution Width 18.6 % (11.5-14.5)
[2017-06-07 05:19] LABS: BUN/Creatinine Ratio 20 (6-26); Blood Urea Nitrogen 28 mg/dL (8-23); Calcium 9.9 mg/dL (8.6-10.3); Carbon Dioxide 42 mEq/L (23-29); Chloride 93 mEq/L (98-107); Glucose 129 mg/dL (70-105); Osmolality,Calculated 303 (280-300); Potassium 3.9 mEq/L (3.5-5.1); Sodium 143 mEq/L (136-145); eGFR For African Americans > 60 (> 60); eGFR For Non-African Americans 51 (> 60)
[2017-06-07 06:07] LABS: Lymphocytes # 1.1 K/mcL (0.6-4.6); Monocytes # 1.6 K/mcL (0.0-1.3); Neutrophils # 6.3 K/mcL (1.6-8.9); Platelet Estimate Slight Decrease (Normal)
[2017-06-07 06:08] LABS: Anisocytosis 1+ (Not Present)
[2017-06-07] MEDS: *HR* Heparin 5,000 UNIT/ML VIAL SQ SCH ×3 (06:40→21:33)
[2017-06-07] MEDS: Tiotropium 18 MCG inhalation IH SCH (07:38)
[2017-06-07] MEDS: Budesonide/Formoterol 160/4.5 MDI IH SCH ×2 (07:39→20:55)
[2017-06-07] MEDS: Metoprolol XL (24 HR) Succ 50 MG TAB.ER.24H PO SCH (07:52)
[2017-06-07] MEDS: Carbidopa/Levodopa 25/100 TABLET PO SCH (07:53)
[2017-06-07] MEDS: predniSONE 20 MG TABLET PO SCH (07:53)
[2017-06-07] MEDS: Furosemide 40 MG/4 ML VIAL IVP SCH (07:53)
[2017-06-07] MEDS: Aspirin 81 MG TAB.CHEW PO SCH (07:53)
[2017-06-07] MEDS: Levofloxacin 750 MG/150 ML 750 MG/150 ML BAG IVPB SCH (10:54)
--- NOTE | 2017-06-07 15:03 | Internal Med Progress Note ---
<AgustinMarc - Last Filed: 06/07/17 15:33> Date of Encounter: 06/07/17 Time of Encounter: 10:00 - Assessment and plan (1) Acute on chronic respiratory failure with hypoxia and hypercapnia Current Visit: Yes Status: Acute Assessment and plan: Likely secondary to COPD exacerbation in setting of multifocal PNA Patient is down to 5 L high flow this morning is close to his home demands of 3 L Will continue antibiotics, breathing treatments, supplemental oxygen If he continues to do well close to his home dose of oxygen, will consider discharge home with home health tomorrow (2) Multifocal pneumonia Current Visit: Yes Status: Acute Assessment and plan: CXR 06/05 demonstrated improving opacities on the left and he is clinically improving Day 8 of Levaquin today, will extend course to possibly 10 days Blood and sputum cultures remain negative (3) COPD with exacerbation Current Visit: No Status: Acute Assessment and plan: Clinically improving, but patient still has rhonchi this morning Continue PO Prednisone 40 mg for 2/5 days Continue with supportive measures as above with breathing treatments and supplemental oxygen (4) CAD (coronary artery disease) Current Visit: No Status: Chronic Assessment and plan: Not currently having chest pain Continue home ASA, Plavix, Statin Restarting home Toprol as pressures have been stable Qualifiers: Coronary Disease-Associated Artery/Lesion type: [place] artery [place] vs. transplanted heart: [place] heart Associated angina: without angina Qualified Code(s): I25.10 - Atherosclerotic heart disease of [place] coronary artery without angina pectoris (5) HTN (hypertension) Current Visit: No Status: Chronic Assessment and plan: Blood pressures have been stable for past 48 hours Will restart home BB; continue to hold ACEi as his kidney function remains impaired Qualifiers: Hypertension type: essential hypertension Qualified Code(s): I10 - Essential (primary) hypertension (6) Acute kidney injury (nontraumatic) Current Visit: No Status: Acute Assessment and plan: Kidney function did slightly worsen most likely as a result of Lasix; will discontinue Continue to monitor Cr, electrolytes and avoid nephrotoxic agents (7) DVT prophylaxis Current Visit: No Status: Acute Assessment and plan: Heparin 5000 units TID - Subjective Interval history: Pt seen and examined. He states continues to do better with his breathing. He continues also to have mild phlegm production but states that he is not not in any pain. He denies any fevers, nausea, diarrhea, constipation. - Constitutional Vitals: Temp Pulse Resp BP Pulse Ox 98.3 F 75 16 120/63 93 06/07/17 11:07 06/07/17 11:55 06/07/17 11:10 06/07/17 11:07 06/07/17 11:36 General appearance: Present: cooperative, pleasant, no acute distress, answers questions appropriately - Head Head exam: Present: atraumatic, normocephalic - Eye Eye exam: Present: PERRL, conjuntiva pink, sclera anicteric - Neck Neck exam general surgery: Present: supple, trachea midline. Absent: lymphadenopathy - Respiratory Respiratory exam: Present: rhonchi. Absent: accessory muscle use, rales, wheezes - Cardiovascular Cardiovascular exam: Present: RRR, +S1, +S2. Absent: diastolic murmur, gallop, rubs, systolic murmur - GI/Abdominal GI/Abdominal exam: Present: normal bowel sounds, soft, no peritoneal signs. Absent: distended, tenderness - Extremities Exam Extremities exam: Present: warm, radial pulses palpable and symmetrical. Absent : calf tenderness, cyanotic, pedal edema - Neurological Exam Neurological exam: Present: alert, no focal deficits. Absent: facial droop, speech deficit - Skin Skin exam: Present: dry, intact Internal Medicine: Result - Labs CBC & Chem 7: 06/07/17 04:20 06/07/17 04:20 Labs: Short CBC 06/07/17 Range/Units 04:20 WBC 9.0 (4.3-11.1) K/mcL Hgb 8.7 L (12.9-16.9) g/dL Hct 28.1 L (37.5-50.1) % Plt Count 135 L (140-400) K/mcL Neutrophils # 6.3 (1.6-8.9) K/mcL BMP 06/07/17 04:20 Sodium 143 Potassium 3.9 Chloride 93 L Carbon Dioxide 42 H* BUN 28 H Creatinine 1.40 H Glucose 129 H Calcium 9.9 - ABG Interpretation ABG results: ABG ABG pH 7.42 pH Units (7.32-7.45) 06/03/17 22:54 ABG pCO2 47 mmHg (35-45) H 06/03/17 22:54 ABG pO2 106 mmHg (85-104) H 06/03/17 22:54 ABG O2 Saturation 98 % (95-98) 06/03/17 22:54 PT/INR, D-dimer PT 14.9 Seconds (9.4-12.1) H 05/31/17 11:11 Consult Discharge Plan - Plan Referrals: Heron Vincent Jr, MD [Primary Care Provider] - (SENT WEB REQUEST ON 06-07-17 @ [phone]) <Carlito Hymna - Last Filed: 06/07/17 18:32> Date of Encounter: 06/07/17 - Constitutional Vitals: Temp Pulse Resp BP Pulse Ox 98.9 F 70 16 131/63 91 06/07/17 17:26 06/07/17 17:26 06/07/17 17:26 06/07/17 17:26 06/07/17 17:26 Internal Medicine: Result - Labs CBC & Chem 7: 06/07/17 04:20 06/07/17 04:20 Labs: Short CBC 06/07/17 Range/Units 04:20 WBC 9.0 (4.3-11.1) K/mcL Hgb 8.7 L (12.9-16.9) g/dL Hct 28.1 L (37.5-50.1) % Plt Count 135 L (140-400) K/mcL Neutrophils # 6.3 (1.6-8.9) K/mcL BMP 06/07/17 04:20 Sodium 143 Potassium 3.9 Chloride 93 L Carbon Dioxide 42 H* BUN 28 H Creatinine 1.40 H Glucose 129 H Calcium 9.9 - ABG Interpretation ABG results: ABG ABG pH 7.42 pH Units (7.32-7.45) 06/03/17 22:54 ABG pCO2 47 mmHg (35-45) H 06/03/17 22:54 ABG pO2 106 mmHg (85-104) H 06/03/17 22:54 ABG O2 Saturation 98 % (95-98) 06/03/17 22:54 PT/INR, D-dimer PT 14.9 Seconds (9.4-12.1) H 05/31/17 11:11 - Attending Attestation I conducted a face to face diagnostic evaluation of this patient and my medical decision-making was reviewed with the Resident Physician, Dr Marc Velez. I agree with the documented findings, disposition and treatment plan as described except to the extent set forth below: On examination expiratory wheezing has improved since yesterday. We will continue to titrate supplemental oxygen. Continue with antibiotics and steroids. Carlito Hyman MD
[2017-06-08] MEDS: Ipratropium/Albuterol Neb 3 ML IH SCH ×7 (00:51→23:18)
[2017-06-08 03:50] LABS: Hematocrit 29.4 % (37.5-50.1); Mean Corpuscular HGB Conc 30.6 g/dL (31.6-35.5); Mean Corpuscular Hemoglobin 29.8 pg (28.0-33.3); Mean Corpuscular Volume 97.4 fL (83.0-100.0); Mean Platelet Volume 10.9 fL (9.4-12.4); Platelet Count 136 K/mcL (140-400); Red Blood Count 3.02 M/mcL (4.19-5.50); Red Cell Distribution Width 18.5 % (11.5-14.5)
[2017-06-08 04:28] LABS: Hypochromasia Present (Not Present); Lymphocytes # 3.2 K/mcL (0.6-4.6); Monocytes # 0.2 K/mcL (0.0-1.3); Neutrophils # 7.1 K/mcL (1.6-8.9); Platelet Estimate Normal (Normal)
[2017-06-08 04:29] LABS: Anisocytosis 1+ (Not Present); Stomatocytes 2+ (Not Present)
[2017-06-08 04:31] LABS: Calcium 9.7 mg/dL (8.6-10.3); Potassium 3.9 mEq/L (3.5-5.1)
[2017-06-08] MEDS: *HR* Heparin 5,000 UNIT/ML VIAL SQ SCH ×3 (06:05→21:37)
[2017-06-08] MEDS: Budesonide/Formoterol 160/4.5 MDI IH SCH ×2 (07:45→20:23)
[2017-06-08] MEDS: Tiotropium 18 MCG inhalation IH SCH (08:04)
[2017-06-08] MEDS: Metoprolol XL (24 HR) Succ 50 MG TAB.ER.24H PO SCH (08:12)
[2017-06-08] MEDS: Aspirin 81 MG TAB.CHEW PO SCH (08:12)
[2017-06-08] MEDS: predniSONE 20 MG TABLET PO SCH (08:12)
[2017-06-08] MEDS: Carbidopa/Levodopa 25/100 TABLET PO SCH (08:12)
--- NOTE | 2017-06-08 08:47 | Internal Med Progress Note ---
<Marc Velez - Last Filed: 06/08/17 10:49> Date of Encounter: 06/08/17 Time of Encounter: 08:46 - Assessment and plan (1) Acute on chronic respiratory failure with hypoxia and hypercapnia Current Visit: Yes Status: Acute Assessment and plan: Likely secondary to COPD exacerbation in setting of multifocal PNA Patient continues to require 5 L high flow this morning is close to his home demands of 3 L Will continue antibiotics, breathing treatments, supplemental oxygen Consider DC with home health tomorrow if he continues to improve (2) Multifocal pneumonia Current Visit: Yes Status: Acute Assessment and plan: CXR 06/05 demonstrated improving opacities on the left and he is clinically improving Day 9 of Levaquin today, will plan on discontinuing after tomorrow Blood and sputum cultures remain negative (3) COPD with exacerbation Current Visit: No Status: Acute Assessment and plan: Clinically improving, patient's wheezing slightly decreased this morning Continue PO Prednisone 40 mg for 3/5 days Continue with supportive measures as above with breathing treatments and supplemental oxygen (4) CAD (coronary artery disease) Current Visit: No Status: Chronic Assessment and plan: Not currently having chest pain Continue home ASA, Plavix, Statin Blood pressures have been stable after restarting home Toprol Qualifiers: Coronary Disease-Associated Artery/Lesion type: [place] artery [place] vs. transplanted heart: [place] heart Associated angina: without angina Qualified Code(s): I25.10 - Atherosclerotic heart disease of [place] coronary artery without angina pectoris (5) HTN (hypertension) Current Visit: No Status: Chronic Assessment and plan: Blood pressures have been stable for past 48 hours Restarted home BB; continue to hold ACEi as his kidney function remains impaired Qualifiers: Hypertension type: essential hypertension Qualified Code(s): I10 - Essential (primary) hypertension (6) Acute kidney injury (nontraumatic) Current Visit: No Status: Acute Assessment and plan: Kidney function stable this morning after Lasix DC'ed yesterday Continue to monitor Cr, electrolytes and avoid nephrotoxic agents (7) DVT prophylaxis Current Visit: No Status: Acute Assessment and plan: Heparin 5000 units TID - Subjective Interval history: Pt seen and examined. He states his breathing is a bit labored this morning but always feels this way first thing in the morning. He denies being in any pain and has not had issues with meals, no nausea, vomiting, diarrhea, fevers, chills. - Constitutional Vitals: Temp Pulse Resp BP Pulse Ox 97.3 F L 70 18 121/68 90 06/08/17 07:04 06/08/17 07:04 06/08/17 07:47 06/08/17 07:04 06/08/17 07:47 General appearance: Present: cooperative, pleasant, no acute distress, answers questions appropriately - Head Head exam: Present: atraumatic, normocephalic - Eye Eye exam: Present: PERRL, conjuntiva pink, sclera anicteric - Neck Neck exam general surgery: Present: supple, trachea midline. Absent: lymphadenopathy - Respiratory Respiratory exam: Present: wheezes (faint bilateral). Absent: accessory muscle use, rales, rhonchi - Cardiovascular Cardiovascular exam: Present: RRR, +S1, +S2. Absent: diastolic murmur, gallop, rubs, systolic murmur - GI/Abdominal GI/Abdominal exam: Present: normal bowel sounds, soft, no peritoneal signs. Absent: distended, tenderness - Extremities Exam Extremities exam: Present: warm, radial pulses palpable and symmetrical. Absent : calf tenderness, cyanotic, pedal edema - Neurological Exam Neurological exam: Present: alert, no focal deficits. Absent: pronater drift, facial droop, speech deficit - Skin Skin exam: Present: dry, intact Internal Medicine: Result - Labs CBC & Chem 7: 06/08/17 03:42 06/08/17 03:42 Labs: Short CBC 06/08/17 Range/Units 03:42 WBC 10.5 (4.3-11.1) K/mcL Hgb 9.0 L (12.9-16.9) g/dL Hct 29.4 L (37.5-50.1) % Plt Count 136 L (140-400) K/mcL Neutrophils # 7.1 (1.6-8.9) K/mcL BMP 06/08/17 03:42 Sodium 143 Potassium 3.9 Chloride 93 L Carbon Dioxide 41 H* BUN 36 H Creatinine 1.45 H Glucose 128 H Calcium 9.7 - ABG Interpretation ABG results: ABG ABG pH 7.42 pH Units (7.32-7.45) 06/03/17 22:54 ABG pCO2 47 mmHg (35-45) H 06/03/17 22:54 ABG pO2 106 mmHg (85-104) H 06/03/17 22:54 ABG O2 Saturation 98 % (95-98) 06/03/17 22:54 PT/INR, D-dimer PT 14.9 Seconds (9.4-12.1) H 05/31/17 11:11 Consult Discharge Plan - Plan Referrals: Kadi Haywood, EXPLOSIVE [employer] DISPOSAL SPECIALIST [Advanced Practice Nurse] - 06/16/17 1:45 pm <Carlito Hyman - Last Filed: 06/08/17 18:53> Date of Encounter: 06/08/17 - Constitutional Vitals: Temp Pulse Resp BP Pulse Ox 97.6 F 85 18 110/95 89 06/08/17 15:58 06/08/17 15:58 06/08/17 16:07 06/08/17 15:58 06/08/17 16:07 Internal Medicine: Result - Labs CBC & Chem 7: 06/08/17 03:42 06/08/17 03:42 Labs: Short CBC 06/08/17 Range/Units 03:42 WBC 10.5 (4.3-11.1) K/mcL Hgb 9.0 L (12.9-16.9) g/dL Hct 29.4 L (37.5-50.1) % Plt Count 136 L (140-400) K/mcL Neutrophils # 7.1 (1.6-8.9) K/mcL BMP 06/08/17 03:42 Sodium 143 Potassium 3.9 Chloride 93 L Carbon Dioxide 41 H* BUN 36 H Creatinine 1.45 H Glucose 128 H Calcium 9.7 - ABG Interpretation ABG results: ABG ABG pH 7.42 pH Units (7.32-7.45) 06/03/17 22:54 ABG pCO2 47 mmHg (35-45) H 06/03/17 22:54 ABG pO2 106 mmHg (85-104) H 06/03/17 22:54 ABG O2 Saturation 98 % (95-98) 06/03/17 22:54 PT/INR, D-dimer PT 14.9 Seconds (9.4-12.1) H 05/31/17 11:11 - Attending Attestation I conducted a face to face diagnostic evaluation of this patient and my medical decision-making was reviewed with the Resident Physician. I agree with the documented findings, disposition and treatment plan as described except to the extent set forth below: On exam the patient is in no acute distress speaking in full sentences. Lung exam reveals diminished breath sounds in both lung romero. No wheezes no crackles or rails. His oxygen saturation at rest is down to 85% with supplemental oxygen and it picks up to 94% when he takes deep breaths. Plan: Continue with Levaquin and steroids. Continue with inhaled albuterol and ipratropium. Continue PT. Titrate down oxygen to maintain saturation above 88% . Carlito Hyman MD
[2017-06-08] MEDS: Levofloxacin 750 MG/150 ML 750 MG/150 ML BAG IVPB SCH (10:07)
[2017-06-09 03:41] LABS: Hematocrit 29.5 % (37.5-50.1); Hemoglobin 9.1 g/dL (12.9-16.9); Mean Corpuscular HGB Conc 30.8 g/dL (31.6-35.5); Mean Corpuscular Hemoglobin 30.3 pg (28.0-33.3); Mean Corpuscular Volume 98.3 fL (83.0-100.0); Mean Platelet Volume 11.9 fL (9.4-12.4); Nucleated Red Blood Cells 0.3 /100 WBC (0); Platelet Count 134 K/mcL (140-400); Red Cell Distribution Width 18.3 % (11.5-14.5)
[2017-06-09] MEDS: Ipratropium/Albuterol Neb 3 ML IH SCH ×6 (04:07→23:36)
[2017-06-09 04:11] LABS: BUN/Creatinine Ratio 25 (6-26); Blood Urea Nitrogen 34 mg/dL (8-23); Calcium 9.7 mg/dL (8.6-10.3); Carbon Dioxide 40 mEq/L (23-29); Chloride 95 mEq/L (98-107); Glucose 117 mg/dL (70-105); Osmolality,Calculated 299 (280-300); Potassium 4.1 mEq/L (3.5-5.1); Sodium 140 mEq/L (136-145); eGFR For African Americans > 60 (> 60); eGFR For Non-African Americans 54 (> 60)
[2017-06-09 04:55] LABS: Lymphocytes # 1.9 K/mcL (0.6-4.6); Monocytes # 0.4 K/mcL (0.0-1.3); Neutrophils # 7.3 K/mcL (1.6-8.9)
[2017-06-09 04:56] LABS: Anisocytosis 1+ (Not Present); Macrocytosis Present (Not Present); Platelet Estimate Decreased (Normal); Polychromasia 1+ (Not Present); Reactive Lymphocytes Present (Not Present)
[2017-06-09] MEDS: *HR* Heparin 5,000 UNIT/ML VIAL SQ SCH ×3 (05:23→22:48)
[2017-06-09] MEDS: Budesonide/Formoterol 160/4.5 MDI IH SCH ×2 (08:21→20:20)
[2017-06-09] MEDS: Metoprolol XL (24 HR) Succ 50 MG TAB.ER.24H PO SCH (08:28)
[2017-06-09] MEDS: Carbidopa/Levodopa 25/100 TABLET PO SCH (08:28)
[2017-06-09] MEDS: Aspirin 81 MG TAB.CHEW PO SCH (08:28)
[2017-06-09] MEDS: predniSONE 20 MG TABLET PO SCH (08:28)
--- NOTE | 2017-06-09 08:30 | Internal Med Progress Note ---
<Marc Velez - Last Filed: 06/09/17 08:53> Date of Encounter: 06/09/17 Time of Encounter: 08:28 - Assessment and plan (1) Acute on chronic respiratory failure with hypoxia and hypercapnia Current Visit: Yes Status: Acute Assessment and plan: Likely secondary to COPD exacerbation in setting of multifocal PNA Patient was requiring 8 L high flow this morning; he uses 3 L at home Will continue antibiotics, breathing treatments, supplemental oxygen Encouraged trying to tolerate the BiPAP more and have patient walk during the day to regain his strength Plan to DC with home health once he can be weaned off oxygen (2) Multifocal pneumonia Current Visit: Yes Status: Acute Assessment and plan: CXR 06/05 demonstrated improving opacities on the left and he is clinically improving Day 10 of Levaquin today, will plan on discontinuing after today's dose Blood and sputum cultures remain negative (3) COPD with exacerbation Current Visit: No Status: Acute Assessment and plan: Clinically improving, patient's wheezing slightly decreased this morning Continue PO Prednisone 40 mg for 4/5 days Continue with supportive measures as above with breathing treatments and supplemental oxygen (4) CAD (coronary artery disease) Current Visit: No Status: Chronic Assessment and plan: Not currently having chest pain Continue home ASA, Plavix, Statin Blood pressures have been stable after restarting home Toprol Qualifiers: Coronary Disease-Associated Artery/Lesion type: [place] artery [place] vs. transplanted heart: [place] heart Associated angina: without angina Qualified Code(s): I25.10 - Atherosclerotic heart disease of [place] coronary artery without angina pectoris (5) HTN (hypertension) Current Visit: No Status: Chronic Assessment and plan: Blood pressures have been stable since transfer out of ICU Restarted home BB; continue to hold ACEi as his kidney function remains impaired but improving Qualifiers: Hypertension type: essential hypertension Qualified Code(s): I10 - Essential (primary) hypertension (6) Acute kidney injury (nontraumatic) Current Visit: No Status: Acute Assessment and plan: Kidney function slightly improving after Lasix was discontinued 2 days prior Continue to monitor Cr, electrolytes and avoid nephrotoxic agents He is euvolemic on exam (7) DVT prophylaxis Current Visit: No Status: Acute Assessment and plan: Heparin 5000 units TID - Subjective Interval history: Pt seen and examined. He states he feels better with his breathing but upon entry to room he was requiring 8 L high flow oxygen. He states his coughing has improved and he has not had any phlegm today or yesterday night. Denies any pain , nausea, vomiting, fever, diarrhea. - Constitutional Vitals: Temp Pulse Resp BP Pulse Ox 97.6 F 71 25 106/55 95 06/09/17 06:45 06/09/17 06:45 06/09/17 06:45 06/09/17 06:45 06/09/17 06:45 General appearance: Present: cooperative, pleasant, no acute distress, answers questions appropriately - Head Head exam: Present: atraumatic, normocephalic - Eye Eye exam: Present: PERRL, conjuntiva pink, sclera anicteric - Neck Neck exam general surgery: Present: supple, trachea midline. Absent: lymphadenopathy - Respiratory Respiratory exam: Present: rhonchi. Absent: accessory muscle use, rales, wheezes - Cardiovascular Cardiovascular exam: Present: RRR, +S1, +S2. Absent: diastolic murmur, gallop, rubs, systolic murmur - GI/Abdominal GI/Abdominal exam: Present: normal bowel sounds, soft, no peritoneal signs. Absent: distended, tenderness - Extremities Exam Extremities exam: Present: warm, radial pulses palpable and symmetrical. Absent : calf tenderness, cyanotic, pedal edema - Neurological Exam Neurological exam: Present: alert, no focal deficits. Absent: facial droop, speech deficit - Skin Skin exam: Present: dry, intact Internal Medicine: Result - Labs CBC & Chem 7: 06/09/17 03:30 06/09/17 03:30 Labs: Short CBC 06/09/17 Range/Units 03:30 WBC 10.7 (4.3-11.1) K/mcL Hgb 9.1 L (12.9-16.9) g/dL Hct 29.5 L (37.5-50.1) % Plt Count 134 L (140-400) K/mcL Neutrophils # 7.3 (1.6-8.9) K/mcL BMP 06/09/17 03:30 Sodium 140 Potassium 4.1 Chloride 95 L Carbon Dioxide 40 H* BUN 34 H Creatinine 1.35 H Glucose 117 H Calcium 9.7 - ABG Interpretation ABG results: ABG ABG pH 7.42 pH Units (7.32-7.45) 06/03/17 22:54 ABG pCO2 47 mmHg (35-45) H 06/03/17 22:54 ABG pO2 106 mmHg (85-104) H 06/03/17 22:54 ABG O2 Saturation 98 % (95-98) 06/03/17 22:54 PT/INR, D-dimer PT 14.9 Seconds (9.4-12.1) H 05/31/17 11:11 Consult Discharge Plan - Plan Referrals: Kadi Haywood FURNACE STOCK INSPECTOR [Advanced Practice Nurse] - 06/16/17 1:45 pm <Carlito Hyman - Last Filed: 06/09/17 18:01> Date of Encounter: 06/09/17 - Constitutional Vitals: Temp Pulse Resp BP Pulse Ox 98.2 F 67 20 108/57 90 06/09/17 15:46 06/09/17 15:46 06/09/17 16:21 06/09/17 15:46 06/09/17 16:21 Internal Medicine: Result - Labs CBC & Chem 7: 06/09/17 03:30 06/09/17 03:30 Labs: Short CBC 06/09/17 Range/Units 03:30 WBC 10.7 (4.3-11.1) K/mcL Hgb 9.1 L (12.9-16.9) g/dL Hct 29.5 L (37.5-50.1) % Plt Count 134 L (140-400) K/mcL Neutrophils # 7.3 (1.6-8.9) K/mcL BMP 06/09/17 03:30 Sodium 140 Potassium 4.1 Chloride 95 L Carbon Dioxide 40 H* BUN 34 H Creatinine 1.35 H Glucose 117 H Calcium 9.7 - ABG Interpretation ABG results: ABG ABG pH 7.42 pH Units (7.32-7.45) 06/03/17 22:54 ABG pCO2 47 mmHg (35-45) H 06/03/17 22:54 ABG pO2 106 mmHg (85-104) H 06/03/17 22:54 ABG O2 Saturation 98 % (95-98) 06/03/17 22:54 PT/INR, D-dimer PT 14.9 Seconds (9.4-12.1) H 05/31/17 11:11 - Impressions Impressions Chest X-Ray 06/09/17 09:28 IMPRESSION: Improving left base pneumonia D/ / Ronnie Lowery MD / Ronnie Lowery MD Interpreting Provider: Ronnie Lowery MD - Attending Attestation I conducted a face to face diagnostic evaluation of this patient and my medical decision-making was reviewed with the Resident Physician. I agree with the documented findings, disposition and treatment plan as described except to the extent set forth below: Lung exam reveals bilateral equal breath sounds with bibasilar rales. Heart is regular. Patient continues to require high flow oxygen in 6-8 L. He has been able tablets in the hallway. We will continue with antibiotic, oral prednisone and inhaled bronchodilators. Check BiPAP qualification study tonight. Check ABG in the morning. Carlito Hyman MD
[2017-06-09] MEDS: Levofloxacin 750 MG/150 ML 750 MG/150 ML BAG IVPB SCH (10:13)
[2017-06-09] MEDS: Sennosides/Docusate Sodium TABLET PO PRN (10:13)
[2017-06-09] MEDS: Tiotropium 18 MCG inhalation IH SCH (11:36)
[2017-06-09] MEDS: Temazepam 15 MG CAPSULE PO PRN (22:48)
[2017-06-10] MEDS: Ipratropium/Albuterol Neb 3 ML IH SCH ×5 (03:55→19:38)
[2017-06-10 04:09] LABS: Hematocrit 29.5 % (37.5-50.1); Hemoglobin 8.9 g/dL (12.9-16.9); Mean Corpuscular HGB Conc 30.2 g/dL (31.6-35.5); Mean Corpuscular Hemoglobin 29.8 pg (28.0-33.3); Mean Corpuscular Volume 98.7 fL (83.0-100.0); Mean Platelet Volume 11.3 fL (9.4-12.4); Nucleated Red Blood Cells 0.2 /100 WBC (0); Platelet Count 142 K/mcL (140-400); Red Blood Count 2.99 M/mcL (4.19-5.50)
[2017-06-10 04:28] LABS: BUN/Creatinine Ratio 29 (6-26); Blood Urea Nitrogen 36 mg/dL (8-23); Calcium 9.4 mg/dL (8.6-10.3); Carbon Dioxide 35 mEq/L (23-29); Chloride 98 mEq/L (98-107); Glucose 103 mg/dL (70-105); Osmolality,Calculated 293 (280-300); Sodium 137 mEq/L (136-145); eGFR For African Americans > 60 (> 60); eGFR For Non-African Americans 59 (> 60)
[2017-06-10 05:05] LABS: Lymphocytes # 1.3 K/mcL (0.6-4.6); Monocytes # 2.6 K/mcL (0.0-1.3); Neutrophils # 8.5 K/mcL (1.6-8.9)
[2017-06-10 05:06] LABS: Anisocytosis 1+ (Not Present); Macrocytosis Present (Not Present); Platelet Estimate Normal (Normal)
[2017-06-10 05:22] LABS: ABG Base Excess 9 mEq/L (-2 to 3); ABG HCO3 35 mEq/L (21-27); ABG Oxygen Saturation 90 % (95-98); ABG PCO2 53 mmHg (35-45); ABG PH 7.43 pH Units (7.32-7.45); ABG PO2 57 mmHg (85-104); ABG TCO2 37 mEq/L (20-26)
[2017-06-10] MEDS: Carbidopa/Levodopa 25/100 TABLET PO SCH (08:08)
[2017-06-10] MEDS: Metoprolol XL (24 HR) Succ 50 MG TAB.ER.24H PO SCH (08:09)
[2017-06-10] MEDS: predniSONE 20 MG TABLET PO SCH (08:09)
[2017-06-10] MEDS: Aspirin 81 MG TAB.CHEW PO SCH (08:09)
[2017-06-10] MEDS: Budesonide/Formoterol 160/4.5 MDI IH SCH ×2 (08:09→19:38)
[2017-06-10] MEDS: *HR* Heparin 5,000 UNIT/ML VIAL SQ SCH ×3 (08:09→20:13)
--- NOTE | 2017-06-10 10:09 | Internal Med Progress Note ---
<Alycia Bashir - Last Filed: 06/10/17 13:10> Date of Encounter: 06/10/17 Time of Encounter: 09:00 - Assessment and plan (1) Acute on chronic respiratory failure with hypoxia and hypercapnia Current Visit: Yes Status: Acute Assessment and plan: - Likely secondary to COPD exacerbation and multifocal pneumonia in the setting of underlying sleep apnea/OHS. - ABG today: PH 7.43, pCO2 53, pO2 57 and HCO3 35 on nasal cannula. - Improves as patient can maintain acceptable oxygenation on 4L NC. - Conitnue steroid, Symbicort, bronchodilators and supplemental oxygen for COPD. - Continue antibiotic for pneumonia. - Continue BiPAP use at night and as needed. - Given patient's sleep apnea, COPD and chronic CO2 retention as suggested by ABG, patient is considered high risk to develop severe hypercapnic respiratoy failure and associated unresponsiveness if patient does not have home BiPAP while sleeping. Therefore patient needs to have BiPAP available for home use upon discharge. (2) Multifocal pneumonia Current Visit: Yes Status: Acute Assessment and plan: - CT chest on 06/01/17 found multifocal pneumonia, worst in the left lower lobe. - Blood cultures from 05/31/17 had no growth. Negative urine antigens for Legionella and Strep. pneumonia. - Sputum culture from 06/02/17 found normal upper respiratory emmanuel. - CXR today suggests improving left base pneumonia. - Continue IV levofloxacin (since 05/31/17). Plan to have total 14-day course of antibiotic therapy. (3) COPD with exacerbation Current Visit: No Status: Acute Assessment and plan: - Significant wheezing noted on exam this morning. - Will switch from prednisone to Solu-Medrol 60 mg q8H for better COPD control. - Continue Symbicort, bronchodilators and supplemental oxygen. (4) Sleep apnea Current Visit: Yes Status: Chronic Assessment and plan: - Noted to have snoring and O2 sat drop to 85% on 4L NC while patient was sleeping this morning. - Patient reports being diagnosed with sleep apnea in the past but does not use CPAP at home. - Patient was qualified for BiPAP last night. - Continue BiPAP use at night. Qualifiers: Sleep apnea type: unspecified type Qualified Code(s): G47.30 - Sleep apnea , unspecified (5) Acute kidney injury (nontraumatic) Current Visit: No Status: Acute Assessment and plan: - SCr as high as 1.45 on 06/08/17. - Likely related to diuretic use, which has been discontinued. - Continue to improve as SCr 1.25 today. - Avoid nephrotoxin. - Continue to monitor renal function and electrolytes. (6) CAD (coronary artery disease) Current Visit: No Status: Chronic Assessment and plan: - Currently chest pain-free. - Continue home ASA, Plavix, metoprolol, statin Qualifiers: Coronary Disease-Associated Artery/Lesion type: [place] artery [place] vs. transplanted heart: [place] heart Associated angina: without angina Qualified Code(s): I25.10 - Atherosclerotic heart disease of [place] coronary artery without angina pectoris (7) HTN (hypertension) Current Visit: No Status: Chronic Assessment and plan: - BP within normal range. - Continue current antihypertensive regimen. RYANN-i has been held for given [place]. Qualifiers: Hypertension type: essential hypertension Qualified Code(s): I10 - Essential (primary) hypertension (8) DVT prophylaxis Current Visit: No Status: Acute Assessment and plan: - Continue SQ Heparin - Subjective Interval history: Patient was seen and examined this morning. Patient was noted to snore and have O2 sat drop to 85% on 4L NC while he is sleeping. The O2 sat increases to 88% when patient is awake. Patient still has some cough but otherwise breathing well. Patient denies chest pain, fever, chills. - Constitutional Vitals: Temp Pulse Resp BP Pulse Ox 97.2 F L 66 18 137/54 97 06/10/17 03:04 06/10/17 03:04 06/10/17 09:14 06/10/17 09:14 06/10/17 09:14 General appearance: Present: cooperative, pleasant, no acute distress, answers questions appropriately - Head Head exam: Present: atraumatic, normocephalic - Eye Eye exam: Present: EOMI, conjuntiva pink, sclera anicteric - Neck Neck exam general surgery: Present: normal inspection, supple, trachea midline - Respiratory Respiratory exam: Present: wheezes. Absent: accessory muscle use, rales, rhonchi - Cardiovascular Cardiovascular exam: Present: RRR, +S1, +S2 - GI/Abdominal GI/Abdominal exam: Present: normal bowel sounds, soft, no peritoneal signs. Absent: distended, tenderness - Extremities Exam Extremities exam: Present: warm. Absent: calf tenderness, cyanotic, pedal edema - Neurological Exam Neurological exam: Present: oriented X3, no focal deficits. Absent: facial droop, speech deficit - Skin Skin exam: Present: dry, intact, warm Internal Medicine: Result - Labs CBC & Chem 7: 06/10/17 03:30 06/10/17 03:30 Labs: Short CBC 06/10/17 Range/Units 03:30 WBC 12.8 H (4.3-11.1) K/mcL Hgb 8.9 L (12.9-16.9) g/dL Hct 29.5 L (37.5-50.1) % Plt Count 142 (140-400) K/mcL Neutrophils # 8.5 (1.6-8.9) K/mcL BMP 06/10/17 03:30 Sodium 137 Potassium 4.0 Chloride 98 Carbon Dioxide 35 H BUN 36 H Creatinine 1.25 Glucose 103 Calcium 9.4 - ABG Interpretation ABG results: ABG ABG pH 7.43 pH Units (7.32-7.45) 06/10/17 05:19 ABG pCO2 53 mmHg (35-45) H 06/10/17 05:19 ABG pO2 57 mmHg (85-104) L 06/10/17 05:19 ABG O2 Saturation 90 % (95-98) L 06/10/17 05:19 PT/INR, D-dimer PT 14.9 Seconds (9.4-12.1) H 05/31/17 11:11 - Impressions Impressions Chest X-Ray 06/09/17 09:28 IMPRESSION: Improving left base pneumonia D/ / Ronnie Lowery MD / Ronnie Lowery MD Interpreting Provider: Ronnie Lowery MD Consult Discharge Plan - Plan Referrals: Kadi Haywood CNP [Advanced Practice Nurse] - 06/16/17 1:45 pm <Carlito Hyman - Last Filed: 06/10/17 15:13> Date of Encounter: 06/10/17 - Constitutional Vitals: Temp Pulse Resp BP Pulse Ox 98.3 F 66 22 102/54 91 06/10/17 11:04 06/10/17 11:04 06/10/17 11:04 06/10/17 11:04 06/10/17 11:04 Internal Medicine: Result - Labs CBC & Chem 7: 06/10/17 03:30 06/10/17 03:30 Labs: Short CBC 06/10/17 Range/Units 03:30 WBC 12.8 H (4.3-11.1) K/mcL Hgb 8.9 L (12.9-16.9) g/dL Hct 29.5 L (37.5-50.1) % Plt Count 142 (140-400) K/mcL Neutrophils # 8.5 (1.6-8.9) K/mcL BMP 06/10/17 03:30 Sodium 137 Potassium 4.0 Chloride 98 Carbon Dioxide 35 H BUN 36 H Creatinine 1.25 Glucose 103 Calcium 9.4 - ABG Interpretation ABG results: ABG ABG pH 7.43 pH Units (7.32-7.45) 06/10/17 05:19 ABG pCO2 53 mmHg (35-45) H 06/10/17 05:19 ABG pO2 57 mmHg (85-104) L 06/10/17 05:19 ABG O2 Saturation 90 % (95-98) L 06/10/17 05:19 PT/INR, D-dimer PT 14.9 Seconds (9.4-12.1) H 05/31/17 11:11 - Attending Attestation I conducted a face to face diagnostic evaluation of this patient and my medical decision-making was reviewed with the Resident Physician, Dr Alycia Bashir. I agree with the documented findings, disposition and treatment plan as described except to the extent set forth below: Oxygen saturations 85% to be present with supplemental oxygen by nasal cannula at 3.5 L/m. ABG this morning indicates compensated chronic hypoxic hypercapnic respiratory failure. He qualifies for nighttime BiPAP. On exam he has expiratory wheezes and decreased breath sounds. COPD exacerbation seems to be worsening. I will switch him to IV steroids, continue inhaled bronchodilators, continue antibiotic therapy for 2 more days. Carlito Hyman MD
[2017-06-10] MEDS: Levofloxacin 750 MG/150 ML 750 MG/150 ML BAG IVPB SCH (10:59)
[2017-06-10] MEDS: Tiotropium 18 MCG inhalation IH SCH (11:52)
[2017-06-10] MEDS: methylPREDNISolone 125 MG/2 ML VIAL IVP SCH ×2 (15:49→23:04)
[2017-06-11] MEDS: Ipratropium/Albuterol Neb 3 ML IH SCH ×7 (00:14→23:44)
[2017-06-11 03:21] LABS: Hematocrit 28.8 % (37.5-50.1); Mean Corpuscular HGB Conc 31.3 g/dL (31.6-35.5); Mean Corpuscular Hemoglobin 30.2 pg (28.0-33.3); Mean Corpuscular Volume 96.6 fL (83.0-100.0); Mean Platelet Volume 11.3 fL (9.4-12.4); Nucleated Red Blood Cells 0.1 /100 WBC (0); Platelet Count 154 K/mcL (140-400); Red Blood Count 2.98 M/mcL (4.19-5.50); Red Cell Distribution Width 17.4 % (11.5-14.5)
[2017-06-11 03:35] LABS: BUN/Creatinine Ratio 28 (6-26); Blood Urea Nitrogen 39 mg/dL (8-23); Calcium 9.3 mg/dL (8.6-10.3); Carbon Dioxide 32 mEq/L (23-29); Chloride 98 mEq/L (98-107); Glucose 172 mg/dL (70-105); Osmolality,Calculated 293 (280-300); Potassium 4.6 mEq/L (3.5-5.1); Sodium 135 mEq/L (136-145); eGFR For African Americans > 60 (> 60); eGFR For Non-African Americans 52 (> 60)
[2017-06-11 03:55] LABS: Anisocytosis 1+ (Not Present); Lymphocytes # 0.9 K/mcL (0.6-4.6); Neutrophils # 12.9 K/mcL (1.6-8.9); Platelet Estimate Normal (Normal)
[2017-06-11] MEDS: Budesonide/Formoterol 160/4.5 MDI IH SCH ×2 (07:33→20:00)
[2017-06-11] MEDS: Metoprolol XL (24 HR) Succ 50 MG TAB.ER.24H PO SCH (08:20)
[2017-06-11] MEDS: methylPREDNISolone 125 MG/2 ML VIAL IVP SCH ×3 (08:20→23:53)
[2017-06-11] MEDS: *HR* Heparin 5,000 UNIT/ML VIAL SQ SCH ×3 (08:20→20:58)
[2017-06-11] MEDS: Aspirin 81 MG TAB.CHEW PO SCH (08:20)
[2017-06-11] MEDS: Carbidopa/Levodopa 25/100 TABLET PO SCH (08:20)
[2017-06-11] MEDS: Levofloxacin 750 MG/150 ML 750 MG/150 ML BAG IVPB SCH (08:20)
--- NOTE | 2017-06-11 09:53 | Internal Med Progress Note ---
<Alycia Bashir - Last Filed: 06/11/17 09:51> Date of Encounter: 06/11/17 Time of Encounter: 08:15 - Assessment and plan (1) Acute on chronic respiratory failure with hypoxia and hypercapnia Current Visit: Yes Status: Acute Assessment and plan: - Likely secondary to COPD exacerbation and multifocal pneumonia in the setting of underlying sleep apnea/OHS. - ABG on 06/10/17: PH 7.43, pCO2 53, pO2 57 and HCO3 35 on nasal cannula. - Conitnue steroid, Symbicort, bronchodilators and supplemental oxygen for COPD. - Continue antibiotic for pneumonia. - Continue BiPAP use at night and as needed. - Given patient's sleep apnea, COPD and chronic CO2 retention as suggested by ABG, patient is considered high risk to develop severe hypercapnic respiratoy failure and associated unresponsiveness if patient does not have home BiPAP while sleeping. Therefore patient needs to have BiPAP available for home use upon discharge. - Continue to monitor. (2) Multifocal pneumonia Current Visit: Yes Status: Acute Assessment and plan: - CT chest on 06/01/17 found multifocal pneumonia, worst in the left lower lobe. - Blood cultures from 05/31/17 had no growth. Negative urine antigens for Legionella and Strep. pneumonia. - Sputum culture from 06/02/17 found normal upper respiratory emmanuel. - CXR today suggests improving left base pneumonia. - Continue IV levofloxacin (since 05/31/17). Plan to have total 14-day course of antibiotic therapy (anticipate to finish on 06/13/17). (3) COPD with exacerbation Current Visit: No Status: Acute Assessment and plan: - Continue Solu-Medrol, Symbicort, bronchodilators and supplemental oxygen. (4) Sleep apnea Current Visit: Yes Status: Chronic Assessment and plan: - Noted to have snoring and O2 sat drop to low 80s on 4L NC while patient was sleeping on 06/10/17 - Patient reports being diagnosed with sleep apnea in the past but does not use CPAP at home. - Patient was qualified for nighttime BiPAP - Continue BiPAP use at night. Qualifiers: Sleep apnea type: unspecified type Qualified Code(s): G47.30 - Sleep apnea , unspecified (5) Acute kidney injury (nontraumatic) Current Visit: No Status: Acute Assessment and plan: - SCr as high as 1.45 on 06/08/17. - Likely related to diuretic use, which has been discontinued. - Stable as SCr 1.38 today. - Avoid nephrotoxin. - Continue to monitor renal function and electrolytes. (6) CAD (coronary artery disease) Current Visit: No Status: Chronic Assessment and plan: - Currently chest pain-free. - Continue home aspirin, Plavix, metoprolol, statin Qualifiers: Coronary Disease-Associated Artery/Lesion type: [place] artery [place] vs. transplanted heart: [place] heart Associated angina: without angina Qualified Code(s): I25.10 - Atherosclerotic heart disease of [place] coronary artery without angina pectoris (7) HTN (hypertension) Current Visit: No Status: Chronic Assessment and plan: - BP within normal range. - Continue current antihypertensive regimen. RYANN-i has been held for current renal failure. Qualifiers: Hypertension type: essential hypertension Qualified Code(s): I10 - Essential (primary) hypertension (8) DVT prophylaxis Current Visit: No Status: Acute Assessment and plan: - Continue SQ Heparin - Subjective Interval history: Patient was seen and examined this morning. Patient reports breathing okay but was noted to have occasional O2 sat drop to low 80s on 6L NC.Patient denies chest pain, fever, chills, abdominal pain. - Constitutional Vitals: Temp Pulse Resp BP Pulse Ox 97.7 F 73 19 106/77 85 06/11/17 04:11 06/11/17 04:11 06/11/17 04:16 06/11/17 04:11 06/11/17 04:16 General appearance: Present: cooperative, pleasant, no acute distress, answers questions appropriately - Head Head exam: Present: normocephalic - Eye Eye exam: Present: EOMI, sclera anicteric - Neck Neck exam general surgery: Present: supple, trachea midline - Respiratory Respiratory exam: Present: decreased breath sounds - Cardiovascular Cardiovascular exam: Present: RRR, +S1, +S2 - GI/Abdominal GI/Abdominal exam: Present: normal bowel sounds, soft, no peritoneal signs. Absent: tenderness - Extremities Exam Extremities exam: Present: warm. Absent: cyanotic, pedal edema - Neurological Exam Neurological exam: Present: alert, oriented X3. Absent: facial droop, speech deficit - Skin Skin exam: Present: dry, warm Internal Medicine: Result - Labs CBC & Chem 7: 06/11/17 03:11 06/11/17 03:11 Labs: Short CBC 06/11/17 Range/Units 03:11 WBC 14.7 H (4.3-11.1) K/mcL Hgb 9.0 L (12.9-16.9) g/dL Hct 28.8 L (37.5-50.1) % Plt Count 154 (140-400) K/mcL Neutrophils # 12.9 H (1.6-8.9) K/mcL BMP 06/11/17 03:11 Sodium 135 L Potassium 4.6 Chloride 98 Carbon Dioxide 32 H BUN 39 H Creatinine 1.38 H Glucose 172 H Calcium 9.3 - ABG Interpretation ABG results: ABG ABG pH 7.43 pH Units (7.32-7.45) 06/10/17 05:19 ABG pCO2 53 mmHg (35-45) H 06/10/17 05:19 ABG pO2 57 mmHg (85-104) L 06/10/17 05:19 ABG O2 Saturation 90 % (95-98) L 06/10/17 05:19 PT/INR, D-dimer PT 14.9 Seconds (9.4-12.1) H 05/31/17 11:11 Consult Discharge Plan - Plan Referrals: Kadi Haywood, RECORDS MANAGEMENT TECHNICIAN [Advanced Practice Nurse] - 06/16/17 1:45 pm <Carlito Hyman - Last Filed: 06/11/17 16:01> Date of Encounter: 06/11/17 - Constitutional Vitals: Temp Pulse Resp BP Pulse Ox 98.1 F 77 16 101/50 92 06/11/17 15:06 06/11/17 15:06 06/11/17 15:06 06/11/17 15:06 06/11/17 15:06 Internal Medicine: Result - Labs CBC & Chem 7: 06/11/17 03:11 06/11/17 03:11 Labs: Short CBC 06/11/17 Range/Units 03:11 WBC 14.7 H (4.3-11.1) K/mcL Hgb 9.0 L (12.9-16.9) g/dL Hct 28.8 L (37.5-50.1) % Plt Count 154 (140-400) K/mcL Neutrophils # 12.9 H (1.6-8.9) K/mcL BMP 06/11/17 03:11 Sodium 135 L Potassium 4.6 Chloride 98 Carbon Dioxide 32 H BUN 39 H Creatinine 1.38 H Glucose 172 H Calcium 9.3 - ABG Interpretation ABG results: ABG ABG pH 7.43 pH Units (7.32-7.45) 06/10/17 05:19 ABG pCO2 53 mmHg (35-45) H 06/10/17 05:19 ABG pO2 57 mmHg (85-104) L 06/10/17 05:19 ABG O2 Saturation 90 % (95-98) L 06/10/17 05:19 PT/INR, D-dimer PT 14.9 Seconds (9.4-12.1) H 05/31/17 11:11 - Attending Attestation I conducted a face to face diagnostic evaluation of this patient and my medical decision-making was reviewed with the Resident Physician, Dr Alycia Bashir. I agree with the documented findings, disposition and treatment plan as described except to the extent set forth below: Oxygen saturations 88% to 93% with 3.5 L/m by nasal cannula. Lung exam reveals good air movement bilaterally, improved from yesterday, still present expiratory wheezes. Scattered rales. Heart is regular. Extremities free of edema. Plan: Continue IV steroids. Inhaled bronchodilators. Incentive spirometry. Social work consult home BiPAP therapy. Carlito Hyman MD
[2017-06-11] MEDS: Tiotropium 18 MCG inhalation IH SCH (10:56)
[2017-06-12] MEDS: Ipratropium/Albuterol Neb 3 ML IH SCH ×6 (03:45→23:51)
[2017-06-12 04:27] LABS: Basophils % 0.3 %; Hematocrit 28.2 % (37.5-50.1); Hemoglobin 8.9 g/dL (12.9-16.9); Immature Granulocytes % 8.1 % (0-4); Lymphocytes % 6.5 %; Mean Corpuscular HGB Conc 31.6 g/dL (31.6-35.5); Mean Corpuscular Hemoglobin 30.4 pg (28.0-33.3); Mean Corpuscular Volume 96.2 fL (83.0-100.0); Mean Platelet Volume 11.3 fL (9.4-12.4); Monocytes % 4.8 %; Platelet Count 158 K/mcL (140-400); Red Blood Count 2.93 M/mcL (4.19-5.50); Red Cell Distribution Width 17.9 % (11.5-14.5); Segmented Neutrophils % 80.3 %
[2017-06-12 04:28] LABS: Basophils # 0.1 K/mcL (0.0-0.2); Lymphocytes # 1.3 K/mcL (0.6-4.6); Nucleated Red Blood Cells 0.2 /100 WBC (0)
[2017-06-12 04:38] LABS: Neutrophils # 16.1 K/mcL (1.6-8.9)
[2017-06-12 04:45] LABS: Calcium 9.2 mg/dL (8.6-10.3); Potassium 4.8 mEq/L (3.5-5.1)
[2017-06-12 04:49] LABS: Anisocytosis 1+ (Not Present); Large Platelets Present (Not Present); Platelet Estimate Normal (Normal); Reactive Lymphocytes Present (Not Present); Toxic Granulation Present (Not Present); Toxic Vacuolation Present (Not Present)
[2017-06-12] MEDS: *HR* Heparin 5,000 UNIT/ML VIAL SQ SCH ×3 (06:09→20:42)
[2017-06-12] MEDS: Tiotropium 18 MCG inhalation IH SCH (07:31)
[2017-06-12] MEDS: Carbidopa/Levodopa 25/100 TABLET PO SCH (07:45)
[2017-06-12] MEDS: Sennosides/Docusate Sodium TABLET PO PRN ×2 (07:45→20:41)
[2017-06-12] MEDS: Aspirin 81 MG TAB.CHEW PO SCH (07:45)
[2017-06-12] MEDS: Metoprolol XL (24 HR) Succ 50 MG TAB.ER.24H PO SCH (07:46)
[2017-06-12] MEDS: methylPREDNISolone 125 MG/2 ML VIAL IVP SCH ×2 (07:46→15:45)
--- NOTE | 2017-06-12 09:37 | Internal Med Progress Note ---
<Alycia Bashir - Last Filed: 06/12/17 10:49> Date of Encounter: 06/12/17 Time of Encounter: 08:30 - Assessment and plan (1) Acute on chronic respiratory failure with hypoxia and hypercapnia Current Visit: Yes Status: Acute Assessment and plan: - Likely secondary to COPD exacerbation and multifocal pneumonia in the setting of underlying sleep apnea/OHS. - ABG on 06/10/17: PH 7.43, pCO2 53, pO2 57 and HCO3 35 on nasal cannula. - Conitnue steroid, Symbicort, bronchodilators and supplemental oxygen for COPD. - Continue antibiotic for pneumonia. - Continue BiPAP use at night and as needed. - Continue incentive spirometry. - Given patient's sleep apnea, COPD and chronic CO2 retention as suggested by ABG, patient is considered high risk to develop severe hypercapnic respiratoy failure and associated unresponsiveness if patient does not have home BiPAP while sleeping. Therefore patient needs to have BiPAP available for home use upon discharge. Possible discharge tomorrow as we anticipate to have home BiPAP set up tomorrow. - Continue to monitor. (2) Multifocal pneumonia Current Visit: Yes Status: Acute Assessment and plan: - CT chest on 06/01/17 found multifocal pneumonia, worst in the left lower lobe. - Blood cultures from 05/31/17 had no growth. Negative urine antigens for Legionella and Strep. pneumonia. - Sputum culture from 06/02/17 found normal upper respiratory emmanuel. - CXR on 06/09/17 suggests improving left base pneumonia. - Continue levofloxacin (since 05/31/17). Plan to have total 14-day course of antibiotic therapy (anticipate to finish on 06/13/17). (3) COPD with exacerbation Current Visit: No Status: Acute Assessment and plan: - Continue Solu-Medrol, Symbicort, bronchodilators and supplemental oxygen. (4) Sleep apnea Current Visit: Yes Status: Chronic Assessment and plan: - Noted to have snoring and O2 sat drop to low 80s on 4L NC while patient was sleeping on 06/10/17 - Patient reports being diagnosed with sleep apnea in the past but does not use CPAP at home. - Patient was qualified for nighttime BiPAP - Continue BiPAP use at night. Qualifiers: Sleep apnea type: unspecified type Qualified Code(s): G47.30 - Sleep apnea , unspecified (5) Acute kidney injury (nontraumatic) Current Visit: No Status: Acute Assessment and plan: - SCr as high as 1.45 on 06/08/17. - Likely related to diuretic use, which has been discontinued since 06/08/17. - Slightly worsen as SCr 1.58 today (was 1.38 yesterday). - Avoid nephrotoxin. - Continue to monitor renal function and electrolytes. (6) CAD (coronary artery disease) Current Visit: No Status: Chronic Assessment and plan: - Currently chest pain-free. - Continue home aspirin, Plavix, metoprolol, statin Qualifiers: Coronary Disease-Associated Artery/Lesion type: [place] artery [place] vs. transplanted heart: [place] heart Associated angina: without angina Qualified Code(s): I25.10 - Atherosclerotic heart disease of [place] coronary artery without angina pectoris (7) HTN (hypertension) Current Visit: No Status: Chronic Assessment and plan: - BP within normal range. - Continue current antihypertensive regimen. RYANN-i has been held for current renal failure. Qualifiers: Hypertension type: essential hypertension Qualified Code(s): I10 - Essential (primary) hypertension (8) DVT prophylaxis Current Visit: No Status: Acute Assessment and plan: - Continue SQ Heparin - Subjective Interval history: Patient was seen and examined this morning. Patient reports breathing well and getting some good sleep on BiPAP last night. Patient denies chest pain, fever, chills, abdominal pain, diarrhea. Patient reports normal oral fluid intake and no urinary problem noted. - Constitutional Vitals: Temp Pulse Resp BP Pulse Ox 98 F 70 18 92/46 90 06/12/17 05:06 06/12/17 07:48 06/12/17 07:48 06/12/17 07:48 06/12/17 07:48 General appearance: Present: cooperative, pleasant, no acute distress, answers questions appropriately - Head Head exam: Present: normal inspection - Eye Eye exam: Present: EOMI, conjuntiva pink, sclera anicteric - Neck Neck exam general surgery: Present: supple, trachea midline - Respiratory Respiratory exam: Present: CTAB. Absent: accessory muscle use, rales, rhonchi, wheezes - Cardiovascular Cardiovascular exam: Present: RRR, +S1, +S2 - GI/Abdominal GI/Abdominal exam: Present: normal bowel sounds, soft, no peritoneal signs. Absent: tenderness - Extremities Exam Extremities exam: Present: warm. Absent: cyanotic, pedal edema - Neurological Exam Neurological exam: Present: alert, no focal deficits. Absent: facial droop, speech deficit - Skin Skin exam: Present: dry, intact, warm Internal Medicine: Result - Labs CBC & Chem 7: 06/12/17 04:18 06/12/17 04:18 Labs: Short CBC 06/12/17 Range/Units 04:18 WBC 20.1 H (4.3-11.1) K/mcL Hgb 8.9 L (12.9-16.9) g/dL Hct 28.2 L (37.5-50.1) % Plt Count 158 (140-400) K/mcL Neutrophils # 16.1 H (1.6-8.9) K/mcL BMP 06/12/17 04:18 Sodium 135 L Potassium 4.8 Chloride 98 Carbon Dioxide 32 H BUN 46 H Creatinine 1.58 H Glucose 167 H Calcium 9.2 - ABG Interpretation ABG results: ABG ABG pH 7.43 pH Units (7.32-7.45) 06/10/17 05:19 ABG pCO2 53 mmHg (35-45) H 06/10/17 05:19 ABG pO2 57 mmHg (85-104) L 06/10/17 05:19 ABG O2 Saturation 90 % (95-98) L 06/10/17 05:19 PT/INR, D-dimer PT 14.9 Seconds (9.4-12.1) H 05/31/17 11:11 Consult Discharge Plan - Plan Referrals: Kadi Haywood, PERINATAL NURSE [Advanced Practice Nurse] - 06/16/17 1:45 pm <Carlito Hyman - Last Filed: 06/12/17 13:33> Date of Encounter: 06/12/17 - Constitutional Vitals: Temp Pulse Resp BP Pulse Ox 98.9 F 65 17 108/54 92 06/12/17 11:57 06/12/17 11:57 06/12/17 11:57 06/12/17 11:57 06/12/17 11:57 Internal Medicine: Result - Labs CBC & Chem 7: 06/12/17 04:18 06/12/17 04:18 Labs: Short CBC 06/12/17 Range/Units 04:18 WBC 20.1 H (4.3-11.1) K/mcL Hgb 8.9 L (12.9-16.9) g/dL Hct 28.2 L (37.5-50.1) % Plt Count 158 (140-400) K/mcL Neutrophils # 16.1 H (1.6-8.9) K/mcL BMP 06/12/17 04:18 Sodium 135 L Potassium 4.8 Chloride 98 Carbon Dioxide 32 H BUN 46 H Creatinine 1.58 H Glucose 167 H Calcium 9.2 - ABG Interpretation ABG results: ABG ABG pH 7.43 pH Units (7.32-7.45) 06/10/17 05:19 ABG pCO2 53 mmHg (35-45) H 06/10/17 05:19 ABG pO2 57 mmHg (85-104) L 06/10/17 05:19 ABG O2 Saturation 90 % (95-98) L 06/10/17 05:19 PT/INR, D-dimer PT 14.9 Seconds (9.4-12.1) H 05/31/17 11:11 - Attending Attestation I conducted a face to face diagnostic evaluation of this patient and my medical decision-making was reviewed with the Resident Physician, Dr Alycia Bashir. I agree with the documented findings, disposition and treatment plan as described except to the extent set forth below: Patient is in no acute distress, saturating 93% on 4 L. Lungs are clear, heart is regular. Plan: Continue with IV steroids. Plan to de-escalate tomorrow. Continue bronchodilators. BiPAP daily at bedtime. Carlito Hyman MD
[2017-06-12] MEDS: Budesonide/Formoterol 160/4.5 MDI IH SCH ×2 (10:53→20:21)
[2017-06-12] MEDS: levoFLOXacin 750 MG TABLET PO SCH (11:10)
[2017-06-13] MEDS: methylPREDNISolone 125 MG/2 ML VIAL IVP SCH ×2 (00:13→07:21)
[2017-06-13] MEDS: Ipratropium/Albuterol Neb 3 ML IH SCH ×3 (04:22→11:20)
[2017-06-13 04:42] LABS: BUN/Creatinine Ratio 30 (6-26); Blood Urea Nitrogen 42 mg/dL (8-23); Calcium 9.2 mg/dL (8.6-10.3); Carbon Dioxide 31 mEq/L (23-29); Chloride 99 mEq/L (98-107); Glucose 156 mg/dL (70-105); Osmolality,Calculated 294 (280-300); Potassium 4.5 mEq/L (3.5-5.1); Sodium 135 mEq/L (136-145); eGFR For African Americans > 60 (> 60); eGFR For Non-African Americans 51 (> 60)
[2017-06-13 04:48] LABS: Hematocrit 26.5 % (37.5-50.1); Hemoglobin 8.2 g/dL (12.9-16.9); Mean Corpuscular HGB Conc 30.9 g/dL (31.6-35.5); Mean Corpuscular Volume 97.1 fL (83.0-100.0); Mean Platelet Volume 11.3 fL (9.4-12.4); Nucleated Red Blood Cells 0.3 /100 WBC (0); Platelet Count 178 K/mcL (140-400); Red Blood Count 2.73 M/mcL (4.19-5.50); Red Cell Distribution Width 17.9 % (11.5-14.5)
[2017-06-13 05:19] LABS: Lymphocytes # 4.1 K/mcL (0.6-4.6); Monocytes # 1.5 K/mcL (0.0-1.3); Platelet Estimate Normal (Normal)
[2017-06-13] MEDS: *HR* Heparin 5,000 UNIT/ML VIAL SQ SCH (05:44)
[2017-06-13] MEDS: Aspirin 81 MG TAB.CHEW PO SCH (07:21)
[2017-06-13] MEDS: levoFLOXacin 750 MG TABLET PO SCH (07:21)
[2017-06-13] MEDS: Carbidopa/Levodopa 25/100 TABLET PO SCH (07:21)
[2017-06-13] MEDS: Metoprolol XL (24 HR) Succ 50 MG TAB.ER.24H PO SCH (07:21)
[2017-06-13] MEDS: Budesonide/Formoterol 160/4.5 MDI IH SCH (07:46)
--- NOTE | 2017-06-13 08:33 | Discharge Summary ---
<Alycia Bashir - Last Filed: 06/13/17 10:46> Date of Encounter: 06/13/17 Time of Encounter: 08:00 - Discharge Diagnosis (1) Acute on chronic respiratory failure with hypoxia and hypercapnia Priority: Primary Status: Acute (2) Multifocal pneumonia Priority: Secondary Status: Acute (3) COPD with exacerbation Priority: Secondary Status: Acute (4) Sleep apnea Priority: Secondary Status: Chronic Qualifiers: Sleep apnea type: unspecified type Qualified Code(s): G47.30 - Sleep apnea , unspecified (5) Acute kidney injury (nontraumatic) Priority: Secondary Status: Acute (6) CAD (coronary artery disease) Priority: Secondary Status: Chronic Qualifiers: Coronary Disease-Associated Artery/Lesion type: [place] artery [place] vs. transplanted heart: [place] heart Associated angina: without angina Qualified Code(s): I25.10 - Atherosclerotic heart disease of [place] coronary artery without angina pectoris (7) HTN (hypertension) Priority: Secondary Status: Chronic Qualifiers: Hypertension type: essential hypertension Qualified Code(s): I10 - Essential (primary) hypertension - Discharge Medications Prescriptions: predniSONE [PredniSONE] See Taper PO DAILY #30 tablet Home Medications: Albuterol Sulfate [Ventolin Hfa] 2 puff IH BID PRN 06/03/16 [History] Aspirin 81 mg PO DAILY 06/03/16 [History] Budesonide/Formoterol 160/4.5 [Symbicort 160/4.5] 2 puff IH BIDR 06/03/16 [ History] Calcium Carbonate [Calcium] 600 mg PO BID 06/03/16 [History] Lovastatin 40 mg PO HS 06/03/16 [History] Carbidopa/Levodopa 25/100 [Sinemet 25/100] 1 tab PO DAILY 05/31/17 [History] Clopidogrel [Plavix] 75 mg PO DAILY 05/31/17 [History] Metoprolol XL (24 HR) Succ [Toprol Xl] 100 mg PO DAILY 05/31/17 [History] Spironolactone [Aldactone] 25 mg PO DAILY 05/31/17 [History] Tiotropium [place] [Spiriva Respimat] 2 puff IH DAILY 05/31/17 [History] predniSONE [PredniSONE] See Taper PO DAILY #30 tablet 06/13/17 [Rx] Allergies/Adverse Reactions: 3 Allergy/AdvReac Type Severity Reaction Status Date / Time Hydromorphone [From Dilaudid] Allergy Hives Verified 05/31/17 10:29 Date of admission: 05/31/17 12:50 Primary care physician: Heron Vincent Jr, MD Consults: 05/31/17 13:28 Consult to Nurse Navigator [CONS] Routine Comment: 05/31/17 13:30 Consult to Nurse Navigator [CONS] Routine Comment: 06/06/17 08:56 Consult to Occupational Therapy [CONS] Routine Comment: Evaluate, develop and implement POC Reason for Consult: weakness, lives alone; may need HH/rehab upon DC Consult to Physical Therapy [CONS] Routine Comment: Evaluate, develop and implement POC Reason for Consult: weakness, lives alone; may need HH/rehab upon DC Consult to Signal Maintainer [CONS] Routine Reason for SW Consult: weakness, lives alone; may need HH/rehab upon DC Discharging clinician: Alycia Bashir Anticipated date of discharge: 06/13/17 - Patient Status Disposition: Home, Self-Care Condition: Good Functional capacity at discharge: independent ambulation Overall status at discharge: patient is progressing back to baseline - Discharge Instructions Instructions: Acute Respiratory Distress Syndrome (DC), Chronic Obstructive Pulmonary Disease (DC), Pneumonia (DC) Follow Up With: Kadi Hayowod CNP [Advanced Practice Nurse] - 06/16/17 1:45 pm Additional Instructions: Please take prescribed prednisone taper: 40 mg daily x 3 days, then 30mg daily x 3 days, followed by 20 mg daily x 3 days and finally 10 mg daily x 3 days. Please use BiPAP during your sleep at night and as needed. Please follow up with your primary care provider Kadi Haywood on 06/16/17. - Diet and Activity Activity: increase activity as tolerated Diet: advance to your usual diet Hospital course: Mr. Cruz is a 61 year old male with PMH of COPD on 3L home O2, CAD, CVA, hypertension and hyperlipidemia who presented to [facility] ED with complaint of shortness of breath. In ED, patient was noted to have WBC 41.6, RR 32, and HR 106 along with lactic acid 2.5 and blood pressure 65/45 despite bolus of IV fluid. Right IJ CVC was inserted in the ED and BP improved with Levophed. CXR found multifocal pneumonia, left significantly worse than right. Initial ABG showed pH 7.13, pCO2 59, pO2 71, HCO3 20 suggestive of respiratory failure with hypoxia and hypercapnia. Patient was admitted to ICU on 05/31/17 for septic shock secondary to pneumonia and started on IV vancomycin, levofloxacin and azithromycin. Patient's condition slowly improved in ICU and patient was off from pressor since 06/03/17. Antibiotic therapy was de-escalated to IV levofloxacin only since 06/04/17. And patient was transferred out of ICU on . On the medical floor, patient continues to improve clinically but was also noted to desaturation to low 80s on 4L NC while patient was sleeping. Patient admits being diagnosed with sleep apnea in the past but he never use CPAP at home. Patient is qualified for BiPAP. Given patient's sleep apnea, COPD and chronic CO2 retention as suggested by ABG, patient is considered high risk to develop severe hypercapnic respiratoy failure and associated unresponsiveness if patient does not have home BiPAP while sleeping. On 06/13/17 , patient finishes his 14-day course of levofloxacin for multifocal pneumonia and remains acceptable oxygenation on 3L NC. Given patient improves clinically and remains hemodynamically stable, patient can be discharge home once his home BiPAP is set up and ready. Patient is instructed to take prescribed prednisone taper: 40 mg daily x 3 days, then 30mg daily x 3 days, followed by 20 mg daily x 3 days and finally 10 mg daily x 3 days. Patient is also instructed to use BiPAP during sleep at night and as needed. Patient will follow up with his primary care provider Kadi Haywood on 06/16/17. Patient expressed understanding and agreement with the discharge plan. All questions were answered. - Time Spent with Patient Total time spent providing and/or coordinating discharge services: Greater than 30 minutes (46 minutes) - Constitutional Vitals: Temp Pulse Resp BP Pulse Ox 97.7 F 65 15 100/41 93 06/13/17 06:52 06/13/17 06:52 06/13/17 07:49 06/13/17 06:52 06/13/17 07:49 General appearance: Present: cooperative, pleasant, no acute distress, answers questions appropriately - Head Head exam: Present: normal inspection - Eye Eye exam: Present: EOMI, conjuntiva pink, sclera anicteric - Neck Neck exam general surgery: Present: supple, trachea midline - Respiratory Respiratory exam: Present: CTAB. Absent: accessory muscle use, rales, rhonchi, wheezes - Cardiovascular Cardiovascular exam: Present: RRR, +S1, +S2 - GI/Abdominal GI/Abdominal exam: Present: normal bowel sounds, soft, no peritoneal signs. Absent: tenderness - Extremities Exam Extremities exam: Present: warm. Absent: cyanotic, pedal edema - Neurological Exam Neurological exam: Present: alert, oriented X3. Absent: facial droop, speech deficit - Skin Skin exam: Present: dry, warm <Royce Hymanvan - Last Filed: 06/13/17 18:39> Date of Encounter: 06/13/17 Date of admission: 05/31/17 12:50 Primary care physician: Heron Vincent Jr, MD Consults: 05/31/17 13:28 Consult to Nurse Navigator [CONS] Routine Comment: 05/31/17 13:30 Consult to Nurse Navigator [CONS] Routine Comment: 06/06/17 08:56 Consult to Occupational Therapy [CONS] Routine Comment: Evaluate, develop and implement POC Reason for Consult: weakness, lives alone; may need HH/rehab upon DC Consult to Physical Therapy [CONS] Routine Comment: Evaluate, develop and implement POC Reason for Consult: weakness, lives alone; may need HH/rehab upon DC Consult to Signal Maintainer [CONS] Routine Reason for SW Consult: weakness, lives alone; may need HH/rehab upon DC Hospital course: Mr. Cruz is a 61 year old male - Time Spent with Patient Total time spent providing and/or coordinating discharge services: - Constitutional Vitals: Temp Pulse Resp BP Pulse Ox 98.5 F 72 18 111/62 96 06/13/17 10:53 06/13/17 10:53 06/13/17 11:22 06/13/17 10:53 06/13/17 11:22 - Attending Attestation I conducted a face to face diagnostic evaluation of this patient and my medical decision-making was reviewed with the Resident Physician, Dr Alycia Bashir. I agree with the documented findings, disposition and treatment plan as described except to the extent set forth below: On exam the patient is in no acute distress. Oxygen saturation is 96% on 3 L. Lungs are clear. Heart is regular Plan: Discharge home with prednisone taper and home BiPAP. Carlito Hyman MD
[2017-06-13 10:57] VITALS: BP 111/62
== END 2017-06-13 12:46 | disposition home or self-care (01) | DRG 871 ==
LOC: EMEROO 10:20 → ICNU 12:50 → SUATTDRO 12:50 → ICNU 12:52 → 2NNU 06-05 16:28
PROVIDERS: ADMIT Internal Medicine Pulmonary Disease; ATTEND Internal Medicine

== ENCOUNTER 2021-09-14 11:37 | Inpatient (IN) ==
[2021-09-14 12:13] LABS: Basophils % 0.1 %
[2021-09-14 12:15] LABS: Eosinophils # 0.1 K/mcL (0.0-0.6); Eosinophils % 0.9 %; Hematocrit 25.7 % (37.5-50.1); Hemoglobin 7.9 g/dL (12.9-16.9); Immature Granulocytes % 2.2 % (0-4); Immature Platelets 13.7 % (1.1-6.1); Lymphocytes # 1.7 K/mcL (0.6-4.6); Lymphocytes % 12.3 %; Mean Corpuscular HGB Conc 30.7 g/dL (31.6-35.5); Mean Corpuscular Hemoglobin 31.5 pg (28.0-33.3); Mean Corpuscular Volume 102.4 fL (83.0-100.0); Mean Platelet Volume 11.9 fL (9.4-12.4); Monocytes # 2.3 K/mcL (0.0-1.3); Monocytes % 17.1 %; Neutrophils # 9.1 K/mcL (1.6-8.9); Red Blood Count 2.51 M/mcL (4.19-5.50); Red Cell Distribution Width 19.2 % (11.5-14.5); Segmented Neutrophils % 67.4 %; White Blood Count 13.5 K/mcL (4.3-11.1)
[2021-09-14 12:16] LABS: Platelet Count 18 K/mcL (140-400)
[2021-09-14 12:22] LABS: Bilirubin,Urine Negative (Negative); Blood,Urine Large (Negative); Clarity,Urine Turbid (Clear); Color,Urine Yellow (Yellow); Glucose,Urine (UA) Normal (Normal); Ketones,Urine Negative (Negative); Leukocyte Esterase,Urine Moderate (Negative); Nitrite,Urine Negative (Negative); Protein,Urine 100 mg/dL (Neg-Trace); Urobilinogen,Urine Normal (Normal)
[2021-09-14 12:25] LABS: Activated Partial Thrombo Time 26.9 Seconds (26.0-36.0); INR 1.4; Prothrombin Time 15.2 Seconds (9.4-12.1)
[2021-09-14 12:34] LABS: Calcium 8.6 mg/dL (8.6-10.3)
[2021-09-14 12:36] LABS: Budding Yeast,Urine Many per hpf (None Seen)
[2021-09-14 12:37] LABS: RBC,Urine 15-30 per hpf (0-3); WBC,Urine 15-30 per hpf (0-3)
[2021-09-14 12:37] LABS: Troponin I 0.04 ng/mL (< 0.04)
[2021-09-14 12:38] LABS: Squamous Epithelial Cell,Urine Few per hpf (None-Few); Uric Acid Crystals,Urine Present per hpf
[2021-09-14] MEDS ORDERED: 0.9 % Sodium Chloride 1,000 ML ONE (12:41)
[2021-09-14] MEDS ORDERED: 0.9 % Sodium Chloride 1,000 ML IVC ONE (12:41)
[2021-09-14] MEDS ORDERED: Acetaminophen 325 MG TABLET PO PRN (14:30)
[2021-09-14] MEDS ORDERED: Naloxone 0.4 MG/ML INJ IVP PRN (14:30)
[2021-09-14] MEDS ORDERED: Ondansetron 4 MG/2 ML VIAL IVP PRN (14:30)
[2021-09-14] MEDS ORDERED: Dextrose 4 GM Chewable Tablets PO PRN ×2 (17:49)
[2021-09-14] MEDS ORDERED: *HR* Dextrose 50 % in Water (Syg) 50 ML SYRINGE IVP PRN (17:49)
[2021-09-14] MEDS ORDERED: D5% in Water 1,000 ML IVC PRN (17:49)
[2021-09-14] MEDS ORDERED: Ipratropium/Albuterol Neb 3 ML IH PRN (17:49)
[2021-09-14] MEDS: cefTRIAXone 1,000 MG in 0.9 % Sodium Chloride 10 ML IVP SCH (18:21)
[2021-09-14] MEDS ORDERED: 0.9 % Sodium Chloride 250 ML ONE (20:26)
[2021-09-14] MEDS ORDERED: Insulin LISPRO 300 UNITS/3 ML VIAL SUBQ SCH (21:00)
[2021-09-15] MEDS ORDERED: Menthol 1 EACH LOZENGE PO PRN (00:02)
[2021-09-15 04:01] LABS: Basophils % 0.1 %; Eosinophils # 0.1 K/mcL (0.0-0.6); Eosinophils % 1.2 %; Hematocrit 23.1 % (37.5-50.1); Hemoglobin 7.1 g/dL (12.9-16.9); Immature Granulocytes % 2.2 % (0-4); Immature Platelets 7.7 % (1.1-6.1); Lymphocytes # 1.5 K/mcL (0.6-4.6); Lymphocytes % 13.2 %; Mean Corpuscular HGB Conc 30.7 g/dL (31.6-35.5); Mean Corpuscular Volume 104.1 fL (83.0-100.0); Mean Platelet Volume 11.3 fL (9.4-12.4); Monocytes # 2.1 K/mcL (0.0-1.3); Monocytes % 18.8 %; Neutrophils # 7.4 K/mcL (1.6-8.9); Red Blood Count 2.22 M/mcL (4.19-5.50); Segmented Neutrophils % 64.5 %; White Blood Count 11.4 K/mcL (4.3-11.1)
[2021-09-15 04:05] LABS: Platelet Count 25 K/mcL (140-400)
[2021-09-15 04:21] LABS: INR 1.3; Prothrombin Time 14.1 Seconds (9.4-12.1)
[2021-09-15 04:34] LABS: Magnesium 1.4 mg/dL (1.6-2.6); Potassium 3.7 mEq/L (3.5-5.1)
[2021-09-15 04:45] LABS: Estimated Average Glucose 108 mg/dl; Hemoglobin A1C 5.4 %
[2021-09-15 07:14] LABS: Bilirubin,Direct 0.2 mg/dL (0.0-0.2); Bilirubin,Indirect 0.6 mg/dL (0.0-1.0); Bilirubin,Total 0.8 mg/dL (0.3-1.0); Globulin 2.9 g/dL (2.4-3.5); Total Protein 5.9 g/dL (6.4-8.9)
[2021-09-15] MEDS: Insulin LISPRO 300 UNITS/3 ML VIAL SUBQ SCH ×2 (08:14→11:52)
[2021-09-15] MEDS: Metoprolol 100 MG TABLET PO SCH ×2 (08:23→21:16)
[2021-09-15] MEDS: rOPINIRole 0.25 MG TABLET PO SCH ×3 (08:30→21:15)
[2021-09-15] MEDS: *HR* Amiodarone 200 MG TABLET PO SCH (08:30)
[2021-09-15] MEDS: Sennosides 8.6 MG TABLET PO SCH ×2 (08:30→21:16)
[2021-09-15] MEDS: cefTRIAXone 1,000 MG in 0.9 % Sodium Chloride 10 ML IVP SCH (08:31)
[2021-09-15] MEDS: polyethylene glycoL 3350 17 GM POWD.PACK PO SCH (08:33)
[2021-09-15 09:18] LABS: Folate 8.3 ng/mL (3.0-16.0)
[2021-09-16 05:31] LABS: Basophils % 0.1 %; Red Cell Distribution Width 18.6 % (11.5-14.5)
[2021-09-16 05:33] LABS: Eosinophils # 0.1 K/mcL (0.0-0.6); Eosinophils % 1.5 %; Hematocrit 24.3 % (37.5-50.1); Hemoglobin 7.4 g/dL (12.9-16.9); Immature Granulocytes % 2.6 % (0-4); Immature Platelets 8.2 % (1.1-6.1); Lymphocytes # 1.4 K/mcL (0.6-4.6); Lymphocytes % 15.8 %; Mean Corpuscular HGB Conc 30.5 g/dL (31.6-35.5); Mean Corpuscular Volume 105.2 fL (83.0-100.0); Mean Platelet Volume 10.9 fL (9.4-12.4); Monocytes % 16.2 %; Neutrophils # 5.7 K/mcL (1.6-8.9); Red Blood Count 2.31 M/mcL (4.19-5.50); Segmented Neutrophils % 63.8 %; White Blood Count 8.9 K/mcL (4.3-11.1)
[2021-09-16 05:43] LABS: Monocytes # 1.4 K/mcL (0.0-1.3)
[2021-09-16 05:44] LABS: Platelet Count 22 K/mcL (140-400)
[2021-09-16 05:53] LABS: Calcium 8.2 mg/dL (8.6-10.3); Potassium 3.9 mEq/L (3.5-5.1)
[2021-09-16 07:06] LABS: Anisocytosis 1+ (Not Present); Platelet Estimate Marked Decrease (Normal); Stomatocytes 1+ (Not Present)
[2021-09-16] MEDS: Sennosides 8.6 MG TABLET PO SCH ×2 (08:12→20:43)
[2021-09-16] MEDS: *HR* Amiodarone 200 MG TABLET PO SCH (08:13)
[2021-09-16] MEDS: Metoprolol 100 MG TABLET PO SCH ×2 (08:13→20:43)
[2021-09-16] MEDS: polyethylene glycoL 3350 17 GM POWD.PACK PO SCH (08:13)
[2021-09-16] MEDS: rOPINIRole 0.25 MG TABLET PO SCH ×3 (08:13→20:43)
[2021-09-16] MEDS: cefTRIAXone 1,000 MG in 0.9 % Sodium Chloride 10 ML IVP SCH (08:14)
[2021-09-17 05:30] LABS: Hemoglobin 7.5 g/dL (12.9-16.9); Red Cell Distribution Width 18.4 % (11.5-14.5)
[2021-09-17 05:32] LABS: Basophils % 0.1 %; Eosinophils # 0.1 K/mcL (0.0-0.6); Hematocrit 24.8 % (37.5-50.1); Immature Platelets 9.2 % (1.1-6.1); Lymphocytes # 1.6 K/mcL (0.6-4.6); Lymphocytes % 19.9 %; Mean Corpuscular HGB Conc 30.2 g/dL (31.6-35.5); Mean Corpuscular Hemoglobin 31.8 pg (28.0-33.3); Mean Corpuscular Volume 105.1 fL (83.0-100.0); Mean Platelet Volume 10.6 fL (9.4-12.4); Monocytes # 1.5 K/mcL (0.0-1.3); Monocytes % 18.1 %; Neutrophils # 4.6 K/mcL (1.6-8.9); Red Blood Count 2.36 M/mcL (4.19-5.50); Segmented Neutrophils % 55.9 %; White Blood Count 8.2 K/mcL (4.3-11.1)
[2021-09-17 05:49] LABS: Platelet Count 22 K/mcL (140-400)
[2021-09-17 06:01] LABS: Calcium 8.3 mg/dL (8.6-10.3); Magnesium 1.4 mg/dL (1.6-2.6); Potassium 3.8 mEq/L (3.5-5.1)
[2021-09-17 06:17] LABS: Anisocytosis 1+ (Not Present); Macrocytosis Present (Not Present); Platelet Estimate Marked Decrease (Normal)
[2021-09-17] MEDS: Sennosides 8.6 MG TABLET PO SCH ×2 (09:02→20:56)
[2021-09-17] MEDS: polyethylene glycoL 3350 17 GM POWD.PACK PO SCH (09:02)
[2021-09-17] MEDS: *HR* Amiodarone 200 MG TABLET PO SCH (09:02)
[2021-09-17] MEDS: rOPINIRole 0.25 MG TABLET PO SCH ×3 (09:02→20:55)
[2021-09-17] MEDS: Metoprolol 100 MG TABLET PO SCH ×2 (09:02→20:56)
[2021-09-18 06:20] VITALS: BP 108/68; PULSE 59; TEMP 97.7; O2SAT 93
[2021-09-18 06:25] LABS: Hemoglobin 7.5 g/dL (12.9-16.9); Mean Corpuscular Hemoglobin 31.3 pg (28.0-33.3); Red Blood Count 2.4 M/mcL (4.19-5.50); Red Cell Distribution Width 18.3 % (11.5-14.5)
[2021-09-18 06:27] LABS: Hematocrit 25.5 % (37.5-50.1); Immature Platelets 7.5 % (1.1-6.1); Mean Corpuscular HGB Conc 29.4 g/dL (31.6-35.5); Mean Corpuscular Volume 106.3 fL (83.0-100.0); Mean Platelet Volume 9.7 fL (9.4-12.4); White Blood Count 8.1 K/mcL (4.3-11.1)
[2021-09-18] MEDS: rOPINIRole 0.25 MG TABLET PO SCH (07:28)
[2021-09-18] MEDS: *HR* Amiodarone 200 MG TABLET PO SCH (07:28)
[2021-09-18] MEDS: Sennosides 8.6 MG TABLET PO SCH (07:28)
[2021-09-18] MEDS: Metoprolol 100 MG TABLET PO SCH (07:28)
[2021-09-18] MEDS: polyethylene glycoL 3350 17 GM POWD.PACK PO SCH (07:28)
== END 2021-09-18 10:59 | disposition other institution (70) | DRG 813 ==
LOC: EMEROOARM 11:37 → 2ANU 11:37 → SUATTDRO 14:16 → 2ANU 14:40
PROVIDERS: ADMIT Pharmacist; ATTEND Internal Medicine